=== PATIENT | female | born 1935 | race Caucasian/White ===

== ENCOUNTER → 2016-02-20 | Outpatient (CLI) | payer OTHER, MEDICARE ==
[~2016-02-20] MED LIST: ACET-1256 PO; ACETTAB14 PO; ASPI81TA28 PO; CARB25TA14 PO; CMD25 PO; DILT360C17 PO; FLAX12003 PO; FLX10 PO; FRRS300 PO; FURO-85 PO; GABA-113 PO; KFL500 PO; LNX125 PO; LOVA20TA4 PO; MAGNTAB4 PO; MCRK20 PO; MULT-190 PO; MULT-845 PO; NRN600 PO; SLWMEC PO; TPRSR50 PO; WARF2.5T8 PO
[2016-02-20 09:48] LABS: INR 2.1 (0.9-1.1); PROTHROMBIN TIME (PATIENT) 23.6 SECONDS (9.0-12.0)
== END | disposition home or self-care (01) ==
LOC: C.LABVPSUW 08:53
PROVIDERS: ATTEND Internal Medicine Cardiovascular Disease
DX: I48.91 Unspecified atrial fibrillation (principal)

== ENCOUNTER → 2016-03-20 | Outpatient (CLI) | payer OTHER, MEDICARE ==
[2016-03-20 09:05] LABS: INR 2.6 (0.9-1.1); PROTHROMBIN TIME (PATIENT) 29.4 SECONDS (9.0-12.0)
== END | disposition home or self-care (01) ==
LOC: C.LABVPSUW 08:40
PROVIDERS: ATTEND Internal Medicine Cardiovascular Disease
DX: I48.91 Unspecified atrial fibrillation (principal)

== ENCOUNTER → 2016-04-09 | Outpatient (CLI) | payer OTHER, MEDICARE ==
[2016-04-09 10:21] LABS: INR 2.2 (0.9-1.1); PROTHROMBIN TIME (PATIENT) 24.5 SECONDS (9.0-12.0)
== END | disposition home or self-care (01) ==
LOC: C.LABVPSUW 09:42
PROVIDERS: ATTEND Internal Medicine Interventional Cardiology
DX: I48.91 Unspecified atrial fibrillation (principal)

== ENCOUNTER → 2016-05-08 | Outpatient (CLI) | payer OTHER, MEDICARE ==
[~2016-05-08] MED LIST changes: -ACETTAB14 PO; +ACETTAB15 PO
[2016-05-08 09:55] LABS: INR 2.6 (0.9-1.1); PROTHROMBIN TIME (PATIENT) 28.6 SECONDS (9.0-12.0)
--- NOTE | 2016-05-09 20:42 | CODING QUERY NO DIAGNOSIS ---
: 1935 TREATMENT RENDERED WITHOUT A DIAGNOSIS To promote full compliance with coding requirements relating to patient care, physician participation is requested in all cases of remote medical coder uncertainty. Please assist us with providing a diagnosis/symptom for the test(s) below: A diagnosis/symptom was not documented on your Order. A valid diagnosis/symptom is required to bill all insurances. Please remember that we are unable to code a diagnosis of rule out, probable, possible, questionable, or suspected. Tests that require a diagnosis: : 05/08/16 * Prothrombin Time Profile DIAGNOSIS: Provider Signature: Date: Thank you Aura Merino Health Information Management Once completed, please kindly fax back to [phone] For questions please call [phone]
== END | disposition home or self-care (01) ==
LOC: C.LABVPSUA 08:47
PROVIDERS: ATTEND Internal Medicine Interventional Cardiology
DX: I48.91 Unspecified atrial fibrillation (principal)

== ENCOUNTER → 2016-06-05 | Outpatient (CLI) | payer OTHER, MEDICARE ==
[2016-06-05 09:46] LABS: INR 2.4 (0.9-1.1); PROTHROMBIN TIME (PATIENT) 26.6 SECONDS (9.0-12.0)
== END | disposition home or self-care (01) ==
LOC: C.LABVPSUW 08:57
PROVIDERS: ATTEND Internal Medicine Cardiovascular Disease
DX: I48.91 Unspecified atrial fibrillation (principal)

== ENCOUNTER 2016-07-04 12:46 | Inpatient (IN) | payer OTHER, MEDICARE ==
[2016-07-04] VITALS (9 sets, daily range): BP systolic 80–124; BP diastolic 58–88; PULSE 103–129; TEMP 36.5; O2SAT 93–98; Ht 162.6 cm; Wt 79.1 kg
[~2016-07-04] VITALS: Ht 162.6 cm; Wt 79.1 kg
[~2016-07-04 12:46] MED LIST changes: -FRRS300 PO; -GABA-113 PO; -SLWMEC PO
--- NOTE | 2016-07-04 14:14 | EMERGENCY ROOM VISIT NOTE ---
History Report prepared by Praful: Telly Payan Under the Supervision of: Dr. Jose Johns D.O. First contact with patient: 13:57 Chief Complaint: RECTAL BLEEDING Stated Complaint: BLEEDING;DOC SENT TO ER Nursing Triage Summary: Pt presents with abd pain that started today and bright red rectal bleeding when moving bowels. Pt states, "It all comes out together." Pt takes coumadin for hx of a.fib. History of Present Illness The patient is an 80 year old female who presents to the Emergency Room with complaints of episodes of rectal bleeding that started a couple days ago. The patient says that her stools have been bloody. She was referred here for evaluation after being seen at her primary care physician's office prior to arrival. The patient states that she started getting dull abdominal pain today. She denies any chest pain, shortness of breath, nausea, or vomiting. The patient takes Coumadin for a history of atrial fibrillation. Her last Coumadin level check was 3 weeks ago, and it was okay. She had a colonoscopy a while ago. The patient has a history of diverticulitis. She states that she took all her morning medications except for her water pills. Source of History: patient Onset: A couple days ago Position: other (rectum ) Quality: other (bleeding) Timing: other (episodes) Associated Symptoms: + abdominal pain (dull pain today), + hematochezia, No SOB, No chest pain, No nausea, No vomiting Review of Systems See HPI for pertinent positives & negatives. A total of 10 systems reviewed and were otherwise negative. Past Medical & Surgical Medical Problems: (1) Atrial fibrillation (2) BRBPR (bright red blood per rectum) (3) Cholecystectomy (4) Replacement of total knee joint Family History Family history omitted secondary to patient's advanced age. Social History Smoking Status: Never Smoker Alcohol Use: none Drug Use: none Marital Status: Housing Status: prison Occupation Status: retired Current/Historical Medications Scheduled Acetaminophen (Tylenol), 500 MG PO PRN Aspirin (Aspirin Ec), 81 MG PO HS Carbidopa/Levodopa (Sinemet 25MG/250MG), 1 TAB PO 8XD Digoxin (Digoxin), 0.125 MG PO 3XWK Diltiazem Hcl Coated Beads (Cardizem Cd), 1 CAP PO DAILY Flaxseed (Linseed) (Flaxseed Oil), 1 CAP PO DAILY Furosemide (Lasix), 40 MG PO DAILY Gabapentin (Neurontin), 600 MG PO TID Lovastatin (Mevacor), 20 MG PO HS Magnesium Chloride (Slow-Mag Tab), 64 MG PO TID Metoprolol Succinate (Metoprolol Succinate ER), 100 MG PO DAILY Multiple Vitamins W/ Minerals (Centrum Silver Adult 50+), 1 TAB PO QAM Ocuvite Preservision (Ocuvite Preservision), 1 TAB PO BID Potassium Chloride (Klor-Con M20), 20 MEQ PO TID Warfarin Sod (Jantoven), 1.25 MG PO DAILY Warfarin Sod (Jantoven), 2.5 MG PO 5XWK Scheduled PRN Acetaminophen-Caffeine (Excedrin Tension Headache), 1 TAB PO DIRECTED PRN for Headache Allergies Coded Allergies: Scopolamine (Verified Allergy, Unknown, UNKNOWN, 07/04/16) Pseudoephedrine (Verified Adverse Reaction, Intermediate, TACHYCARDIA, ) Quinine (Verified Adverse Reaction, Intermediate, DIARRHEA, 07/04/16) Ropinirole (Verified Adverse Reaction, Intermediate, VERTIGO, 07/04/16) Physical Exam Vital Signs Date Time Temp Pulse Resp B/P Pulse Ox O2 Delivery O2 Flow Rate FiO2 07/04/16 17:03 102 20 119/74 95 Room Air 07/04/16 15:26 116 18 97/79 94 07/04/16 14:36 110 18 98/75 07/04/16 14:32 102 07/04/16 12:58 36.5 110 20 100/60 100 Room Air Physical Exam GENERAL: Patient is awake, alert, mildly anxious appearing but overall comfortable. EYES: The conjunctivae are clear. The pupils are round and reactive. EARS, NOSE, MOUTH AND THROAT: The nose is without any evidence of any deformity. Mucous membranes are moist tongue is midline NECK: The neck is nontender and supple. RESPIRATORY: Normal respiratory effort is noted there is no evidence of wheezing rhonchi or rales CARDIOVASCULAR: Heart sounds were tachycardic but irregular. No definite murmur noted to auscultation. GASTROINTESTINAL: The abdomen was moderately distended but soft. No specific guarding, tenderness, or rigidity. RECTAL: Stool was grossly bloody with clots noted. MUSCULOSKELETAL/EXTREMITIES: There is no evidence of gross deformity full range of motion is noted in the hips and shoulders SKIN: Pedal edema bilaterally with venous stasis changes noted. NEUROLOGIC: Patient is awake alert and oriented x3. Medical Decision & Procedures ER Provider Diagnostic Interpretation: X-ray results as stated below per interpretation by me and the radiologist. KUB CLINICAL HISTORY: Generalized abdominal pain. FINDINGS: An AP, portable, supine abdominal radiograph is obtained. No prior studies are available for comparison at the time of dictation. There is a nonobstructed abdominal bowel gas pattern. Moderate colonic fecal retention is noted. There is no evidence of intraperitoneal free air on this supine view. Cholecystectomy clips are seen in the right upper quadrant. There is atherosclerotic calcification of the abdominal aorta. The skeletal structures are osteopenic. There is moderate lumbosacral spondylosis and scoliosis. The bony pelvis appears intact. IMPRESSION: Nonobstructed abdominal bowel gas pattern. Electronically signed by: Cristhian North M.D. 07/04/2016 2:51 PM Dictated Date/Time: 07/04/2016 2:50 PM CHEST ONE VIEW PORTABLE CLINICAL HISTORY: ABDOMINAL PAIN/GI pain COMPARISON STUDY: 11/05/2015 FINDINGS: The bones soft tissues and hemidiaphragms are normal. The cardiomediastinal silhouette is normal. The lungs are clear. The pulmonary vasculature is normal. IMPRESSION: Negative chest. Electronically signed by: Parag Choe M.D. 07/04/2016 2:50 PM Dictated Date/Time: 07/04/2016 2:49 PM Laboratory Results 07/04/16 14:15 Red Blood Count 3.70, Mean Corpuscular Volume 87.3, Mean Corpuscular Hemoglobin 27.8, Mean Corpuscular Hemoglobin Concent 31.9, Mean Platelet Volume 10.0, Neutrophils (%) (Auto) 78.2, Lymphocytes (%) (Auto) 15.1, Monocytes (%) (Auto) 4.8, Eosinophils (%) (Auto) 0.5, Basophils (%) (Auto) 0.6, Neutrophils # (Auto) 16.46, Lymphocytes # (Auto) 3.17, Monocytes # (Auto) 1.01, Eosinophils # (Auto) 0.10, Basophils # (Auto) 0.12 07/04/16 14:15 Test 07/04/16 14:15 5/24/17 16:33 07/04/16 17:07 White Blood Count 21.03 K/uL (4.8-10.8) Red Blood Count 3.70 M/uL (4.2-5.4) Hemoglobin 10.3 g/dL (12.0-16.0) Hematocrit 32.3 % (37-47) Mean Corpuscular Volume 87.3 fL (80-100) Mean Corpuscular Hemoglobin 27.8 pg (25-34) Mean Corpuscular Hemoglobin Concent 31.9 g/dl (32-36) Platelet Count 378 K/uL (130-400) Mean Platelet Volume 10.0 fL (7.4-10.4) Neutrophils (%) (Auto) 78.2 % Lymphocytes (%) (Auto) 15.1 % Monocytes (%) (Auto) 4.8 % Eosinophils (%) (Auto) 0.5 % Basophils (%) (Auto) 0.6 % Neutrophils # (Auto) 16.46 K/uL (1.4-6.5) Lymphocytes # (Auto) 3.17 K/uL (1.2-3.4) Monocytes # (Auto) 1.01 K/uL (0.11-0.59) Eosinophils # (Auto) 0.10 K/uL (0-0.5) Basophils # (Auto) 0.12 K/uL (0-0.2) RDW Standard Deviation 49.0 fL (36.4-46.3) RDW Coefficient of Variation 15.4 % (11.5-14.5) Immature Granulocyte % (Auto) 0.8 % Immature Granulocyte # (Auto) 0.17 K/uL (0.00-0.02) Prothrombin Time 30.6 SECONDS (9.0-12.0) Prothromb Time International Ratio 2.7 (0.9-1.1) Activated Partial Thromboplast Time 44.1 SECONDS (21.0-31.0) Partial Thromboplastin Ratio 1.7 Est Creatinine Clear Calc Drug Dose 37.9 ml/min Estimated GFR () 48.7 Estimated GFR (Non- 42.1 BUN/Creatinine Ratio 22.3 (10-20) Calcium Level 8.9 mg/dl (8.5-10.1) Total Bilirubin 0.4 mg/dl (0.2-1) Direct Bilirubin < 0.1 mg/dl (0-0.2) Aspartate Amino Transf (AST/SGOT) 17 U/L (15-37) Alanine Aminotransferase (ALT/SGPT) 7 U/L (12-78) Alkaline Phosphatase 92 U/L (45-117) Total Creatine Kinase 37 U/L (26-192) Creatine Kinase MB 1.0 ng/ml (0.5-3.6) Creatine Kinase MB Ratio 2.7 (0-3.0) Troponin I < 0.015 ng/ml (0-0.045) Total Protein 6.6 gm/dl (6.4-8.2) Albumin 3.4 gm/dl (3.4-5.0) Lipase 95 U/L (73-393) Digoxin Level 0.7 ng/ml (0.8-2.0) Bedside Hemoglobin 8.8 g/dl (12.0-16.0) Bedside Hematocrit 26 % (37-47) Bedside Sodium 141 mEq/L (135-144) Bedside Potassium 5.0 mEq/L (3.3-5.0) Bedside Chloride 103 mEq/L (101-112) Bedside Total CO2 24 mEq/l (24-31) Anion Gap 20.0 mmol/L (16-25) Bedside Blood Urea Nitrogen 25 mg/dl (7-18) Bedside Creatinine 1.1 mg/dl (0.6-1.3) Bedside Glucose (other) 103 mg/dl (70-99) Bedside Ionized Calcium (Cherry) 1.24 mmol/l (1.12-1.32) Urine Color YELLOW Urine Appearance CLEAR (CLEAR) Urine pH 6.5 (4.5-7.5) Urine Specific [place] 1.022 (1.000-1.030) Urine Protein NEG (NEG) Urine Glucose (UA) NEG (NEG) Urine Ketones TRACE (NEG) Urine Occult Blood NEG (NEG) Urine Nitrite POS (NEG) Urine Bilirubin NEG (NEG) Urine Urobilinogen NEG (NEG) Urine Leukocyte Esterase TRACE (NEG) Urine WBC (Auto) 1-5 /hpf (0-5) Urine RBC (Auto) 0-4 /hpf (0-4) Urine Hyaline Casts (Auto) 0 /lpf (0-5) Urine Epithelial Cells (Auto) 10-20 /lpf (0-5) Urine Bacteria (Auto) 1+ (NEG) Laboratory results per my review. Medications Administered Medications (Trade) Dose Ordered Sig/Hair Route Start Time Stop Time Status Last Admin Dose Admin Piperacillin Sod/ Tazobactam Sod 4.5 gm 4.5 gm NOW STAT IV 07/04/16 14:39 07/04/16 14:41 DC 07/04/16 14:51 4.5 GM Sodium Chloride 1,000 ml @ 999 mls/hr Q1H1M STAT IV 07/04/16 15:02 07/04/16 16:02 DC 07/04/16 15:02 999 MLS/HR Phytonadione/ Sodium Chloride (Aqua-Mephyton Inj/Nss 50ml) 50.25 ml @ 100.5 mls/ hr ONE ONCE IV 07/04/16 15:15 07/04/16 15:44 DC 07/04/16 15:26 100.5 MLS/HR ECG Indication: abdominal pain Rate (beats per minute): 99 Rhythm: atrial fibrillation Findings: other (no PVCs, diffuse ST segment abnormalities) Change: no significant change (from November 06 of last year) ED Course 1409: The patient was evaluated in room A3. A complete history and physical examination were performed. 1439: Ordered Zosyn IV 4.5 gm IV. 1502: Ordered NSS 1000 ml @ 999 mls/hr IV. 1505: I reevaluated the patient and she is resting comfortably. The patient verbally expressed understanding and agreement with the treatment plan. The patient will be evaluated for further treatment. 1510: I discussed the patient with Dr. Neeraj STEWART application architect manager. He will evaluate the patient for further treatment. He wants me to give the patient some Vitamin K through IV. 1617: I reevaluated the patient. We will get an i-STAT on her. 1620: I discussed the patient with Dr. David Coolhey [facility]. 1633: I discussed the patient with [facility] - we are going to cross the patient for some blood. 1725: I reevaluated the patient and she is doing okay. Medical Decision Prior records/ancillary studies reviewed. Triage Nursing notes reviewed. Differential diagnosis: Etiologies such as diverticulosis, AVM, coagulopathy, colitis, inflammatory bowel disease, malignancy, Mansi-Abel tear, esophagitis, peptic ulcer disease , variceal bleed, gastritis, epistaxis, fissure, hemorrhoids, as well as others were entertained. The patient is an 80-year-old female who presented to emergency department for an evaluation of lower GI bleeding. The patient's physical exam was not consistent with an acute surgical abdomen. She doesn't a history of diverticulosis but has not had a colonoscopy for a long time. The patient had an elevated white blood cell count and was found have anemia. Her hemoglobin continued to drop on serial checks in the emergency department. She was treated with IV fluids. She was also given vitamin K. She was then ordered blood transfusion with pack red blood cells and fresh frozen plasma while in the emergency department. I discussed the patient's case with the on-call [facility] hospitalist group. I also discussed his case with the on-call gastroenterology group. They've agreed to evaluate the patient for further management and disposition. At this time the patient may require further resuscitation and stabilization prior to endoscopic evaluation. I reevaluated the patient multiple times. Her blood pressure slowly improved. She had multiple IV sites placed. Consults Time Called: 1507 Consulting Physician: Dr. Neeraj HARTMAN application architect manager Returned Call: 1510 I discussed the patient with Dr. Neeraj HARTMAN application architect manager. He will evaluate the patient for further treatment. He wants me to give the patient some Vitamin K through IV. Additional Consults: Time Called: 1615 Consulted Physician: Dr. [facility] Returned Call: 1620 Additional Comments: I discussed the patient with Dr. [facility]. Time Called: 1630 Consulted Physician: Jacklyn MONSON Returned Call: 1633 Additional Comments: I discussed the patient with Jacklyn MONSON - we are going to cross the patient for some blood. Impression Primary Impression: Lower GI bleed Additional Impressions: Anemia Anticoagulated on Coumadin Scribe Attestation The scribe's documentation has been prepared under my direction and personally reviewed by me in its entirety. I confirm that the note above accurately reflects all work, treatment, procedures, and medical decision making performed by me. Departure Information Dispostion Being Evaluated By Hospitalist Referrals [facility] (PCP) Patient Instructions [facility] Problem Qualifiers Additional Impressions: Anemia Anemia type: unspecified type Qualified Codes: D64.9 - Anemia, unspecified
[2016-07-04 14:37] LABS: BASO % 0.6 %; BASO ABS # 0.12 K/uL (0-0.2); COMPLETE YES; EOS % 0.5 %; HEMATOCRIT 32.3 % (37-47); IG% 0.8 %; LYMPH % 15.1 %; LYMPH ABS # 3.17 K/uL (1.2-3.4); MEAN CELL VOLUME 87.3 fL (80-100); MEAN CORPUSCULAR HEMOGLOBIN 27.8 pg (25-34); MEAN CORPUSCULAR HGB CONC 31.9 g/dl (32-36); MONO % 4.8 %; NEUT % 78.2 %; PLATELET COUNT 378 K/uL (130-400); WHITE BLOOD COUNT 21.03 K/uL (4.8-10.8)
[2016-07-04] MEDS ORDERED: PIPERACILLIN/TAZOBACTAM 4.5 GM/100ML D5W IV STA (14:39)
[2016-07-04] MEDS ORDERED: GABA-113 PO (14:44)
[2016-07-04 14:47] LABS: INR 2.7 (0.9-1.1); PARTIAL THROMBOPLASTIN RATIO 1.7; PROTHROMBIN TIME (PATIENT) 30.6 SECONDS (9.0-12.0)
[2016-07-04] MEDS ORDERED: SLWMEC PO (14:47)
[2016-07-04] MEDS ORDERED: WARF2.5T8 PO (14:47)
--- NOTE | 2016-07-04 14:51 | DIAGNOSTIC IMAGING REPORT ---
CHEST ONE VIEW PORTABLE CLINICAL HISTORY: ABDOMINAL PAIN/GI pain COMPARISON STUDY: 11/05/2015 FINDINGS: The bones soft tissues and hemidiaphragms are normal. The cardiomediastinal silhouette is normal. The lungs are clear. The pulmonary vasculature is normal. IMPRESSION: Negative chest. Electronically signed by: Parag Choe M.D. 07/04/2016 2:50 PM Dictated Date/Time: 07/04/2016 2:49 PM
--- NOTE | 2016-07-04 14:52 | DIAGNOSTIC IMAGING REPORT ---
KUB CLINICAL HISTORY: Generalized abdominal pain. FINDINGS: An AP, portable, supine abdominal radiograph is obtained. No prior studies are available for comparison at the time of dictation. There is a nonobstructed abdominal bowel gas pattern. Moderate colonic fecal retention is noted. There is no evidence of intraperitoneal free air on this supine view. Cholecystectomy clips are seen in the right upper quadrant. There is atherosclerotic calcification of the abdominal aorta. The skeletal structures are osteopenic. There is moderate lumbosacral spondylosis and scoliosis. The bony pelvis appears intact. IMPRESSION: Nonobstructed abdominal bowel gas pattern. Electronically signed by: Cristhian North M.D. 07/04/2016 2:51 PM Dictated Date/Time: 07/04/2016 2:50 PM
[2016-07-04 14:56] LABS: ALT/SGPT 7 U/L (12-78); AST/SGOT 17 U/L (15-37); BLOOD UREA NITROGEN 27 mg/dl (7-18); BUN/CREATININE RATIO 22.3 (10-20); CALCIUM 8.9 mg/dl (8.5-10.1); CARBON DIOXIDE 26 mmol/L (21-32); CHLORIDE 107 mmol/L (98-107); GLUCOSE 125 mg/dl (70-99); POTASSIUM 4.8 mmol/L (3.5-5.1); SODIUM 140 mmol/L (136-145)
[2016-07-04 15:02] LABS: ALKALINE PHOSPHATASE 92 U/L (45-117); CKMB/CK RATIO 2.7 (0-3.0)
[2016-07-04] MEDS ORDERED: SODIUM CHLORIDE 0.9% 1000ML 1,000 ML IV STA (15:02)
[2016-07-04] MEDS ORDERED: PHYTONADIONE INJ 2.5 MG in SODIUM CHLORIDE 0.9% 50ML 50 ML IV ONE (15:15)
[2016-07-04 16:04] LABS: ISTAT CREATININE 1.1 mg/dl (0.6-1.3); ISTAT HEMOGLOBIN 10.5 g/dl (12.0-16.0); ISTAT IONIZED CALCIUM 1.27 mmol/l (1.12-1.32)
[2016-07-04] MEDS ORDERED: SODIUM CHLORIDE 0.9% 1000ML 1,000 ML IV SCH (16:21)
[2016-07-04] MEDS ORDERED: ONDANSETRON INJ 2 MG/ML 2 ML VIAL IV PRN (16:30)
[2016-07-04] MEDS ORDERED: POLYETHYLENE (MIRALAX) 17 GM PACK PO PRN (16:30)
[2016-07-04 16:45] LABS: ISTAT CREATININE 1.1 mg/dl (0.6-1.3); ISTAT HEMOGLOBIN 8.8 g/dl (12.0-16.0); ISTAT IONIZED CALCIUM 1.24 mmol/l (1.12-1.32)
[2016-07-04 17:18] LABS: URINE APPEARANCE CLEAR (CLEAR); URINE BILIRUBIN NEG (NEG); URINE COLOR YELLOW; URINE NITRITE POS (NEG); URINE PH 6.5 (4.5-7.5); URINE SPECIFIC GRAVITY 1.022 (1.000-1.030); UROBILINOGEN NEG (NEG)
[2016-07-04 17:19] LABS: MANUAL MICROSCOPIC REQUIRED? NO; REVIEW REQ? NO
[2016-07-04 17:24] LABS: URINE APPEARANCE CLEAR (CLEAR); URINE BILIRUBIN NEG (NEG); URINE COLOR YELLOW; URINE NITRITE POS (NEG); URINE PH 6.5 (4.5-7.5); URINE SPECIFIC GRAVITY 1.022 (1.000-1.030); UROBILINOGEN NEG (NEG); ZZUR CULT IF INDIC CLEAN CATCH YES
[2016-07-04 17:28] LABS: MANUAL MICROSCOPIC REQUIRED? NO; REVIEW REQ? NO
--- NOTE | 2016-07-04 17:39 | History and Physical ---
History & Physical Date & Time of Service: July 04, 2016 at 17:17 Chief Complaint: Bleeding;Doc Sent To Er Primary Care Physician: Chacho Mcguire History of Present Illness Source: patient 80-year-old female with past medical history of atrial fibrillation on Coumadin , coronary artery disease, restless leg syndrome, remote history of diverticulitis presented to the ER with complaints of bright red bleeding per rectum which started 2 days ago. She was referred to the ER by her PCP. She stated that she noticed bright red blood in the toilet bowl after a bowel movement 2 days ago and continued to have bleeding with every bowel movement which was soft. Denied any dark tarry stools. She also developed a dull abdominal pain earlier this morning which is in the mid abdominal area with no radiation. The pain is intermittent. Denies nausea, vomiting, hematemesis. Denied any fevers with chills, dysuria, frequency. She never had any spontaneous rectal bleeding. Denies any family history of colon cancer and her last colonoscopy was in the s. She uses Coumadin for atrial fibrillation and her last INR check 3 weeks ago was within the goal range. Denied any chest pain, lightheadedness or dizziness, palpitations, fatigue or weakness. Past Medical/Surgical History Medical Problems: (1) Atrial fibrillation Status: Chronic (2) Cholecystectomy Status: Resolved (3) Replacement of total knee joint Status: Resolved Social History Smoking Status: Never Smoker Drug Use: none Marital Status: Occupational Status: retired Immunizations History of Influenza Vaccine: Yes Influenza Vaccine Date: Oct 31, 2011 History of Tetanus Vaccine?: Unknown History of Pneumococcal: Yes Pneumococcal Date: Dec 12, 2010 History of Hepatitis B Vaccine: Unknown Multi-Drug Resistant Organisms History of MDRO: No Allergies Coded Allergies: Scopolamine (Verified Allergy, Unknown, UNKNOWN, 07/04/16) Pseudoephedrine (Verified Adverse Reaction, Intermediate, TACHYCARDIA, ) Quinine (Verified Adverse Reaction, Intermediate, DIARRHEA, 07/04/16) Ropinirole (Verified Adverse Reaction, Intermediate, VERTIGO, 07/04/16) Home Medications Scheduled Acetaminophen (Tylenol), 500 MG PO PRN Aspirin (Aspirin Ec), 81 MG PO HS Carbidopa/Levodopa (Sinemet 25MG/250MG), 1 TAB PO 8XD Digoxin (Digoxin), 0.125 MG PO 3XWK Diltiazem Hcl Coated Beads (Cardizem Cd), 1 CAP PO DAILY Flaxseed (Linseed) (Flaxseed Oil), 1 CAP PO DAILY Furosemide (Lasix), 40 MG PO DAILY Gabapentin (Neurontin), 600 MG PO TID Lovastatin (Mevacor), 20 MG PO HS Magnesium Chloride (Slow-Mag Tab), 64 MG PO TID Metoprolol Succinate (Metoprolol Succinate ER), 100 MG PO DAILY Multiple Vitamins W/ Minerals (Centrum Silver Adult 50+), 1 TAB PO QAM Ocuvite Preservision (Ocuvite Preservision), 1 TAB PO BID Potassium Chloride (Klor-Con M20), 20 MEQ PO TID Warfarin Sod (Jantoven), 1.25 MG PO DAILY Warfarin Sod (Jantoven), 2.5 MG PO 5XWK Scheduled PRN Acetaminophen-Caffeine (Excedrin Tension Headache), 1 TAB PO DIRECTED PRN for Headache Review of Systems Constitutional: No chills, No fever Eyes: No worsening of vision ENT: No hearing loss Respiratory: No cough, No dyspnea on exertion, No shortness of breath, No sputum Cardiovascular: + edema, No PND, No chest pain, No orthopnea, No palpitations Abdomen: + GI bleeding (BRBPR), + pain (Dull ache), No nausea, No vomiting Genitourinary - Female: No dysuria, No urinary frequency, No urinary urgency Neurologic: No memory loss, No paralysis, No weakness Psychiatric: No depression symptoms Endocrine: No fatigue Hematologic / Lymphatic: No abnormal bleeding/bruising Integumentary: No rash Physical Exam Vital Signs Date Time Temp Pulse Resp B/P Pulse Ox O2 Delivery O2 Flow Rate FiO2 07/04/16 17:03 102 20 119/74 95 Room Air 07/04/16 15:26 116 18 97/79 94 07/04/16 14:36 110 18 98/75 07/04/16 14:32 102 07/04/16 12:58 36.5 110 20 100/60 100 Room Air General Appearance: WD/WN, no apparent distress Head: normocephalic Eyes: normal inspection Neck: supple Respiratory/Chest: chest non-tender, lungs clear, no respiratory distress, no accessory muscle use Cardiovascular: + tachycardia, + irregularly irregular Abdomen/GI: normal bowel sounds, soft, + tenderness (minimal mid abdominal), + distended, + pertinent finding (umbilical hernia) Extremities/Musculoskelatal: + pedal edema Neurologic/Psych: alert, normal mood/affect, oriented x 3 Diagnostics Laboratory Results Results Past 24 Hours Test 07/04/16 14:15 07/04/16 14:23 07/04/16 16:33 07/04/16 17:07 Range/Units White Blood Count 21.03 4.8-10.8 K/uL Red Blood Count 3.70 4.2-5.4 M/uL Hemoglobin 10.3 12.0-16.0 g/dL Hematocrit 32.3 37-47 % Mean Corpuscular Volume 87.3 80-100 fL Mean Corpuscular Hemoglobin 27.8 25-34 pg Mean Corpuscular Hemoglobin Concent 31.9 32-36 g/dl Platelet Count 378 130-400 K/uL Mean Platelet Volume 10.0 7.4-10.4 fL Neutrophils (%) (Auto) 78.2 % Lymphocytes (%) (Auto) 15.1 % Monocytes (%) (Auto) 4.8 % Eosinophils (%) (Auto) 0.5 % Basophils (%) (Auto) 0.6 % Neutrophils # (Auto) 16.46 1.4-6.5 K/uL Lymphocytes # (Auto) 3.17 1.2-3.4 K/uL Monocytes # (Auto) 1.01 0.11-0.59 K/uL Eosinophils # (Auto) 0.10 0-0.5 K/uL Basophils # (Auto) 0.12 0-0.2 K/uL RDW Standard Deviation 49.0 36.4-46.3 fL RDW Coefficient of Variation 15.4 11.5-14.5 % Immature Granulocyte % (Auto) 0.8 % Immature Granulocyte # (Auto) 0.17 0.00-0.02 K/uL Prothrombin Time 30.6 9.0-12.0 SECONDS Prothromb Time International Ratio 2.7 0.9-1.1 Activated Partial Thromboplast Time 44.1 21.0-31.0 SECONDS Partial Thromboplastin Ratio 1.7 Sodium Level 140 136-145 mmol/L Potassium Level 4.8 3.5-5.1 mmol/L Chloride Level 107 98-107 mmol/L Carbon Dioxide Level 26 21-32 mmol/L Anion Gap 7.0 19.0 20.0 16-25 mmol/L Blood Urea Nitrogen 27 7-18 mg/dl Creatinine 1.20 0.60-1.20 mg/dl Est Creatinine Clear Calc Drug Dose 37.9 ml/min Estimated GFR () 48.7 Estimated GFR (Non- 42.1 BUN/Creatinine Ratio 22.3 10-20 Random Glucose 125 70-99 mg/dl Calcium Level 8.9 8.5-10.1 mg/dl Total Bilirubin 0.4 0.2-1 mg/dl Direct Bilirubin < 0.1 0-0.2 mg/dl Aspartate Amino Transf (AST/SGOT) 17 15-37 U/L Alanine Aminotransferase (ALT/SGPT) 7 12-78 U/L Alkaline Phosphatase 92 45-117 U/L Total Creatine Kinase 37 26-192 U/L Creatine Kinase MB 1.0 0.5-3.6 ng/ml Creatine Kinase MB Ratio 2.7 0-3.0 Troponin I < 0.015 0-0.045 ng/ml Total Protein 6.6 6.4-8.2 gm/dl Albumin 3.4 3.4-5.0 gm/dl Lipase 95 73-393 U/L Digoxin Level 0.7 0.8-2.0 ng/ml Bedside Hemoglobin 10.5 8.8 12.0-16.0 g/dl Bedside Hematocrit 31 26 37-47 % Bedside Sodium 138 141 135-144 mEq/L Bedside Potassium 4.9 5.0 3.3-5.0 mEq/L Bedside Chloride 102 103 101-112 mEq/L Bedside Total CO2 23 24 24-31 mEq/l Bedside Blood Urea Nitrogen 28 25 7-18 mg/dl Bedside Creatinine 1.1 1.1 0.6-1.3 mg/dl Bedside Glucose (other) 129 103 70-99 mg/dl Bedside Ionized Calcium (Cherry) 1.27 1.24 1.12-1.32 mmol/l Diagnostic Radiology [~ rep ct add3]] KUB CLINICAL HISTORY: Generalized abdominal pain. FINDINGS: An AP, portable, supine abdominal radiograph is obtained. No prior studies are available for comparison at the time of dictation. There is a nonobstructed abdominal bowel gas pattern. Moderate colonic fecal retention is noted. There is no evidence of intraperitoneal free air on this supine view. Cholecystectomy clips are seen in the right upper quadrant. There is atherosclerotic calcification of the abdominal aorta. The skeletal structures are osteopenic. There is moderate lumbosacral spondylosis and scoliosis. The bony pelvis appears intact. IMPRESSION: Nonobstructed abdominal bowel gas pattern. CHEST ONE VIEW PORTABLE CLINICAL HISTORY: ABDOMINAL PAIN/GI pain COMPARISON STUDY: 11/05/2015 FINDINGS: The bones soft tissues and hemidiaphragms are normal. The cardiomediastinal silhouette is normal. The lungs are clear. The pulmonary vasculature is normal. IMPRESSION: Negative chest. CXR normal EKG Atrial fibrillation Low voltage QRS Inferior infarct (cited on or before 2012) Cannot rule out Anterior infarct (cited on or before 17-JUL-2012) Abnormal ECG When compared with ECG of 07-NOV-2015 06:48, No change Confirmed by Fausto Posadas ([id number]) on 07/04/2016 5:01:24 PM Impression Assessment and Plan 80-year-old female with past medical history of atrial fibrillation on Coumadin , coronary artery disease, diabetic colitis, restless leg syndrome presented to the ER with complaints of bright red bleeding per rectum that started 2 days ago. Admitted to ICU considering brisk GI bleeding , history of A. fib and in anticipation of need for pressor support Acute blood loss anemia: Secondary to GI bleed -Received 2.5 mg of IV vitamin K in the ER - Hemoglobin at presentation 10.3, recheck in 2 hours at 8.8, baseline around 12 -13 - Monitor H&H every 4 hours - Received a bolus of NSS - 2 units PRBC transfusion plus fresh frozen plasma initiated, 2 more units on hold Acute GI bleeding: -Nothing by mouth - GI consult -Started on Protonix drip - GoLYTELY prep with Dulcolax Atrial fibrillation: - Metoprolol, Cardizem, digoxin currently on hold - IV Lopressor when necessary Leukocytosis: - Wbc's at 21 k, likely secondary to stress response rather than infection - UA pending - Monitor Coronary artery disease: History of ND in 2012, aspiration thrombectomy in posterior descending artery and right proximal posterolateral artery - initial troponin negative, troponins trended - Aspirin, metoprolol currently held - Consider echo Hyperlipidemia: - Statin currently on hold as she is nothing by mouth Restless leg syndrome: - Sinemet currently on hold Lower extremity swelling: Likely secondary to Chronic venous stasis -Lasix currently on hold DVT prophylaxis: SCDs Avoid chemical anticoagulation considering active GI bleed DO NOT RESUSCITATE Discussed with patient about her living will, she verbalized that she is okay to receive blood/blood products even though stated otherwise in the living will Disposition: Admitted to ICU Level of Care Critical Care Advanced Directives Existing Living Will: Yes Resuscitation Status DO NOT RESUSCITATE VTE Prophylaxis VTE Risk Assessment Done? Y/N: Yes Risk Level: Moderate Given or contraindicated: SCD's, Contraindicated Note Total Time: Critical Care 30 - 74 minutes History Resident Physician Supervision Note: I was present with Dr. Sim during the history and exam. I discussed the case with the resident and agree with the findings and plan as documented in the note. Any exceptions or clarifications are listed here. 80 y/o female w/ acute onset GIB w/ BRBPR while AC on coumadin (therapeutic) and precipitous drop of HGB in ED. Feeling of fatigue and general abdominal discomfort. Reports no fever, lightheadedness, CP/SOB, n/v. General Appearance: WD/WN, no apparent distress Respiratory: chest non-tender, lungs clear, normal breath sounds, no respiratory distress Cardiovascular: normal peripheral pulses, regular rate, rhythm, no edema, no murmur Gastrointestinal: normal bowel sounds, soft, no organomegaly, tenderness (mild diffuse) Skin Characteristics: warm/dry, pallor (incl' sublingual) Assessment/Plan 80 y/o female h/o a-fib on coumadin, CAD (remote), DMII, RLS w/ GIB w/ BRBPR Acute anemia 2/2 blood loss - Admit to ICU, supplier quality engineer involvement appreciated. Reversed w/ IV vit K, 2U FFP and PRBC in ED. Trend H&H q4 Acute GIB - NPO. Gastroenterology consulted, input appreciated. PPI drip Atrial fibrillation - mild tachycardia - hold BP medications and digoxin. Labetolol PRN if necessary Leukocytosis - f/u UA, trend CBC Coronary artery disease - trend troponin, EKG in AM, t/c echocardiogram HLD - holding statin therapy Restless leg syndrome - Hold Sinemet Lower extremity swelling - chronic, stable - holding lasix at present DVT prophylaxis: SCDs DNR Resident Tracking Resident Involvement: Resident Care Provided Care Provided: Adult Hospital Medicine
[2016-07-04] MEDS ORDERED: PHYTONADIONE IV ONE (18:00)
[2016-07-04] MEDS ORDERED: PANTOprazole INJ 80 MG in DEXTROSE 5% 100ML IV SCH (18:00)
[2016-07-04] MEDS ORDERED: SODIUM CHLORIDE 0.9% IV ONE (18:00)
[2016-07-04] MEDS ORDERED: PANTOprazole INJ 40 MG in DEXTROSE 5% 100ML IV SCH (18:30)
[2016-07-04] MEDS ORDERED: CARBIDOPA/LEVODOPA 25-250 1 EA TAB PO ONE (19:15)
[2016-07-04] MEDS ORDERED: SODIUM CHLORIDE 0.9% 1000ML 1,000 ML IV ONE (19:15)
[2016-07-04 19:17] LABS: HEMATOCRIT 24.3 % (37-47)
--- NOTE | 2016-07-04 19:36 | Critical Care Consultation ---
Critical Care Consultation Date of Consultation: July 04, 2016. Attending Physician: Fausto Hernandez MD Reason for Consultation: Lower GI bleeding History of Present Illness This very pleasant 80-year-old female who is a resident at the [facility] at [facility], who presents with 3 days of bright red blood MS. She notes that she's had fresh blood mixed in with the stools. There is no black tarry appearance to the stool. She denies any luiz abdominal pain, but does note that she had a sensation of tightness in her lower abdomen earlier today, but at present time she denies any pain or discomfort. She denies any epigastric pain, nausea , vomiting, hematemesis. Her bowel movements have been normal recently. She denies any recent antibiotic use. She denies fevers chills night sweats. She' s had good appetite and intake. She denies chest pain, shortness of breath, palpitations, coughing, wheezing, lightheadedness, dizziness, lower extremity edema. Of note she is on systemic anticoagulation for history of A. fib with RVR. On arrival hemoglobin was noted to be 10.3. This was pared to her baseline which is approximately 12-13. INR was therapeutic at 2.7, she was given 2.5 mg IV vitamin K. She's given 1 L of normal saline in the emergency department, and she was typed and crossed. . She currently has 4 units of PRBCs on hold and 2 units of FFP on hold. She's not had transfusion yet. Past Medical/Surgical History (1) Atrial fibrillation Status: Chronic (2) Cholecystectomy Status: Resolved (3) Replacement of total knee joint Status: Resolved Restless Leg Syndrome Social History Smoking Status: Never Smoker Smokeless Tobacco Use: No Alcohol Use: none Drug Use: none Marital Status: Housing Status: group home ([place]) Occupation Status: retired Allergies Coded Allergies: Scopolamine (Verified Allergy, Unknown, UNKNOWN, 07/04/16) Pseudoephedrine (Verified Adverse Reaction, Intermediate, TACHYCARDIA, ) Quinine (Verified Adverse Reaction, Intermediate, DIARRHEA, 07/04/16) Ropinirole (Verified Adverse Reaction, Intermediate, VERTIGO, 07/04/16) Home Medications Scheduled Acetaminophen (Tylenol), 500 MG PO PRN Aspirin (Aspirin Ec), 81 MG PO HS Carbidopa/Levodopa (Sinemet 25MG/250MG), 1 TAB PO 8XD Digoxin (Digoxin), 0.125 MG PO 3XWK Diltiazem Hcl Coated Beads (Cardizem Cd), 1 CAP PO DAILY Flaxseed (Linseed) (Flaxseed Oil), 1 CAP PO DAILY Furosemide (Lasix), 40 MG PO DAILY Gabapentin (Neurontin), 600 MG PO TID Lovastatin (Mevacor), 20 MG PO HS Magnesium Chloride (Slow-Mag Tab), 64 MG PO TID Metoprolol Succinate (Metoprolol Succinate ER), 100 MG PO DAILY Multiple Vitamins W/ Minerals (Centrum Silver Adult 50+), 1 TAB PO QAM Ocuvite Preservision (Ocuvite Preservision), 1 TAB PO BID Potassium Chloride (Klor-Con M20), 20 MEQ PO TID Warfarin Sod (Jantoven), 1.25 MG PO DAILY Warfarin Sod (Jantoven), 2.5 MG PO 5XWK Scheduled PRN Acetaminophen-Caffeine (Excedrin Tension Headache), 1 TAB PO DIRECTED PRN for Headache Current Inpatient Medications Current Inpatient Medications Medications (Trade) Dose Ordered Sig/Hair Route Start Time Stop Time Status Last Admin Dose Admin Sodium Chloride (Nss 1000ml) 1,000 ml @ 75 mls/hr [id number] IV 07/04/16 16:21 08/03/16 16:20 Acetaminophen (Tylenol Tab) 650 mg Q4H PRN PO 07/04/16 16:30 08/03/16 16:29 Ondansetron HCl (Zofran Inj) 4 mg Q6H PRN IV 07/04/16 16:30 08/03/16 16:29 Polyethylene 17 gm 17 gm DAILY PRN PO 07/04/16 16:30 08/03/16 16:29 Pantoprazole Sodium/Dextrose (Protonix Inj/D5 100ml) 100 ml @ 20 mls/hr Q5H IV 07/04/16 18:30 08/03/16 18:29 Polyethylene Glycol/ Electrolytes (Golytely Soln) 8 dose TODAY@2000 ONCE PO 07/04/16 20:00 07/04/16 20:01 Bisacodyl (Dulcolax Tab) 10 mg ONE ONCE PO 07/04/16 20:00 07/04/16 20:01 Review of Systems A 10 point review systems was negative unless stated above in history of present illness. Physical Exam Date Time Temp Pulse Resp B/P Pulse Ox O2 Delivery O2 Flow Rate FiO2 07/04/16 18:45 36.5 120 20 114/88 98 Room Air 07/04/16 18:11 116 20 136/84 97 Room Air 07/04/16 17:03 102 20 119/74 95 Room Air 07/04/16 15:26 116 18 97/79 94 07/04/16 14:36 110 18 98/75 07/04/16 14:32 102 07/04/16 12:58 36.5 110 20 100/60 100 Room Air General Appearance: well-appearing, WD/WN, no apparent distress Head: normocephalic, atraumatic Eyes: PERRLA, no discharge, EOMI ENT: normal ear exam, normal nasal exam, normal mouth exam, other (no blood in the oral cavity) Neck: no tenderness, no stridor, supple Respiratory: breath sounds normal, clear to auscultation Cardiovasular: normal S1S2, no murmur, irregular rate (tachycardia) Abdomen: non tender, normal bowel sounds, no rebound Back: no midline tenderness, no CVA tenderness, no paravertebral TTP Lower Extremities: edema (right greater than left; this is a chronic finding per patient ) Neuro: alert, oriented x 3 Psychiatric: normal affect Laboratory Results Last 24 Hours Test 07/04/16 14:15 07/04/16 14:23 07/04/16 16:33 07/04/16 17:07 White Blood Count 21.03 K/uL Red Blood Count 3.70 M/uL Hemoglobin 10.3 g/dL Hematocrit 32.3 % Mean Corpuscular Volume 87.3 fL Mean Corpuscular Hemoglobin 27.8 pg Mean Corpuscular Hemoglobin Concent 31.9 g/dl Platelet Count 378 K/uL Mean Platelet Volume 10.0 fL Neutrophils (%) (Auto) 78.2 % Lymphocytes (%) (Auto) 15.1 % Monocytes (%) (Auto) 4.8 % Eosinophils (%) (Auto) 0.5 % Basophils (%) (Auto) 0.6 % Neutrophils # (Auto) 16.46 K/uL Lymphocytes # (Auto) 3.17 K/uL Monocytes # (Auto) 1.01 K/uL Eosinophils # (Auto) 0.10 K/uL Basophils # (Auto) 0.12 K/uL RDW Standard Deviation 49.0 fL RDW Coefficient of Variation 15.4 % Immature Granulocyte % (Auto) 0.8 % Immature Granulocyte # (Auto) 0.17 K/uL Prothrombin Time 30.6 SECONDS Prothromb Time International Ratio 2.7 Activated Partial Thromboplast Time 44.1 SECONDS Partial Thromboplastin Ratio 1.7 Sodium Level 140 mmol/L Potassium Level 4.8 mmol/L Chloride Level 107 mmol/L Carbon Dioxide Level 26 mmol/L Anion Gap 7.0 mmol/L 19.0 mmol/L 20.0 mmol/L Blood Urea Nitrogen 27 mg/dl Creatinine 1.20 mg/dl Est Creatinine Clear Calc Drug Dose 37.9 ml/min Estimated GFR () 48.7 Estimated GFR (Non- 42.1 BUN/Creatinine Ratio 22.3 Random Glucose 125 mg/dl Calcium Level 8.9 mg/dl Total Bilirubin 0.4 mg/dl Direct Bilirubin < 0.1 mg/dl Aspartate Amino Transf (AST/SGOT) 17 U/L Alanine Aminotransferase (ALT/SGPT) 7 U/L Alkaline Phosphatase 92 U/L Total Creatine Kinase 37 U/L Creatine Kinase MB 1.0 ng/ml Creatine Kinase MB Ratio 2.7 Troponin I < 0.015 ng/ml Total Protein 6.6 gm/dl Albumin 3.4 gm/dl Lipase 95 U/L Digoxin Level 0.7 ng/ml Bedside Hemoglobin 10.5 g/dl 8.8 g/dl Bedside Hematocrit 31 % 26 % Bedside Sodium 138 mEq/L 141 mEq/L Bedside Potassium 4.9 mEq/L 5.0 mEq/L Bedside Chloride 102 mEq/L 103 mEq/L Bedside Total CO2 23 mEq/l 24 mEq/l Bedside Blood Urea Nitrogen 28 mg/dl 25 mg/dl Bedside Creatinine 1.1 mg/dl 1.1 mg/dl Bedside Glucose (other) 129 mg/dl 103 mg/dl Bedside Ionized Calcium (Cherry) 1.27 mmol/l 1.24 mmol/l Urine Color YELLOW Urine Appearance CLEAR Urine pH 6.5 Urine Specific [place] 1.022 Urine Protein NEG Urine Glucose (UA) NEG Urine Ketones TRACE Urine Occult Blood NEG Urine Nitrite POS Urine Bilirubin NEG Urine Urobilinogen NEG Urine Leukocyte Esterase TRACE Urine WBC (Auto) 1-5 /hpf Urine RBC (Auto) 0-4 /hpf Urine Hyaline Casts (Auto) 0 /lpf Urine Epithelial Cells (Auto) 10-20 /lpf Urine Bacteria (Auto) 1+ Test 07/04/16 17:44 Diagnostic Results Atrial fibrillation Low voltage QRS Inferior infarct (cited on or before 17-JUL-2012) Cannot rule out Anterior infarct (cited on or before 17-JUL-2012) Abnormal ECG When compared with ECG of 07-NOV-2015 06:48, No change Confirmed by Fausto Posadas ([id number]) on 07/04/2016 5:01:24 PM Assessment & Plan (1) Lower GI bleed (2) Anemia (3) Anticoagulated on Coumadin (4) Atrial fibrillation (5) Acute kidney failure NEUROLOGICAL - GCS 15 ; alert and oriented 3 ; RASS 0 Restless leg syndrome - We'll give single dose of Sinemet this evening prior to starting bowel prep; after that all by mouth meds are on hold CARDIOVASCULAR - BP: BP 90-100 systolic on arrival; BP is improved to 110-130 systolic after 1 L of fluid bolus infusion - No vasopressor support indicated - IV Fluids: Start normal saline infusion at 100 ml/hr Atrial fibrillation with rapid ventricular response - Rate is currently 100-120; goal heart rate less than 100 - Tachycardia also possibly secondary to blood loss Patient got 1 L of normal saline in the emergency department; we will give another liter of normal saline in the ICU and continue at a maintenance rate of 100 ml/hr - Hold anticoagulation RESPIRATORY - RR: 18-20; SPO2 > 95% on room air - No chronic respiratory issues at this time; will continue to assess daily GASTROINTESTINAL - Diet: Nothing by mouth - GI Prophylaxis: Protonix 40 mg a daily - Bowel regimen: Anticipate colonoscopy tomorrow Discussed the case with GI; the recommendations are appreciated Will have patient consume 2 L Golytely this evening leading this evening with 10 mg Dulcolax tab Acute lower GI bleeding - Baseline hemoglobin 12-13; hemoglobin 10 on arrival; acute downtrending to 8 - The patient remains hemodynamically stable, though has some low-grade tachycardia - does not have any acute ST or T-wave changes on EKG suggestive of cardiac ischemia; the patient also does not have any chest pain Is therefore appropriate to set a transfusion threshold of <7.0 4 units PRBCs are on hold; the patient has been consented - 10 mg IV vitamin K administered; repeat INR at midnight - Trend hemoglobin and hematocrit every 6 hours; transfuse as above if hemoglobin drops to less than 7 - Anticipate colonoscopy tomorrow; start prep tonight - We'll also order C. difficile toxin assay RENAL//ENDOCRINE - Fluid Balance Monitor fluid intake and output Acute kidney injury - Cr: 1.2; baseline creatinine 0.6 - Electrolytes: Otherwise normal; trend daily - IV Fluids: Normal saline at 100 ml/hr HEMATOLOGY/INFECTIOUS DISEASE - Afebrile with leukocytosis, WBC 21 - I suspect leukocytosis is more due to stress response The patient does not have abdominal pain which points against differentials of diverticulitis or C. difficile colitis or other enterocolitis Will not administer antibiotics at this time Acute blood loss anemia - Hb/Hct 10/04; baseline 12-13 - Workup for GI loss as above DVT Prophylaxis: SCD Pharmacological anticoagulation is contraindicated LINES/IV ACCESS - 18-gauge - 20-gauge CODE STATUS - Full Code DISPOSITION -ICU for monitoring Resident Physician Supervision Note: Dr. Parra was resident physician during care of patient. I separately evaluated patient and did history and exam. I discussed the case with the resident and generally agree with the findings and plan. Patient critically ill due to acute gastrointestinal hemorrhage in the setting of anticoagulant use, reversed with vitamin K, FFP and red blood cells on hold. Will give Rocephin for UTI, started bowel prep later this evening. I have personally spent 35 minutes of critical care time in the direct management of this patient. This is a life/limb threatening event. This includes time spent evaluating patient, direct bedside care, chart review, placing orders, interpretation of diagnostic studies, discussion with consultants, patient, and family members, as well as other required patient management activities. This time is exclusive of all separately billable procedures, and teaching time and separate from and in addition to any other critical care service time. Documented By: Feliberto Schrader DO Problem Qualifiers (1) Anemia: Anemia type: unspecified type Qualified Codes: D64.9 - Anemia, unspecified
[2016-07-04] MEDS: SODIUM CHLORIDE 0.9% 1000ML 1,000 ML IV SCH (19:50)
[2016-07-04] MEDS ORDERED: LAVAGE SOLUTION 4000ML PO ONE (20:00)
[2016-07-04] MEDS ORDERED: BISACODYL 5 MG TABEC PO ONE (20:00)
[2016-07-04] MEDS: PANTOprazole INJ 40 MG in SYRINGE 0 ML IV SCH (20:16)
[2016-07-04] MEDS: CEFTRIAXONE SOD INJ 1 GM in DEXTROSE 5% ADD-VANTAGE 50ML 50 ML IV SCH (20:18)
[2016-07-04 23:08] LABS: HEMATOCRIT 22.4 % (37-47)
[2016-07-04 23:17] LABS: INR 1.8 (0.9-1.1); PROTHROMBIN TIME (PATIENT) 19.4 SECONDS (9.0-12.0)
[2016-07-05] VITALS (48 sets, daily range): BP systolic 86–125; BP diastolic 48–89; PULSE 0–155; TEMP 36.5–36.7; O2SAT 90–100
[2016-07-05] MEDS: SODIUM CHLORIDE 0.9% 1000ML 1,000 ML IV SCH (05:09)
[2016-07-05] MEDS ORDERED: LORAZEPAM 2 MG/ML 1 ML VIAL IV STA (05:43)
[2016-07-05 06:10] LABS: HEMATOCRIT 25.7 % (37-47); MEAN CELL VOLUME 85.7 fL (80-100); MEAN CORPUSCULAR HEMOGLOBIN 27.7 pg (25-34); MEAN CORPUSCULAR HGB CONC 32.3 g/dl (32-36); MEAN PLATELET VOLUME 9.6 fL (7.4-10.4); PLATELET COUNT 290 K/uL (130-400); WHITE BLOOD COUNT 17.07 K/uL (4.8-10.8)
[2016-07-05 06:25] LABS: INR 1.4 (0.9-1.1); PARTIAL THROMBOPLASTIN RATIO 1.1
[2016-07-05 06:56] LABS: ALB/GLOB RATIO 1.2 (0.9-2); BUN/CREATININE RATIO 20.7 (10-20); CALCIUM 7.7 mg/dl (8.5-10.1); CREATININE 0.86 mg/dl (0.60-1.20); MAGNESIUM 1.8 mg/dl (1.8-2.4); PHOSPHORUS 2.5 mg/dl (2.5-4.9); POTASSIUM 3.7 mmol/L (3.5-5.1)
[2016-07-05] MEDS ORDERED: DIGOXIN IV 125 MCG in SYRINGE 9.5 ML IV STA (08:11)
[2016-07-05] MEDS ORDERED: METOPROLOL TARTRATE 1 MG/ML VIAL IV. PRN (08:15)
--- NOTE | 2016-07-05 08:38 | Clinical Documentation Query ---
CLINICAL DOCUMENTATION QUERY 80 year old female who presents to the Emergency Room with complaints of episodes of rectal bleeding. Blending Machine Feeder has documented, "Patient critically ill due to acute gastrointestinal hemorrhage in the setting of anticoagulant use." To assure the diagnosis is captured by [facility] coding department please continue documented in your daily progress notes and DC summary. In your clinical opinion is this patient being managed for: ( ) GI bleed due to anticoagulation therapy (Coumadin) treated with IV vitamin K, FFP, and PRBC's. ( ) Not Agree Please clarify and document your clinical opinion in the progress notes and discharge summary. Terms such as "probable", "suspected", "likely", "questionable", "possible", or "still to be ruled out" are acceptable. IF IN AGREEMENT, YOU MUST DOCUMENT ABOVE DIAGNOSTIC STATEMENT IN DAILY PROGRESS NOTES AND DISCHARGE SUMMARY. This document is not part of the patient's record. Thank You, Ismael Wang RN [phone]
--- NOTE | 2016-07-05 08:42 | Clinical Documentation Query ---
CLINICAL DOCUMENTATION QUERY 80 year old female who presents to the Emergency Room with complaints of episodes of rectal bleeding. Quality Control Specialist has documented, "Patient critically ill due to acute gastrointestinal hemorrhage in the setting of anticoagulant use." To assure the diagnosis is captured by [facility] coding department please continue documented in your daily progress notes and DC summary. In your clinical opinion is this patient being managed for: (X) GI bleed due to anticoagulation therapy (Coumadin) treated with IV vitamin K, FFP, and PRBC's. ( ) Not Agree Please clarify and document your clinical opinion in the progress notes and discharge summary. Terms such as "probable", "suspected", "likely", "questionable", "possible", or "still to be ruled out" are acceptable. IF IN AGREEMENT, YOU MUST DOCUMENT ABOVE DIAGNOSTIC STATEMENT IN DAILY PROGRESS NOTES AND DISCHARGE SUMMARY. This document is not part of the patient's record. Thank You, Ismael Wang, RN [phone]
[2016-07-05] MEDS: PANTOprazole INJ 40 MG in SYRINGE 0 ML IV SCH ×2 (09:00→20:33)
[2016-07-05] MEDS: SODIUM CHLOR 0.45% + 20MEQ KCL 1,000 ML IV SCH ×2 (09:20→20:33)
[2016-07-05] MEDS: MAGNESIUM SULFATE 1GM / D5W 1 GM in PREMIXED IN D5W 100 ML IV SCH ×2 (09:21→10:09)
--- NOTE | 2016-07-05 09:33 | Gastrointestinal Consultation ---
Gastrointestinal Consultation Date of Consultation: July 05, 2016 Attending Physician: Fausto Hernandez Consulting Physician: Cam Evans Reason for Consultation: Rectal bleeding History of Present Illness Patient is a 80 year old female resident of [facility] who presented w rectal bleeding since Saturday. She felt lower abd pressure, but no pain. Denies any n/v, fever, chills. She has Afib, on Coumadin. INR on admission was 2.7, received Vit K 10mg IV yesterday, now down to 1.4. Labs pertinent for WBC of 21K, H/H 10.3/32. Baseline Hgb usually between 12-13. She had urine culture that's pending, Cdiff negative. Only imaging obtained on admission were KUB and CXR - both unremarkable. She is currently on Ceftriaxone. GI (DIONTE Hogan) was contacted by admitting team yesterday, recommended pt to be prepped for a colonoscopy evaluation today. Pt had completed Golytely prep. Overnight had watery stools w red blood. Main complaint today is feeling tired and sleepy. Her RLS has prevented her from getting much rest yesterday. She had also received 1U leukocyte reduced RBC transfusion, Hgb this AM 8.3. She had a colonoscopy in , reported it was normal. She denies any family hx of colorectal ca. She did have a hx of diverticulitis. Past Medical/Surgical History Medical Problems: (1) Acute neck pain Status: Acute (2) Acute pain of right knee Status: Acute (3) Anemia Status: Acute (4) Anticoagulated on Coumadin Status: Acute (5) Atrial fibrillation with rapid ventricular response Status: Acute (6) Lower GI bleed Status: Acute (7) Sepsis Status: Acute Past Surgical History: Knee replacement, cholecystectomy Social History Smoking Status: Unknown if Ever Smoked Alcohol Use: none Drug Use: none Marital Status: Housing Status: intermediate ([place]) Occupation Status: retired Allergies Coded Allergies: Scopolamine (Verified Allergy, Unknown, UNKNOWN, 07/04/16) Pseudoephedrine (Verified Adverse Reaction, Intermediate, TACHYCARDIA, ) Quinine (Verified Adverse Reaction, Intermediate, DIARRHEA, 07/04/16) Ropinirole (Verified Adverse Reaction, Intermediate, VERTIGO, 07/04/16) Current Medications Home Meds and Scripts Medications Dose Route/Sig Max Daily Dose Days Date Category Dose Instructions Jantoven (Warfarin Sodium) 2.5 Mg Tab 2.5 Mg PO 5XWK 07/04/16 Reported SUN, MON, SAT, SAT, SAT Slow-Mag Tab (Magnesium Chloride) 64 Mg Tabcr 64 Mg PO TID 07/04/16 Reported Neurontin (Gabapentin) 300 Mg Cap 600 Mg PO TID 07/04/16 Reported Metoprolol Succinate ER (Metoprolol Succinate) 50 Mg Tabcr 100 Mg PO DAILY 30 11/10/15 Rx hold when systolic blood pressure <110, or when Heart rate <65 Excedrin Tension Headache (Acetaminophen-Caffeine) 1 Tab Tab 1 Tab PO DIRECTED PRN 11/05/15 Reported Ocuvite Preservision (Multivitamins/Minerals) 1 Tab Tab 1 Tab PO BID 11/05/15 Reported Flaxseed Oil (Flaxseed (Linseed)) 1 Cap Cap 1 Cap PO DAILY 11/05/15 Reported Digoxin 0.125 Mg Tab 0.125 Mg PO 3XWK 11/05/15 Reported TAKES ON MON, WED, AND SAT. Aspirin Ec (Aspirin) 81 Mg Tab 81 Mg PO HS 11/05/15 Reported Lasix (Furosemide) 20 Mg Tab 40 Mg PO DAILY 11/05/15 Reported Jantoven (Warfarin Sodium) 2.5 Mg Tab 1.25 Mg PO DAILY 11/05/15 Reported TAKES ON , AND . Klor-Con M20 (Potassium Chloride) 20 Meq Tabcr 20 Meq PO TID 11/05/15 Reported Centrum Silver Adult 50+ (Multiple Vitamins W/ Minerals) 1 Tab Tab 1 Tab PO QAM 11/05/15 Reported Cardizem Cd (Diltiazem Hcl Coated Beads) 360 Mg Cap 1 Cap PO DAILY 90 11/05/15 Reported Mevacor (Lovastatin) 20 Mg Tab 20 Mg PO HS 07/17/12 Reported Tylenol (Acetaminophen) 500 Mg Tab 500 Mg PO PRN 09/14/09 Reported Sinemet 25MG/250MG (Carbidopa/Levodopa) Tab 1 Tab PO 8XD 08/26/08 Reported PT TAKES EVERY 3 HOURS. Review of Systems Constitutional: No chills, No fever Respiratory: No cough Cardiac: No chest pain, No edema Abdomen: + GI bleeding, + see HPI Endo: + fatigue Physical Exam Date Time Temp Pulse Resp B/P Pulse Ox O2 Delivery O2 Flow Rate FiO2 07/05/16 08:26 126 07/05/16 08:00 36.5 142 18 116/77 93 Room Air 07/05/16 08:00 94 Room Air 07/05/16 08:00 142 17 116/77 90 07/05/16 07:00 132 18 95/48 94 07/05/16 06:01 139 19 86/60 97 07/05/16 05:44 128 19 98/71 96 07/05/16 05:01 155 30 122/85 97 07/05/16 04:31 145 22 119/79 98 07/05/16 04:10 130 26 124/86 98 07/05/16 04:00 98 Room Air 07/05/16 04:00 36.6 130 15 124/86 98 07/05/16 04:00 36.6 07/05/16 03:01 127 18 89/69 98 07/05/16 03:01 131 18 89/69 98 07/05/16 03:00 36.6 127 18 89/69 98 07/05/16 03:00 122 18 98 07/05/16 02:01 113 19 117/75 99 07/05/16 02:00 36.7 113 16 117/75 98 07/05/16 02:00 36.7 112 16 117/75 98 07/05/16 01:35 36.7 119 18 124/89 96 07/05/16 01:35 36.7 113 18 124/89 96 07/05/16 01:34 131 17 124/89 99 07/05/16 01:30 125/85 07/05/16 01:06 122/85 07/05/16 01:05 36.6 117 20 122/85 96 07/05/16 01:01 114 19 124/80 96 07/05/16 00:54 36.6 110 17 107/73 96 07/05/16 00:52 137 25 107/73 93 07/05/16 00:31 127 15 124/59 97 07/05/16 00:04 128 31 125/81 98 07/05/16 00:01 36.6 07/04/16 23:59 95 Room Air 07/04/16 23:00 112/81 07/04/16 22:18 129 20 95/71 95 07/04/16 21:01 103 28 96/71 97 07/04/16 20:31 120 19 124/76 97 07/04/16 20:01 120 22 95/67 96 07/04/16 20:00 36.5 120 20 114/88 94 Room Air 07/04/16 19:01 116 17 80/58 93 07/04/16 18:45 36.5 120 20 114/88 98 Room Air 07/04/16 18:11 116 20 136/84 97 Room Air 07/04/16 17:03 102 20 119/74 95 Room Air 07/04/16 15:26 116 18 97/79 94 07/04/16 14:36 110 18 98/75 07/04/16 14:32 102 07/04/16 12:58 36.5 110 20 100/60 100 Room Air General Appearance: WD/WN, no apparent distress Eyes: normal inspection, PERRL, EOMI Neck: supple, no JVD, trachea midline Respiratory/Chest: normal breath sounds, no respiratory distress, no accessory muscle use Cardiovascular: no gallop, no murmur, + tachycardia, + irregularly irregular Abdomen: non tender, soft, + abnormal bowel sounds (hypoactive) Extremities: + swelling Neurologic/Psych: alert, normal mood/affect, oriented x 3 Skin: normal color, no jaundice, no rash Laboratory Results Last 24 Hours Test 07/04/16 14:15 07/04/16 14:23 07/04/16 16:33 07/04/16 17:07 White Blood Count 21.03 K/uL Red Blood Count 3.70 M/uL Hemoglobin 10.3 g/dL Hematocrit 32.3 % Mean Corpuscular Volume 87.3 fL Mean Corpuscular Hemoglobin 27.8 pg Mean Corpuscular Hemoglobin Concent 31.9 g/dl Platelet Count 378 K/uL Mean Platelet Volume 10.0 fL Neutrophils (%) (Auto) 78.2 % Lymphocytes (%) (Auto) 15.1 % Monocytes (%) (Auto) 4.8 % Eosinophils (%) (Auto) 0.5 % Basophils (%) (Auto) 0.6 % Neutrophils # (Auto) 16.46 K/uL Lymphocytes # (Auto) 3.17 K/uL Monocytes # (Auto) 1.01 K/uL Eosinophils # (Auto) 0.10 K/uL Basophils # (Auto) 0.12 K/uL RDW Standard Deviation 49.0 fL RDW Coefficient of Variation 15.4 % Immature Granulocyte % (Auto) 0.8 % Immature Granulocyte # (Auto) 0.17 K/uL Prothrombin Time 30.6 SECONDS Prothromb Time International Ratio 2.7 Activated Partial Thromboplast Time 44.1 SECONDS Partial Thromboplastin Ratio 1.7 Sodium Level 140 mmol/L Potassium Level 4.8 mmol/L Chloride Level 107 mmol/L Carbon Dioxide Level 26 mmol/L Anion Gap 7.0 mmol/L 19.0 mmol/L 20.0 mmol/L Blood Urea Nitrogen 27 mg/dl Creatinine 1.20 mg/dl Est Creatinine Clear Calc Drug Dose 37.9 ml/min Estimated GFR () 48.7 Estimated GFR (Non- 42.1 BUN/Creatinine Ratio 22.3 Random Glucose 125 mg/dl Calcium Level 8.9 mg/dl Total Bilirubin 0.4 mg/dl Direct Bilirubin < 0.1 mg/dl Aspartate Amino Transf (AST/SGOT) 17 U/L Alanine Aminotransferase (ALT/SGPT) 7 U/L Alkaline Phosphatase 92 U/L Total Creatine Kinase 37 U/L Creatine Kinase MB 1.0 ng/ml Creatine Kinase MB Ratio 2.7 Troponin I < 0.015 ng/ml Total Protein 6.6 gm/dl Albumin 3.4 gm/dl Lipase 95 U/L Digoxin Level 0.7 ng/ml Bedside Hemoglobin 10.5 g/dl 8.8 g/dl Bedside Hematocrit 31 % 26 % Bedside Sodium 138 mEq/L 141 mEq/L Bedside Potassium 4.9 mEq/L 5.0 mEq/L Bedside Chloride 102 mEq/L 103 mEq/L Bedside Total CO2 23 mEq/l 24 mEq/l Bedside Blood Urea Nitrogen 28 mg/dl 25 mg/dl Bedside Creatinine 1.1 mg/dl 1.1 mg/dl Bedside Glucose (other) 129 mg/dl 103 mg/dl Bedside Ionized Calcium (Cherry) 1.27 mmol/l 1.24 mmol/l Urine Color YELLOW Urine Appearance CLEAR Urine pH 6.5 Urine Specific [place] 1.022 Urine Protein NEG Urine Glucose (UA) NEG Urine Ketones TRACE Urine Occult Blood NEG Urine Nitrite POS Urine Bilirubin NEG Urine Urobilinogen NEG Urine Leukocyte Esterase TRACE Urine WBC (Auto) 1-5 /hpf Urine RBC (Auto) 0-4 /hpf Urine Hyaline Casts (Auto) 0 /lpf Urine Epithelial Cells (Auto) 10-20 /lpf Urine Bacteria (Auto) 1+ Test 07/04/16 19:06 07/04/16 20:23 07/04/16 22:55 07/04/16 23:30 Hemoglobin 8.0 g/dL 7.2 g/dL Hematocrit 24.3 % 22.4 % Bedside Glucose 107 mg/dl 97 mg/dl Prothrombin Time 19.4 SECONDS Prothromb Time International Ratio 1.8 Troponin I < 0.015 ng/ml Test 07/05/16 06:00 07/05/16 06:04 Bedside Glucose 117 mg/dl White Blood Count 17.07 K/uL Red Blood Count 3.00 M/uL Hemoglobin 8.3 g/dL Hematocrit 25.7 % Mean Corpuscular Volume 85.7 fL Mean Corpuscular Hemoglobin 27.7 pg Mean Corpuscular Hemoglobin Concent 32.3 g/dl RDW Standard Deviation 46.5 fL RDW Coefficient of Variation 14.9 % Platelet Count 290 K/uL Mean Platelet Volume 9.6 fL Prothrombin Time 15.0 SECONDS Prothromb Time International Ratio 1.4 Activated Partial Thromboplast Time 29.6 SECONDS Partial Thromboplastin Ratio 1.1 Sodium Level 144 mmol/L Potassium Level 3.7 mmol/L Chloride Level 111 mmol/L Carbon Dioxide Level 23 mmol/L Anion Gap 10.0 mmol/L Blood Urea Nitrogen 18 mg/dl Creatinine 0.86 mg/dl Est Creatinine Clear Calc Drug Dose 53.2 ml/min Estimated GFR () 72.9 Estimated GFR (Non- 62.9 BUN/Creatinine Ratio 20.7 Random Glucose 121 mg/dl Calcium Level 7.7 mg/dl Phosphorus Level 2.5 mg/dl Magnesium Level 1.8 mg/dl Total Bilirubin 0.7 mg/dl Aspartate Amino Transf (AST/SGOT) 16 U/L Alanine Aminotransferase (ALT/SGPT) 9 U/L Alkaline Phosphatase 72 U/L Troponin I 0.018 ng/ml Total Protein 5.2 gm/dl Albumin 2.8 gm/dl Globulin 2.4 gm/dl Albumin/Globulin Ratio 1.2 Impression Patient is a 80 year old female w painless rectal bleeding x 2 days. She denies any associated fever, chills, CP, SOB, n/v, abd pain. She has hx of Afib on Coumadin, INR on admission 2.7. She also has hx of diverticulitis, but recalled feeling sick with that episode but not with this rectal bleeding. Had previous colonoscopy in , reported normal exam, no family hx of colorectal ca. Plan - NPO for colonoscopy eval today. She received Golytely prep - Monitor H/H and transfuse prn - Further recs after colonoscopy is completed.
--- NOTE | 2016-07-05 10:04 | Critical Care Progress Note ---
Critical Care Progress Note Date of Service July 05, 2016. ICU Day ICU Day Number: [address] Schrader Subjective No complaints this morning; denies abdominal pain Did not sleep well as she was having bowel prep done Completed bowel prep successfully Notes that she has restless leg syndrome and legs have been shaky this morning Per nursing, bleed cleared somewhat by the end of the prep but she is still having some bleeding [place] Hb went to 7.2 overnight; was transfused 1 unit Objective Constitutional: Vital signs as above were reviewed. Eyes: Pupils equal, round, and reactive to light. Extraocular muscles are intact. No proptosis. No photophobia. ENT: Mucous membranes are moist. Oropharynx is clear. No sinus tenderness. TMs are clear bilaterally. Cardiovascular: Heart with a regular rate and rhythm. Pulses are palpable and symmetric in all 4 extremities. No pedal edema appreciated. Respiratory: Lungs clear to auscultation bilaterally. No wheezes, rales, or rhonchi appreciated. No accessory muscle use. No retractions. No increased work of breathing. GI: Abdomen soft, nontender, nondistended. Normal active bowel sounds. No abdominal hernias appreciated. No rebound. No guarding. : No CVA tenderness appreciated. Musculoskeletal: No midline cervical or vertebral tenderness. No gross deformities. No bony tenderness. No calf swelling or tenderness. Integumentary: Warm, dry, no rashes appreciated. Neurological: Patient awake, alert, and oriented x 3. Cranial nerves two through 12 grossly intact. Motor 5 out of 5 strength bilateral upper and lower extremities. Lymph: No cervical lymphadenopathy appreciated. Current SOFA Score SOFA Score Response (Comments) Value Platelets (x10) > 150 0 Bilirubin (mg/dL) < 1.2 0 [place] Com[place] Score 15 0 Level of Hypotension No Hypotension 0 Creatinine (mg/dL) < 1.2 0 Total 0 Assessment & Plan (1) Lower GI bleed History of diverticulitis (2) Anemia (3) Anticoagulated on Coumadin (4) Atrial fibrillation (5) Acute kidney failure (6) Restless leg syndrome NEUROLOGICAL - GCS 15 ; alert and oriented 3 ; RASS 0 Restless leg syndrome - Given single dose of her Sinemet prior to being NPO - All PO meds on hold at this time; continue to monitor and re-start Sinemet after colonoscopy CARDIOVASCULAR - BP: Labile BPs typically 110-120/70-80, but has occasional BPs transiently in the 80s/60s - HR variable; correlates with leg shaking At rest has been 100-120; goes upwards of 150 when legs shake - No vasopressor support indicated - IV Fluids: 1/2 NSS + 20 KCl @ 100 ml/hr Atrial fibrillation with rapid ventricular response - All PO home meds on hold including: Metoprolol, Cardizem, Digoxin - Given 0.125 mg Digoxin IV now - Metoprolol 2.5 mg IV q6h PRN for HR > 110 RESPIRATORY - RR: 15-20; SPO2 > 95% on room air - No chronic respiratory issues at this time; will continue to assess daily GASTROINTESTINAL - Diet: Nothing by mouth - GI Prophylaxis: Protonix 40 mg a daily - Bowel regimen: GoLytely regimen completed Awaiting colonoscopy at this time Acute lower GI bleeding - Baseline hemoglobin 12-13; hemoglobin 10 on arrival; acute downtrended to 7.2 1 unit PRBC transfused; recovered to 8.3; [place] to transfuse is < 7.0, unless the patient has symptoms of cardiac ischemia or EKG changes Continue q6h H&H trending Vitamin K 10 mg IV given in the ED; no indication for FFP or KCentra - Awaiting colonoscopy, anticipated today RENAL//ENDOCRINE - Fluid Balance Monitor fluid intake and output Acute kidney injury - Cr: 1.2 o arrival, but has improved to 0.86 which is consistent with baseline - Electrolytes: no gross abnormalities that need to be addressed ; trend daily - IV Fluids: 1/2 NSS + 20 mEq KCl @ 100 ml/hr HEMATOLOGY/INFECTIOUS DISEASE - Afebrile with leukocytosis, WBC improved to 17 - UTI evident on UA; culture pending - Blood cultures pending - Rocephin day 2 Acute blood loss anemia - Hb/Hct 8.3/25 this morning; baseline 12-13 - 3 units PRBC on hold; transfuse if < 7.0 - H&H q 6 hours - Colonoscopy pending DVT Prophylaxis: SCD Pharmacological anticoagulation is contraindicated due to acute GI bleeding LINES/IV ACCESS - R forearm 20 G - R forearm 18 G CODE STATUS - DNR DISPOSITION - ICU for monitoring - Awaiting colonoscopy - [facility] ready for [facility] Resident Physician Supervision Note: Dr. Parra was resident physician during care of patient. I separately evaluated patient and did history and exam. I discussed the case with the resident and generally agree with the findings and plan. Continued ICU care, transfused due to decrease in H/H I have personally spent 35 minutes of critical care time in the direct management of this patient. This is a life/limb threatening event. This includes time spent evaluating patient, direct bedside care, chart review, placing orders, interpretation of diagnostic studies, discussion with consultants, patient, and family members, as well as other required patient management activities. This time is exclusive of all separately billable procedures, and teaching time and separate from and in addition to any other critical care service time. Documented By: Feliberto Schrader DO Consults & Procedures Consultants: GI Procedures: pending colonoscopy Data Medications: Current Inpatient Medications Medications (Trade) Dose Ordered Sig/Hair Route Start Time Stop Time Status Last Admin Dose Admin Acetaminophen (Tylenol Tab) 650 mg Q4H PRN PO 07/04/16 16:30 08/03/16 16:29 Ondansetron HCl (Zofran Inj) 4 mg Q6H PRN IV 07/04/16 16:30 08/03/16 16:29 Polyethylene 17 gm 17 gm DAILY PRN PO 07/04/16 16:30 08/03/16 16:29 Ceftriaxone Sodium 1 gm/ Dextrose 50 ml @ 100 mls/hr Q24H IV 07/04/16 21:00 07/09/16 20:59 07/04/16 20:18 100 MLS/HR Pantoprazole Sodium/Syringe (Protonix Inj/ Syringe) 10 ml @ 5 mls/min BID@0900,2100 IV 07/04/16 21:00 08/03/16 20:59 07/04/16 20:16 5 MLS/MIN Metoprolol Tartrate 2.5 mg 2.5 mg Q6 PRN IV 07/05/16 08:15 08/04/16 08:14 Magnesium Sulfate 1 gm/Prmx 100 ml @ 100 mls/hr Q1H IV 07/05/16 09:00 07/05/16 10:59 07/05/16 09:21 100 MLS/HR Potassium Chloride/Sodium Chloride (1/2 Nss + 20meq KCl 1000ml) 1,000 ml @ 100 mls/hr Q10H IV 07/05/16 09:00 08/04/16 08:59 07/05/16 09:20 100 MLS/HR I & O: 24-Hour Column 07/05/16 08:00 Intake Total 2241 ml Balance 2241 ml Vital Signs: Date Time Temp Pulse Resp B/P Pulse Ox O2 Delivery O2 Flow Rate FiO2 07/05/16 08:26 126 07/05/16 08:00 36.5 142 18 116/77 93 Room Air 07/05/16 08:00 94 Room Air 07/05/16 08:00 142 17 116/77 90 07/05/16 07:00 132 18 95/48 94 07/05/16 06:01 139 19 86/60 97 07/05/16 05:44 128 19 98/71 96 07/05/16 05:01 155 30 122/85 97 07/05/16 04:31 145 22 119/79 98 07/05/16 04:10 130 26 124/86 98 07/05/16 04:00 98 Room Air 07/05/16 04:00 36.6 130 15 124/86 98 07/05/16 04:00 36.6 07/05/16 03:01 127 18 89/69 98 07/05/16 03:01 131 18 89/69 98 07/05/16 03:00 36.6 127 18 89/69 98 07/05/16 03:00 122 18 98 07/05/16 02:01 113 19 117/75 99 07/05/16 02:00 36.7 113 16 117/75 98 07/05/16 02:00 36.7 112 16 117/75 98 07/05/16 01:35 36.7 119 18 124/89 96 07/05/16 01:35 36.7 113 18 124/89 96 07/05/16 01:34 131 17 124/89 99 07/05/16 01:30 125/85 07/05/16 01:06 122/85 07/05/16 01:05 36.6 117 20 122/85 96 07/05/16 01:01 114 19 124/80 96 07/05/16 00:54 36.6 110 17 107/73 96 07/05/16 00:52 137 25 107/73 93 07/05/16 00:31 127 15 124/59 97 07/05/16 00:04 128 31 125/81 98 07/05/16 00:01 36.6 07/04/16 23:59 95 Room Air 07/04/16 23:00 112/81 07/04/16 22:18 129 20 95/71 95 07/04/16 21:01 103 28 96/71 97 07/04/16 20:31 120 19 124/76 97 07/04/16 20:01 120 22 95/67 96 07/04/16 20:00 36.5 120 20 114/88 94 Room Air 07/04/16 19:01 116 17 80/58 93 07/04/16 18:45 36.5 120 20 114/88 98 Room Air 07/04/16 18:11 116 20 136/84 97 Room Air 07/04/16 17:03 102 20 119/74 95 Room Air 07/04/16 15:26 116 18 97/79 94 07/04/16 14:36 110 18 98/75 07/04/16 14:32 102 07/04/16 12:58 36.5 110 20 100/60 100 Room Air Laboratory Results: Last 24 Hours Test 07/04/16 14:15 07/04/16 14:23 07/04/16 16:33 07/04/16 17:07 White Blood Count 21.03 K/uL Red Blood Count 3.70 M/uL Hemoglobin 10.3 g/dL Hematocrit 32.3 % Mean Corpuscular Volume 87.3 fL Mean Corpuscular Hemoglobin 27.8 pg Mean Corpuscular Hemoglobin Concent 31.9 g/dl Platelet Count 378 K/uL Mean Platelet Volume 10.0 fL Neutrophils (%) (Auto) 78.2 % Lymphocytes (%) (Auto) 15.1 % Monocytes (%) (Auto) 4.8 % Eosinophils (%) (Auto) 0.5 % Basophils (%) (Auto) 0.6 % Neutrophils # (Auto) 16.46 K/uL Lymphocytes # (Auto) 3.17 K/uL Monocytes # (Auto) 1.01 K/uL Eosinophils # (Auto) 0.10 K/uL Basophils # (Auto) 0.12 K/uL RDW Standard Deviation 49.0 fL RDW Coefficient of Variation 15.4 % Immature Granulocyte % (Auto) 0.8 % Immature Granulocyte # (Auto) 0.17 K/uL Prothrombin Time 30.6 SECONDS Prothromb Time International Ratio 2.7 Activated Partial Thromboplast Time 44.1 SECONDS Partial Thromboplastin Ratio 1.7 Sodium Level 140 mmol/L Potassium Level 4.8 mmol/L Chloride Level 107 mmol/L Carbon Dioxide Level 26 mmol/L Anion Gap 7.0 mmol/L 19.0 mmol/L 20.0 mmol/L Blood Urea Nitrogen 27 mg/dl Creatinine 1.20 mg/dl Est Creatinine Clear Calc Drug Dose 37.9 ml/min Estimated GFR () 48.7 Estimated GFR (Non- 42.1 BUN/Creatinine Ratio 22.3 Random Glucose 125 mg/dl Calcium Level 8.9 mg/dl Total Bilirubin 0.4 mg/dl Direct Bilirubin < 0.1 mg/dl Aspartate Amino Transf (AST/SGOT) 17 U/L Alanine Aminotransferase (ALT/SGPT) 7 U/L Alkaline Phosphatase 92 U/L Total Creatine Kinase 37 U/L Creatine Kinase MB 1.0 ng/ml Creatine Kinase MB Ratio 2.7 Troponin I < 0.015 ng/ml Total Protein 6.6 gm/dl Albumin 3.4 gm/dl Lipase 95 U/L Digoxin Level 0.7 ng/ml Bedside Hemoglobin 10.5 g/dl 8.8 g/dl Bedside Hematocrit 31 % 26 % Bedside Sodium 138 mEq/L 141 mEq/L Bedside Potassium 4.9 mEq/L 5.0 mEq/L Bedside Chloride 102 mEq/L 103 mEq/L Bedside Total CO2 23 mEq/l 24 mEq/l Bedside Blood Urea Nitrogen 28 mg/dl 25 mg/dl Bedside Creatinine 1.1 mg/dl 1.1 mg/dl Bedside Glucose (other) 129 mg/dl 103 mg/dl Bedside Ionized Calcium (Cherry) 1.27 mmol/l 1.24 mmol/l Urine Color YELLOW Urine Appearance CLEAR Urine pH 6.5 Urine Specific [place] 1.022 Urine Protein NEG Urine Glucose (UA) NEG Urine Ketones TRACE Urine Occult Blood NEG Urine Nitrite POS Urine Bilirubin NEG Urine Urobilinogen NEG Urine Leukocyte Esterase TRACE Urine WBC (Auto) 1-5 /hpf Urine RBC (Auto) 0-4 /hpf Urine Hyaline Casts (Auto) 0 /lpf Urine Epithelial Cells (Auto) 10-20 /lpf Urine Bacteria (Auto) 1+ Test 07/04/16 19:06 07/04/16 20:23 07/04/16 22:55 07/04/16 23:30 Hemoglobin 8.0 g/dL 7.2 g/dL Hematocrit 24.3 % 22.4 % Bedside Glucose 107 mg/dl 97 mg/dl Prothrombin Time 19.4 SECONDS Prothromb Time International Ratio 1.8 Troponin I < 0.015 ng/ml Test 07/05/16 06:00 07/05/16 06:04 Bedside Glucose 117 mg/dl White Blood Count 17.07 K/uL Red Blood Count 3.00 M/uL Hemoglobin 8.3 g/dL Hematocrit 25.7 % Mean Corpuscular Volume 85.7 fL Mean Corpuscular Hemoglobin 27.7 pg Mean Corpuscular Hemoglobin Concent 32.3 g/dl RDW Standard Deviation 46.5 fL RDW Coefficient of Variation 14.9 % Platelet Count 290 K/uL Mean Platelet Volume 9.6 fL Prothrombin Time 15.0 SECONDS Prothromb Time International Ratio 1.4 Activated Partial Thromboplast Time 29.6 SECONDS Partial Thromboplastin Ratio 1.1 Sodium Level 144 mmol/L Potassium Level 3.7 mmol/L Chloride Level 111 mmol/L Carbon Dioxide Level 23 mmol/L Anion Gap 10.0 mmol/L Blood Urea Nitrogen 18 mg/dl Creatinine 0.86 mg/dl Est Creatinine Clear Calc Drug Dose 53.2 ml/min Estimated GFR () 72.9 Estimated GFR (Non- 62.9 BUN/Creatinine Ratio 20.7 Random Glucose 121 mg/dl Calcium Level 7.7 mg/dl Phosphorus Level 2.5 mg/dl Magnesium Level 1.8 mg/dl Total Bilirubin 0.7 mg/dl Aspartate Amino Transf (AST/SGOT) 16 U/L Alanine Aminotransferase (ALT/SGPT) 9 U/L Alkaline Phosphatase 72 U/L Troponin I 0.018 ng/ml Total Protein 5.2 gm/dl Albumin 2.8 gm/dl Globulin 2.4 gm/dl Albumin/Globulin Ratio 1.2 Problem Qualifiers (1) Anemia: Anemia type: unspecified type Qualified Codes: D64.9 - Anemia, unspecified
[2016-07-05] MEDS ORDERED: PANTOprazole INJ 40 MG in SYRINGE 0 ML IV SCH (11:00)
[2016-07-05] MEDS ORDERED: EpHEDrine SULFATE INJ 50 MG/ML AMP IV PRN (11:00)
[2016-07-05] MEDS ORDERED: ONDANSETRON INJ 2 MG/ML 2 ML VIAL ONE (11:32)
[2016-07-05] MEDS ORDERED: PROPOFOL IV EMULSION 10 MG/ML 20 ML VIAL IV ONE (11:32)
[2016-07-05] MEDS ORDERED: MIDAZOLAM HCL 1 MG/ML 2ML VIAL ONE (11:32)
[2016-07-05] MEDS ORDERED: LIDOCAINE HCL 2% 2 ML VIAL (20MG/ML) ONE (11:32)
--- NOTE | 2016-07-05 11:38 | Family Medicine Progress Note ---
Progress Note Date of Service July 05, 2016. Subjective Pt evaluation today including: conversation w/ patient, physical exam, chart review, lab review Pain: denies pain PO Intake: NPO Voiding: no voiding problems Received 1 unit of PRBC transfusion overnight. Had a GoLYTELY prep for colonoscopy scheduled today. had BM intermixed with blood. Denies any abdominal pain, chest pain, palpitations, shortness of breath or dizziness. Scheduled for colonoscopy today Constitutional: No chills, No fever Eyes: No worsening of vision ENT: No hearing loss Respiratory: No cough, No shortness of breath, No sputum, No wheezing Cardiovascular: No PND, No chest pain, No orthopnea, No palpitations Abdomen: No nausea, No pain, No vomiting Musculoskeletal: No joint pain Female : No dysuria Neurologic: No memory loss, No paralysis Heme: No abnormal bleeding/bruising Medications Current Inpatient Medications Medications (Trade) Dose Ordered Sig/Hair Route Start Time Stop Time Status Last Admin Dose Admin Acetaminophen (Tylenol Tab) 650 mg Q4H PRN PO 07/04/16 16:30 08/03/16 16:29 Ondansetron HCl (Zofran Inj) 4 mg Q6H PRN IV 07/04/16 16:30 08/03/16 16:29 Polyethylene 17 gm 17 gm DAILY PRN PO 07/04/16 16:30 08/03/16 16:29 Ceftriaxone Sodium 1 gm/ Dextrose 50 ml @ 100 mls/hr Q24H IV 07/04/16 21:00 07/09/16 20:59 07/04/16 20:18 100 MLS/HR Pantoprazole Sodium/Syringe (Protonix Inj/ Syringe) 10 ml @ 5 mls/min BID@0900,2100 IV 07/04/16 21:00 08/03/16 20:59 07/05/16 09:00 5 MLS/MIN Metoprolol Tartrate 2.5 mg 2.5 mg Q6 PRN IV 07/05/16 08:15 08/04/16 08:14 Potassium Chloride/Sodium Chloride (1/2 Nss + 20meq KCl 1000ml) 1,000 ml @ 100 mls/hr Q10H IV 07/05/16 09:00 08/04/16 08:59 07/05/16 09:20 100 MLS/HR Ephedrine Sulfate (EpHEDrine SULFATE INJ) 5 mg Q5M PRN IV 07/05/16 11:00 07/05/16 16:00 Objective Vital Signs Date Time Temp Pulse Resp B/P Pulse Ox O2 Delivery O2 Flow Rate FiO2 07/05/16 10:43 36.4 126 20 130/92 96 Room Air 07/05/16 10:00 121 19 103/78 98 Room Air 07/05/16 10:00 36.5 142 17 116/77 90 07/05/16 09:00 142 17 116/77 90 07/05/16 08:26 126 07/05/16 08:00 36.5 142 18 116/77 93 Room Air 07/05/16 08:00 94 Room Air 07/05/16 08:00 142 17 116/77 90 07/05/16 07:00 132 18 95/48 94 07/05/16 06:01 139 19 86/60 97 07/05/16 05:44 128 19 98/71 96 07/05/16 05:01 155 30 122/85 97 07/05/16 04:31 145 22 119/79 98 07/05/16 04:10 130 26 124/86 98 07/05/16 04:00 98 Room Air 07/05/16 04:00 36.6 130 15 124/86 98 07/05/16 04:00 36.6 07/05/16 03:01 127 18 89/69 98 07/05/16 03:01 131 18 89/69 98 07/05/16 03:00 36.6 127 18 89/69 98 07/05/16 03:00 122 18 98 07/05/16 02:01 113 19 117/75 99 07/05/16 02:00 36.7 113 16 117/75 98 07/05/16 02:00 36.7 112 16 117/75 98 07/05/16 01:35 36.7 119 18 124/89 96 07/05/16 01:35 36.7 113 18 124/89 96 07/05/16 01:34 131 17 124/89 99 07/05/16 01:30 125/85 07/05/16 01:06 122/85 07/05/16 01:05 36.6 117 20 122/85 96 07/05/16 01:01 114 19 124/80 96 07/05/16 00:54 36.6 110 17 107/73 96 07/05/16 00:52 137 25 107/73 93 07/05/16 00:31 127 15 124/59 97 07/05/16 00:04 128 31 125/81 98 07/05/16 00:01 36.6 07/04/16 23:59 95 Room Air 07/04/16 23:00 112/81 07/04/16 22:18 129 20 95/71 95 07/04/16 21:01 103 28 96/71 97 07/04/16 20:31 120 19 124/76 97 07/04/16 20:01 120 22 95/67 96 07/04/16 20:00 36.5 120 20 114/88 94 Room Air 07/04/16 19:01 116 17 80/58 93 07/04/16 18:45 36.5 120 20 114/88 98 Room Air 07/04/16 18:11 116 20 136/84 97 Room Air 07/04/16 17:03 102 20 119/74 95 Room Air 07/04/16 15:26 116 18 97/79 94 07/04/16 14:36 110 18 98/75 07/04/16 14:32 102 07/04/16 12:58 36.5 110 20 100/60 100 Room Air Physical Exam General Appearance: WD/WN, no apparent distress Eyes: normal inspection ENT: normal ENT inspection, hearing grossly normal Neck: supple Respiratory/Chest: chest non-tender, lungs clear, normal breath sounds Cardiovascular: + tachycardia, + irregularly irregular Abdomen: normal bowel sounds, non tender, soft Extremities: normal range of motion, non-tender, + pedal edema Neurologic/Psychiatric: alert, normal mood/affect, oriented x 3 Skin: normal color Laboratory Results 07/05/16 06:04 07/05/16 06:04 Test 07/04/16 14:15 07/04/16 16:33 07/04/16 17:07 07/05/16 06:00 Immature Granulocyte % (Auto) 0.8 % White Blood Count 21.03 K/uL (4.8-10.8) Red Blood Count 3.70 M/uL (4.2-5.4) Hemoglobin 10.3 g/dL (12.0-16.0) Hematocrit 32.3 % (37-47) Mean Corpuscular Volume 87.3 fL (80-100) Mean Corpuscular Hemoglobin 27.8 pg (25-34) Mean Corpuscular Hemoglobin Concent 31.9 g/dl (32-36) Platelet Count 378 K/uL (130-400) Mean Platelet Volume 10.0 fL (7.4-10.4) Neutrophils (%) (Auto) 78.2 % Lymphocytes (%) (Auto) 15.1 % Monocytes (%) (Auto) 4.8 % Eosinophils (%) (Auto) 0.5 % Basophils (%) (Auto) 0.6 % Neutrophils # (Auto) 16.46 K/uL (1.4-6.5) Lymphocytes # (Auto) 3.17 K/uL (1.2-3.4) Monocytes # (Auto) 1.01 K/uL (0.11-0.59) Eosinophils # (Auto) 0.10 K/uL (0-0.5) Basophils # (Auto) 0.12 K/uL (0-0.2) Immature Granulocyte # (Auto) 0.17 K/uL (0.00-0.02) Direct Bilirubin < 0.1 mg/dl (0-0.2) Total Creatine Kinase 37 U/L (26-192) Creatine Kinase MB 1.0 ng/ml (0.5-3.6) Creatine Kinase MB Ratio 2.7 (0-3.0) Lipase 95 U/L (73-393) Digoxin Level 0.7 ng/ml (0.8-2.0) Bedside Hemoglobin 8.8 g/dl (12.0-16.0) Bedside Hematocrit 26 % (37-47) Bedside Sodium 141 mEq/L (135-144) Bedside Potassium 5.0 mEq/L (3.3-5.0) Bedside Chloride 103 mEq/L (101-112) Bedside Total CO2 24 mEq/l (24-31) Bedside Blood Urea Nitrogen 25 mg/dl (7-18) Bedside Creatinine 1.1 mg/dl (0.6-1.3) Bedside Glucose (other) 103 mg/dl (70-99) Bedside Ionized Calcium (Cherry) 1.24 mmol/l (1.12-1.32) Urine Color YELLOW Urine Appearance CLEAR (CLEAR) Urine pH 6.5 (4.5-7.5) Urine Specific [place] 1.022 (1.000-1.030) Urine Protein NEG (NEG) Urine Glucose (UA) NEG (NEG) Urine Ketones TRACE (NEG) Urine Occult Blood NEG (NEG) Urine Nitrite POS (NEG) Urine Bilirubin NEG (NEG) Urine Urobilinogen NEG (NEG) Urine Leukocyte Esterase TRACE (NEG) Urine WBC (Auto) 1-5 /hpf (0-5) Urine RBC (Auto) 0-4 /hpf (0-4) Urine Hyaline Casts (Auto) 0 /lpf (0-5) Urine Epithelial Cells (Auto) 10-20 /lpf (0-5) Urine Bacteria (Auto) 1+ (NEG) Bedside Glucose 117 mg/dl (70-90) Test 07/05/16 06:04 Red Blood Count 3.00 M/uL (4.2-5.4) Mean Corpuscular Volume 85.7 fL (80-100) Mean Corpuscular Hemoglobin 27.7 pg (25-34) Mean Corpuscular Hemoglobin Concent 32.3 g/dl (32-36) RDW Standard Deviation 46.5 fL (36.4-46.3) RDW Coefficient of Variation 14.9 % (11.5-14.5) Mean Platelet Volume 9.6 fL (7.4-10.4) Prothrombin Time 15.0 SECONDS (9.0-12.0) Prothromb Time International Ratio 1.4 (0.9-1.1) Activated Partial Thromboplast Time 29.6 SECONDS (21.0-31.0) Partial Thromboplastin Ratio 1.1 Anion Gap 10.0 mmol/L (3-11) Est Creatinine Clear Calc Drug Dose 53.2 ml/min Estimated GFR () 72.9 Estimated GFR (Non- 62.9 BUN/Creatinine Ratio 20.7 (10-20) Calcium Level 7.7 mg/dl (8.5-10.1) Phosphorus Level 2.5 mg/dl (2.5-4.9) Magnesium Level 1.8 mg/dl (1.8-2.4) Total Bilirubin 0.7 mg/dl (0.2-1) Aspartate Amino Transf (AST/SGOT) 16 U/L (15-37) Alanine Aminotransferase (ALT/SGPT) 9 U/L (12-78) Alkaline Phosphatase 72 U/L (45-117) Troponin I 0.018 ng/ml (0-0.045) Total Protein 5.2 gm/dl (6.4-8.2) Albumin 2.8 gm/dl (3.4-5.0) Globulin 2.4 gm/dl (2.5-4.0) Albumin/Globulin Ratio 1.2 (0.9-2) Date/Time Source Procedure Growth Status 07/04/16 18:44 Nasal MRSA DNA Surveillance Screen - Final Specimen Negative for MRSA by DNA Probe Complete 07/04/16 17:58 Stool C.difficile Toxin B Gene (PCR) - Final No C. difficile toxin B gene detected Complete Assessment and Plan 80-year-old female with past medical history of atrial fibrillation on Coumadin , coronary artery disease, diabetic colitis, restless leg syndrome presented to the ER with complaints of bright red bleeding per rectum that started 2 days ago. Admitted to ICU considering brisk GI bleeding , history of A. fib and in anticipation of need for pressor support Acute blood loss anemia: Secondary to GI bleed s/p 1 unit PRBC transfusion - Hemoglobin at presentation 10.3, recheck in 2 hours at 8.8, baseline around 12 -13 - had decreased to 7.2 overnight at which point she received 1 unit PRBC transfusion. Hgb today at 8.3 - Monitor H&H - Continue to hold coumadin Acute GI bleeding: -Nothing by mouth - GI consult - Colonoscopy today - Protonix BID Atrial fibrillation: - Metoprolol, Cardizem, digoxin currently on hold - Received digoxin this morning - IV Lopressor when necessary Leukocytosis: - Wbc's at 21 k, likely secondary to stress response rather than infection - down to 18 K - UA pending - Monitor Coronary artery disease: History of [facility] in 2012, aspiration thrombectomy in posterior descending artery and right proximal posterolateral artery - initial troponin negative, troponins trended and negative - Aspirin, metoprolol currently held Hyperlipidemia: - Statin currently on hold as she is nothing by mouth Restless leg syndrome: - Sinemet currently on hold - received Ativan overnight for RLS Lower extremity swelling: Likely secondary to Chronic venous stasis -Lasix currently on hold DVT prophylaxis: SCDs Avoid chemical anticoagulation considering active GI bleed DO NOT RESUSCITATE Discussed with patient about her living will, she verbalized that she is okay to receive blood/blood products even though stated otherwise in the living will Disposition: Admitted to ICU, colonoscopy today Resident Tracking Resident Involvement: Resident Care Provided Care Provided: Adult Hospital Medicine History Resident Physician Supervision Note: I was present with Dr. Sim during the history and exam. I discussed the case with the resident and agree with the findings and plan as documented in the note. Any exceptions or clarifications are listed here. Pt complains of mild fatigue following colonoscopy and CT scan, but otherwise feeling quite well. Looking forward to seeing her daughter tomorrow. Reports no lightheadedness, palpitations, chest pain, SOB. 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 Labetolol PRN if necessary. Coumadin reversed w/ IV vit K UTI - continue rocephin (day 2) Leukocytosis - improved marginally Coronary artery disease - holding PO meds at present HLD - holding statin therapy Restless leg syndrome - Hold Sinemet, Ativan IV appears effective Lower extremity swelling - chronic, stable - holding lasix at present DVT prophylaxis: SCDs DNR
[2016-07-05] MEDS ORDERED: PHENYLEPHRINE 100MCG/ML 5ML SYR ONE (12:23)
[2016-07-05] MEDS ORDERED: LABETALOL HCL IV 5 MG/ML 20ML IV ONE (12:23)
--- NOTE | 2016-07-05 12:30 | GI REPORT ---
Procedure Date: 07/05/2016 11:27 AM Procedure: Upper GI endoscopy Indications: Melena Medicines: See the Anesthesia note for documentation of the administered medications Complications: No immediate complications. Estimated Blood Loss: Estimated blood loss: none. Procedure: Pre-Anesthesia Assessment: - ASA Grade Assessment: IV - A patient with severe systemic disease that is a constant threat to life. After obtaining informed consent, the endoscope was passed under direct vision. Throughout the procedure, the patient's blood pressure, pulse, and oxygen saturations were monitored continuously. The scope was introduced through the mouth, and advanced to the second part of duodenum. The upper GI endoscopy was accomplished without difficulty. The patient tolerated the procedure well. Findings: There was a single prominent fold with an erosion at the GE junction. The GE junction was at 35 cm. The remainder of the esophagus was normal. The pylorus was markedly patulous. The antrum was deformed. The stomach mucosa was normal, and there was bilious fluid in the stomach. The duodenum was normal. There was bilious fluid in the small intestine. Impression: Prominent fold at GE junction with erosion. No source of GI bleeding. Recommendation: - Discharge patient to ICU. Proceed with colonoscopy. Cam Evans M.D. Cam Evans MD 07/05/2016 12:30:56 PM This report has been signed electronically. Note Initiated On: 07/05/2016 11:27 AM I attest to the content of the Intraoperative Record and orders documented therein, exceptions below
[2016-07-05] MEDS ORDERED: METOPROLOL TARTRATE 1 MG/ML VIAL ONE (12:31)
--- NOTE | 2016-07-05 12:40 | GI REPORT ---
Procedure Date: 07/05/2016 11:14 AM Procedure: Colonoscopy Indications: Hematochezia Medicines: See the Anesthesia note for documentation of the administered medications Complications: No immediate complications. Estimated Blood Loss: Estimated blood loss: none. Procedure: Pre-Anesthesia Assessment: - ASA Grade Assessment: IV - A patient with severe systemic disease that is a constant threat to life. After I obtained informed consent, the scope was passed under direct vision. Throughout the procedure, the patient's blood pressure, pulse, and oxygen saturations were monitored continuously. The scope was introduced through the anus and advanced to the cecum, identified by appendiceal orifice and ileocecal valve. The patient tolerated the procedure well. The quality of the bowel preparation was adequate. The colonoscopy was performed with moderate difficulty due to significant looping. Findings: The perianal exam findings include non-thrombosed external hemorrhoids. There was red blood throughout the entire colon, more prominent in the left colon. There was diverticulosis throughout the entire colon, more numerous in the left colon. A bleeding diverticulum was not identified. There was a large flat shallow ulcer in the cecum. This appeared to be an ischemic ulcer. There was was mass effect involving the surface of the IC valve, and the IC valve was hard to probing. Multiple biopsies done. Impression: - Large flat ulcer in cecum that appeared ischemic in origin. Pt also with pancolonic diverticulosis. - I assume that the ulcer was the source of her bleeding, although I cannot rule out a synhronous diverticular bleed. Recommendation: Discharge pt to ICU. Clear liquids. Broad spectrum abx to cover bowel chad. Transfuse for goal hgb 9. Hold anticoagulation. CT scan. Ulcer did not have high risk stigmata - If pt continues to bleed, may consider bleeding scan to r/u second possible source of bleeding. Cam Evans M.D. Cam Evans MD 07/05/2016 12:40:33 PM This report has been signed electronically. Note Initiated On: 07/05/2016 11:14 AM I attest to the content of the Intraoperative Record and orders documented therein, exceptions below
[2016-07-05] MEDS ORDERED: OPTIRAY 320 IV PRN (12:45)
--- NOTE | 2016-07-05 12:46 | Anesthesiology Progress Note ---
Anesthesia Post Op Note Date & Time July 05, 2016 at 12:46 Vital Signs Pain Intensity: 0.0 Vital Signs Past 12 Hours Date Time Temp Pulse Resp B/P Pulse Ox O2 Delivery O2 Flow Rate FiO2 07/05/16 12:12 0 07/05/16 11:00 0 07/05/16 10:43 36.4 126 20 130/92 96 Room Air 07/05/16 10:00 121 19 103/78 98 Room Air 07/05/16 10:00 36.5 142 17 116/77 90 07/05/16 09:00 142 17 116/77 90 07/05/16 08:26 126 07/05/16 08:00 36.5 142 18 116/77 93 Room Air 07/05/16 08:00 94 Room Air 07/05/16 08:00 142 17 116/77 90 07/05/16 07:00 132 18 95/48 94 07/05/16 06:01 139 19 86/60 97 07/05/16 05:44 128 19 98/71 96 07/05/16 05:01 155 30 122/85 97 07/05/16 04:31 145 22 119/79 98 07/05/16 04:10 130 26 124/86 98 07/05/16 04:00 98 Room Air 07/05/16 04:00 36.6 130 15 124/86 98 07/05/16 04:00 36.6 07/05/16 03:01 127 18 89/69 98 07/05/16 03:01 131 18 89/69 98 07/05/16 03:00 36.6 127 18 89/69 98 07/05/16 03:00 122 18 98 07/05/16 02:01 113 19 117/75 99 07/05/16 02:00 36.7 113 16 117/75 98 07/05/16 02:00 36.7 112 16 117/75 98 07/05/16 01:35 36.7 119 18 124/89 96 07/05/16 01:35 36.7 113 18 124/89 96 07/05/16 01:34 131 17 124/89 99 07/05/16 01:30 125/85 07/05/16 01:06 122/85 07/05/16 01:05 36.6 117 20 122/85 96 5/25/17 01:01 114 19 124/80 96 07/05/16 00:54 36.6 110 17 107/73 96 07/05/16 00:52 137 25 107/73 93 Notes Mental Status: alert / awake / arousable, participated in evaluation Pt Amnestic to Procedure: Yes Nausea / Vomiting: adequately controlled Pain: adequately controlled Airway Patency, RR, SpO2: stable & adequate BP & HR: stable & adequate Hydration State: stable & adequate Anesthetic Complications: no major complications apparent
[2016-07-05] MEDS: METRONIDAZOLE / NSS 500 MG in PREMIXED NSS 100 ML IV SCH ×2 (14:01→21:19)
--- NOTE | 2016-07-05 16:10 | DIAGNOSTIC IMAGING REPORT ---
ABDOMEN AND PELVIS CT WITH IV AND ORAL CONTRAST CT DOSE: 594.03 mGy.cm HISTORY: Bowel abnormality rectal bleeding, cecal ulcer TECHNIQUE: Multiaxial CT images of the abdomen and pelvis were performed following the use of intravenous and oral contrast. COMPARISON STUDY: None. FINDINGS: Mild bibasilar dependent atelectasis. Slight biliary ductal prominence post cholecystectomy. This may be a normal postoperative appearance. Cortical scarring of the kidneys bilaterally. Several punctate nonobstructing renal calcifications. No evidence for hydronephrosis. Several small renal cysts bilaterally. The adrenal glands are unremarkable. Fatty replacement of the pancreas. Circumferential wall thickening of the cecum and proximal descending colon. Several diverticuli are present. Maximum diameter is 4.0 x 4.6 cm. Several small pericecal nodes. No obstructive characteristics. Terminal ileum appears to be unremarkable. Fat-containing ventral hernia. No evidence of bowel containment or obstructive changes. Chronic sigmoid diverticulosis. No evidence for acute diverticulitis. Bladder is midline. Slight rectal prolapse. Several inguinal nodes largest of which measures 3 cm on the right. Fat-containing left inguinal hernia. No evidence of bowel containment or obstructive change. IMPRESSION: 1. Abnormal wall thickening of the cecum and proximal a sending colon with a maximum transaxial measurement of 4.0 x 4.6 cm. 2. Diagnostic considerations must include neoplastic process, chronic cecal diverticulosis, versus an atypical presentation of appendicitis epiploica. 3. Chronic sigmoid diverticulosis. 4. Abnormal right inguinal node measuring 3 cm. 5. Nonobstructive bowel pattern. Electronically signed by: Parag Choe M.D. 07/05/2016 4:09 PM Dictated Date/Time: 07/05/2016 4:02 PM
[2016-07-05 18:14] LABS: HEMATOCRIT 23.4 % (37-47)
[2016-07-05] MEDS: CEFTRIAXONE SOD INJ 1 GM in DEXTROSE 5% ADD-VANTAGE 50ML 50 ML IV SCH (20:34)
[2016-07-06] VITALS (23 sets, daily range): BP systolic 94–137; BP diastolic 58–93; PULSE 84–152; TEMP 36.5–36.7; O2SAT 82–99
[2016-07-06 01:07] LABS: HEMATOCRIT 24.2 % (37-47)
[2016-07-06] MEDS ORDERED: CARBIDOPA/LEVODOPA 25/100MG TAB PO ONE (01:09)
[2016-07-06] MEDS: METOPROLOL TARTRATE 1 MG/ML VIAL IV PRN ×2 (01:12→07:35)
[2016-07-06] MEDS ORDERED: CARBIDOPA/LEVODOPA 25/100MG EXT REL TAB PO SCH (05:00)
[2016-07-06] MEDS: SODIUM CHLOR 0.45% + 20MEQ KCL 1,000 ML IV SCH (05:09)
[2016-07-06] MEDS: CARBIDOPA/LEVODOPA 25/100MG TAB PO SCH ×5 (05:10→22:00)
[2016-07-06] MEDS: METRONIDAZOLE / NSS 500 MG in PREMIXED NSS 100 ML IV SCH ×3 (05:10→22:01)
[2016-07-06 05:57] LABS: HEMATOCRIT 22.1 % (37-47); MEAN CELL VOLUME 86.3 fL (80-100); MEAN CORPUSCULAR HEMOGLOBIN 27.7 pg (25-34); MEAN CORPUSCULAR HGB CONC 32.1 g/dl (32-36); MEAN PLATELET VOLUME 9.6 fL (7.4-10.4); PLATELET COUNT 265 K/uL (130-400); RED BLOOD COUNT 2.56 M/uL (4.2-5.4)
[2016-07-06 06:10] LABS: INR 1.1 (0.9-1.1); PROTHROMBIN TIME (PATIENT) 12.2 SECONDS (9.0-12.0)
[2016-07-06 06:41] LABS: BUN/CREATININE RATIO 13.3 (10-20); CREATININE 0.73 mg/dl (0.60-1.20); MAGNESIUM 2.1 mg/dl (1.8-2.4); PHOSPHORUS 2.6 mg/dl (2.5-4.9); POTASSIUM 3.7 mmol/L (3.5-5.1)
[2016-07-06] MEDS: PANTOprazole INJ 40 MG in SYRINGE 0 ML IV SCH ×2 (07:34→21:59)
--- NOTE | 2016-07-06 09:03 | Gastroenterology Progress Note ---
Progress Note Date of Service: July 06, 2016 Subjective Pt evaluation today including: conversation w/ patient, physical exam, chart review, lab review, review of studies, review of inpatient medication list Pt sitting up in chair, AAOx 3, in NAD. She feels well. Reports had BM after CT and also this AM - both times w/o blood, stool brown. She denies any abd pain, n/v, feels hungry, tolerated CL diet well this AM. Review of Systems Constitutional: No chills, No fever Respiratory: No cough, No shortness of breath Cardiac: No chest pain Abdomen: No GI bleeding, No nausea, No pain, No vomiting Medications Current Inpatient Medications Medications (Trade) Dose Ordered Sig/Hair Route Start Time Stop Time Status Last Admin Dose Admin Acetaminophen (Tylenol Tab) 650 mg Q4H PRN PO 07/04/16 16:30 08/03/16 16:29 Ondansetron HCl (Zofran Inj) 4 mg Q6H PRN IV 07/04/16 16:30 08/03/16 16:29 Polyethylene 17 gm 17 gm DAILY PRN PO 07/04/16 16:30 08/03/16 16:29 Ceftriaxone Sodium 1 gm/ Dextrose 50 ml @ 100 mls/hr Q24H IV 07/04/16 21:00 07/09/16 20:59 07/05/16 20:34 100 MLS/HR Pantoprazole Sodium/Syringe (Protonix Inj/ Syringe) 10 ml @ 5 mls/min BID@0900,2100 IV 07/04/16 21:00 08/03/16 20:59 07/06/16 07:34 5 MLS/MIN Metoprolol Tartrate 2.5 mg 2.5 mg Q6 PRN IV 07/05/16 08:15 08/04/16 08:14 07/06/16 07:35 2.5 MG Potassium Chloride/Sodium Chloride 1,000 ml @ 100 mls/hr Q10H IV 07/05/16 09:00 08/04/16 08:59 07/06/16 05:09 100 MLS/HR Metronidazole/Prmx (Flagyl / Nss/ Premixed Nss) 100 ml @ 100 mls/hr Q8H IV 07/05/16 14:00 07/15/16 13:59 07/06/16 05:10 100 MLS/HR Ioversol (Optiray 320) 100 ml UD PRN IV 07/05/16 12:45 07/09/16 12:44 Carbidopa/Levodopa (Sinemet 25/ 100MG Tab) 1 tab QID PO 07/06/16 05:00 08/05/16 04:59 07/06/16 07:34 1 TAB Objective Vital Signs Date Time Temp Pulse Resp B/P Pulse Ox O2 Delivery O2 Flow Rate FiO2 07/06/16 08:00 94 Room Air 07/06/16 08:00 36.5 18 137/93 93 Room Air 07/06/16 08:00 36.5 117 12 137/93 92 07/06/16 07:35 132 07/06/16 06:45 152 17 97 07/06/16 06:30 143 22 97 07/06/16 06:15 122 21 97 07/06/16 06:01 135 27 112/79 99 07/06/16 06:00 130 27 99 07/06/16 06:00 112 21 112/79 99 Room Air 07/06/16 04:00 94 Room Air 07/06/16 04:00 36.5 100 19 113/66 94 Room Air 07/06/16 02:00 103 19 118/75 96 Room Air 07/06/16 01:12 122 129/94 07/06/16 00:01 36.7 110 18 120/84 95 Room Air 07/05/16 23:59 95 Room Air 07/05/16 22:00 36.6 130 20 89/65 94 Room Air 07/05/16 22:00 134 23 07/05/16 21:30 118 20 07/05/16 21:27 147 17 89/65 07/05/16 21:00 130 21 07/05/16 20:32 111 24 104/66 07/05/16 20:30 23 07/05/16 20:01 111 21 108/74 07/05/16 20:00 Room Air 07/05/16 20:00 117 19 07/05/16 20:00 36.6 105 20 93/65 94 Room Air 07/05/16 19:31 138 18 101/69 07/05/16 19:30 108 18 07/05/16 19:01 88 19 93/65 07/05/16 19:00 88 15 07/05/16 18:31 122 17 108/79 07/05/16 18:30 125 16 07/05/16 18:01 101 19 121/75 07/05/16 18:00 92 07/05/16 18:00 92 20 121/75 92 Room Air 07/05/16 18:00 122 20 07/05/16 17:00 91 19 91/58 100 07/05/16 16:00 91 19 91/58 100 07/05/16 16:00 36.5 18 91/58 93 Room Air 07/05/16 16:00 94 Room Air 07/05/16 15:00 100 07/05/16 14:00 115 07/05/16 13:00 0 07/05/16 13:00 124 28 103/79 95 Room Air 07/05/16 12:54 108 20 116/71 96 Room Air 07/05/16 12:44 114 20 119/66 96 Room Air 07/05/16 12:34 102 20 110/81 99 Mask 5 07/05/16 12:24 106 20 120/84 99 Mask 5 07/05/16 12:12 0 07/05/16 11:00 0 07/05/16 10:43 36.4 126 20 130/92 96 Room Air 07/05/16 10:00 121 19 103/78 98 Room Air 07/05/16 10:00 36.5 142 17 116/77 90 07/05/16 09:00 142 17 116/77 90 Physical Exam General Appearance: WD/WN, no apparent distress Eyes: normal inspection, PERRL, EOMI Neck: supple, no JVD, trachea midline Respiratory/Chest: normal breath sounds, no respiratory distress, no accessory muscle use Cardiovascular: regular rate, rhythm, no gallop, no murmur Abdomen: normal bowel sounds, non tender, soft Extremities: no calf tenderness, + swelling Neurologic/Psych: alert, normal mood/affect, oriented x 3 Skin: normal color, no jaundice, no rash Laboratory Results Last 24 Hours Test 07/05/16 17:57 07/06/16 01:00 07/06/16 05:36 07/06/16 08:06 Hemoglobin 7.9 g/dL 8.2 g/dL 7.1 g/dL Hematocrit 23.4 % 24.2 % 22.1 % White Blood Count 12.30 K/uL Red Blood Count 2.56 M/uL Mean Corpuscular Volume 86.3 fL Mean Corpuscular Hemoglobin 27.7 pg Mean Corpuscular Hemoglobin Concent 32.1 g/dl RDW Standard Deviation 48.0 fL RDW Coefficient of Variation 15.3 % Platelet Count 265 K/uL Mean Platelet Volume 9.6 fL Prothrombin Time 12.2 SECONDS Prothromb Time International Ratio 1.1 Sodium Level 144 mmol/L Potassium Level 3.7 mmol/L Chloride Level 111 mmol/L Carbon Dioxide Level 26 mmol/L Anion Gap 7.0 mmol/L Blood Urea Nitrogen 10 mg/dl Creatinine 0.73 mg/dl Est Creatinine Clear Calc Drug Dose 62.7 ml/min Estimated GFR () 88.9 Estimated GFR (Non- 76.7 BUN/Creatinine Ratio 13.3 Random Glucose 98 mg/dl Calcium Level 8.0 mg/dl Phosphorus Level 2.6 mg/dl Magnesium Level 2.1 mg/dl Assessment and Plan Patient is a 80 year old female w painless rectal bleeding x 2 days. She denies any associated fever, chills, CP, SOB, n/v, abd pain. She has hx of Afib on Coumadin, INR on admission 2.7. She also has hx of diverticulitis, but recalled feeling sick with that episode but not with this rectal bleeding. Had previous colonoscopy in , reported normal exam, no family hx of colorectal ca. EGD/colonoscopy on 07/06: Upper GI exam unremarkable. Colonoscopy showed flat large cecal ulcer, and bentley diverticulosis. Likely source of bleed is cecal ulcer though diverticular bleed can't be excluded. She had CT scan abd/pelvis which showed large circumferential wall thickening in cecal/ascending colon. Differentials include: neoplasm, chronic diverticulitis, appendicitis epiploica She reports 2x BM since CT scan no bleeding each time. She tolerates CL diet, no n/v, abd pain. Hgb down to 7.1 this AM. Plans - Monitor H/H and transfuse for goal Hgb around 9 - FL diet today - F/U colonoscopy bx. - Continue current antibx for now. Attg addendum: i interviewed and examined pt, reviewed chart and labs. Pt without evidence of recurrent bleeding. Denies abd pain. Hgb stable around 7. CT scan reviewed - shows marked cecal thickening. Path from cscopy pending. Will defer need for additional xfusion to primary team; would consider liberal transfusion strategy given age and concern for ischemic colitis, with goal hgb around 9. Can adv diet to full liquids; if no further bleed by tomorrow, then can adv to low residue as tolerated. Please hold anticoagulation x 72 hours; if no recurrent bleeding by Saturday, ok to resume if needed. Plan to complete empiric 7 d course of abx to treat possibility of ischemic colitis; may switch from rocephin to oral cipro. Please call with questions over weekend.
[2016-07-06 09:12] LABS: HEMATOCRIT 24.2 % (37-47)
[2016-07-06] MEDS ORDERED: HYDROCHLOROTHIAZIDE 25 MG TAB PO ONE (09:36)
[2016-07-06] MEDS ORDERED: DILTIAZEM HCL 30 MG TAB PO ONE (09:45)
--- NOTE | 2016-07-06 09:51 | Family Medicine Progress Note ---
Progress Note Date of Service July 06, 2016. Subjective Pt evaluation today including: conversation w/ patient, physical exam, chart review, lab review PO Intake: advanced to clear liquids today Voiding: no voiding problems Had undergone an EGD and colonoscopy yesterday which she tolerated well. Diet has been advanced to clear liquids this morning. Denies any fevers, chills, no active rectal bleeding, denies abdominal pain, nausea, vomiting, chest pain, difficulty breathing but complains of feeling a little lightheaded. had 2 episodes are within liquid stool overnight Constitutional: No chills, No fever Eyes: No worsening of vision ENT: No hearing loss Respiratory: No cough, No shortness of breath, No sputum, No wheezing Cardiovascular: No chest pain Abdomen: + diarrhea (liquid BM), No nausea, No pain Musculoskeletal: No joint pain Female : No dysuria, No urinary frequency Medications Current Inpatient Medications Medications (Trade) Dose Ordered Sig/Hair Route Start Time Stop Time Status Last Admin Dose Admin Acetaminophen (Tylenol Tab) 650 mg Q4H PRN PO 07/04/16 16:30 08/03/16 16:29 Ondansetron HCl (Zofran Inj) 4 mg Q6H PRN IV 07/04/16 16:30 08/03/16 16:29 Polyethylene 17 gm 17 gm DAILY PRN PO 07/04/16 16:30 08/03/16 16:29 Ceftriaxone Sodium 1 gm/ Dextrose 50 ml @ 100 mls/hr Q24H IV 07/04/16 21:00 07/09/16 20:59 07/05/16 20:34 100 MLS/HR Pantoprazole Sodium/Syringe (Protonix Inj/ Syringe) 10 ml @ 5 mls/min BID@0900,2100 IV 07/04/16 21:00 08/03/16 20:59 07/06/16 07:34 5 MLS/MIN Metoprolol Tartrate 2.5 mg 2.5 mg Q6 PRN IV 07/05/16 08:15 08/04/16 08:14 07/06/16 07:35 2.5 MG Metronidazole/Prmx (Flagyl / Nss/ Premixed Nss) 100 ml @ 100 mls/hr Q8H IV 07/05/16 14:00 07/15/16 13:59 07/06/16 05:10 100 MLS/HR Ioversol (Optiray 320) 100 ml UD PRN IV 07/05/16 12:45 07/09/16 12:44 Carbidopa/Levodopa (Sinemet 25/ 100MG Tab) 1 tab QID PO 07/06/16 05:00 08/05/16 04:59 07/06/16 12:32 1 TAB Diltiazem HCl (Cardizem Tab) 30 mg QID PO 07/06/16 13:00 08/05/16 12:59 07/06/16 12:32 30 MG Potassium Chloride (Klor-Con Tab) 20 meq TID PO 07/06/16 14:00 08/05/16 13:59 Hydrochlorothiazide 25 mg 25 mg QAM PO 07/07/16 09:00 08/06/16 08:59 Heparin Sodium/ Dextrose (Heparin 25,000 Unit/500ml D5W) 500 ml @ 24 mls/hr [id number] PRN IV 07/06/16 10:00 08/05/16 09:59 07/06/16 10:30 24 MLS/HR Metoprolol Succinate (Toprol Xl Tab) 100 mg QAM PO 07/06/16 12:00 08/05/16 11:59 07/06/16 12:00 100 MG Digoxin (Lanoxin Tab) 0.125 mg MoWeFr@1600 PO 07/06/16 16:00 08/05/16 15:59 Objective Vital Signs Date Time Temp Pulse Resp B/P Pulse Ox O2 Delivery O2 Flow Rate FiO2 07/06/16 13:00 113 20 136/70 98 07/06/16 12:00 36.5 152 22 108/60 98 07/06/16 12:00 98 Room Air 07/06/16 12:00 36.5 18 108/60 93 Room Air 07/06/16 11:00 36.5 105 19 107/58 92 07/06/16 10:00 120 18 116/82 98 Room Air 07/06/16 10:00 122 07/06/16 08:00 94 Room Air 07/06/16 08:00 36.5 18 137/93 93 Room Air 07/06/16 08:00 36.5 117 12 137/93 92 07/06/16 07:35 132 07/06/16 06:45 152 17 97 07/06/16 06:30 143 22 97 07/06/16 06:15 122 21 97 07/06/16 06:01 135 27 112/79 99 07/06/16 06:00 130 27 99 07/06/16 06:00 112 21 112/79 99 Room Air 07/06/16 04:00 94 Room Air 07/06/16 04:00 36.5 100 19 113/66 94 Room Air 07/06/16 02:00 103 19 118/75 96 Room Air 07/06/16 01:12 122 129/94 07/06/16 00:01 36.7 110 18 120/84 95 Room Air 07/05/16 23:59 95 Room Air 07/05/16 22:00 36.6 130 20 89/65 94 Room Air 07/05/16 22:00 134 23 07/05/16 21:30 118 20 07/05/16 21:27 147 17 89/65 07/05/16 21:00 130 21 07/05/16 20:32 111 24 104/66 07/05/16 20:30 23 07/05/16 20:01 111 21 108/74 07/05/16 20:00 Room Air 07/05/16 20:00 117 19 07/05/16 20:00 36.6 105 20 93/65 94 Room Air 07/05/16 19:31 138 18 101/69 07/05/16 19:30 108 18 07/05/16 19:01 88 19 93/65 07/05/16 19:00 88 15 07/05/16 18:31 122 17 108/79 07/05/16 18:30 125 16 07/05/16 18:01 101 19 121/75 07/05/16 18:00 92 07/05/16 18:00 92 20 121/75 92 Room Air 07/05/16 18:00 122 20 07/05/16 17:00 91 19 91/58 100 07/05/16 16:00 91 19 91/58 100 07/05/16 16:00 36.5 18 91/58 93 Room Air 07/05/16 16:00 94 Room Air 07/05/16 15:00 100 07/05/16 14:00 115 Physical Exam General Appearance: WD/WN, no apparent distress Eyes: normal inspection ENT: normal ENT inspection, hearing grossly normal Neck: no adenopathy Respiratory/Chest: chest non-tender, + crackles (at the bases) Cardiovascular: regular rate, rhythm Abdomen: normal bowel sounds, non tender, soft Extremities: + pedal edema (bilaterally) Neurologic/Psychiatric: alert, normal mood/affect, oriented x 3 Skin: normal color Laboratory Results 07/06/16 09:50 Red Blood Count 2.65, Mean Corpuscular Volume 86.8, Mean Corpuscular Hemoglobin 27.5, Mean Corpuscular Hemoglobin Concent 31.7, Mean Platelet Volume 9.4, Neutrophils (%) (Auto) 75.4, Lymphocytes (%) (Auto) 14.5, Monocytes (%) (Auto) 7.4, Eosinophils (%) (Auto) 0.9, Basophils (%) (Auto) 0.9, Neutrophils # (Auto) 9.59, Lymphocytes # (Auto) 1.85, Monocytes # (Auto) 0.94, Eosinophils # (Auto) 0.12, Basophils # (Auto) 0.11 07/06/16 13:12 07/06/16 05:36 Test 07/06/16 05:36 07/06/16 09:50 Anion Gap 7.0 mmol/L (3-11) Est Creatinine Clear Calc Drug Dose 62.7 ml/min Estimated GFR () 88.9 Estimated GFR (Non- 76.7 BUN/Creatinine Ratio 13.3 (10-20) Calcium Level 8.0 mg/dl (8.5-10.1) Phosphorus Level 2.6 mg/dl (2.5-4.9) Magnesium Level 2.1 mg/dl (1.8-2.4) White Blood Count 12.72 K/uL (4.8-10.8) Red Blood Count 2.65 M/uL (4.2-5.4) Hemoglobin 7.3 g/dL (12.0-16.0) Hematocrit 23.0 % (37-47) Mean Corpuscular Volume 86.8 fL (80-100) Mean Corpuscular Hemoglobin 27.5 pg (25-34) Mean Corpuscular Hemoglobin Concent 31.7 g/dl (32-36) Platelet Count 284 K/uL (130-400) Mean Platelet Volume 9.4 fL (7.4-10.4) Neutrophils (%) (Auto) 75.4 % Lymphocytes (%) (Auto) 14.5 % Monocytes (%) (Auto) 7.4 % Eosinophils (%) (Auto) 0.9 % Basophils (%) (Auto) 0.9 % Neutrophils # (Auto) 9.59 K/uL (1.4-6.5) Lymphocytes # (Auto) 1.85 K/uL (1.2-3.4) Monocytes # (Auto) 0.94 K/uL (0.11-0.59) Eosinophils # (Auto) 0.12 K/uL (0-0.5) Basophils # (Auto) 0.11 K/uL (0-0.2) RDW Standard Deviation 48.4 fL (36.4-46.3) RDW Coefficient of Variation 15.4 % (11.5-14.5) Immature Granulocyte % (Auto) 0.9 % Immature Granulocyte # (Auto) 0.11 K/uL (0.00-0.02) Red Blood Cell Morphology Unremarkable Prothrombin Time 11.8 SECONDS (9.0-12.0) Prothromb Time International Ratio 1.1 (0.9-1.1) Activated Partial Thromboplast Time 26.4 SECONDS (21.0-31.0) Partial Thromboplastin Ratio 1.0 [~ rep ct add3]] ABDOMEN AND PELVIS CT WITH IV AND ORAL CONTRAST CT DOSE: 594.03 mGy.cm HISTORY: Bowel abnormality rectal bleeding, cecal ulcer TECHNIQUE: Multiaxial CT images of the abdomen and pelvis were performed following the use of intravenous and oral contrast. COMPARISON STUDY: None. FINDINGS: Mild bibasilar dependent atelectasis. Slight biliary ductal prominence post cholecystectomy. This may be a normal postoperative appearance. Cortical scarring of the kidneys bilaterally. Several punctate nonobstructing renal calcifications. No evidence for hydronephrosis. Several small renal cysts bilaterally. The adrenal glands are unremarkable. Fatty replacement of the pancreas. Circumferential wall thickening of the cecum and proximal descending colon. Several diverticuli are present. Maximum diameter is 4.0 x 4.6 cm. Several small pericecal nodes. No obstructive characteristics. Terminal ileum appears to be unremarkable. Fat-containing ventral hernia. No evidence of bowel containment or obstructive changes. Chronic sigmoid diverticulosis. No evidence for acute diverticulitis. Bladder is midline. Slight rectal prolapse. Several inguinal nodes largest of which measures 3 cm on the right. Fat-containing left inguinal hernia. No evidence of bowel containment or obstructive change. IMPRESSION: 1. Abnormal wall thickening of the cecum and proximal a sending colon with a maximum transaxial measurement of 4.0 x 4.6 cm. 2. Diagnostic considerations must include neoplastic process, chronic cecal diverticulosis, versus an atypical presentation of appendicitis epiploica. 3. Chronic sigmoid diverticulosis. 4. Abnormal right inguinal node measuring 3 cm. 5. Nonobstructive bowel pattern. Assessment and Plan 80-year-old female with past medical history of atrial fibrillation on Coumadin , coronary artery disease, diabetic colitis, restless leg syndrome presented to the ER with complaints of bright red bleeding per rectum that started 2 days ago. Admitted to ICU considering brisk GI bleeding , history of A. fib and in anticipation of need for pressor support. Underwent Colonoscopy and EGD yesterday Acute blood loss anemia: Secondary to GI bleed s/p 1 unit PRBC transfusion - Hemoglobin at presentation 10.3, recheck in 2 hours at 8.8, baseline around 12 -13 - Hgb has been around 7-8 - Monitor H&H - Continue to hold coumadin X72 hours Acute GI bleeding: - Colonoscopy: - Large flat ulcer in cecum that appeared ischemic in origin. pancolonic diverticulosis Recommendation: Rocephin, can be switched to cipro and flagyl - EGD: Prominent fold at GE junction with erosion. No source of GI bleeding. Ct abd: 1. Abnormal wall thickening of the cecum and proximal a sending colon with a maximum transaxial measurement of 4.0 x 4.6 cm. 2. Diagnostic considerations must include neoplastic process, chronic cecal diverticulosis, versus an atypical presentation of appendicitis epiploica. 3. Chronic sigmoid diverticulosis. 4. Abnormal right inguinal node measuring 3 cm. 5. Nonobstructive bowel pattern. - Protonix BID -Diet advanced to clear liquids today Atrial fibrillation: - Metoprolol, Cardizem, digoxin restarted - IV Lopressor when necessary Leukocytosis: - Wbc's at 21 k, likely secondary to stress response rather than infection - down to 12K - UA/UC no growth Coronary artery disease: History of MS in 2012, aspiration thrombectomy in posterior descending artery and right proximal posterolateral artery - initial troponin negative, troponins trended and negative - Aspirin currently held Hyperlipidemia: - Statin Restless leg syndrome: - Sinemet restarted Lower extremity swelling: Likely secondary to Chronic venous stasis -HCTZ given today Hypokalemia: K at 3.7- repleted DVT prophylaxis: SCDs Avoid chemical anticoagulation considering active GI bleed DO NOT RESUSCITATE Discussed with patient about her living will, she verbalized that she is okay to receive blood/blood products even though stated otherwise in the living will Disposition: Monitor in ICU History Resident Physician Supervision Note: I was present with Dr. Sim during the history and exam. I discussed the case with the resident and agree with the findings and plan as documented in the note. Any exceptions or clarifications are listed here. Complaint of mild lightheadedness today improved by laying down. Chronic dull, aching, posterior headache for which she has previously rec'd PT w/ improvement which has recurred, worsens w/ chin tuck. Reports first non grossly bloody BM today. General Appearance: WD/WN, no apparent distress Eye Exam: bilateral eye EOMI, bilateral eye PERRL Respiratory: chest non-tender, lungs clear, normal breath sounds, no respiratory distress Cardiovascular: normal peripheral pulses, no gallop, tachycardia Gastrointestinal: normal bowel sounds, non tender, soft, no organomegaly Assessment/Plan 80 y/o female h/o a-fib on coumadin, CAD (remote), DMII, RLS w/ GIB w/ BRBPR Acute anemia 2/2 blood loss w/ aGIB exacerbated by anticoagulation therapy - ICU , operations support manager and gastroenterology involvement appreciated - PPI BID, advance diet as tolerated Ischemic ulcer on colonoscopy - pathology from biopsy pending - metronidazole/ cipro for GI coverage Atrial fibrillation - mild tachycardia - restart metoprolol, diltiazem and digoxin. IV PRN if necessary. Coumadin reversed w/ IV vit K - heparin drip at present Coronary artery disease - restart oral medications HLD - restart statin therapy Restless leg syndrome - restart Sinemet Lower extremity swelling - chronic, stable - tolerating HCTZ Suspected UTI - UCx negative, withdraw Rocephin DVT prophylaxis: SCDs DNR Resident Tracking Resident Involvement: Resident Care Provided Care Provided: Adult Hospital Medicine
[2016-07-06 10:02] LABS: BASO % 0.9 %; BASO ABS # 0.11 K/uL (0-0.2); EOS % 0.9 %; IG% 0.9 %; LYMPH % 14.5 %; LYMPH ABS # 1.85 K/uL (1.2-3.4); MEAN CELL VOLUME 86.8 fL (80-100); MEAN CORPUSCULAR HEMOGLOBIN 27.5 pg (25-34); MEAN PLATELET VOLUME 9.4 fL (7.4-10.4); MONO % 7.4 %; NEUT % 75.4 %; PLATELET COUNT 284 K/uL (130-400); RED BLOOD COUNT 2.65 M/uL (4.2-5.4); WHITE BLOOD COUNT 12.72 K/uL (4.8-10.8)
[2016-07-06 10:08] LABS: MEAN CORPUSCULAR HGB CONC 31.7 g/dl (32-36)
[2016-07-06 10:10] LABS: INR 1.1 (0.9-1.1); PROTHROMBIN TIME (PATIENT) 11.8 SECONDS (9.0-12.0)
[2016-07-06 10:20] LABS: COMPLETE YES
[2016-07-06] MEDS: HEPARIN 25,000 UNIT/500ML D5W 500 ML IV PRN (10:30)
[2016-07-06] MEDS: METOPROLOL SUCC 50MG EXT REL TAB PO SCH (12:00)
[2016-07-06] MEDS: DILTIAZEM HCL 30 MG TAB PO SCH ×3 (12:32→21:59)
[2016-07-06] MEDS: POTASSIUM CHLORIDE 20 MEQ TABCR PO SCH ×2 (14:13→22:00)
--- NOTE | 2016-07-06 14:38 | Critical Care Progress Note ---
Critical Care Progress Note Date of Service July 06, 2016. ICU Day ICU Day Number: [address] Schrader Objective Constitutional: Vital signs as above were reviewed. Eyes: Pupils equal, round, and reactive to light. Extraocular muscles are intact. No proptosis. No photophobia. ENT: Mucous membranes are moist. Oropharynx is clear. No sinus tenderness. TMs are clear bilaterally. Cardiovascular: Heart with a regular rate and rhythm. Pulses are palpable and symmetric in all 4 extremities. No pedal edema appreciated. Respiratory: Lungs clear to auscultation bilaterally. No wheezes, rales, or rhonchi appreciated. No accessory muscle use. No retractions. No increased work of breathing. GI: Abdomen soft, nontender, nondistended. Normal active bowel sounds. No abdominal hernias appreciated. No rebound. No guarding. : No CVA tenderness appreciated. Musculoskeletal: No midline cervical or vertebral tenderness. No gross deformities. No bony tenderness. No calf swelling or tenderness. Integumentary: Warm, dry, no rashes appreciated. Neurological: Patient awake, alert, and oriented x 3. Cranial nerves two through 12 grossly intact. Motor 5 out of 5 strength bilateral upper and lower extremities. Lymph: No cervical lymphadenopathy appreciated. Current SOFA Score SOFA Score Response (Comments) Value Platelets (x10) > 150 0 Bilirubin (mg/dL) < 1.2 0 [place] Coma Score 15 0 Level of Hypotension No Hypotension 0 Creatinine (mg/dL) < 1.2 0 Total 0 Assessment & Plan (1) Cecal ulcer (2) Lower GI bleed History of diverticulitis (3) Anemia (4) Anticoagulated on Coumadin (5) Atrial fibrillation (6) Acute kidney failure (7) Restless leg syndrome NEUROLOGICAL - GCS 15 ; alert and oriented 3 ; RASS 0 Restless leg syndrome - Re-start Sinemet; reduce frequency to QID while in the ICU CARDIOVASCULAR - BP: Stable with MAP 80-90 - HR labile Ranging 100-130, occasionally going to 150 Patient is hemodynamic and off NPO status so we can resume home meds for Afib as noted below - No vasopressor support indicated - IV Fluids: Discontinued as diet has been re-started Atrial fibrillation with rapid ventricular response - Resume home meds Digoxin 0.125 three times weekly Metoprolol 100 BID Diltiazem restarted at reduced dose of 30 QID - Risk for VTE off anticoagulation: we will start heparin infusion and monitor for ongoing bleeding with serial H&H q 6; heparin to be discontinued if evidence of bleeding RESPIRATORY - RR: 18-23 94% on Room Air - No chronic respiratory issues at this time; will continue to assess daily GASTROINTESTINAL - Diet: Clear Liquid diet Advance as tolerated - GI Prophylaxis: Protonix 40 mg IV BID - Bowel regimen: Monitor for bowel movements, add laxatives/motility agents as indicated Acute lower GI bleeding - Likely 2/2 ischemic ulcer Patient has atrial fibrillation, last echo in EMR 2013; will repeat BENEDICT rule out thrombus as possible etiology - Baseline hemoglobin 12-13; Hb currently between 7-8 - S/p colonoscopy with noted ischemic cecal ulcer; biopsy results pending - GI recommendations appreciated RENAL//ENDOCRINE - Fluid Balance Globally + 4L Start HCTZ 25 mg daily today Acute kidney injury - Cr: 1.2 o arrival, improved to 0.73 - Electrolytes: no gross abnormalities K goal for Afib is > 4.0; will resume home regimen of 20 mEq TID - IV Fluids: Discontinued as patient is tolerating diet HEMATOLOGY/INFECTIOUS DISEASE - Afebrile with resolving leukocytosis of 12 - Blood cultures pending - Urine culture negative - Rocephin day 3; can look to de-escalate unless there is a GI indication to keep on Acute blood loss anemia - Hb/Hct stable between 7-8 - Transfusion goal < 7.0 - H&H q 6 hours, monitor for bleeding while starting heparin - Like 2/2 bleeding cecal ulcer DVT Prophylaxis SCD Start Heparin infusion today LINES/IV ACCESS - R forearm 20 G - R forearm 18 G CODE STATUS - DNR DISPOSITION - ICU for monitoring Resident Physician Supervision Note: Dr. Parra was resident physician during care of patient. I separately evaluated patient and did history and exam. I discussed the case with the resident and generally agree with the findings and plan. Reviewed colonoscopy results, patient will require long-term anticoagulation, repeat H&H today is not indicative of acute blood loss. Accordingly we will place the patient on a heparin infusion that we can manage and continue to observe for any signs of GI blood loss. If there is signs of gastrointestinal blood loss will likely transfuse tagged red blood cells in order to obtain a bleeding scan. I have personally spent 35 minutes of critical care time in the direct management of this patient. This is a life/limb threatening event. This includes time spent evaluating patient, direct bedside care, chart review, placing orders, interpretation of diagnostic studies, discussion with consultants, patient, and family members, as well as other required patient management activities. This time is exclusive of all separately billable procedures, and teaching time and separate from and in addition to any other critical care service time. Documented By: Feliberto Schrader DO Consults & Procedures Consultants: GI Procedures: s/p EGD and Colonoscopy on 07/05/2016 Data Medications: Current Inpatient Medications Medications (Trade) Dose Ordered Sig/Hair Route Start Time Stop Time Status Last Admin Dose Admin Acetaminophen (Tylenol Tab) 650 mg Q4H PRN PO 07/04/16 16:30 08/03/16 16:29 Ondansetron HCl (Zofran Inj) 4 mg Q6H PRN IV 07/04/16 16:30 08/03/16 16:29 Polyethylene 17 gm 17 gm DAILY PRN PO 07/04/16 16:30 08/03/16 16:29 Ceftriaxone Sodium 1 gm/ Dextrose 50 ml @ 100 mls/hr Q24H IV 07/04/16 21:00 07/09/16 20:59 07/05/16 20:34 100 MLS/HR Pantoprazole Sodium/Syringe (Protonix Inj/ Syringe) 10 ml @ 5 mls/min BID@0900,2100 IV 07/04/16 21:00 08/03/16 20:59 07/06/16 07:34 5 MLS/MIN Metoprolol Tartrate 2.5 mg 2.5 mg Q6 PRN IV 07/05/16 08:15 08/04/16 08:14 07/06/16 07:35 2.5 MG Metronidazole/Prmx (Flagyl / Nss/ Premixed Nss) 100 ml @ 100 mls/hr Q8H IV 07/05/16 14:00 07/15/16 13:59 07/06/16 14:13 100 MLS/HR Ioversol (Optiray 320) 100 ml UD PRN IV 07/05/16 12:45 07/09/16 12:44 Carbidopa/Levodopa (Sinemet 25/ 100MG Tab) 1 tab QID PO 07/06/16 05:00 08/05/16 04:59 07/06/16 12:32 1 TAB Diltiazem HCl (Cardizem Tab) 30 mg QID PO 07/06/16 13:00 08/05/16 12:59 07/06/16 12:32 30 MG Potassium Chloride (Klor-Con Tab) 20 meq TID PO 07/06/16 14:00 08/05/16 13:59 07/06/16 14:13 20 MEQ Hydrochlorothiazide 25 mg 25 mg QAM PO 07/07/16 09:00 08/06/16 08:59 Heparin Sodium/ Dextrose (Heparin 25,000 Unit/500ml D5W) 500 ml @ 24 mls/hr [id number] PRN IV 07/06/16 10:00 08/05/16 09:59 07/06/16 10:30 24 MLS/HR Metoprolol Succinate (Toprol Xl Tab) 100 mg QAM PO 07/06/16 12:00 08/05/16 11:59 07/06/16 12:00 100 MG Digoxin (Lanoxin Tab) 0.125 mg MoWeFr@1600 PO 07/06/16 16:00 08/05/16 15:59 I & O: 24-Hour Column 07/06/16 08:00 Intake Total 3177 ml Output Total 450 ml Balance 2727 ml Vital Signs: Date Time Temp Pulse Resp B/P Pulse Ox O2 Delivery O2 Flow Rate FiO2 07/06/16 14:06 36.5 127 23 136/65 93 07/06/16 14:06 36.5 120 23 136/65 93 Room Air 5.0 07/06/16 13:45 127 23 93 07/06/16 13:30 128 17 97 07/06/16 13:15 106 27 97 07/06/16 13:01 132 20 136/65 82 07/06/16 13:00 140 23 92 07/06/16 13:00 113 20 136/70 98 07/06/16 12:00 36.5 152 22 108/60 98 07/06/16 12:00 98 Room Air 07/06/16 12:00 36.5 18 108/60 93 Room Air 07/06/16 11:00 36.5 105 19 107/58 92 07/06/16 10:00 120 18 116/82 98 Room Air 07/06/16 10:00 122 07/06/16 08:00 94 Room Air 07/06/16 08:00 36.5 18 137/93 93 Room Air 07/06/16 08:00 36.5 117 12 137/93 92 07/06/16 07:35 132 07/06/16 06:45 152 17 97 07/06/16 06:30 143 22 97 07/06/16 06:15 122 21 97 07/06/16 06:01 135 27 112/79 99 07/06/16 06:00 130 27 99 07/06/16 06:00 112 21 112/79 99 Room Air 07/06/16 04:00 94 Room Air 07/06/16 04:00 36.5 100 19 113/66 94 Room Air 07/06/16 02:00 103 19 118/75 96 Room Air 07/06/16 01:12 122 129/94 07/06/16 00:01 36.7 110 18 120/84 95 Room Air 07/05/16 23:59 95 Room Air 07/05/16 22:00 36.6 130 20 89/65 94 Room Air 07/05/16 22:00 134 23 07/05/16 21:30 118 20 07/05/16 21:27 147 17 89/65 07/05/16 21:00 130 21 07/05/16 20:32 111 24 104/66 07/05/16 20:30 23 07/05/16 20:01 111 21 108/74 07/05/16 20:00 Room Air 07/05/16 20:00 117 19 07/05/16 20:00 36.6 105 20 93/65 94 Room Air 07/05/16 19:31 138 18 101/69 07/05/16 19:30 108 18 07/05/16 19:01 88 19 93/65 07/05/16 19:00 88 15 07/05/16 18:31 122 17 108/79 07/05/16 18:30 125 16 07/05/16 18:01 101 19 121/75 07/05/16 18:00 92 07/05/16 18:00 92 20 121/75 92 Room Air 07/05/16 18:00 122 20 07/05/16 17:00 91 19 91/58 100 07/05/16 16:00 91 19 91/58 100 07/05/16 16:00 36.5 18 91/58 93 Room Air 07/05/16 16:00 94 Room Air 07/05/16 15:00 100 Laboratory Results: Last 24 Hours Test 07/05/16 17:57 07/06/16 01:00 07/06/16 05:36 07/06/16 09:05 Hemoglobin 7.9 g/dL 8.2 g/dL 7.1 g/dL 7.8 g/dL Hematocrit 23.4 % 24.2 % 22.1 % 24.2 % White Blood Count 12.30 K/uL Red Blood Count 2.56 M/uL Mean Corpuscular Volume 86.3 fL Mean Corpuscular Hemoglobin 27.7 pg Mean Corpuscular Hemoglobin Concent 32.1 g/dl RDW Standard Deviation 48.0 fL RDW Coefficient of Variation 15.3 % Platelet Count 265 K/uL Mean Platelet Volume 9.6 fL Prothrombin Time 12.2 SECONDS Prothromb Time International Ratio 1.1 Sodium Level 144 mmol/L Potassium Level 3.7 mmol/L Chloride Level 111 mmol/L Carbon Dioxide Level 26 mmol/L Anion Gap 7.0 mmol/L Blood Urea Nitrogen 10 mg/dl Creatinine 0.73 mg/dl Est Creatinine Clear Calc Drug Dose 62.7 ml/min Estimated GFR () 88.9 Estimated GFR (Non- 76.7 BUN/Creatinine Ratio 13.3 Random Glucose 98 mg/dl Calcium Level 8.0 mg/dl Phosphorus Level 2.6 mg/dl Magnesium Level 2.1 mg/dl Test 07/06/16 09:50 07/06/16 13:12 White Blood Count 12.72 K/uL Red Blood Count 2.65 M/uL Hemoglobin 7.3 g/dL 7.5 g/dL Hematocrit 23.0 % 22.0 % Mean Corpuscular Volume 86.8 fL Mean Corpuscular Hemoglobin 27.5 pg Mean Corpuscular Hemoglobin Concent 31.7 g/dl Platelet Count 284 K/uL Mean Platelet Volume 9.4 fL Neutrophils (%) (Auto) 75.4 % Lymphocytes (%) (Auto) 14.5 % Monocytes (%) (Auto) 7.4 % Eosinophils (%) (Auto) 0.9 % Basophils (%) (Auto) 0.9 % Neutrophils # (Auto) 9.59 K/uL Lymphocytes # (Auto) 1.85 K/uL Monocytes # (Auto) 0.94 K/uL Eosinophils # (Auto) 0.12 K/uL Basophils # (Auto) 0.11 K/uL RDW Standard Deviation 48.4 fL RDW Coefficient of Variation 15.4 % Immature Granulocyte % (Auto) 0.9 % Immature Granulocyte # (Auto) 0.11 K/uL Red Blood Cell Morphology Unremarkable Prothrombin Time 11.8 SECONDS Prothromb Time International Ratio 1.1 Activated Partial Thromboplast Time 26.4 SECONDS Partial Thromboplastin Ratio 1.0 Problem Qualifiers (1) Anemia: Anemia type: unspecified type Qualified Codes: D64.9 - Anemia, unspecified
[2016-07-06] MEDS: DIGOXIN 0.125 MG TAB PO SCH (16:28)
[2016-07-06 17:46] LABS: PARTIAL THROMBOPLASTIN RATIO 1.8
--- NOTE | 2016-07-06 18:36 | ECHOCARDIOGRAM REPORT ---
*NOTICE TO RECEIVING [employer] This information is strictly Confidential and protected under [place] law. [place] law prohibits you from making any further disclosure of this information unless further disclosure is expressly permitted by the written consent of the person to whom it pertains or is authorized by law. A general authorization for the release of medical or other information is not sufficient for this purpose. Hospital accepts no responsibility if the information is made available to any other person, INCLUDING THE PATIENT. Interpretation Summary * Name: JANELLE GALLO Study Date: 07/06/2016 03:53 PM BP: 136/70 mmHg * Patient Location: .MSICU\S\E104\S\1 HR: 113 * : 1935 (M/d/yy) Gender: Female Height: 64 in * Age: 80 yrs Ethnicity: [place] Weight: 187 lb * Ordering Physician: Jeremiah Parra * Referring Physician: Dante Reynaga D.O. * Performed By: Breonna Arshad * * Reason For Study: EVALUATE FROM THROMBOEMBOLIC SOURCE * BSA: 1.9 m2 * -- Conclusions -- * 1. Normal LV size and wall thickness. Sigmoid septum. * 2. Normal LV systolic function. LVEF 55-60%. No regional wall motion abnormalities. * 3. Mildly dilated RV. Mild RV dsyfunction. * 4. Mild aortic stenosis. No AI. * 5. Mild mitral regurgitation. Mild mitral stenosis. * 6. Mild pulmonary hypertension. Est PASP 35-40 mmHg. * 7. Compared with prior study on 07/18/2012: No inferior wall motion abnormality noted. Procedure Details * A complete two-dimensional transthoracic echocardiogram was performed (2D, M-mode, Doppler and color flow Doppler). * The study was technically difficult. * A contrast injection of Definity was performed to improve assessment of LV function. * Contrast was injected into an intravenous site in the left arm. * One vial of Definity ultrasound contrast was diluted in normal saline to a total volume of 10 ml. A total of '2' ml of solution was administered during imaging. * Lot # [id number] of Definity utilized for procedure. * Expiration date 07/29. * The attending nurse who injected the contrast agent was LESLIE AMADOR RN. Left Ventricle * The left ventricle is grossly normal size. * There is normal left ventricular wall thickness. * The basal septum is thickened and angulated consistent with sigmoid septum. * Ejection Fraction = 55-60%. * No regional wall motion abnormalities noted. Right Ventricle * The right ventricle is mildly dilated. * The right ventricular systolic function is mildly reduced. Atria * The left atrium is severely dilated. * The right atrium is severely dilated. * No ASD detected; PFO is not assessed. Mitral Valve * There is moderate mitral annular calcification. * The mitral valve leaflets appear thickened, but open well. * There is mild mitral stenosis. * There is trace mitral regurgitation. Tricuspid Valve * The tricuspid valve is not well visualized, but is grossly normal. * There is no tricuspid stenosis. * There is mild to moderate tricuspid regurgitation. * Right ventricular systolic pressure is elevated at 30-40mmHg. Aortic Valve * Mild valvular aortic stenosis. * There is no significant aortic regurgitation. Pulmonic Valve * The pulmonic valve is not well visualized. * There is no significant pulmonary regurgitation. Great Vessels * The aortic root and proximal ascending aorta are normal sized. Pericardium/Pleural * There is no pericardial effusion. Great Vessels * The inferior vena cava is mildly dilated. * Estimated RA pressure 8 mmHg. Left Ventricular Diastolic Function * Diastolic dysfunction MMode 2D Measurements and Calculations IVSd 1.2 cm IVSs 1.8 cm LVIDd 4.3 cm LVIDs 2.8 cm LVPWd 0.78 cm LVPWs 1.8 cm IVS/LVPW 1.6 FS 33.4 % EDV(Teich) 81.8 ml ESV(Teich) 30.7 ml EF(Teich) 62.5 % EDV(cubed) 78.0 ml ESV(cubed) 23.0 ml EF(cubed) 70.5 % % IVS thick 46.3 % % LVPW thick 134.1 % LV mass(C)d 140.9 grams LV mass(C)dI 74.1 grams/m\S\2 LV mass(C)s 204.6 grams LV mass(C)sI 107.6 grams/m\S\2 SV(Teich) 51.1 ml SI(Teich) 26.9 ml/m\S\2 SV(cubed) 55.0 ml SI(cubed) 28.9 ml/m\S\2 LVOT diam 1.7 cm LVOT area 2.2 cm\S\2 LVAd ap4 29.8 cm\S\2 LVLd ap4 7.3 cm EDV(MOD-sp4) 101.5 ml EDV(sp4-el) 104.0 ml LVAs ap4 15.4 cm\S\2 LVLs ap4 5.6 cm ESV(MOD-sp4) 36.0 ml ESV(sp4-el) 35.9 ml EF(MOD-sp4) 64.5 % EF(sp4-el) 65.5 % LVAd ap2 31.0 cm\S\2 LVLd ap2 7.0 cm EDV(MOD-sp2) 114.6 ml EDV(sp2-el) 117.3 ml LVAs ap2 17.1 cm\S\2 LVLs ap2 5.7 cm ESV(MOD-sp2) 41.3 ml ESV(sp2-el) 44.1 ml EF(MOD-sp2) 64.0 % EF(sp2-el) 62.4 % LVLd %diff -4.21 % EDV(MOD-bp) 107.0 ml LVLs %diff 1.4 % ESV(MOD-bp) 38.6 ml EF(MOD-bp) 64.0 % SV(MOD-sp4) 65.5 ml SI(MOD-sp4) 34.5 ml/m\S\2 SV(MOD-sp2) 73.3 ml SI(MOD-sp2) 38.6 ml/m\S\2 SV(MOD-bp) 68.4 ml SI(MOD-bp) 36.0 ml/m\S\2 SV(sp4-el) 68.1 ml SI(sp4-el) 35.8 ml/m\S\2 SV(sp2-el) 73.2 ml SI(sp2-el) 38.5 ml/m\S\2 Doppler Measurements and Calculations MV dec time 0.15 sec Ao V2 max 270.4 cm/sec Ao max PG 29.3 mmHg Ao max PG (full) 25.5 mmHg Ao V2 mean 165.2 cm/sec Ao mean PG 13.2 mmHg Ao V2 VTI 47.6 cm RANI(V,A) 0.79 cm\S\2 RANI(V,D) 0.79 cm\S\2 LV V1 max PG 3.8 mmHg LV V1 max 97.5 cm/sec MR max catherine 474.6 cm/sec MR max PG 90.1 mmHg MR mean catherine 343.9 cm/sec MR mean PG 53.8 mmHg MR VTI 134.9 cm PA V2 max 60.4 cm/sec PA max PG 1.5 mmHg TR max catherine 277.7 cm/sec
[2016-07-06] MEDS ORDERED: HEPARIN IV BOLUS 3,000 UNIT in SYRINGE 0 ML IV ONE (18:45)
[2016-07-06 19:33] LABS: HEMATOCRIT 24.4 % (37-47)
[2016-07-06] MEDS ORDERED: LORAZEPAM 2 MG/ML 1 ML VIAL IV STA (21:56)
[2016-07-06] MEDS: CIPROFLOXACIN 500 MG TAB PO SCH (22:00)
[2016-07-07] VITALS (21 sets, daily range): BP systolic 87–137; BP diastolic 54–80; PULSE 84–118; TEMP 36.4–36.7; O2SAT 94–100
[2016-07-07] MEDS ORDERED: LORAZEPAM 2 MG/ML 1 ML VIAL IV STA (00:31)
[2016-07-07 01:06] LABS: PARTIAL THROMBOPLASTIN RATIO 3.8
[2016-07-07 05:51] LABS: HEMATOCRIT 22.3 % (37-47); MEAN CELL VOLUME 86.8 fL (80-100); MEAN CORPUSCULAR HEMOGLOBIN 28.4 pg (25-34); MEAN CORPUSCULAR HGB CONC 32.7 g/dl (32-36); MEAN PLATELET VOLUME 9.5 fL (7.4-10.4); PLATELET COUNT 298 K/uL (130-400); RED BLOOD COUNT 2.57 M/uL (4.2-5.4); WHITE BLOOD COUNT 12.07 K/uL (4.8-10.8)
[2016-07-07 06:10] LABS: PARTIAL THROMBOPLASTIN RATIO 1.9
[2016-07-07] MEDS: METRONIDAZOLE / NSS 500 MG in PREMIXED NSS 100 ML IV SCH (06:12)
[2016-07-07] MEDS: HEPARIN 25,000 UNIT/500ML D5W 500 ML IV PRN (06:15)
[2016-07-07 06:23] LABS: CALCIUM 8.3 mg/dl (8.5-10.1); CREATININE 0.77 mg/dl (0.60-1.20); MAGNESIUM 1.8 mg/dl (1.8-2.4); PHOSPHORUS 2.4 mg/dl (2.5-4.9); POTASSIUM 3.8 mmol/L (3.5-5.1)
[2016-07-07] MEDS: PANTOprazole INJ 40 MG in SYRINGE 0 ML IV SCH ×2 (07:42→19:49)
[2016-07-07] MEDS: CIPROFLOXACIN 500 MG TAB PO SCH ×2 (07:42→19:49)
[2016-07-07] MEDS: DILTIAZEM HCL 30 MG TAB PO SCH ×5 (07:42→21:00)
[2016-07-07] MEDS: POTASSIUM CHLORIDE 20 MEQ TABCR PO SCH ×3 (07:43→19:48)
[2016-07-07] MEDS: CARBIDOPA/LEVODOPA 25/100MG TAB PO SCH ×4 (07:44→19:47)
[2016-07-07] MEDS: METOPROLOL SUCC 50MG EXT REL TAB PO SCH (07:44)
[2016-07-07] MEDS ORDERED: POTASSIUM PHOS 3 MMOL/1 ML INFUSION IV STA (07:47)
[2016-07-07] MEDS ORDERED: POTASSIUM PHOSPHATE INJ 15 MMOL in SODIUM CHLORIDE 0.9% 250ML 250 ML IV ONE (08:15)
[2016-07-07 08:21] LABS: PARTIAL THROMBOPLASTIN RATIO 2.1
[2016-07-07] MEDS: FUROSEMIDE 20 MG TAB PO SCH (08:47)
[2016-07-07] MEDS ORDERED: HYDROCHLOROTHIAZIDE 25 MG TAB PO SCH (09:00)
--- NOTE | 2016-07-07 09:31 | Critical Care Progress Note ---
Critical Care Progress Note Date of Service July 07, 2016. ICU Day ICU Day Number: [address] Schrader Subjective Doing well this morning No complaints No events overnight per nursing No recurrence of GI bleeding Objective Constitutional: Vital signs as above were reviewed. Eyes: Pupils equal, round, and reactive to light. Extraocular muscles are intact. No proptosis. No photophobia. ENT: Mucous membranes are moist. Oropharynx is clear. No sinus tenderness. TMs are clear bilaterally. Cardiovascular: Heart with a regular rate and rhythm. Pulses are palpable and symmetric in all 4 extremities. No pedal edema appreciated. Respiratory: Lungs clear to auscultation bilaterally. No wheezes, rales, or rhonchi appreciated. No accessory muscle use. No retractions. No increased work of breathing. GI: Abdomen soft, nontender, nondistended. Normal active bowel sounds. No abdominal hernias appreciated. No rebound. No guarding. : No CVA tenderness appreciated. Musculoskeletal: No midline cervical or vertebral tenderness. No gross deformities. No bony tenderness. No calf swelling or tenderness. Integumentary: Warm, dry, no rashes appreciated. Neurological: Patient awake, alert, and oriented x 3. Cranial nerves two through 12 grossly intact. Motor 5 out of 5 strength bilateral upper and lower extremities. GCS 15, CAM-ICU negative Lymph: No cervical lymphadenopathy appreciated. Current SOFA Score SOFA Score Response (Comments) Value Platelets (x10) > 150 0 Bilirubin (mg/dL) < 1.2 0 [place] Coma Score 15 0 Level of Hypotension No Hypotension 0 Creatinine (mg/dL) < 1.2 0 Total 0 Assessment & Plan (1) Cecal ulcer (2) Lower GI bleed History of diverticulitis (3) Anemia (4) Anticoagulated on Coumadin (5) Atrial fibrillation (6) Acute kidney failure (7) Restless leg syndrome NEUROLOGICAL - GCS 15 ; alert and oriented 3 ; RASS 0 Restless leg syndrome - Sinemet QID CARDIOVASCULAR - BP: Stable, maintaining MAP 65 - HR: remains slightly tacchycardic with HR in 110s - No vasopressor support indicated - IV Fluids: None Atrial fibrillation with rapid ventricular response - Back on home doese of Metoprolol and Digoxin - Increased Cardizem to 60 QID; if tolerated, she can resume home dose of 360 mg daily tomorrow - Continue heparin infusion until tomorrow; if stable can transition to oral agent - Echocardiogram reveals no evidence of thrombus RESPIRATORY - RR: 18-23 > 94% on Room Air - No chronic respiratory issues at this time; will continue to assess daily GASTROINTESTINAL - Diet: Advance to regular diet with low residue - GI Prophylaxis: Continue Protonix 40 mg IV BID - Bowel regimen: Last BM 07/06 Acute lower GI bleeding - Likely 2/2 ischemic ulcer BENEDICT does not show large thrombus; TOE would better assess though thromboembolic etiology is unlikely given that ulceration is isolated rather than diffuse - Baseline hemoglobin 12-13; Hb remains stable between 7-8 - Discontinue H&H q 6; resume daily checks to reduce risk of iatrogenic phlebotomy - Low suspicion for malignancy at this time - GI recommendations appreciated RENAL//ENDOCRINE - Fluid Balance Globally + 6L Resume Lasix; start at 20 mg and escalate to home dose tomorrow if tolerated Acute kidney injury - Resolved - Cr. stable at 0.77 - Electrolytes: no gross abnormalities K goal for Afib is > 4.0; very slight hypophosphatemia; replete 15 mmol KPhos this morning - IV Fluids: Discontinued as patient is tolerating diet HEMATOLOGY/INFECTIOUS DISEASE - Afebrile with resolving leukocytosis of 12 - Blood cultures pending - Urine culture negative - C.diff toxin screen negative Non-specific Colitis - Per CT scan and GI recommendations - Patient to continue Flagyl for total 7 day course - Ceftriaxone discontinued and Ciprofloxacin started; continue for total 7 day course - Last day of Abx 07/10 Acute blood loss anemia - Hb/Hct stable between 7-8 - Transfusion goal < 7.0 - Check daily as H&H stable for the past 24 hours - Like 2/2 bleeding cecal ulcer DVT Prophylaxis SCD Continue Heparin infusion, can look to transition if remains stable over the next 24 hours LINES/IV ACCESS - Right peripheral IV CODE STATUS - DNR DISPOSITION - Stable for downgrade to telemetry today - OT and PT have been consulted Resident Physician Supervision Note: Dr. Parra was resident physician during care of patient. I separately evaluated patient and did history and exam. I discussed the case with the resident and generally agree with the findings and plan. At 9:30 today patient had a bloody bowel movement. We will convert diet to clears, order a tagged red cell scan. Continue heparin, in setting of A. fib concern for stroke or possible clot emboli in to mesenteric vasculature. In review of GI notes, I think hypotension induced mesenteric ischemia is less likely. There is fair embolic risk, therefore continuing anticoagulation and trending of CBC and will give one unit tagged packed red blood cells for bleeding scan. I have personally spent 35 minutes of critical care time in the direct management of this patient. This is a life/limb threatening event. This includes time spent evaluating patient, direct bedside care, chart review, placing orders, interpretation of diagnostic studies, discussion with consultants, patient, and family members, as well as other required patient management activities. This time is exclusive of all separately billable procedures, and teaching time and separate from and in addition to any other critical care service time. Documented By: Feliberto Schrader DO Consults & Procedures Consultants: GI Procedures: s/p EGD and Colonoscopy on 07/05/2016 Data Medications: Current Inpatient Medications Medications (Trade) Dose Ordered Sig/Hair Route Start Time Stop Time Status Last Admin Dose Admin Acetaminophen (Tylenol Tab) 650 mg Q4H PRN PO 07/04/16 16:30 08/03/16 16:29 Ondansetron HCl (Zofran Inj) 4 mg Q6H PRN IV 07/04/16 16:30 08/03/16 16:29 Polyethylene 17 gm 17 gm DAILY PRN PO 07/04/16 16:30 08/03/16 16:29 Pantoprazole Sodium/Syringe (Protonix Inj/ Syringe) 10 ml @ 5 mls/min BID@0900,2100 IV 07/04/16 21:00 08/03/16 20:59 07/07/16 07:42 5 MLS/MIN Metoprolol Tartrate 2.5 mg 2.5 mg Q6 PRN IV 07/05/16 08:15 08/04/16 08:14 07/06/16 07:35 2.5 MG Metronidazole/Prmx (Flagyl / Nss/ Premixed Nss) 100 ml @ 100 mls/hr Q8H IV 07/05/16 14:00 07/15/16 13:59 07/07/16 06:12 100 MLS/HR Ioversol (Optiray 320) 100 ml UD PRN IV 07/05/16 12:45 07/09/16 12:44 Carbidopa/Levodopa (Sinemet 25/ 100MG Tab) 1 tab QID PO 07/06/16 05:00 6/25/17 04:59 07/07/16 07:44 1 TAB Potassium Chloride 20 meq 20 meq TID PO 07/06/16 14:00 08/05/16 13:59 07/07/16 07:43 20 MEQ Heparin Sodium/ Dextrose (Heparin 25,000 Unit/500ml D5W) 500 ml @ 24 mls/hr [id number] PRN IV 07/06/16 10:00 08/05/16 09:59 07/07/16 06:15 24 MLS/HR Metoprolol Succinate (Toprol Xl Tab) 100 mg QAM PO 07/06/16 12:00 08/05/16 11:59 07/07/16 07:44 100 MG Digoxin (Lanoxin Tab) 0.125 mg MoWeFr@1600 PO 07/06/16 16:00 08/05/16 15:59 07/06/16 16:28 0.125 MG Ciprofloxacin (Cipro Tab) 500 mg BID PO 07/06/16 21:00 07/10/16 23:59 07/07/16 07:42 500 MG Diltiazem HCl (Cardizem Tab) 60 mg QID PO 07/07/16 09:00 08/06/16 08:59 Furosemide 20 mg 20 mg DAILY PO 07/07/16 09:00 08/06/16 08:59 07/07/16 08:47 20 MG Potassium Phosphate/Sodium Chloride (Potassium Phosphate Inj/Nss 250ml) 255 ml @ 88 mls/hr TODAY@0815 ONCE IV 07/07/16 08:15 07/07/16 11:08 07/07/16 08:47 88 MLS/HR Metronidazole (Flagyl Tab) 500 mg TID PO 07/07/16 09:00 07/10/16 23:59 UNV I & O: 24-Hour Column 07/07/16 08:00 Intake Total 3136 ml Output Total 1700 ml Balance 1436 ml Vital Signs: Date Time Temp Pulse Resp B/P Pulse Ox O2 Delivery O2 Flow Rate FiO2 07/07/16 08:00 36.5 118 18 100/54 100 Room Air 07/07/16 08:00 99 Room Air 07/07/16 05:01 102 15 109/58 97 Room Air 07/07/16 04:44 36.6 117 23 137/78 98 Room Air 07/07/16 04:06 94 Room Air 07/07/16 02:01 105 18 124/76 97 Room Air 07/07/16 01:02 105 18 102/65 98 Room Air 07/07/16 00:20 94 Room Air 07/07/16 00:01 116 20 91/67 96 Room Air 07/06/16 23:01 117 21 94/71 93 Room Air 07/06/16 22:40 36.6 114 21 106/69 94 Room Air 07/06/16 20:16 94 Room Air 07/06/16 20:12 36.6 103 21 125/79 98 Room Air 07/06/16 16:28 128 07/06/16 16:00 Room Air 07/06/16 15:00 84 20 07/06/16 14:06 36.5 127 23 136/65 93 07/06/16 14:06 36.5 120 23 136/65 93 Room Air 5.0 07/06/16 13:45 127 23 93 07/06/16 13:30 128 17 97 07/06/16 13:15 106 27 97 07/06/16 13:01 132 20 136/65 82 07/06/16 13:00 140 23 92 07/06/16 13:00 113 20 136/70 98 07/06/16 12:00 36.5 152 22 108/60 98 07/06/16 12:00 98 Room Air 07/06/16 12:00 36.5 18 108/60 93 Room Air 07/06/16 11:00 36.5 105 19 107/58 92 07/06/16 10:00 120 18 116/82 98 Room Air 07/06/16 10:00 122 Laboratory Results: Last 24 Hours Test 07/06/16 09:50 07/06/16 13:12 07/06/16 17:18 07/06/16 19:30 White Blood Count 12.72 K/uL Red Blood Count 2.65 M/uL Hemoglobin 7.3 g/dL 7.5 g/dL 8.2 g/dL Hematocrit 23.0 % 22.0 % 24.4 % Mean Corpuscular Volume 86.8 fL Mean Corpuscular Hemoglobin 27.5 pg Mean Corpuscular Hemoglobin Concent 31.7 g/dl Platelet Count 284 K/uL Mean Platelet Volume 9.4 fL Neutrophils (%) (Auto) 75.4 % Lymphocytes (%) (Auto) 14.5 % Monocytes (%) (Auto) 7.4 % Eosinophils (%) (Auto) 0.9 % Basophils (%) (Auto) 0.9 % Neutrophils # (Auto) 9.59 K/uL Lymphocytes # (Auto) 1.85 K/uL Monocytes # (Auto) 0.94 K/uL Eosinophils # (Auto) 0.12 K/uL Basophils # (Auto) 0.11 K/uL RDW Standard Deviation 48.4 fL RDW Coefficient of Variation 15.4 % Immature Granulocyte % (Auto) 0.9 % Immature Granulocyte # (Auto) 0.11 K/uL Red Blood Cell Morphology Unremarkable Prothrombin Time 11.8 SECONDS Prothromb Time International Ratio 1.1 Activated Partial Thromboplast Time 26.4 SECONDS 45.5 SECONDS Partial Thromboplastin Ratio 1.0 1.8 Test 07/07/16 00:40 07/07/16 05:37 07/07/16 07:52 Hemoglobin 7.5 g/dL 7.3 g/dL Hematocrit 22.0 % 22.3 % Activated Partial Thromboplast Time 97.7 SECONDS 48.5 SECONDS 55.6 SECONDS Partial Thromboplastin Ratio 3.8 1.9 2.1 White Blood Count 12.07 K/uL Red Blood Count 2.57 M/uL Mean Corpuscular Volume 86.8 fL Mean Corpuscular Hemoglobin 28.4 pg Mean Corpuscular Hemoglobin Concent 32.7 g/dl RDW Standard Deviation 47.8 fL RDW Coefficient of Variation 15.4 % Platelet Count 298 K/uL Mean Platelet Volume 9.5 fL Sodium Level 144 mmol/L Potassium Level 3.8 mmol/L Chloride Level 112 mmol/L Carbon Dioxide Level 24 mmol/L Anion Gap 8.0 mmol/L Blood Urea Nitrogen 6 mg/dl Creatinine 0.77 mg/dl Est Creatinine Clear Calc Drug Dose 59.4 ml/min Estimated GFR () 83.3 Estimated GFR (Non- 71.9 BUN/Creatinine Ratio 8.0 Random Glucose 95 mg/dl Calcium Level 8.3 mg/dl Phosphorus Level 2.4 mg/dl Magnesium Level 1.8 mg/dl Problem Qualifiers (1) Anemia: Anemia type: unspecified type Qualified Codes: D64.9 - Anemia, unspecified
[2016-07-07 12:52] LABS: HEMATOCRIT 23.2 % (37-47)
--- NOTE | 2016-07-07 13:06 | DIAGNOSTIC IMAGING REPORT ---
SINGLE VIEW CHEST CLINICAL HISTORY: PICC placement. FINDINGS: An AP, portable, upright chest radiograph is compared to study dated 07/04/2016. The examination is degraded by portable technique and patient rotation. A right PICC line has been placed. The tip of the catheter projects over the SVC at the level of the chayo. The heart is enlarged and there is atherosclerotic calcification of the thoracic aorta. The pulmonary vasculature is noncongested. Chronic interstitial thickening is unchanged. No airspace consolidation or large pleural effusion is identified. No pneumothorax is seen. The skeletal structures are osteopenic. The bony thorax is grossly intact. IMPRESSION: 1. A right PICC line has been placed. The tip projects over the SVC. 2. Cardiomegaly with no acute cardiopulmonary abnormality. Electronically signed by: Cristhian North M.D. 07/07/2016 1:04 PM Dictated Date/Time: 07/07/2016 1:03 PM
--- NOTE | 2016-07-07 15:22 | DIAGNOSTIC IMAGING REPORT ---
NUCLEAR GI BLEEDING SCAN CLINICAL HISTORY: GI bleeding. Bright red blood per rectum. COMPARISON STUDY: Abdominal CT dated 07/05/2016. TECHNIQUE: Following the IV administration of 26.1 mCi of technetium 99m UltraTag labeled red blood cells, nuclear bleeding scan was performed. Anterior flow images were obtained every 2 seconds for a total 58 seconds. Anterior static images were obtained every 5 minutes for a total of 60 minutes. FINDINGS: There is expected tracer activity within the abdominal aorta, liver, and spleen. There is no abnormal an mobile tracer deposition contour to bowel loops identified during the examination to confirm active GI bleeding. Focal and nonmobile abnormal tracer deposition is seen in the right pelvis. IMPRESSION: 1. There is no abnormal mobile tracer deposition contouring to bowel loops identified to confirm active GI bleeding at the time of examination. 2. There is focal nonmobile abnormal tracer activity in the right lower quadrant. When correlated with the 07/05/2016 examination this likely corresponds to the presumed diagnosis of cecal diverticulitis. Follow-up with a colonoscopy is recommended for further assessment and to exclude underlying colonic lesion when the patient is clinically able. Electronically signed by: Cristhian North M.D. 07/07/2016 3:21 PM Dictated Date/Time: 07/07/2016 3:15 PM
[2016-07-07] MEDS: METRONIDAZOLE 500 MG TAB PO SCH ×2 (16:46→19:47)
[2016-07-07 18:34] LABS: HEMATOCRIT 19.8 % (37-47)
--- NOTE | 2016-07-07 18:34 | Family Medicine Progress Note ---
Progress Note Date of Service July 07, 2016. Subjective Pt seen and examined at bedside. No acute events overnight. Brown BM yesterday and this morning, though reports another BRBPR episode this afternoon as detailed in ICU note. Improvement in lightheadedness and fatigue since yesterday. Reports no fever, headache, n/v, vision changes, abd pain. Constitutional: + fatigue, No chills, No fever Eyes: No diplopia, No discharge, No worsening of vision Respiratory: No cough, No shortness of breath, No wheezing Cardiovascular: No PND, No chest pain, No palpitations Abdomen: + GI bleeding, No constipation, No nausea, No pain, No vomiting Neurologic: + weakness, No numbness/tingling Skin: No color change Medications Current Inpatient Medications Medications (Trade) Dose Ordered Sig/Hair Route Start Time Stop Time Status Last Admin Dose Admin Acetaminophen (Tylenol Tab) 650 mg Q4H PRN PO 07/04/16 16:30 08/03/16 16:29 Ondansetron HCl (Zofran Inj) 4 mg Q6H PRN IV 07/04/16 16:30 08/03/16 16:29 Polyethylene 17 gm 17 gm DAILY PRN PO 07/04/16 16:30 08/03/16 16:29 Pantoprazole Sodium/Syringe (Protonix Inj/ Syringe) 10 ml @ 5 mls/min BID@0900,2100 IV 07/04/16 21:00 08/03/16 20:59 07/07/16 07:42 5 MLS/MIN Metoprolol Tartrate (Lopressor Iv) 2.5 mg Q6 PRN IV 07/05/16 08:15 08/04/16 08:14 07/06/16 07:35 2.5 MG Ioversol (Optiray 320) 100 ml UD PRN IV 07/05/16 12:45 07/09/16 12:44 Carbidopa/Levodopa (Sinemet 25/ 100MG Tab) 1 tab QID PO 07/06/16 05:00 08/05/16 04:59 07/07/16 16:48 1 TAB Potassium Chloride 20 meq 20 meq TID PO 07/06/16 14:00 08/05/16 13:59 07/07/16 16:47 20 MEQ Heparin Sodium/ Dextrose (Heparin 25,000 Unit/500ml D5W) 500 ml @ 24 mls/hr [id number] PRN IV 07/06/16 10:00 08/05/16 09:59 07/07/16 06:15 24 MLS/HR Metoprolol Succinate (Toprol Xl Tab) 100 mg QAM PO 07/06/16 12:00 08/05/16 11:59 07/07/16 07:44 100 MG Digoxin (Lanoxin Tab) 0.125 mg MoWeFr@1600 PO 07/06/16 16:00 08/05/16 15:59 07/06/16 16:28 0.125 MG Ciprofloxacin (Cipro Tab) 500 mg BID PO 07/06/16 21:00 07/10/16 23:59 07/07/16 07:42 500 MG Diltiazem HCl (Cardizem Tab) 60 mg QID PO 07/07/16 09:00 08/06/16 08:59 07/07/16 16:47 60 MG Furosemide (Lasix Tab) 20 mg DAILY PO 07/07/16 09:00 08/06/16 08:59 07/07/16 08:47 20 MG Metronidazole (Flagyl Tab) 500 mg TID PO 07/07/16 14:00 07/15/16 13:59 07/07/16 16:46 500 MG Objective Vital Signs Date Time Temp Pulse Resp B/P Pulse Ox O2 Delivery O2 Flow Rate FiO2 07/07/16 16:00 112 18 127/76 99 Room Air 07/07/16 16:00 99 Room Air 07/07/16 14:00 36.7 104 18 136/79 99 Room Air 07/07/16 12:00 97 Room Air 07/07/16 11:00 95 21 92/79 99 Room Air 07/07/16 10:00 92 22 99/72 99 Room Air 07/07/16 08:00 36.5 118 18 100/54 100 Room Air 07/07/16 08:00 99 Room Air 07/07/16 05:01 102 15 109/58 97 Room Air 07/07/16 04:44 36.6 117 23 137/78 98 Room Air 07/07/16 04:06 94 Room Air 07/07/16 02:01 105 18 124/76 97 Room Air 07/07/16 01:02 105 18 102/65 98 Room Air 07/07/16 00:20 94 Room Air 07/07/16 00:01 116 20 91/67 96 Room Air 07/06/16 23:01 117 21 94/71 93 Room Air 07/06/16 22:40 36.6 114 21 106/69 94 Room Air 07/06/16 20:16 94 Room Air 07/06/16 20:12 36.6 103 21 125/79 98 Room Air Physical Exam General Appearance: WD/WN, no apparent distress Eyes: normal inspection, PERRL, EOMI Respiratory/Chest: chest non-tender, lungs clear, normal breath sounds, no respiratory distress Cardiovascular: regular rate, rhythm, no edema, no gallop, no murmur Abdomen: normal bowel sounds, non tender, soft, no organomegaly Neurologic/Psychiatric: information analyst II-XII nml as tested, no motor/sensory deficits, alert, normal mood/affect, oriented x 3 Skin: normal color Laboratory Results 07/07/16 05:37 07/07/16 05:37 Test 07/07/16 05:37 07/07/16 07:52 Red Blood Count 2.57 M/uL (4.2-5.4) Mean Corpuscular Volume 86.8 fL (80-100) Mean Corpuscular Hemoglobin 28.4 pg (25-34) Mean Corpuscular Hemoglobin Concent 32.7 g/dl (32-36) RDW Standard Deviation 47.8 fL (36.4-46.3) RDW Coefficient of Variation 15.4 % (11.5-14.5) Mean Platelet Volume 9.5 fL (7.4-10.4) Anion Gap 8.0 mmol/L (3-11) Est Creatinine Clear Calc Drug Dose 59.4 ml/min Estimated GFR () 83.3 Estimated GFR (Non- 71.9 BUN/Creatinine Ratio 8.0 (10-20) Calcium Level 8.3 mg/dl (8.5-10.1) Phosphorus Level 2.4 mg/dl (2.5-4.9) Magnesium Level 1.8 mg/dl (1.8-2.4) Activated Partial Thromboplast Time 55.6 SECONDS (21.0-31.0) Partial Thromboplastin Ratio 2.1 Assessment and Plan 80 y/o female h/o a-fib on coumadin, CAD (remote), DMII, RLS w/ GIB w/ BRBPR Acute anemia 2/2 blood loss w/ aGIB exacerbated by anticoagulation therapy - ICU , registered nurse cardiac telemetry and gastroenterology involvement appreciated - PPI BID, clear diet , tagged red cell scan Ischemic ulcer on colonoscopy - pathology from biopsy pending - metronidazole/ cipro for GI coverage Atrial fibrillation - mild tachycardia - metoprolol, diltiazem and digoxin. IV PRN if necessary. Coumadin reversed w/ IV vit K - heparin drip at present to continue per ICU recs Coronary artery disease - continue oral medications HLD - continue statin therapy Restless leg syndrome - continue Sinemet QID Lower extremity swelling - chronic, stable - tolerating HCTZ Suspected UTI - UCx negative, withdraw Rocephin DVT prophylaxis: SCDs DNR
[2016-07-08] VITALS (28 sets, daily range): BP systolic 92–135; BP diastolic 52–88; PULSE 87–136; TEMP 36.5–36.9; O2SAT 92–98
[2016-07-08 06:06] LABS: BASO % 0.8 %; BASO ABS # 0.08 K/uL (0-0.2); HEMATOCRIT 26.3 % (37-47); IG% 0.6 %; LYMPH % 13.6 %; LYMPH ABS # 1.41 K/uL (1.2-3.4); MEAN CELL VOLUME 87.4 fL (80-100); MEAN CORPUSCULAR HEMOGLOBIN 29.6 pg (25-34); MEAN CORPUSCULAR HGB CONC 33.8 g/dl (32-36); MEAN PLATELET VOLUME 9.7 fL (7.4-10.4); MONO % 12.3 %; NEUT % 71.7 %; PLATELET COUNT 289 K/uL (130-400); RED BLOOD COUNT 3.01 M/uL (4.2-5.4); WHITE BLOOD COUNT 10.34 K/uL (4.8-10.8)
[2016-07-08 06:48] LABS: BUN/CREATININE RATIO 6.5 (10-20); CALCIUM 8.3 mg/dl (8.5-10.1); CREATININE 0.74 mg/dl (0.60-1.20); MAGNESIUM 1.6 mg/dl (1.8-2.4); PHOSPHORUS 2.3 mg/dl (2.5-4.9); POTASSIUM 3.4 mmol/L (3.5-5.1)
[2016-07-08 06:49] LABS: COMPLETE YES
[2016-07-08] MEDS: DILTIAZEM HCL 30 MG TAB PO SCH ×4 (08:04→20:12)
[2016-07-08] MEDS: POTASSIUM CHLORIDE 20 MEQ TABCR PO SCH ×3 (08:05→20:13)
[2016-07-08] MEDS: METRONIDAZOLE 500 MG TAB PO SCH ×3 (08:05→20:11)
[2016-07-08] MEDS: CIPROFLOXACIN 500 MG TAB PO SCH ×2 (08:06→20:11)
[2016-07-08] MEDS: METOPROLOL SUCC 50MG EXT REL TAB PO SCH (08:06)
[2016-07-08] MEDS: CARBIDOPA/LEVODOPA 25/100MG TAB PO SCH (08:06)
[2016-07-08] MEDS: FUROSEMIDE 20 MG TAB PO SCH (08:07)
[2016-07-08] MEDS: PANTOprazole INJ 40 MG in SYRINGE 0 ML IV SCH ×2 (08:08→20:13)
[2016-07-08] MEDS ORDERED: DILTIAZEM HCL 30 MG TAB PO ONE (09:15)
[2016-07-08] MEDS ORDERED: FUROSEMIDE 20 MG TAB PO ONE (09:15)
--- NOTE | 2016-07-08 09:41 | Critical Care Progress Note ---
Critical Care Progress Note Date of Service July 08, 2016. ICU Day ICU Day Number: [address] Schrader Subjective Patient had KS bleed yesterday, noted in diaper and toilet Resumed H&H monitoring Hb dropped to 6.6 and she required transfusion of 2 units; heparin was discontinued No pain at this time, no other complaints No events overnight otherwise Objective Constitutional: Vital signs as above were reviewed. Eyes: Pupils equal, round, and reactive to light. Extraocular muscles are intact. No proptosis. No photophobia. ENT: Mucous membranes are moist. Oropharynx is clear. No sinus tenderness. TMs are clear bilaterally. Cardiovascular: Heart with a regular rate and rhythm. Pulses are palpable and symmetric in all 4 extremities. No pedal edema appreciated. Respiratory: Lungs clear to auscultation bilaterally. No wheezes, rales, or rhonchi appreciated. No accessory muscle use. No retractions. No increased work of breathing. GI: Abdomen soft, nontender, nondistended. Normal active bowel sounds. No abdominal hernias appreciated. No rebound. No guarding. : No CVA tenderness appreciated. Musculoskeletal: No midline cervical or vertebral tenderness. No gross deformities. No bony tenderness. No calf swelling or tenderness. Integumentary: Warm, dry, no rashes appreciated. Neurological: Patient awake, alert, and oriented x 3. Cranial nerves two through 12 grossly intact. Motor 5 out of 5 strength bilateral upper and lower extremities. GCS 15, CAM-ICU negative Lymph: No cervical lymphadenopathy appreciated. Current SOFA Score SOFA Score Response (Comments) Value Platelets (x10) > 150 0 Bilirubin (mg/dL) < 1.2 0 Julián Coma Score 15 0 Level of Hypotension No Hypotension 0 Creatinine (mg/dL) < 1.2 0 Total 0 Assessment & Plan (1) Cecal ulcer (2) Lower GI bleed History of diverticulitis (3) Anemia (4) Anticoagulated on Coumadin (5) Atrial fibrillation (6) Acute kidney failure (7) Restless leg syndrome NEUROLOGICAL - GCS 15 ; alert and oriented 3 ; RASS 0 Restless leg syndrome - Sinemet QID CARDIOVASCULAR - BP: Stable, maintaining MAP 65 - HR: improving, low grade tachycardia with HR in low 100s - No vasopressors or IV fluids Atrial fibrillation with rapid ventricular response - Back on home dose of Metoprolol and Digoxin - Increased Cardizem to 90 QID, totalling home dose ot 360 mg daily; monitor HR - Heparin infusion for stroke prevention discontinued due to recurrence of GI bleeding, see below - Echocardiogram reveals no evidence of thrombus RESPIRATORY - RR: 20-22 > 95% on Room Air - No chronic respiratory issues at this time; will continue to assess daily GASTROINTESTINAL - Diet: Clear Liquid diet, due to recurrence of GI bleeding - GI Prophylaxis: Continue Protonix 40 mg IV BID - Bowel regimen: Last BM 07/07 Acute lower GI bleeding - Recurrence yesterday; Hb dropped to 6.6, patient receiving 2 units PRBCs - Ischemic ulcer on colonoscopy - Pathology reviewed; Low suspicion for malignancy at this time - Tagged RBC scan done to rule-out other sources; no other evident sources of bleeding - GI recommendations appreciated RENAL//ENDOCRINE - Fluid Balance Globally + 5.6 L Resume Lasix home dose of Lasix 40 mg today Acute kidney injury - Resolved; Cr. stable at 0.74 - Electrolytes: no gross abnormalities K 3.4 today; continue KCl 20 mEq TID; may get some additional K with transfusion; monitor BMP daily Mg 1.6; replete 1 g Mag Sulfate - IV Fluids: Discontinued as patient is tolerating diet HEMATOLOGY/INFECTIOUS DISEASE - Afebrile, leukocytosis resolved to 10 - Urine culture negative - C.diff toxin screen negative Non-specific Colitis - Per CT scan and GI recommendations - Patient to continue Flagyl and Cipro for total 7 day course; stop date placed on meds Acute blood loss anemia - Recurrence of bleeding as above; 2/2 cecal ulcer - Hb dropped to 6.6 yesterday; 2 units transfused; Hb recovering to 8.9 - Monitor H&H q 12 hours - Hold Heparin 72 hours DVT Prophylaxis - SCD - Heparin discontinued as bleeding risk outweighs stroke/DVT prevention benefit LINES/IV ACCESS - PICC line placed 07/07 CODE STATUS - DNR DISPOSITION - Continue ICU monitoring Resident Physician Supervision Note: Dr. Parra was resident physician during care of patient. I separately evaluated patient and did history and exam. I discussed the case with the resident and generally agree with the findings and plan. Tagged red blood cell scan unremarkable for additional sites of bleeding. She was transfused 2 units last night and we have held the heparin infusion. At this point it is more indicative that bleeding risk outweighs thromboembolic event risk associated with chronic A. fib. We will continue to monitor in the ICU as she is still having bowel movements, she is on a clear diet. If she continues to drop her H&H we may need to have surgical consultation. I have personally spent 40 minutes of critical care time in the direct management of this patient. This is a life/limb threatening event. This includes time spent evaluating patient, direct bedside care, chart review, placing orders, interpretation of diagnostic studies, discussion with consultants, patient, and family members, as well as other required patient management activities. This time is exclusive of all separately billable procedures, and teaching time and separate from and in addition to any other critical care service time. Documented By: Feliberto Schrader DO Consults & Procedures Consultants: GI Procedures: s/p EGD and Colonoscopy on 07/05/2016 PICC line placement 07/07/2016 Tagged RBC scan 07/07/2016 NUCLEAR GI BLEEDING SCAN CLINICAL HISTORY: GI bleeding. Bright red blood per rectum. COMPARISON STUDY: Abdominal CT dated 07/05/2016. TECHNIQUE: Following the IV administration of 26.1 mCi of technetium 99m UltraTag labeled red blood cells, nuclear bleeding scan was performed. Anterior flow images were obtained every 2 seconds for a total 58 seconds. Anterior static images were obtained every 5 minutes for a total of 60 minutes. FINDINGS: There is expected tracer activity within the abdominal aorta, liver, and spleen. There is no abnormal an mobile tracer deposition contour to bowel loops identified during the examination to confirm active GI bleeding. Focal and nonmobile abnormal tracer deposition is seen in the right pelvis. IMPRESSION: 1. There is no abnormal mobile tracer deposition contouring to bowel loops identified to confirm active GI bleeding at the time of examination. 2. There is focal nonmobile abnormal tracer activity in the right lower quadrant. When correlated with the 07/05/2016 examination this likely corresponds to the presumed diagnosis of cecal diverticulitis. Follow-up with a colonoscopy is recommended for further assessment and to exclude underlying colonic lesion when the patient is clinically able. Electronically signed by: Cristhian North M.D. 07/07/2016 3:21 PM Dictated Date/Time: 07/07/2016 3:15 PM The status of this report is Signed. Draft = Not yet reviewed or approved by Radiologist. Signed = Reviewed and approved by Radiologist. Data Medications: Current Inpatient Medications Medications (Trade) Dose Ordered Sig/Hair Route Start Time Stop Time Status Last Admin Dose Admin Acetaminophen (Tylenol Tab) 650 mg Q4H PRN PO 07/04/16 16:30 08/03/16 16:29 Ondansetron HCl (Zofran Inj) 4 mg Q6H PRN IV 07/04/16 16:30 08/03/16 16:29 Polyethylene 17 gm 17 gm DAILY PRN PO 07/04/16 16:30 08/03/16 16:29 Pantoprazole Sodium/Syringe (Protonix Inj/ Syringe) 10 ml @ 5 mls/min BID@0900,2100 IV 07/04/16 21:00 08/03/16 20:59 07/08/16 08:08 5 MLS/MIN Metoprolol Tartrate (Lopressor Iv) 2.5 mg Q6 PRN IV 07/05/16 08:15 08/04/16 08:14 07/06/16 07:35 2.5 MG Ioversol (Optiray 320) 100 ml UD PRN IV 07/05/16 12:45 07/09/16 12:44 Carbidopa/Levodopa (Sinemet 25/ 100MG Tab) 1 tab QID PO 07/06/16 05:00 08/05/16 04:59 07/08/16 08:06 1 TAB Potassium Chloride 20 meq 20 meq TID PO 07/06/16 14:00 08/05/16 13:59 07/08/16 08:05 20 MEQ Heparin Sodium/ Dextrose (Heparin 25,000 Unit/500ml D5W) 500 ml @ 24 mls/hr [id number] PRN IV 07/06/16 10:00 08/05/16 09:59 Future Hold 07/07/16 06:15 24 MLS/HR Metoprolol Succinate (Toprol Xl Tab) 100 mg QAM PO 07/06/16 12:00 08/05/16 11:59 07/08/16 08:06 100 MG Digoxin (Lanoxin Tab) 0.125 mg MoWeFr@1600 PO 07/06/16 16:00 08/05/16 15:59 07/06/16 16:28 0.125 MG Ciprofloxacin (Cipro Tab) 500 mg BID PO 07/06/16 21:00 07/10/16 23:59 07/08/16 08:06 500 MG Metronidazole (Flagyl Tab) 500 mg TID PO 07/07/16 14:00 07/15/16 13:59 07/08/16 08:05 500 MG Diltiazem HCl (Cardizem Tab) 90 mg QID PO 07/08/16 13:00 08/07/16 12:59 Furosemide (Lasix Tab) 40 mg DAILY PO 07/09/16 09:00 08/08/16 08:59 I & O: 24-Hour Column 07/08/16 08:00 Intake Total 2240 ml Output Total 3000 ml Balance -760 ml Vital Signs: Date Time Temp Pulse Resp B/P Pulse Ox O2 Delivery O2 Flow Rate FiO2 07/08/16 06:00 114 22 115/60 95 07/08/16 04:00 96 Room Air 07/08/16 04:00 36.7 115 20 135/75 95 Room Air 07/08/16 02:00 36.6 100 22 121/87 97 07/08/16 01:30 36.6 103 22 104/77 97 07/08/16 00:30 36.6 109 20 118/74 95 07/08/16 00:00 97 Room Air 07/08/16 00:00 36.5 95 20 105/62 95 07/07/16 23:44 36.5 106 20 113/80 94 07/07/16 23:30 36.5 116 20 113/69 94 07/07/16 22:24 87 18 114/79 99 07/07/16 21:53 36.5 84 20 98/66 97 07/07/16 21:23 36.4 85 22 91/72 98 07/07/16 21:07 36.6 100 20 87/64 94 07/07/16 20:00 102 17 105/60 95 Room Air 07/07/16 20:00 95 Room Air 07/07/16 18:00 104 20 101/78 94 Room Air 07/07/16 16:00 112 18 127/76 99 Room Air 07/07/16 16:00 99 Room Air 07/07/16 14:00 36.7 104 18 136/79 99 Room Air 07/07/16 12:00 97 Room Air 07/07/16 11:00 95 21 92/79 99 Room Air 07/07/16 10:00 92 22 99/72 99 Room Air Laboratory Results: Last 24 Hours Test 5/27/17 12:42 07/07/16 18:05 07/08/16 05:44 Hemoglobin 7.3 g/dL 6.6 g/dL 8.9 g/dL Hematocrit 23.2 % 19.8 % 26.3 % White Blood Count 10.34 K/uL Red Blood Count 3.01 M/uL Mean Corpuscular Volume 87.4 fL Mean Corpuscular Hemoglobin 29.6 pg Mean Corpuscular Hemoglobin Concent 33.8 g/dl Platelet Count 289 K/uL Mean Platelet Volume 9.7 fL Neutrophils (%) (Auto) 71.7 % Lymphocytes (%) (Auto) 13.6 % Monocytes (%) (Auto) 12.3 % Eosinophils (%) (Auto) 1.0 % Basophils (%) (Auto) 0.8 % Neutrophils # (Auto) 7.42 K/uL Lymphocytes # (Auto) 1.41 K/uL Monocytes # (Auto) 1.27 K/uL Eosinophils # (Auto) 0.10 K/uL Basophils # (Auto) 0.08 K/uL RDW Standard Deviation 49.0 fL RDW Coefficient of Variation 15.8 % Immature Granulocyte % (Auto) 0.6 % Immature Granulocyte # (Auto) 0.06 K/uL Red Blood Cell Morphology Unremarkable Activated Partial Thromboplast Time 25.2 SECONDS Partial Thromboplastin Ratio 1.0 Sodium Level 144 mmol/L Potassium Level 3.4 mmol/L Chloride Level 109 mmol/L Carbon Dioxide Level 26 mmol/L Anion Gap 9.0 mmol/L Blood Urea Nitrogen 5 mg/dl Creatinine 0.74 mg/dl Est Creatinine Clear Calc Drug Dose 61.8 ml/min Estimated GFR () 87.4 Estimated GFR (Non- 75.4 BUN/Creatinine Ratio 6.5 Random Glucose 92 mg/dl Calcium Level 8.3 mg/dl Phosphorus Level 2.3 mg/dl Magnesium Level 1.6 mg/dl Problem Qualifiers (1) Anemia: Anemia type: unspecified type Qualified Codes: D64.9 - Anemia, unspecified
[2016-07-08] MEDS: CARBIDOPA/LEVODOPA 25/100MG TAB PO PRN ×2 (12:16→20:11)
--- NOTE | 2016-07-08 13:39 | SURGICAL CONSULTATION ---
DATE OF ADMISSION: 07/05/2016 CONSULTATION FOR: GI bleeding and ischemic colitis. HISTORY OF PRESENT ILLNESS: The patient is an 80-year-old female, admitted through the Emergency Room on 07/05/2016 with GI bleeding and found on colonoscopy to have areas of the cecum with ulceration exudate bleeding and evidence of ischemic colitis with hemorrhage. She does have a history of atrial fibrillation and is on full anticoagulation with Coumadin. Over the past several days she has received 3 units of packed red blood cells while on IV heparin. She did undergo a bleeding scan which showed minimal active bleeding, but she did have some tracer within the right lower quadrant. The question now is whether she should have a right colectomy for actually two problems; one the bleeding and two the ischemic ulceration. She also underwent biopsies of what appeared to be a mass at the ileocecal valve which were benign and inflammatory. Her other history does include history of atrial fibrillation, coronary artery disease, diverticulitis, total knee replacement and cholecystectomy. ALLERGIES: TO PSEUDOEPHEDRINE, QUININE, SCOPOLAMINE. FAMILY AND SOCIAL HISTORY: Noncontributory. MEDICATIONS: She does take multiple medications, please see list, they do include; Mevacor, metoprolol, aspirin and digoxin. REVIEW OF SYSTEMS: Ten systems were reviewed and found to be negative except for the history of present illness. PHYSICAL EXAMINATION: GENERAL: Well-nourished and well developed. HEENT: Head is normocephalic. Eyes are normal to inspection. NECK: Supple. LUNGS: Clear without respiratory distress. HEART: Shows irregular rhythm. ABDOMEN: Soft without significant tenderness. EXTREMITIES: With mild pitting edema. She is alert. I did review her CAT scan and laboratories. ASSESSMENT AND PLAN: An 80-year-old female, admitted with significant gastrointestinal bleeding requiring transfusion and evidence of ischemic colitis causing ulceration and hemorrhage with fibrinous exudate. After discussion with the patient, two daughters, Dr. Schrader and examining the pictures of the colonoscopy; I do feel she is at risk for significant problems with her right colon. She does have significant edema on the CT scan. I have discussed with the patient and her daughters a possible right hemicolectomy, which I feel may benefit the patient in the long run and allow her to be fully anticoagulated and also avoid further possible ischemic event with perforation. We will discuss this further. DILAN
[2016-07-08 13:57] LABS: HEMATOCRIT 29.4 % (37-47)
--- NOTE | 2016-07-08 17:55 | Family Medicine Progress Note ---
Progress Note Date of Service July 08, 2016. Subjective Pt seen and examined at bedside. Resting comfortably in bed. Has had single episode of BRBPR since yesterday w/ formed brown BM between per her. Family present in room, updated on course and intent of care and recent surgical evaluation, questions answered to satisfaction. Reports no fever, abd pain, lightheadedness improved from previous. Constitutional: No chills, No fever, No sweats Respiratory: No cough, No shortness of breath, No wheezing Cardiovascular: No chest pain, No edema, No palpitations Neurologic: No memory loss, No numbness/tingling, No weakness Medications Current Inpatient Medications Medications (Trade) Dose Ordered Sig/Hair Route Start Time Stop Time Status Last Admin Dose Admin Acetaminophen (Tylenol Tab) 650 mg Q4H PRN PO 07/04/16 16:30 08/03/16 16:29 Ondansetron HCl (Zofran Inj) 4 mg Q6H PRN IV 07/04/16 16:30 08/03/16 16:29 Polyethylene 17 gm 17 gm DAILY PRN PO 07/04/16 16:30 08/03/16 16:29 Pantoprazole Sodium/Syringe (Protonix Inj/ Syringe) 10 ml @ 5 mls/min BID@0900,2100 IV 07/04/16 21:00 08/03/16 20:59 07/08/16 08:08 5 MLS/MIN Metoprolol Tartrate (Lopressor Iv) 2.5 mg Q6 PRN IV 07/05/16 08:15 08/04/16 08:14 07/06/16 07:35 2.5 MG Ioversol (Optiray 320) 100 ml UD PRN IV 07/05/16 12:45 07/09/16 12:44 Potassium Chloride 20 meq 20 meq TID PO 07/06/16 14:00 08/05/16 13:59 07/08/16 16:45 20 MEQ Heparin Sodium/ Dextrose (Heparin 25,000 Unit/500ml D5W) 500 ml @ 24 mls/hr [id number] PRN IV 07/06/16 10:00 08/05/16 09:59 Future Hold 07/07/16 06:15 24 MLS/HR Metoprolol Succinate (Toprol Xl Tab) 100 mg QAM PO 07/06/16 12:00 08/05/16 11:59 07/08/16 08:06 100 MG Digoxin (Lanoxin Tab) 0.125 mg MoWeFr@1600 PO 07/06/16 16:00 08/05/16 15:59 07/06/16 16:28 0.125 MG Ciprofloxacin (Cipro Tab) 500 mg BID PO 07/06/16 21:00 07/10/16 23:59 07/08/16 08:06 500 MG Metronidazole (Flagyl Tab) 500 mg TID PO 07/07/16 14:00 07/15/16 13:59 07/08/16 16:39 500 MG Diltiazem HCl (Cardizem Tab) 90 mg QID PO 07/08/16 13:00 08/07/16 12:59 07/08/16 16:39 90 MG Furosemide (Lasix Tab) 40 mg DAILY PO 07/09/16 09:00 08/08/16 08:59 Carbidopa/Levodopa (Sinemet 25/ 100MG Tab) 1 tab Q3H PRN PO 07/08/16 10:54 08/07/16 10:53 07/08/16 12:16 1 TAB Objective Vital Signs Date Time Temp Pulse Resp B/P Pulse Ox O2 Delivery O2 Flow Rate FiO2 07/08/16 16:21 92 Room Air 07/08/16 16:01 94 21 113/74 92 Room Air 07/08/16 16:00 109 22 92 07/08/16 15:00 95 17 97 07/08/16 14:00 105 20 92/60 95 Room Air 07/08/16 12:15 95 Room Air 07/08/16 12:02 36.8 136 17 109/88 07/08/16 12:00 109 29 96 07/08/16 11:41 88 96 07/08/16 11:00 95 17 07/08/16 10:01 88 19 125/66 97 07/08/16 10:00 88 18 97 07/08/16 09:00 104 22 97 07/08/16 08:01 36.9 117 18 120/82 98 Room Air 07/08/16 08:00 135 19 97 07/08/16 07:40 96 Room Air 07/08/16 07:00 94 17 97 07/08/16 06:00 114 22 115/60 95 07/08/16 04:00 96 Room Air 07/08/16 04:00 36.7 115 20 135/75 95 Room Air 07/08/16 02:00 36.6 100 22 121/87 97 07/08/16 01:30 36.6 103 22 104/77 97 07/08/16 00:30 36.6 109 20 118/74 95 07/08/16 00:00 97 Room Air 07/08/16 00:00 36.5 95 20 105/62 95 07/07/16 23:44 36.5 106 20 113/80 94 07/07/16 23:30 36.5 116 20 113/69 94 07/07/16 22:24 87 18 114/79 99 07/07/16 21:53 36.5 84 20 98/66 97 07/07/16 21:23 36.4 85 22 91/72 98 07/07/16 21:07 36.6 100 20 87/64 94 07/07/16 20:00 102 17 105/60 95 Room Air 07/07/16 20:00 95 Room Air 07/07/16 18:00 104 20 101/78 94 Room Air Physical Exam General Appearance: WD/WN, no apparent distress Respiratory/Chest: chest non-tender, lungs clear, normal breath sounds, no respiratory distress Cardiovascular: no edema, no murmur, + tachycardia, + irregularly irregular Abdomen: normal bowel sounds, non tender, soft, no organomegaly Laboratory Results 07/08/16 05:44 Red Blood Count 3.01, Mean Corpuscular Volume 87.4, Mean Corpuscular Hemoglobin 29.6, Mean Corpuscular Hemoglobin Concent 33.8, Mean Platelet Volume 9.7, Neutrophils (%) (Auto) 71.7, Lymphocytes (%) (Auto) 13.6, Monocytes (%) (Auto) 12.3, Eosinophils (%) (Auto) 1.0, Basophils (%) (Auto) 0.8, Neutrophils # (Auto ) 7.42, Lymphocytes # (Auto) 1.41, Monocytes # (Auto) 1.27, Eosinophils # (Auto ) 0.10, Basophils # (Auto) 0.08 07/08/16 13:51 07/08/16 05:44 Test 07/08/16 05:44 White Blood Count 10.34 K/uL (4.8-10.8) Red Blood Count 3.01 M/uL (4.2-5.4) Hemoglobin 8.9 g/dL (12.0-16.0) Hematocrit 26.3 % (37-47) Mean Corpuscular Volume 87.4 fL (80-100) Mean Corpuscular Hemoglobin 29.6 pg (25-34) Mean Corpuscular Hemoglobin Concent 33.8 g/dl (32-36) Platelet Count 289 K/uL (130-400) Mean Platelet Volume 9.7 fL (7.4-10.4) Neutrophils (%) (Auto) 71.7 % Lymphocytes (%) (Auto) 13.6 % Monocytes (%) (Auto) 12.3 % Eosinophils (%) (Auto) 1.0 % Basophils (%) (Auto) 0.8 % Neutrophils # (Auto) 7.42 K/uL (1.4-6.5) Lymphocytes # (Auto) 1.41 K/uL (1.2-3.4) Monocytes # (Auto) 1.27 K/uL (0.11-0.59) Eosinophils # (Auto) 0.10 K/uL (0-0.5) Basophils # (Auto) 0.08 K/uL (0-0.2) RDW Standard Deviation 49.0 fL (36.4-46.3) RDW Coefficient of Variation 15.8 % (11.5-14.5) Immature Granulocyte % (Auto) 0.6 % Immature Granulocyte # (Auto) 0.06 K/uL (0.00-0.02) Red Blood Cell Morphology Unremarkable Activated Partial Thromboplast Time 25.2 SECONDS (21.0-31.0) Partial Thromboplastin Ratio 1.0 Anion Gap 9.0 mmol/L (3-11) Est Creatinine Clear Calc Drug Dose 61.8 ml/min Estimated GFR () 87.4 Estimated GFR (Non- 75.4 BUN/Creatinine Ratio 6.5 (10-20) Calcium Level 8.3 mg/dl (8.5-10.1) Phosphorus Level 2.3 mg/dl (2.5-4.9) Magnesium Level 1.6 mg/dl (1.8-2.4) Assessment and Plan 80 y/o female h/o a-fib on coumadin, CAD (remote), DMII, RLS w/ GIB w/ BRBPR Acute anemia 2/2 blood loss w/ aGIB exacerbated by anticoagulation therapy - ICU , 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 IV PRN if necessary. Coumadin reversed w/ IV vit K - At this point, risk > benefit w/ AC and will hold Coronary artery disease - continue oral medications HLD - continue statin therapy Restless leg syndrome - continue Sinemet QID Lower extremity swelling - chronic, stable - tolerating HCTZ Suspected UTI - UCx negative, withdraw Rocephin DVT prophylaxis: SCDs DNR
[2016-07-09] VITALS (31 sets, daily range): BP systolic 100–133; BP diastolic 65–92; PULSE 78–129; TEMP 36.5–36.7; O2SAT 91–96
[2016-07-09 05:45] LABS: BASO % 0.5 %; BASO ABS # 0.07 K/uL (0-0.2); COMPLETE YES; EOS % 0.5 %; HEMATOCRIT 27.9 % (37-47); IG% 0.7 %; LYMPH % 13.4 %; LYMPH ABS # 1.83 K/uL (1.2-3.4); MEAN CORPUSCULAR HEMOGLOBIN 29.3 pg (25-34); MEAN CORPUSCULAR HGB CONC 33.3 g/dl (32-36); MEAN PLATELET VOLUME 9.8 fL (7.4-10.4); MONO % 14.7 %; NEUT % 70.2 %; PLATELET COUNT 335 K/uL (130-400); RED BLOOD COUNT 3.17 M/uL (4.2-5.4); WHITE BLOOD COUNT 13.69 K/uL (4.8-10.8)
[2016-07-09 06:02] LABS: BUN/CREATININE RATIO 6.1 (10-20); CALCIUM 8.2 mg/dl (8.5-10.1); CREATININE 0.78 mg/dl (0.60-1.20); MAGNESIUM 1.4 mg/dl (1.8-2.4); POTASSIUM 3.3 mmol/L (3.5-5.1)
[2016-07-09 06:04] LABS: PHOSPHORUS 2.4 mg/dl (2.5-4.9)
[2016-07-09] MEDS ORDERED: CONSULT PHARMACY STA (07:12)
[2016-07-09] MEDS ORDERED: TPN/PPN CONSULT PHARMACY PRN (07:15)
--- NOTE | 2016-07-09 07:19 | Surgery Progress Note ---
Surgery Progress Note Date of Service July 09, 2016. Subjective no complaints Objective Vital Signs: Date Time Temp Pulse Resp B/P Pulse Ox O2 Delivery O2 Flow Rate FiO2 07/09/16 06:00 94 14 133/73 96 Room Air 07/09/16 04:01 36.5 83 19 120/74 96 Room Air 07/09/16 04:00 96 Room Air 07/09/16 02:00 92 21 107/80 96 07/09/16 00:01 36.6 108 17 118/72 95 Room Air 07/09/16 00:00 94 Room Air 07/08/16 22:00 88 18 97/52 96 Room Air 07/08/16 20:00 36.7 91 15 126/85 96 Room Air 07/08/16 20:00 97 Room Air 07/08/16 18:01 87 19 96/60 07/08/16 18:00 104 19 97 07/08/16 17:00 36.7 114 20 98 07/08/16 16:21 92 Room Air 07/08/16 16:01 94 21 113/74 92 Room Air 07/08/16 16:00 109 22 92 07/08/16 15:00 95 17 97 07/08/16 14:00 105 20 92/60 95 Room Air 07/08/16 12:15 95 Room Air 07/08/16 12:02 36.8 136 17 109/88 07/08/16 12:00 109 29 96 07/08/16 11:41 88 96 07/08/16 11:00 95 17 07/08/16 10:01 88 19 125/66 97 07/08/16 10:00 88 18 97 07/08/16 09:00 104 22 97 07/08/16 08:01 36.9 117 18 120/82 98 Room Air 07/08/16 08:00 135 19 97 07/08/16 07:40 96 Room Air General Appearance: no apparent distress Respiratory/Chest: no respiratory distress Cardiovascular: + irregularly irregular Abdomen: soft Laboratory Results: Results Past 24 Hours Test 07/08/16 13:51 07/09/16 05:28 Range/Units Hemoglobin 9.6 9.3 12.0-16.0 g/dL Hematocrit 29.4 27.9 37-47 % White Blood Count 13.69 4.8-10.8 K/uL Red Blood Count 3.17 4.2-5.4 M/uL Mean Corpuscular Volume 88.0 80-100 fL Mean Corpuscular Hemoglobin 29.3 25-34 pg Mean Corpuscular Hemoglobin Concent 33.3 32-36 g/dl Platelet Count 335 130-400 K/uL Mean Platelet Volume 9.8 7.4-10.4 fL Neutrophils (%) (Auto) 70.2 % Lymphocytes (%) (Auto) 13.4 % Monocytes (%) (Auto) 14.7 % Eosinophils (%) (Auto) 0.5 % Basophils (%) (Auto) 0.5 % Neutrophils # (Auto) 9.62 1.4-6.5 K/uL Lymphocytes # (Auto) 1.83 1.2-3.4 K/uL Monocytes # (Auto) 2.01 0.11-0.59 K/uL Eosinophils # (Auto) 0.07 0-0.5 K/uL Basophils # (Auto) 0.07 0-0.2 K/uL RDW Standard Deviation 50.7 36.4-46.3 fL RDW Coefficient of Variation 16.2 11.5-14.5 % Immature Granulocyte % (Auto) 0.7 % Immature Granulocyte # (Auto) 0.09 0.00-0.02 K/uL Activated Partial Thromboplast Time 25.7 21.0-31.0 SECONDS Partial Thromboplastin Ratio 1.0 Sodium Level 144 136-145 mmol/L Potassium Level 3.3 3.5-5.1 mmol/L Chloride Level 106 98-107 mmol/L Carbon Dioxide Level 30 21-32 mmol/L Anion Gap 8.0 3-11 mmol/L Blood Urea Nitrogen 5 7-18 mg/dl Creatinine 0.78 0.60-1.20 mg/dl Est Creatinine Clear Calc Drug Dose 58.7 ml/min Estimated GFR () 82.1 Estimated GFR (Non- 70.8 BUN/Creatinine Ratio 6.1 10-20 Random Glucose 99 70-99 mg/dl Calcium Level 8.2 8.5-10.1 mg/dl Phosphorus Level 2.4 2.5-4.9 mg/dl Magnesium Level 1.4 1.8-2.4 mg/dl Assessment & Plan 07/09/16- plan for Rt colectomy tomorrow- clear liquids today. Cont Cipro/ flagyl. ordered ppn- would benefit from picc line/tpn postop Type and cross for OR- discuss with daughters
[2016-07-09] MEDS: CARBIDOPA/LEVODOPA 25/100MG TAB PO PRN ×6 (07:41→23:46)
[2016-07-09] MEDS: CIPROFLOXACIN 500 MG TAB PO SCH ×2 (07:42→20:38)
[2016-07-09] MEDS: POTASSIUM CHLORIDE 20 MEQ TABCR PO SCH ×3 (07:42→20:39)
[2016-07-09] MEDS: DILTIAZEM HCL 30 MG TAB PO SCH ×4 (07:42→20:38)
[2016-07-09] MEDS: METOPROLOL SUCC 50MG EXT REL TAB PO SCH (07:42)
[2016-07-09] MEDS: FUROSEMIDE 40 MG TAB PO SCH (07:43)
[2016-07-09] MEDS: METRONIDAZOLE 500 MG TAB PO SCH ×3 (07:43→20:40)
[2016-07-09] MEDS: PANTOprazole INJ 40 MG in SYRINGE 0 ML IV SCH ×2 (07:48→20:41)
[2016-07-09] MEDS ORDERED: POTASSIUM CHLORIDE 20 MEQ/15 ML UDC PO STA ×2 (09:20→16:38)
[2016-07-09] MEDS: MAGNESIUM SULFATE 1GM / D5W 1 GM in PREMIXED IN D5W 100 ML IV SCH ×4 (09:41→13:03)
[2016-07-09] MEDS: POTASSIUM CHLR 10 MEQ / WTR 10 MEQ in PREMIXED WATER 100 ML IV SCH ×3 (10:00→13:04)
--- NOTE | 2016-07-09 10:56 | Critical Care Progress Note ---
Critical Care Progress Note Date of Service July 09, 2016. ICU Day ICU Day Number: [address] Saba Subjective Patient has received in total 4 U PRBC , 2 were given yesterday, Resumed H&H monitoring. Her Hb responded from 6.6 to 9.3 which is a high response to 2 units. (7.3 was the level prior to 6.6) Will continue to monitor H and H. She has not dropped over the last 2 values. heparin was discontinued. She was evaluated by surgery and Dr Omalley will perform a subtotal colectomy. She is on clear liquids today and TPN pos op. No pain at this time, no other complaints. I checked her stools (She was on the toilet when I saw her and it was orange - the soup she had- non melanotic non bloody No events overnight otherwise Objective Constitutional: Vital signs reviewed. Eyes: Pupils equal, round, and reactive to light. Extraocular muscles are intact. ENT: Mucous membranes are moist. Oropharynx is clear. No sinus tenderness. Cardiovascular: irreg irregular s1 s2 no murmures Pulses are palpable and symmetric in all 4 extremities. No pedal edema appreciated. Respiratory: Lungs clear to auscultation bilaterally. GI: Abdomen soft, nontender, nondistended. Normal active bowel sounds. No abdominal hernias appreciated. No rebound. No guarding. : No CVA tenderness appreciated. Neurological: Patient awake, alert, and oriented x 3. Cranial nerves two through 12 grossly intact. Motor 5 out of 5 strength bilateral upper and lower extremities. GCS 15, CAM-ICU negative extremities no Clubbing cyanosis or edema, no ecchymosis either Lymph system no Lymphadenopathy cervical or supraclavicular. Current SOFA Score SOFA Score Response (Comments) Value Platelets (x10) > 150 0 Bilirubin (mg/dL) < 1.2 0 Julián Coma Score 15 0 Level of Hypotension No Hypotension 0 Creatinine (mg/dL) < 1.2 0 Total 0 Previous SOFA Scores unchanged from yesterday Assessment & Plan (1) Cecal ulcer with (2) Lower GI bleed History of diverticulitis (3) Anemia secondary to LGI bleed (4) Atrial fibrillation off anticoagulation at this point due to benefit risk ratio. She may be back on it once colectomy is done. (5) Restless leg syndrome NEUROLOGICAL Restless leg syndrome - Sinemet QID CARDIOVASCULAR - BP: Stable, maintaining MAP >65 - HR: improving, low grade tachycardia with HR in low 100s. Atrial fibrillation with rapid ventricular response - Back on home dose of Metoprolol and Digoxin. Will control rate <110 anticoagulation held until colectomy Cardizem to 90 QID, totalling home dose ot 360 mg daily; monitor HR - Echocardiogram reveals no evidence of thrombus RESPIRATORY - RR: 20-22 > 95% on Room Air - No chronic respiratory issues at this time; will continue to assess daily GASTROINTESTINAL - Diet: Clear Liquid diet, - GI Prophylaxis: Continue Protonix 40 mg IV BID Acute lower GI bleeding Hb droppedrising post 2 units PRBCs will continue to monitor Hb - Ischemic ulcer on colonoscopy - Pathology reviewed; Low suspicion for malignancy at this time - Tagged RBC scan done to rule-out other sources; no other evident sources of bleeding - GI recommendations appreciated RENAL//ENDOCRINE - Fluid Balance Globally + 5.L Resumed Lasix home dose of Lasix 40 mg today repleted K and Mg today after lasix was restarted FU and replete lytes Cr. stable at 0.74 HEMATOLOGY/INFECTIOUS DISEASE - Afebrile, leukocytosis resolved to 10 - Urine culture negative - C.diff toxin screen negative Non-specific Colitis - Per CT scan and GI recommendations - Patient to continue Flagyl and Cipro for total 7 day course; stop date placed on meds DVT Prophylaxis - SCD - Heparin discontinued as bleeding risk outweighs stroke/DVT prevention benefit LINES/IV ACCESS - PICC line placed 07/07 CODE STATUS - DNR DISPOSITION - Continue ICU monitoring Consults & Procedures Consultants: GI Procedures: s/p EGD and Colonoscopy on 07/05/2016 PICC line placement 07/07/2016 Tagged RBC scan 07/07/2016 NUCLEAR GI BLEEDING SCAN CLINICAL HISTORY: GI bleeding. Bright red blood per rectum. COMPARISON STUDY: Abdominal CT dated 07/05/2016. TECHNIQUE: Following the IV administration of 26.1 mCi of technetium 99m UltraTag labeled red blood cells, nuclear bleeding scan was performed. Anterior flow images were obtained every 2 seconds for a total 58 seconds. Anterior static images were obtained every 5 minutes for a total of 60 minutes. FINDINGS: There is expected tracer activity within the abdominal aorta, liver, and spleen. There is no abnormal an mobile tracer deposition contour to bowel loops identified during the examination to confirm active GI bleeding. Focal and nonmobile abnormal tracer deposition is seen in the right pelvis. IMPRESSION: 1. There is no abnormal mobile tracer deposition contouring to bowel loops identified to confirm active GI bleeding at the time of examination. 2. There is focal nonmobile abnormal tracer activity in the right lower quadrant. When correlated with the 07/05/2016 examination this likely corresponds to the presumed diagnosis of cecal diverticulitis. Follow-up with a colonoscopy is recommended for further assessment and to exclude underlying colonic lesion when the patient is clinically able. Electronically signed by: Cristhian North M.D. 07/07/2016 3:21 PM Dictated Date/Time: 07/07/2016 3:15 PM The status of this report is Signed. Draft = Not yet reviewed or approved by Radiologist. Signed = Reviewed and approved by Radiologist. Data Medications: Current Inpatient Medications Medications (Trade) Dose Ordered Sig/Hair Route Start Time Stop Time Status Last Admin Dose Admin Acetaminophen (Tylenol Tab) 650 mg Q4H PRN PO 07/04/16 16:30 08/03/16 16:29 Ondansetron HCl (Zofran Inj) 4 mg Q6H PRN IV 07/04/16 16:30 08/03/16 16:29 Polyethylene 17 gm 17 gm DAILY PRN PO 07/04/16 16:30 08/03/16 16:29 Pantoprazole Sodium/Syringe (Protonix Inj/ Syringe) 10 ml @ 5 mls/min BID@0900,2100 IV 07/04/16 21:00 08/03/16 20:59 07/09/16 07:48 5 MLS/MIN Metoprolol Tartrate (Lopressor Iv) 2.5 mg Q6 PRN IV 07/05/16 08:15 08/04/16 08:14 07/06/16 07:35 2.5 MG Ioversol (Optiray 320) 100 ml UD PRN IV 07/05/16 12:45 07/09/16 12:44 Potassium Chloride 20 meq 20 meq TID PO 07/06/16 14:00 08/05/16 13:59 07/09/16 07:42 20 MEQ Heparin Sodium/ Dextrose (Heparin 25,000 Unit/500ml D5W) 500 ml @ 24 mls/hr [id number] PRN IV 07/06/16 10:00 08/05/16 09:59 Future Hold 07/07/16 06:15 24 MLS/HR Metoprolol Succinate (Toprol Xl Tab) 100 mg QAM PO 07/06/16 12:00 08/05/16 11:59 07/09/16 07:42 100 MG Digoxin (Lanoxin Tab) 0.125 mg MoWeFr@1600 PO 07/06/16 16:00 08/05/16 15:59 07/06/16 16:28 0.125 MG Ciprofloxacin (Cipro Tab) 500 mg BID PO 07/06/16 21:00 07/10/16 23:59 07/09/16 07:42 500 MG Metronidazole (Flagyl Tab) 500 mg TID PO 07/07/16 14:00 07/15/16 13:59 07/09/16 07:43 500 MG Diltiazem HCl (Cardizem Tab) 90 mg QID PO 07/08/16 13:00 08/07/16 12:59 07/09/16 07:42 90 MG Furosemide (Lasix Tab) 40 mg DAILY PO 07/09/16 09:00 08/08/16 08:59 07/09/16 07:43 40 MG Carbidopa/ Levodopa 1 tab 1 tab Q3H PRN PO 07/08/16 10:54 08/07/16 10:53 07/09/16 07:41 1 TAB Nutrition (Parenteral) 0 ml @ 0 mls/hr TODAY@1600 IV 07/10/16 16:00 07/11/16 15:59 Dextrose (D10w) 1,000 ml @ 0 mls/hr Q0M PRN IV 07/09/16 16:00 08/08/16 15:59 Miscellaneous Information 1 ea 1 ea UD PRN N/A 07/09/16 07:15 08/08/16 07:14 Magnesium Sulfate 1 gm/Prmx 100 ml @ 100 mls/hr Q1H IV 07/09/16 10:00 07/09/16 13:59 07/09/16 09:41 100 MLS/HR Potassium Chloride/Prmx (Kcl 10 Meq / Wtr/Premixed Water) 100 ml @ 100 mls/hr Q1H IV 07/09/16 10:00 07/09/16 11:59 I & O: 24-Hour Column 07/09/16 08:00 Intake Total 775 ml Output Total 2000 ml Balance -1225 ml Vital Signs: Date Time Temp Pulse Resp B/P Pulse Ox O2 Delivery O2 Flow Rate FiO2 07/09/16 07:45 92 Room Air 07/09/16 06:00 94 14 133/73 96 Room Air 07/09/16 04:01 36.5 83 19 120/74 96 Room Air 07/09/16 04:00 96 Room Air 07/09/16 02:00 92 21 107/80 96 07/09/16 00:01 36.6 108 17 118/72 95 Room Air 07/09/16 00:00 94 Room Air 07/08/16 22:00 88 18 97/52 96 Room Air 07/08/16 20:00 36.7 91 15 126/85 96 Room Air 07/08/16 20:00 97 Room Air 07/08/16 18:01 87 19 96/60 07/08/16 18:00 104 19 97 07/08/16 17:00 36.7 114 20 98 07/08/16 16:21 92 Room Air 07/08/16 16:01 94 21 113/74 92 Room Air 07/08/16 16:00 109 22 92 07/08/16 15:00 95 17 97 07/08/16 14:00 105 20 92/60 95 Room Air 07/08/16 12:15 95 Room Air 07/08/16 12:02 36.8 136 17 109/88 07/08/16 12:00 109 29 96 07/08/16 11:41 88 96 07/08/16 11:00 95 17 Laboratory Results: Last 24 Hours Test 07/08/16 13:51 07/09/16 05:28 Hemoglobin 9.6 g/dL 9.3 g/dL Hematocrit 29.4 % 27.9 % White Blood Count 13.69 K/uL Red Blood Count 3.17 M/uL Mean Corpuscular Volume 88.0 fL Mean Corpuscular Hemoglobin 29.3 pg Mean Corpuscular Hemoglobin Concent 33.3 g/dl Platelet Count 335 K/uL Mean Platelet Volume 9.8 fL Neutrophils (%) (Auto) 70.2 % Lymphocytes (%) (Auto) 13.4 % Monocytes (%) (Auto) 14.7 % Eosinophils (%) (Auto) 0.5 % Basophils (%) (Auto) 0.5 % Neutrophils # (Auto) 9.62 K/uL Lymphocytes # (Auto) 1.83 K/uL Monocytes # (Auto) 2.01 K/uL Eosinophils # (Auto) 0.07 K/uL Basophils # (Auto) 0.07 K/uL RDW Standard Deviation 50.7 fL RDW Coefficient of Variation 16.2 % Immature Granulocyte % (Auto) 0.7 % Immature Granulocyte # (Auto) 0.09 K/uL Activated Partial Thromboplast Time 25.7 SECONDS Partial Thromboplastin Ratio 1.0 Sodium Level 144 mmol/L Potassium Level 3.3 mmol/L Chloride Level 106 mmol/L Carbon Dioxide Level 30 mmol/L Anion Gap 8.0 mmol/L Blood Urea Nitrogen 5 mg/dl Creatinine 0.78 mg/dl Est Creatinine Clear Calc Drug Dose 58.7 ml/min Estimated GFR () 82.1 Estimated GFR (Non- 70.8 BUN/Creatinine Ratio 6.1 Random Glucose 99 mg/dl Calcium Level 8.2 mg/dl Phosphorus Level 2.4 mg/dl Magnesium Level 1.4 mg/dl
--- NOTE | 2016-07-09 13:19 | Family Medicine Progress Note ---
Progress Note Date of Service July 09, 2016. Subjective Pt evaluation today including: conversation w/ patient, conversation w/ family , physical exam Pain: None PO Intake: Clear liquid Voiding: no voiding problems, no incontinence Doing well, no complaints Had discussion with Dr. Omalley re surgery scheduled for tomorrow No events overnight Constitutional: No chills, No fever, No sweats Eyes: No eye pain, No redness, No worsening of vision ENT: No nasal symptoms, No sore throat, No unusual epistaxis Respiratory: No cough, No shortness of breath, No sputum, No wheezing Cardiovascular: No PND, No chest pain, No edema, No orthopnea Abdomen: No nausea, No pain Musculoskeletal: No joint pain Female : No dysuria, No hematuria, No urinary frequency Neurologic: No numbness/tingling, No paralysis, No weakness Heme: No clotting problems, No swollen lymph nodes Endo: No fatigue Skin: No new/changing skin lesions, No rash All Other Systems: Reviewed and Negative Medications Current Inpatient Medications Medications (Trade) Dose Ordered Sig/Hair Route Start Time Stop Time Status Last Admin Dose Admin Acetaminophen (Tylenol Tab) 650 mg Q4H PRN PO 07/04/16 16:30 08/03/16 16:29 Ondansetron HCl (Zofran Inj) 4 mg Q6H PRN IV 07/04/16 16:30 08/03/16 16:29 Polyethylene 17 gm 17 gm DAILY PRN PO 07/04/16 16:30 08/03/16 16:29 Pantoprazole Sodium/Syringe (Protonix Inj/ Syringe) 10 ml @ 5 mls/min BID@0900,2100 IV 07/04/16 21:00 08/03/16 20:59 07/09/16 07:48 5 MLS/MIN Metoprolol Tartrate (Lopressor Iv) 2.5 mg Q6 PRN IV 07/05/16 08:15 08/04/16 08:14 07/06/16 07:35 2.5 MG Potassium Chloride 20 meq 20 meq TID PO 07/06/16 14:00 08/05/16 13:59 07/09/16 07:42 20 MEQ Heparin Sodium/ Dextrose (Heparin 25,000 Unit/500ml D5W) 500 ml @ 24 mls/hr [id number] PRN IV 07/06/16 10:00 08/05/16 09:59 Future Hold 07/07/16 06:15 24 MLS/HR Metoprolol Succinate (Toprol Xl Tab) 100 mg QAM PO 07/06/16 12:00 08/05/16 11:59 07/09/16 07:42 100 MG Digoxin (Lanoxin Tab) 0.125 mg MoWeFr@1600 PO 07/06/16 16:00 08/05/16 15:59 07/06/16 16:28 0.125 MG Ciprofloxacin (Cipro Tab) 500 mg BID PO 07/06/16 21:00 07/10/16 23:59 07/09/16 07:42 500 MG Metronidazole (Flagyl Tab) 500 mg TID PO 07/07/16 14:00 07/15/16 13:59 07/09/16 07:43 500 MG Diltiazem HCl (Cardizem Tab) 90 mg QID PO 07/08/16 13:00 08/07/16 12:59 07/09/16 07:42 90 MG Furosemide (Lasix Tab) 40 mg DAILY PO 07/09/16 09:00 08/08/16 08:59 07/09/16 07:43 40 MG Carbidopa/ Levodopa 1 tab 1 tab Q3H PRN PO 07/08/16 10:54 08/07/16 10:53 07/09/16 10:49 1 TAB Nutrition (Parenteral) 0 ml @ 0 mls/hr TODAY@1600 IV 07/10/16 16:00 07/11/16 15:59 Dextrose (D10w) 1,000 ml @ 0 mls/hr Q0M PRN IV 07/09/16 16:00 08/08/16 15:59 Miscellaneous Information 1 ea 1 ea UD PRN N/A 07/09/16 07:15 08/08/16 07:14 Magnesium Sulfate/ Prmx (Magnesium Sulfate/Premixed D5W) 100 ml @ 100 mls/hr Q1H IV 07/09/16 10:00 07/09/16 13:59 07/09/16 13:03 100 MLS/HR Objective Vital Signs Date Time Temp Pulse Resp B/P Pulse Ox O2 Delivery O2 Flow Rate FiO2 07/09/16 12:00 96 Room Air 07/09/16 07:45 92 Room Air 07/09/16 06:00 94 14 133/73 96 Room Air 07/09/16 04:01 36.5 83 19 120/74 96 Room Air 07/09/16 04:00 96 Room Air 07/09/16 02:00 92 21 107/80 96 07/09/16 00:01 36.6 108 17 118/72 95 Room Air 07/09/16 00:00 94 Room Air 07/08/16 22:00 88 18 97/52 96 Room Air 07/08/16 20:00 36.7 91 15 126/85 96 Room Air 07/08/16 20:00 97 Room Air 07/08/16 18:01 87 19 96/60 07/08/16 18:00 104 19 97 07/08/16 17:00 36.7 114 20 98 07/08/16 16:21 92 Room Air 07/08/16 16:01 94 21 113/74 92 Room Air 07/08/16 16:00 109 22 92 07/08/16 15:00 95 17 97 07/08/16 14:00 105 20 92/60 95 Room Air Physical Exam General Appearance: WD/WN, no apparent distress Eyes: normal inspection, EOMI ENT: hearing grossly normal, pharynx normal Neck: supple, no adenopathy, no JVD Respiratory/Chest: chest non-tender, lungs clear, normal breath sounds, no respiratory distress Cardiovascular: no gallop, no murmur, + irregularly irregular Abdomen: normal bowel sounds, non tender, soft Extremities: non-tender, no pedal edema Neurologic/Psychiatric: alert, normal mood/affect, oriented x 3 Skin: normal color, warm/dry, no rash Lymphatic: no adenopathy Laboratory Results Last 24 Hours Test 07/08/16 13:51 07/09/16 05:28 Hemoglobin 9.6 g/dL 9.3 g/dL Hematocrit 29.4 % 27.9 % White Blood Count 13.69 K/uL Red Blood Count 3.17 M/uL Mean Corpuscular Volume 88.0 fL Mean Corpuscular Hemoglobin 29.3 pg Mean Corpuscular Hemoglobin Concent 33.3 g/dl Platelet Count 335 K/uL Mean Platelet Volume 9.8 fL Neutrophils (%) (Auto) 70.2 % Lymphocytes (%) (Auto) 13.4 % Monocytes (%) (Auto) 14.7 % Eosinophils (%) (Auto) 0.5 % Basophils (%) (Auto) 0.5 % Neutrophils # (Auto) 9.62 K/uL Lymphocytes # (Auto) 1.83 K/uL Monocytes # (Auto) 2.01 K/uL Eosinophils # (Auto) 0.07 K/uL Basophils # (Auto) 0.07 K/uL RDW Standard Deviation 50.7 fL RDW Coefficient of Variation 16.2 % Immature Granulocyte % (Auto) 0.7 % Immature Granulocyte # (Auto) 0.09 K/uL Activated Partial Thromboplast Time 25.7 SECONDS Partial Thromboplastin Ratio 1.0 Sodium Level 144 mmol/L Potassium Level 3.3 mmol/L Chloride Level 106 mmol/L Carbon Dioxide Level 30 mmol/L Anion Gap 8.0 mmol/L Blood Urea Nitrogen 5 mg/dl Creatinine 0.78 mg/dl Est Creatinine Clear Calc Drug Dose 58.7 ml/min Estimated GFR () 82.1 Estimated GFR (Non- 70.8 BUN/Creatinine Ratio 6.1 Random Glucose 99 mg/dl Calcium Level 8.2 mg/dl Phosphorus Level 2.4 mg/dl Magnesium Level 1.4 mg/dl Assessment and Plan 80 year old female with GI bleeding due to cecal ulcer. Persistent Afib requiring anticoagulation with re-bleeding following heparin challenge. Ultimately needs surgical intervention to definitive removal. Our plan for her is as follows Acute lower GI bleeding - Hb & Hct stable overnight; Hb upwards of 9 today without addition transfusions overnight - Ischemic ulcer on colonoscopy - Pathology reviewed; Low suspicion for malignancy at this time - Tagged scan does not show other foci of bleeding - Surgery consulted; planned right-sided colectomy tomorrow - Electrolytes: Replete per ICU Atrial fibrillation with rapid ventricular response - Back on Metoprolol and Digoxin - Continue Cardizem 90 QID; home dose is 360 mg daily - Hold heparin due to planned procedure - No evidence of thrombus on BENEDICT as ulcer may be ischemic though TOE would be modality of choice Restless Leg Syndrome - Sinemet QID Non-specific Colitis - Per CT scan and GI recommendations - Patient to continue Flagyl and Cipro for total 7 day course; stop date placed on meds Acute blood loss anemia - Recurrence of bleeding as above; 2/2 cecal ulcer, likely ischemic - Hb stable at this time; blood on hold on blood bank - Hold anticoagulation at this time DVT Prophylaxis - SCD Code Status - DNR Disposition - Continue ICU monitoring - OT and OT Continued [facility] stay due to: other (awaiting surgery) Discharge planning: uncertain Reviewed: Pt Seen/Exam by Me History no further rectal bleeding Constitutional: denies: fever Respiratory: negative: short of breath Cardiovascular: denies chest pain General Appearance: no apparent distress Respiratory: lungs clear, no respiratory distress Cardiovascular: irregularly irregular Gastrointestinal: soft Neurologic/Psychiatric: alert, oriented x 3 Skin Characteristics: warm/dry Assessment/Plan I have reviewed the medical record and performed a history and physical examination of this patient today. I have discussed the case with Dr. Parra. The above note reflects my findings, conclusions, and recommendations.
[2016-07-09 14:36] LABS: POTASSIUM 3.6 mmol/L (3.5-5.1)
--- NOTE | 2016-07-09 14:37 | Anesthesiology Progress Note ---
Anesthesia Progress Note Date of Service July 09, 2016. Progress Notes This is an 80 y/o w female with a bleeding diverticulum s/p multiple PRBC transfusions, now presenting for a right hemicolectomy tomorrow.PMHx is sig. 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 ASA 4
[2016-07-09] MEDS ORDERED: DEXTROSE 10% 1,000 ML IV PRN (16:00)
[2016-07-09] MEDS: DIGOXIN 0.125 MG TAB PO SCH (17:03)
[2016-07-10] VITALS (36 sets, daily range): BP systolic 99–150; BP diastolic 55–103; PULSE 90–128; TEMP 36.4–36.9; O2SAT 89–100
[2016-07-10] MEDS: CARBIDOPA/LEVODOPA 25/100MG TAB PO PRN ×3 (02:47→21:23)
[2016-07-10 06:01] LABS: BASO % 0.5 %; BASO ABS # 0.06 K/uL (0-0.2); COMPLETE YES; EOS % 0.8 %; HEMATOCRIT 28.6 % (37-47); IG% 0.4 %; LYMPH % 15.7 %; LYMPH ABS # 1.85 K/uL (1.2-3.4); MEAN CELL VOLUME 88.3 fL (80-100); MEAN CORPUSCULAR HEMOGLOBIN 28.1 pg (25-34); MEAN CORPUSCULAR HGB CONC 31.8 g/dl (32-36); MEAN PLATELET VOLUME 9.7 fL (7.4-10.4); MONO % 14.4 %; NEUT % 68.2 %; PLATELET COUNT 349 K/uL (130-400); RED BLOOD COUNT 3.24 M/uL (4.2-5.4); WHITE BLOOD COUNT 11.77 K/uL (4.8-10.8)
[2016-07-10 06:10] LABS: PARTIAL THROMBOPLASTIN RATIO 1.1
--- NOTE | 2016-07-10 06:34 | Surgery Progress Note ---
Surgery Progress Note Date of Service July 10, 2016. Subjective + feeling well awake, alert- no acute chgs or bleeding Objective Vital Signs: Date Time Temp Pulse Resp B/P Pulse Ox O2 Delivery O2 Flow Rate FiO2 07/10/16 04:00 104 17 123/55 91 07/10/16 04:00 94 Room Air 07/10/16 02:00 90 16 129/82 94 Room Air 07/10/16 00:20 36.9 94 19 99/61 93 Room Air 07/09/16 23:59 94 Room Air 07/09/16 22:02 91 19 105/65 93 07/09/16 20:00 94 Room Air 07/09/16 19:00 85 20 94 07/09/16 18:03 94 24 110/75 95 Room Air 07/09/16 18:00 86 25 95 07/09/16 17:33 92 20 109/68 95 07/09/16 17:03 100 07/09/16 17:00 36.7 111 26 96 Room Air 07/09/16 16:01 94 25 100/73 95 07/09/16 16:00 95 Room Air 07/09/16 16:00 108 20 96 07/09/16 15:00 115 19 96 07/09/16 14:28 101 17 130/92 96 07/09/16 14:00 92 32 07/09/16 13:09 98 22 110/70 95 07/09/16 13:00 86 26 07/09/16 12:00 96 Room Air 07/09/16 12:00 36.5 83 22 07/09/16 11:00 103 16 07/09/16 10:01 78 20 105/73 07/09/16 10:00 84 21 91 Room Air 07/09/16 09:00 87 19 07/09/16 08:02 129 25 129/74 94 07/09/16 08:00 123 22 96 07/09/16 07:45 92 Room Air 07/09/16 07:41 36.7 129 24 133/67 96 07/09/16 07:00 109 21 96 General Appearance: no apparent distress Respiratory/Chest: no respiratory distress Abdomen: soft Laboratory Results: Results Past 24 Hours Test 07/09/16 13:58 07/10/16 05:34 Range/Units Hemoglobin 9.7 9.1 12.0-16.0 g/dL Hematocrit 29.0 28.6 37-47 % Potassium Level 3.6 3.5-5.1 mmol/L Magnesium Level 2.6 1.8-2.4 mg/dl Troponin I < 0.015 0-0.045 ng/ml White Blood Count 11.77 4.8-10.8 K/uL Red Blood Count 3.24 4.2-5.4 M/uL Mean Corpuscular Volume 88.3 80-100 fL Mean Corpuscular Hemoglobin 28.1 25-34 pg Mean Corpuscular Hemoglobin Concent 31.8 32-36 g/dl Platelet Count 349 130-400 K/uL Mean Platelet Volume 9.7 7.4-10.4 fL Neutrophils (%) (Auto) 68.2 % Lymphocytes (%) (Auto) 15.7 % Monocytes (%) (Auto) 14.4 % Eosinophils (%) (Auto) 0.8 % Basophils (%) (Auto) 0.5 % Neutrophils # (Auto) 8.02 1.4-6.5 K/uL Lymphocytes # (Auto) 1.85 1.2-3.4 K/uL Monocytes # (Auto) 1.69 0.11-0.59 K/uL Eosinophils # (Auto) 0.10 0-0.5 K/uL Basophils # (Auto) 0.06 0-0.2 K/uL RDW Standard Deviation 52.0 36.4-46.3 fL RDW Coefficient of Variation 16.4 11.5-14.5 % Immature Granulocyte % (Auto) 0.4 % Immature Granulocyte # (Auto) 0.05 0.00-0.02 K/uL Activated Partial Thromboplast Time 27.3 21.0-31.0 SECONDS Partial Thromboplastin Ratio 1.1 Assessment & Plan 07/10/16- pt is stable for surgery this am- will likely give pt one unit of PRBCs in OR- to ICU postop 07/09/16- plan for Rt colectomy tomorrow- clear liquids today. Cont Cipro/ flagyl. ordered ppn- would benefit from picc line/tpn postop Type and cross for OR- discuss with daughters 07/09/16- plan for Rt colectomy tomorrow- clear liquids today. Cont Cipro/ flagyl. ordered ppn- would benefit from picc line/tpn postop Type and cross for OR- discuss with daughters
[2016-07-10 06:42] LABS: ALB/GLOB RATIO 1.1 (0.9-2); BUN/CREATININE RATIO 6.7 (10-20); CALCIUM 8.4 mg/dl (8.5-10.1); CREATININE 0.77 mg/dl (0.60-1.20)
[2016-07-10] MEDS ORDERED: POTASSIUM PHOS 3 MMOL/1 ML INFUSION IV STA (07:33)
[2016-07-10] MEDS: METOPROLOL TARTRATE 1 MG/ML VIAL IV PRN (07:58)
[2016-07-10] MEDS: PANTOprazole INJ 40 MG in SYRINGE 0 ML IV SCH (07:59)
[2016-07-10] MEDS ORDERED: POTASSIUM PHOSPHATE INJ 6 MMOL in SODIUM CHLORIDE 0.9% 250ML 250 ML IV SCH (08:00)
[2016-07-10] MEDS: DILTIAZEM HCL 30 MG TAB PO SCH ×4 (08:10→21:23)
[2016-07-10] MEDS: METOPROLOL SUCC 50MG EXT REL TAB PO SCH (08:11)
[2016-07-10] MEDS: METRONIDAZOLE 500 MG TAB PO SCH (08:11)
[2016-07-10] MEDS: CIPROFLOXACIN 500 MG TAB PO SCH (08:11)
[2016-07-10] MEDS: FUROSEMIDE 40 MG TAB PO SCH (08:11)
[2016-07-10] MEDS: POTASSIUM CHLORIDE 20 MEQ TABCR PO SCH (08:12)
[2016-07-10] MEDS ORDERED: ATROPINE SULFATE 0.1 MG/ML 5ML SYR IV PRN (08:15)
[2016-07-10] MEDS ORDERED: MEPERIDINE HCL 25 MG/ML CARP IV PRN (08:15)
[2016-07-10] MEDS ORDERED: HYDROmorphone INJ 1 MG/ML SYR IV PRN (08:15)
[2016-07-10] MEDS ORDERED: ONDANSETRON INJ 2 MG/ML 2 ML VIAL IV PRN ×2 (08:15→11:45)
[2016-07-10] MEDS ORDERED: EpHEDrine SULFATE INJ 50 MG/ML AMP IV PRN (08:15)
[2016-07-10] MEDS ORDERED: LABETALOL HCL IV 5 MG/ML 20ML IV PRN (08:15)
[2016-07-10] MEDS ORDERED: NEOSTIGMINE METHYLSULFATE 5 MG/5 ML SYR ONE (08:40)
[2016-07-10] MEDS ORDERED: MIDAZOLAM HCL 1 MG/ML 2ML VIAL ONE (08:40)
[2016-07-10] MEDS ORDERED: GLYCOPYRROLATE INJ 0.2 MG/ML VIAL ONE ×2 (08:40→11:46)
[2016-07-10] MEDS ORDERED: LIDOCAINE HCL 2% 2 ML VIAL (20MG/ML) ONE (08:40)
[2016-07-10] MEDS ORDERED: FENTANYL CITRATE INJ 50 MCG/1 ML 2 ML VIAL ONE ×2 (08:40→09:23)
[2016-07-10] MEDS ORDERED: DEXAMETHASONE SOD INJ 4 MG/ML VIAL ONE (08:40)
[2016-07-10] MEDS ORDERED: ROCURONIUM BROMIDE 10 MG/ML 5 ML VIAL ONE (08:40)
[2016-07-10] MEDS ORDERED: PROPOFOL IV EMULSION 10 MG/ML 20 ML VIAL IV ONE (08:40)
[2016-07-10] MEDS ORDERED: ONDANSETRON INJ 2 MG/ML 2 ML VIAL ONE (08:40)
[2016-07-10] MEDS ORDERED: CEFOXITIN SOD 1 GM VIAL ONE ×2 (08:45→10:11)
[2016-07-10] MEDS ORDERED: CEFAZOLIN IV 2,000 MG/60 ML D5W IV ONE (08:55)
[2016-07-10] MEDS ORDERED: SODIUM CHLORIDE 0.9% INJ 10 ML VIAL ONE ×3 (09:53→11:46)
--- NOTE | 2016-07-10 11:32 | [facility] Post Operative Brief Note ---
Immediate Operative Summary Operative Date July 10, 2016. Pre-Operative Diagnosis GI bleeding and ischemic colitis. Post-Operative Diagnosis GI bleeding and ischemic colitis. Procedure(s) Performed extended Right Hemicolectomy, with iliocolic anastomosis Surgeon Dr. Omalley [employer] Assistant Surgeon(s) Clemente Watson PA-C Estimated Blood Loss 50ML Findings inflamed , edematous pale cecum Specimens A. extended right hemicolectomy (permanent) B. omentum (permanent) Drains wen to subcu Anesthesia gen Complication(s) None Disposition Recovery Room / PACU
[2016-07-10] MEDS ORDERED: HYDROmorphone INJ 0.5 MG/0.5 ML SYR IV PRN (11:45)
[2016-07-10] MEDS: FENTANYL CITRATE INJ 50 MCG/1 ML 2 ML VIAL IV PRN ×4 (11:45→12:00)
--- NOTE | 2016-07-10 12:14 | Critical Care Progress Note ---
Critical Care Progress Note Date of Service July 10, 2016. Attending Dr. Saba Subjective Patient was admitted with GI bleed found to be due to a cecal ulcer and she bled again on 07/06- time frame. She received in total 4 U PRBC and tagged RBC scan added no information as to other sites of bleeding. Her Hb responded from 6.6 to 9.3 which is a high response to 2 units. (7.3 was the level prior to 6.6) but the FU numbers continued to show stable Hb and she had no melanotic stools yesterday. She is off anticoagulation (for her A fib) and is going for hemicolectomy this am. She has no complaints at bedside She had a brief episode of HR 120-130 this am and we gave her her meds.with proper response Objective Constitutional: Vital signs reviewed. Eyes: Pupils equal, round, and reactive to light. Extraocular muscles are intact. ENT: Mucous membranes are moist. Oropharynx is clear. No sinus tenderness. Cardiovascular: irreg irregular s1 s2 no murmures Pulses are palpable and symmetric in all 4 extremities. No pedal edema appreciated. Respiratory: Lungs clear to auscultation bilaterally. GI: Abdomen soft, nontender, nondistended. Normal active bowel sounds. No abdominal hernias appreciated. No rebound. No guarding. : No CVA tenderness appreciated. Neurological: Patient awake, alert, and oriented x 3. Cranial nerves two through 12 grossly intact. Motor 5 out of 5 strength bilateral upper and lower extremities. GCS 15, CAM-ICU negative extremities no Clubbing cyanosis or edema, no ecchymosis either Lymph system no Lymphadenopathy cervical or supraclavicular. Current SOFA Score SOFA Score Response (Comments) Value Platelets (x10) > 150 0 Bilirubin (mg/dL) < 1.2 0 [place] Coma Score 15 0 Level of Hypotension No Hypotension 0 Creatinine (mg/dL) < 1.2 0 Total 0 Previous SOFA Scores unchanged from yesterday Assessment & Plan (1) Cecal ulcer with (2) Lower GI bleed History of diverticulitis (3) Anemia secondary to LGI bleed (4) Atrial fibrillation off anticoagulation at this point due to benefit risk ratio. She may be back on it once colectomy is done. (5) Restless leg syndrome NEUROLOGICAL Restless leg syndrome - Sinemet QID CARDIOVASCULAR - BP: Stable, maintaining MAP >65 - HR: improving, low grade tachycardia with HR in low 100s. Atrial fibrillation with rapid ventricular response - Back on home dose of Metoprolol and Digoxin. Will control rate <110 anticoagulation held until colectomy Cardizem to 90 QID, totalling home dose ot 360 mg daily; monitor HR - Echocardiogram reveals no evidence of thrombus We gave her her oral meds prior to OR given her rate of 120s briefly this am RESPIRATORY - RR: 20-22 > 95% on Room Air - No chronic respiratory issues at this time; will continue to assess daily GASTROINTESTINAL - Diet NPO post surgery and she will receive PPN - GI Prophylaxis: Continue Protonix 40 mg IV BID Acute lower GI bleeding will undergo colectomy shortly - GI recommendations appreciated RENAL//ENDOCRINE - Fluid Balance Globally + 3.5.L She has been in negative balance since lasix Lasix home dose of Lasix 40 mg today repleted K and Mg adequately todays she was given K phosphate will FU and replete lytes Cr. stable at 0.74 HEMATOLOGY/INFECTIOUS DISEASE - Afebrile, leukocytosis resolved - Urine culture negative - C.diff toxin screen negative Patient to continue Flagyl and Cipro for total 7 day course; stop date placed on meds She also received ancef site acquisition specialist to OR. DVT Prophylaxis - SCD - Heparin discontinued as bleeding risk outweighs stroke/DVT prevention benefit can be resumed post op with anticoagulation for both DVT and A fib LINES/IV ACCESS - PICC line placed 07/07 CODE STATUS - DNR DISPOSITION - Continue ICU monitoring for 24 hours post op Consults & Procedures Consultants: GI surgery Procedures: s/p EGD and Colonoscopy on 07/05/2016 PICC line placement 07/07/2016 Tagged RBC scan 07/07/2016 NUCLEAR GI BLEEDING SCAN CLINICAL HISTORY: GI bleeding. Bright red blood per rectum. COMPARISON STUDY: Abdominal CT dated 07/05/2016. TECHNIQUE: Following the IV administration of 26.1 mCi of technetium 99m UltraTag labeled red blood cells, nuclear bleeding scan was performed. Anterior flow images were obtained every 2 seconds for a total 58 seconds. Anterior static images were obtained every 5 minutes for a total of 60 minutes. FINDINGS: There is expected tracer activity within the abdominal aorta, liver, and spleen. There is no abnormal an mobile tracer deposition contour to bowel loops identified during the examination to confirm active GI bleeding. Focal and nonmobile abnormal tracer deposition is seen in the right pelvis. IMPRESSION: 1. There is no abnormal mobile tracer deposition contouring to bowel loops identified to confirm active GI bleeding at the time of examination. 2. There is focal nonmobile abnormal tracer activity in the right lower quadrant. When correlated with the 07/05/2016 examination this likely corresponds to the presumed diagnosis of cecal diverticulitis. Follow-up with a colonoscopy is recommended for further assessment and to exclude underlying colonic lesion when the patient is clinically able. Electronically signed by: Cristhian North M.D. Data Medications: Current Inpatient Medications Medications (Trade) Dose Ordered Sig/Hair Route Start Time Stop Time Status Last Admin Dose Admin Acetaminophen (Tylenol Tab) 650 mg Q4H PRN PO 07/04/16 16:30 08/03/16 16:29 Ondansetron HCl 4 mg 4 mg Q6H PRN IV 07/04/16 16:30 08/03/16 16:29 Pantoprazole Sodium/Syringe (Protonix Inj/ Syringe) 10 ml @ 5 mls/min BID@0900,2100 IV 07/04/16 21:00 08/03/16 20:59 07/10/16 07:59 5 MLS/MIN Metoprolol Tartrate (Lopressor Iv) 2.5 mg Q6 PRN IV 07/05/16 08:15 08/04/16 08:14 07/06/16 07:35 2.5 MG Digoxin (Lanoxin Tab) 0.125 mg MoWeFr@1600 PO 07/06/16 16:00 08/05/16 15:59 07/09/16 17:03 0.125 MG Diltiazem HCl (Cardizem Tab) 90 mg QID PO 07/08/16 13:00 08/07/16 12:59 07/10/16 08:10 90 MG Carbidopa/Levodopa (Sinemet 25/ 100MG Tab) 1 tab Q3H PRN PO 07/08/16 10:54 08/07/16 10:53 07/10/16 07:50 1 TAB Miscellaneous Information (Pharmacy Tpn/ Ppn Consult Active) 1 ea UD PRN N/A 07/09/16 07:15 08/08/16 07:14 Fentanyl Citrate (Fentanyl Inj) 50 mcg Q5M PRN IV 07/10/16 08:15 07/10/16 13:00 07/10/16 11:55 50 MCG Ondansetron HCl (Zofran Inj) 4 mg ONE PRN IV 07/10/16 08:15 07/10/16 13:00 07/10/16 11:40 4 MG Labetalol HCl (Normodyne IV) 5 mg Q5M PRN IV 07/10/16 08:15 07/10/16 13:00 Ephedrine Sulfate (EpHEDrine SULFATE INJ) 5 mg Q5M PRN IV 07/10/16 08:15 07/10/16 13:00 Atropine Sulfate 0.5 mg 0.5 mg Q1M PRN IV 07/10/16 08:15 07/10/16 13:00 Nutrition (Parenteral) 0 ml @ 0 mls/hr TODAY@1600 IV 07/10/16 16:00 07/11/16 15:59 Cefoxitin Sodium/ Dextrose (Mefoxin IV/D5 50ml) 60 ml @ 100 mls/hr Q8 IV 07/10/16 14:00 07/20/16 13:59 UNV Hydromorphone HCl (Dilaudid Inj) 0.5 mg Q3H PRN IV 07/10/16 11:45 07/24/16 11:44 UNV Hydromorphone HCl 1 mg 1 mg Q3H PRN IV 07/10/16 11:45 07/24/16 11:44 UNV Lactated Ringer's 1,000 ml @ 100 mls/hr Q10H IV 07/10/16 11:45 08/09/16 11:44 UNV Pantoprazole Sodium/Syringe (Protonix Inj/ Syringe) 10 ml @ 5 mls/min DAILY@11 IV 07/11/16 11:00 08/10/16 10:59 UNV Ondansetron HCl (Zofran Inj) 4 mg Q6H PRN IV 07/10/16 11:45 08/09/16 11:44 UNV Heparin Sodium (Porcine) (Heparin Sq 5000 Unit/0.5ml) 5,000 unit Q8 SQ 07/11/16 08:00 08/10/16 07:59 UNV I & O: 24-Hour Column 07/10/16 08:00 Intake Total 1250 ml Output Total 1700 ml Balance -450 ml Vital Signs: Date Time Temp Pulse Resp B/P Pulse Ox O2 Delivery O2 Flow Rate FiO2 07/10/16 12:00 86 14 129/70 99 Nasal Cannula 4 07/10/16 11:50 96 16 128/75 95 Nasal Cannula 4 07/10/16 11:40 94 16 113/75 96 Nasal Cannula 4 07/10/16 11:33 36.4 89 16 104/74 95 Nasal Cannula 4 07/10/16 08:00 Room Air 07/10/16 08:00 36.8 128 28 119/85 94 Room Air 07/10/16 06:30 99 21 123/77 97 Nasal Cannula 07/10/16 04:00 104 17 123/55 91 07/10/16 04:00 94 Room Air 07/10/16 02:00 90 16 129/82 94 Room Air 07/10/16 00:20 36.9 94 19 99/61 93 Room Air 07/09/16 23:59 94 Room Air 07/09/16 22:02 91 19 105/65 93 07/09/16 20:00 94 Room Air 07/09/16 19:00 85 20 94 07/09/16 18:03 94 24 110/75 95 Room Air 07/09/16 18:00 86 25 95 07/09/16 17:33 92 20 109/68 95 07/09/16 17:03 100 07/09/16 17:00 36.7 111 26 96 Room Air 07/09/16 16:01 94 25 100/73 95 07/09/16 16:00 95 Room Air 07/09/16 16:00 108 20 96 07/09/16 15:00 115 19 96 07/09/16 14:28 101 17 130/92 96 07/09/16 14:00 92 32 07/09/16 13:09 98 22 110/70 95 07/09/16 13:00 86 26 Laboratory Results: Last 24 Hours Test 07/09/16 13:58 07/10/16 05:34 07/10/16 10:09 Hemoglobin 9.7 g/dL 9.1 g/dL Hematocrit 29.0 % 28.6 % Potassium Level 3.6 mmol/L 4.0 mmol/L Magnesium Level 2.6 mg/dl Troponin I < 0.015 ng/ml White Blood Count 11.77 K/uL Red Blood Count 3.24 M/uL Mean Corpuscular Volume 88.3 fL Mean Corpuscular Hemoglobin 28.1 pg Mean Corpuscular Hemoglobin Concent 31.8 g/dl Platelet Count 349 K/uL Mean Platelet Volume 9.7 fL Neutrophils (%) (Auto) 68.2 % Lymphocytes (%) (Auto) 15.7 % Monocytes (%) (Auto) 14.4 % Eosinophils (%) (Auto) 0.8 % Basophils (%) (Auto) 0.5 % Neutrophils # (Auto) 8.02 K/uL Lymphocytes # (Auto) 1.85 K/uL Monocytes # (Auto) 1.69 K/uL Eosinophils # (Auto) 0.10 K/uL Basophils # (Auto) 0.06 K/uL RDW Standard Deviation 52.0 fL RDW Coefficient of Variation 16.4 % Immature Granulocyte % (Auto) 0.4 % Immature Granulocyte # (Auto) 0.05 K/uL Activated Partial Thromboplast Time 27.3 SECONDS Partial Thromboplastin Ratio 1.1 Sodium Level 142 mmol/L Chloride Level 106 mmol/L Carbon Dioxide Level 29 mmol/L Anion Gap 7.0 mmol/L Blood Urea Nitrogen 5 mg/dl Creatinine 0.77 mg/dl Est Creatinine Clear Calc Drug Dose 59.4 ml/min Estimated GFR () 83.3 Estimated GFR (Non- 71.9 BUN/Creatinine Ratio 6.7 Random Glucose 96 mg/dl Calcium Level 8.4 mg/dl Total Bilirubin 0.7 mg/dl Direct Bilirubin 0.1 mg/dl Aspartate Amino Transf (AST/SGOT) 35 U/L Alanine Aminotransferase (ALT/SGPT) 7 U/L Alkaline Phosphatase 72 U/L Total Protein 5.5 gm/dl Albumin 2.9 gm/dl Globulin 2.6 gm/dl Albumin/Globulin Ratio 1.1
--- NOTE | 2016-07-10 12:15 | Anesthesiology Progress Note ---
Anesthesia Post Op Note Date & Time July 10, 2016 at 12:16 Vital Signs Pain Intensity: 5 Vital Signs Past 12 Hours Date Time Temp Pulse Resp B/P Pulse Ox O2 Delivery O2 Flow Rate FiO2 07/10/16 12:10 36.6 105 14 119/78 99 Nasal Cannula 4 07/10/16 12:00 86 14 129/70 99 Nasal Cannula 4 07/10/16 11:50 96 16 128/75 95 Nasal Cannula 4 07/10/16 11:40 94 16 113/75 96 Nasal Cannula 4 07/10/16 11:33 36.4 89 16 104/74 95 Nasal Cannula 4 07/10/16 08:00 Room Air 07/10/16 08:00 36.8 128 28 119/85 94 Room Air 07/10/16 06:30 99 21 123/77 97 Nasal Cannula 07/10/16 04:00 104 17 123/55 91 07/10/16 04:00 94 Room Air 07/10/16 02:00 90 16 129/82 94 Room Air 07/10/16 00:20 36.9 94 19 99/61 93 Room Air Notes Mental Status: alert / awake / arousable, participated in evaluation Pt Amnestic to Procedure: Yes Nausea / Vomiting: adequately controlled Pain: adequately controlled Airway Patency, RR, SpO2: stable & adequate BP & HR: stable & adequate Hydration State: stable & adequate Anesthetic Complications: no major complications apparent
--- NOTE | 2016-07-10 12:17 | OPERATIVE REPORT ---
DATE OF OPERATION: 07/10/2016 NAME OF OPERATION: Extended right hemicolectomy with ileocolic anastomosis. PREOPERATIVE DIAGNOSES: Gastrointestinal bleeding with colonic ischemia and ulceration. POSTOPERATIVE DIAGNOSIS: Same. STAFF SURGEON: Dr. Omalley. GAS FLOW REGULATOR: Sascha Watson PA-C. ANESTHESIA: General. PROCEDURE: The patient was brought in the operating room and placed on the operating table in supine position. Her abdomen was prepped and draped in usual fashion. Pneumatic stockings and White catheter were in place. Orogastric tube was placed. During the operation, the patient was given 1 unit of packed red blood cells electively. There was no significant bleeding during the operation with a blood loss of approximately 50 mL. Initially, incision was made transversely just above the umbilicus, carrying dissection down on the right side, identifying an umbilical hernia which had a significant amount of omentum within the hernia and also causing significant scar tissue of the transverse colon. Part of the omentum was excised and at the end of the case, we excised relatively most of the omentum secondary to concern for bowel obstruction. At this point, the right colon was mobilized, the cecum was very edematous, inflamed and pale. Incision was made along the right colic gutter mobilizing the right colon and ileum as well as the appendix. The ileum was transected using an Endo-ANNEMARIE stapler and then the mesocolon transected, ligated using the LigaSure and also 2-0 silk sutures to ligate the vessels. The transverse colon was transected at its mid portion. The patient did have some significant large diverticula involving the proximal transverse colon. The transverse colon was transected using the Endo-ANNEMARIE stapler and then the colon sent for routine pathology. At this point, the ends of the colon and small bowel were oversewn using 3-0 silk suture to reinforce the staple line. Then a [id number] anastomosis performed using the Endo-ANNEMARIE stapler with the enteric defect closed in 2 layers using 2-0 chromic catgut for the mucosa and 3-0 silk suture and a seromuscular layer. The mesenteric defect was closed using both running and interrupted 2-0 chromic catgut suture. The abdomen was irrigated with antibiotic solution. The posterior fascia and peritoneum were reapproximated using running #1 chromic catgut suture then the anterior fascia reapproximated using running #1 PDS suture. The hernia at the umbilicus was closed. Quarter inch Jean-Claude drain placed in the subcutaneous space, secured to the skin using 3-0 nylon suture, then the skin reapproximated using timothy. The patient was transferred to recovery room in stable condition. I attest to the content of the Intraoperative Record and any orders documented therein. Any exceptio ns are noted below.
[2016-07-10] MEDS ORDERED: SODIUM CHLORIDE 0.9% 500ML 500 ML IV ONE (12:45)
--- NOTE | 2016-07-10 12:58 | Pharmacy Progress Note ---
Parenteral Nutrition Consult Date of Service July 10, 2016. [facility] Pharmacy has been consulted to manage parenteral nutrition orders and order appropriate labs. As part of the Nutrition Support Team guidelines, pharmacy will work in conjunction with dietary when determining the patients caloric needs. Subjective The patient is a 80 year old female admitted on July 04, 2016 at 17:13 for Bright Red Blood Per Rectum. Patient is to receive parenteral nutrition post operatively. Objective Height (Feet): 5 Height (Inches): 4.00 Weight (Kilograms): 78.100 Diet: NPO Vascular Access: double PICC Intake & Output (Last 72 Hr): 07/08/16 07/09/16 07/10/16 08:00 08:00 08:00 Intake Total 2240 ml 775 ml 1250 ml Output Total 3000 ml 2000 ml 1700 ml Balance -760 ml -1225 ml -450 ml Laboratory Data (Last 24 Hr): Test 07/09/16 13:58 07/10/16 05:34 07/10/16 10:09 Magnesium Level 2.6 mg/dl (1.8-2.4) Potassium Level 3.6 mmol/L (3.5-5.1) 4.0 mmol/L (3.5-5.1) Alanine Aminotransferase (ALT/SGPT) 7 U/L (12-78) Albumin 2.9 gm/dl (3.4-5.0) Alkaline Phosphatase 72 U/L (45-117) Aspartate Amino Transf (AST/SGOT) 35 U/L (15-37) Blood Urea Nitrogen 5 mg/dl (7-18) Calcium Level 8.4 mg/dl (8.5-10.1) Carbon Dioxide Level 29 mmol/L (21-32) Chloride Level 106 mmol/L (98-107) Creatinine 0.77 mg/dl (0.60-1.20) Random Glucose 96 mg/dl (70-99) Sodium Level 142 mmol/L (136-145) Total Bilirubin 0.7 mg/dl (0.2-1) Nutrition Assessment Please refer to the Notes section of the EMR for the most recent health officer note. Assessment 80 y/o with GI bleed low risk for re-feeding as she was able to consume clear liquids until midnight last night phos empirically repleted today prior to OR per alarm mechanism adjuster Plan For day 1 of PN administration, the following will be ordered: Macronutrients Amino acids 115 grams/day Dextrose 150 grams/day Lipids 50 grams twice weekly Micronutrients Combined electrolytes 20 mL - contains 35 mEq Na, 20 meq K, 4.5 mEq Ca, 5 mEq Mg , 35 mEq Cl, 29.5 mEq acetate per 20 mL Sodium phosphate -- MMol Sodium chloride -- mEq Sodium acetate -- mEq Potassium phosphate 15 mMol (in addition to 6mMol preoperatively) Potassium chloride -- mEq Potassium acetate -- mEq Magnesium sulfate -- mEq Calcium gluconate -- mEq Multivitamins 10 mL Trace Elements 10 mL Minimum volume to be infused over 24 hrs will provide 1470 kcal/day Labs to be ordered per PN order protocol Pharmacy will follow and adjust parenteral nutrition orders on a daily basis. Thank you.
[2016-07-10] MEDS: HYDROmorphone INJ 1 MG/ML SYR IV PRN ×4 (13:06→22:16)
[2016-07-10] MEDS: CEFOXITIN IV 1,000 MG in DEXTROSE 5% 50ML 50 ML IV SCH ×2 (13:14→21:23)
[2016-07-10] MEDS: LACTATED RINGER'S 1000ML 1,000 ML IV SCH (13:18)
--- NOTE | 2016-07-10 13:20 | Family Medicine Progress Note ---
Progress Note Date of Service July 10, 2016. Subjective Pt evaluation today including: conversation w/ patient, physical exam, chart review, lab review Pain: None Voiding: no voiding problems Doing well at this time Seen pre-operatively. Patient is comfortable, no pain or distress Awaiting right-sided colectomy No issues overnight per nursing Constitutional: No chills, No fever, No sweats Eyes: No discharge, No eye pain, No redness, No worsening of vision ENT: No hearing loss, No nasal symptoms, No sore throat, No tinnitus Respiratory: No cough, No shortness of breath, No sputum, No wheezing Cardiovascular: No chest pain, No claudication, No edema, No palpitations Breast: No breast lump Abdomen: No constipation, No diarrhea, No nausea, No pain, No vomiting Musculoskeletal: No joint pain, No muscle pain Female : No hematuria, No urinary frequency Neurologic: No numbness/tingling, No paralysis, No vertigo, No weakness Endo: No excessive thirst, No excessive urination, No fatigue Skin: No color change, No new/changing skin lesions, No rash Medications Current Inpatient Medications Medications (Trade) Dose Ordered Sig/Hair Route Start Time Stop Time Status Last Admin Dose Admin Acetaminophen (Tylenol Tab) 650 mg Q4H PRN PO 07/04/16 16:30 08/03/16 16:29 Metoprolol Tartrate (Lopressor Iv) 2.5 mg Q6 PRN IV 07/05/16 08:15 08/04/16 08:14 07/06/16 07:35 2.5 MG Digoxin (Lanoxin Tab) 0.125 mg MoWeFr@1600 PO 07/06/16 16:00 08/05/16 15:59 07/09/16 17:03 0.125 MG Diltiazem HCl (Cardizem Tab) 90 mg QID PO 07/08/16 13:00 08/07/16 12:59 07/10/16 08:10 90 MG Carbidopa/Levodopa (Sinemet 25/ 100MG Tab) 1 tab Q3H PRN PO 07/08/16 10:54 08/07/16 10:53 07/10/16 07:50 1 TAB Miscellaneous Information 1 ea 1 ea UD PRN N/A 07/09/16 07:15 08/08/16 07:14 Nutrition (Parenteral) 0 ml @ 0 mls/hr TODAY@1600 IV 07/10/16 16:00 07/11/16 15:59 Cefoxitin Sodium/ Dextrose (Mefoxin IV/D5 50ml) 60 ml @ 100 mls/hr Q8H IV 07/10/16 14:00 07/20/16 13:59 Hydromorphone HCl FOR PAIN 0.5-1MG 0.5MG ... Q3H PRN IV 07/10/16 11:45 07/24/16 11:44 07/10/16 13:06 1 MG Lactated Ringer's 1,000 ml @ 100 mls/hr Q10H IV 07/10/16 11:45 08/09/16 11:44 Pantoprazole Sodium/Syringe (Protonix Inj/ Syringe) 10 ml @ 5 mls/min DAILY@11 IV 07/11/16 11:00 08/10/16 10:59 Ondansetron HCl (Zofran Inj) 4 mg Q6H PRN IV 07/10/16 11:45 08/09/16 11:44 Heparin Sodium (Porcine) 5000 unit 5,000 unit Q8 SQ 07/11/16 08:00 08/10/16 07:59 Sodium Chloride (Nss 500ml) 500 ml @ 250 mls/hr Q2H ONCE IV 07/10/16 12:45 07/10/16 14:44 Objective Vital Signs Date Time Temp Pulse Resp B/P Pulse Ox O2 Delivery O2 Flow Rate FiO2 07/10/16 12:20 100 14 140/87 99 Nasal Cannula 4 07/10/16 12:10 36.6 105 14 119/78 99 Nasal Cannula 4 07/10/16 12:00 86 14 129/70 99 Nasal Cannula 4 07/10/16 11:50 96 16 128/75 95 Nasal Cannula 4 07/10/16 11:40 94 16 113/75 96 Nasal Cannula 4 07/10/16 11:33 36.4 89 16 104/74 95 Nasal Cannula 4 07/10/16 08:00 Room Air 07/10/16 08:00 Room Air Nasal Cannula 07/10/16 08:00 36.8 128 28 119/85 94 Room Air 07/10/16 06:30 99 21 123/77 97 Nasal Cannula 07/10/16 04:00 104 17 123/55 91 07/10/16 04:00 94 Room Air 07/10/16 02:00 90 16 129/82 94 Room Air 07/10/16 00:20 36.9 94 19 99/61 93 Room Air 07/09/16 23:59 94 Room Air 07/09/16 22:02 91 19 105/65 93 07/09/16 20:00 94 Room Air 07/09/16 19:00 85 20 94 07/09/16 18:03 94 24 110/75 95 Room Air 07/09/16 18:00 86 25 95 07/09/16 17:33 92 20 109/68 95 07/09/16 17:03 100 07/09/16 17:00 36.7 111 26 96 Room Air 07/09/16 16:01 94 25 100/73 95 07/09/16 16:00 95 Room Air 07/09/16 16:00 108 20 96 07/09/16 15:00 115 19 96 07/09/16 14:28 101 17 130/92 96 07/09/16 14:00 92 32 Physical Exam General Appearance: WD/WN, no apparent distress Eyes: normal inspection, EOMI ENT: normal ENT inspection, hearing grossly normal, pharynx normal Neck: supple, no adenopathy, no JVD Respiratory/Chest: chest non-tender, lungs clear, normal breath sounds Cardiovascular: no gallop, no murmur, + irregularly irregular (rate controlled) Abdomen: normal bowel sounds, non tender, soft Extremities: non-tender, no pedal edema Neurologic/Psychiatric: alert, normal mood/affect, oriented x 3 Skin: normal color, warm/dry, no rash Lymphatic: no adenopathy Laboratory Results Last 24 Hours Test 07/09/16 13:58 07/10/16 05:34 07/10/16 13:00 Hemoglobin 9.7 g/dL 9.1 g/dL Hematocrit 29.0 % 28.6 % Potassium Level 3.6 mmol/L 4.0 mmol/L Magnesium Level 2.6 mg/dl Troponin I < 0.015 ng/ml White Blood Count 11.77 K/uL Red Blood Count 3.24 M/uL Mean Corpuscular Volume 88.3 fL Mean Corpuscular Hemoglobin 28.1 pg Mean Corpuscular Hemoglobin Concent 31.8 g/dl Platelet Count 349 K/uL Mean Platelet Volume 9.7 fL Neutrophils (%) (Auto) 68.2 % Lymphocytes (%) (Auto) 15.7 % Monocytes (%) (Auto) 14.4 % Eosinophils (%) (Auto) 0.8 % Basophils (%) (Auto) 0.5 % Neutrophils # (Auto) 8.02 K/uL Lymphocytes # (Auto) 1.85 K/uL Monocytes # (Auto) 1.69 K/uL Eosinophils # (Auto) 0.10 K/uL Basophils # (Auto) 0.06 K/uL RDW Standard Deviation 52.0 fL RDW Coefficient of Variation 16.4 % Immature Granulocyte % (Auto) 0.4 % Immature Granulocyte # (Auto) 0.05 K/uL Activated Partial Thromboplast Time 27.3 SECONDS Partial Thromboplastin Ratio 1.1 Sodium Level 142 mmol/L Chloride Level 106 mmol/L Carbon Dioxide Level 29 mmol/L Anion Gap 7.0 mmol/L Blood Urea Nitrogen 5 mg/dl Creatinine 0.77 mg/dl Est Creatinine Clear Calc Drug Dose 59.4 ml/min Estimated GFR () 83.3 Estimated GFR (Non- 71.9 BUN/Creatinine Ratio 6.7 Random Glucose 96 mg/dl Calcium Level 8.4 mg/dl Total Bilirubin 0.7 mg/dl Direct Bilirubin 0.1 mg/dl Aspartate Amino Transf (AST/SGOT) 35 U/L Alanine Aminotransferase (ALT/SGPT) 7 U/L Alkaline Phosphatase 72 U/L Total Protein 5.5 gm/dl Albumin 2.9 gm/dl Globulin 2.6 gm/dl Albumin/Globulin Ratio 1.1 Assessment and Plan 80 year old female with GI bleeding due to cecal ulcer. Background Afib requiring anticoagulation, held due to bleeding. Going to right colectomy today with Dr. Omalley. No pre-operative issues at this time Our plan for her is as follows Acute lower GI bleeding - 2/2 ischemic ulcer with refractory bleeding - Hb & Hct remains stable Transfuse per intraoperative course 2 units on hold in blood bank - Right colectomy today with Dr. Omalley; post-operative management per surgery/ rn ent - Electrolytes: Replete per ICU Atrial fibrillation with rapid ventricular response - Back on Metoprolol and Digoxin; on total daily dose of 360 mg Diltiazem (90 mg QID) - No evidence of thrombus on BENEDICT - Anticoagulation on hold Restless Leg Syndrome - Sinemet q3 hours PRN Non-specific Colitis - Per CT scan - Patient to continue Flagyl and Cipro for total 7 day course; stop date placed on meds Acute blood loss anemia - Recurrence of bleeding as above; 2/2 cecal ulcer, likely ischemic - Right colectomy today DVT Prophylaxis - SCD Code Status - DNR Disposition - Continue ICU monitoring post-operatively - OT and PT Continued [facility] stay due to: other (surgery today) Discharge planning: uncertain Reviewed: Pt Seen/Exam by Me History no new concerns. no further GI bleed Constitutional: denies: fever Respiratory: negative: short of breath Cardiovascular: reports chest pain General Appearance: no apparent distress Respiratory: lungs clear, no respiratory distress Cardiovascular: irregularly irregular Gastrointestinal: normal bowel sounds, non tender, soft Neurologic/Psychiatric: alert, oriented x 3 Assessment/Plan I have reviewed the medical record and performed a history and physical examination of this patient today. I have discussed the case with Dr. Parra. The above note reflects my findings, conclusions, and recommendations.
[2016-07-10 13:33] LABS: MAGNESIUM 1.9 mg/dl (1.8-2.4); PHOSPHORUS 2.7 mg/dl (2.5-4.9)
[2016-07-10 13:59] LABS: HEMATOCRIT 34.1 % (37-47)
[2016-07-10] MEDS ORDERED: CUSTOM PERIPHERAL PN 1 BAG IV SCH (16:00)
[2016-07-10] MEDS ORDERED: CUSTOM CENTRAL PN 1 BAG IV SCH (16:00)
[2016-07-10] MEDS: ACETAMINOPHEN 325 MG TAB PO PRN ×2 (16:16→21:25)
[2016-07-10] MEDS ORDERED: INSULIN PROTOCOL GOAL RANGE ONE (18:30)
[2016-07-10] MEDS ORDERED: PHARMACY GLYCEMIC MGMT CONSULT SCH (18:41)
[2016-07-10] MEDS ORDERED: INSULIN ASPART 100 UNITS/ML VIAL SC ONE (19:00)
[2016-07-10] MEDS ORDERED: INSULIN ASPART 100 UNITS/ML 3 ML PEN SC ONE (19:00)
[2016-07-11] VITALS (12 sets, daily range): BP systolic 105–135; BP diastolic 63–94; PULSE 80–118; TEMP 36.5–37.1; O2SAT 93–97
[2016-07-11] MEDS ORDERED: INSULIN ASPART 100 UNITS/ML VIAL SC SCH
[2016-07-11] MEDS: DiphenhydrAMINE 2%/ZINC 0.1% CREAM 28GM TUBE EXT PRN ×2 (00:04→08:35)
[2016-07-11] MEDS: INSULIN ASPART 100 UNITS/ML 3 ML PEN SC SCH ×4 (00:12→18:00)
[2016-07-11] MEDS: CARBIDOPA/LEVODOPA 25/100MG TAB PO PRN ×7 (01:41→23:50)
[2016-07-11] MEDS: LACTATED RINGER'S 1000ML 1,000 ML IV SCH (01:42)
[2016-07-11] MEDS: HYDROmorphone INJ 1 MG/ML SYR IV PRN ×2 (01:42→05:46)
[2016-07-11] MEDS: CEFOXITIN IV 1,000 MG in DEXTROSE 5% 50ML 50 ML IV SCH ×3 (05:33→21:05)
[2016-07-11 05:59] LABS: BASO % 0.1 %; BASO ABS # 0.02 K/uL (0-0.2); COMPLETE YES; IG% 0.4 %; LYMPH % 2.6 %; LYMPH ABS # 0.59 K/uL (1.2-3.4); MEAN CELL VOLUME 88.7 fL (80-100); MEAN CORPUSCULAR HEMOGLOBIN 28.5 pg (25-34); MEAN CORPUSCULAR HGB CONC 32.1 g/dl (32-36); MEAN PLATELET VOLUME 9.9 fL (7.4-10.4); MONO % 8.4 %; NEUT % 88.5 %; PLATELET COUNT 412 K/uL (130-400); RED BLOOD COUNT 3.72 M/uL (4.2-5.4); WHITE BLOOD COUNT 22.39 K/uL (4.8-10.8)
--- NOTE | 2016-07-11 06:14 | Surgery Progress Note ---
Surgery Progress Note Date of Service July 11, 2016. Subjective + pain controlled, No nausea, No vomiting awake, very alert Objective Vital Signs: Date Time Temp Pulse Resp B/P Pulse Ox O2 Delivery O2 Flow Rate FiO2 07/11/16 06:02 110 22 130/93 94 Nasal Cannula 2.0 07/11/16 04:01 36.8 86 17 107/73 93 Nasal Cannula 2.0 07/11/16 04:00 96 Room Air 3.0 07/11/16 02:02 80 17 105/63 94 Nasal Cannula 2.0 07/11/16 00:01 36.5 82 13 113/73 94 Nasal Cannula 2.0 07/10/16 23:59 96 Room Air 3.0 07/10/16 22:01 121 12 133/74 89 07/10/16 22:00 107 14 89 Room Air 07/10/16 21:30 114 25 96 07/10/16 21:01 98 11 131/92 95 Nasal Cannula 3.0 07/10/16 21:00 125 19 97 07/10/16 20:30 106 14 95 07/10/16 20:01 36.5 104 15 119/79 96 Nasal Cannula 3.0 07/10/16 20:00 115 15 97 07/10/16 19:30 96 22 97 Nasal Cannula 3.0 07/10/16 19:20 96 Nasal Cannula 3.0 07/10/16 19:01 105 16 138/86 95 07/10/16 19:00 112 16 96 07/10/16 18:31 97 21 131/79 94 Nasal Cannula 3.0 07/10/16 18:30 104 15 96 07/10/16 18:01 107 20 130/90 94 07/10/16 18:00 118 18 98 07/10/16 17:31 124 27 150/87 96 07/10/16 17:30 122 14 97 07/10/16 17:01 112 17 135/89 97 07/10/16 17:00 121 22 98 07/10/16 16:31 36.7 116 18 139/98 97 Mask 6.0 07/10/16 16:15 Mask 6.0 07/10/16 16:01 119 15 140/103 98 07/10/16 16:00 119 16 98 07/10/16 15:31 108 13 139/87 98 07/10/16 15:01 123 36 137/90 98 07/10/16 15:00 113 21 98 07/10/16 13:45 120 17 130/85 100 Mask 6.0 120 07/10/16 13:30 15 112/65 97 Nasal Cannula 3.0 07/10/16 13:16 18 118/87 95 Nasal Cannula 3.0 07/10/16 13:00 36.4 15 121/87 96 Nasal Cannula 3.0 07/10/16 13:00 Nasal Cannula 3.0 07/10/16 12:20 100 14 140/87 99 Nasal Cannula 4 07/10/16 12:10 36.6 105 14 119/78 99 Nasal Cannula 4 07/10/16 12:00 86 14 129/70 99 Nasal Cannula 4 07/10/16 11:50 96 16 128/75 95 Nasal Cannula 4 07/10/16 11:40 94 16 113/75 96 Nasal Cannula 4 07/10/16 11:33 36.4 89 16 104/74 95 Nasal Cannula 4 07/10/16 08:00 Room Air 07/10/16 08:00 Room Air Nasal Cannula 07/10/16 08:00 36.8 128 28 119/85 94 Room Air 07/10/16 06:30 99 21 123/77 97 Nasal Cannula General Appearance: no apparent distress Respiratory/Chest: no respiratory distress Abdomen: non distended Incision(s): intact, drainage (expected drainage with wen) Laboratory Results: Results Past 24 Hours Test 07/10/16 13:00 07/10/16 13:56 07/10/16 18:07 07/11/16 00:05 Range/Units Hemoglobin 10.7 12.0-16.0 g/dL Hematocrit 34.1 37-47 % Phosphorus Level 2.7 2.5-4.9 mg/dl Magnesium Level 1.9 1.8-2.4 mg/dl Bedside Glucose 169 223 196 70-90 mg/dl Test 07/11/16 05:36 07/11/16 05:38 Range/Units White Blood Count 22.39 4.8-10.8 K/uL Red Blood Count 3.72 4.2-5.4 M/uL Hemoglobin 10.6 12.0-16.0 g/dL Hematocrit 33.0 37-47 % Mean Corpuscular Volume 88.7 80-100 fL Mean Corpuscular Hemoglobin 28.5 25-34 pg Mean Corpuscular Hemoglobin Concent 32.1 32-36 g/dl Platelet Count 412 130-400 K/uL Mean Platelet Volume 9.9 7.4-10.4 fL Neutrophils (%) (Auto) 88.5 % Lymphocytes (%) (Auto) 2.6 % Monocytes (%) (Auto) 8.4 % Eosinophils (%) (Auto) 0.0 % Basophils (%) (Auto) 0.1 % Neutrophils # (Auto) 19.80 1.4-6.5 K/uL Lymphocytes # (Auto) 0.59 1.2-3.4 K/uL Monocytes # (Auto) 1.88 0.11-0.59 K/uL Eosinophils # (Auto) 0.00 0-0.5 K/uL Basophils # (Auto) 0.02 0-0.2 K/uL RDW Standard Deviation 51.9 36.4-46.3 fL RDW Coefficient of Variation 16.0 11.5-14.5 % Immature Granulocyte % (Auto) 0.4 % Immature Granulocyte # (Auto) 0.10 0.00-0.02 K/uL Bedside Glucose 155 70-90 mg/dl Assessment & Plan 07/11/16- s/p extended Rt hemicolectomy w/ iliocolic anastomosis for cecal ischemia and ulceration w/ bleeding. Stable overnight- tpn today, cont atbx, mobilize- to PCU when ok with medical team 07/10/16- pt is stable for surgery this am- will likely give pt one unit of PRBCs in OR- to ICU postop 07/09/16- plan for Rt colectomy tomorrow- clear liquids today. Cont Cipro/ flagyl. ordered ppn- would benefit from picc line/tpn postop Type and cross for OR- discuss with daughters 07/10/16- pt is stable for surgery this am- will likely give pt one unit of PRBCs in OR- to ICU postop 07/09/16- plan for Rt colectomy tomorrow- clear liquids today. Cont Cipro/ flagyl. ordered ppn- would benefit from picc line/tpn postop Type and cross for OR- discuss with daughters
[2016-07-11 06:29] LABS: CALCIUM 8.7 mg/dl (8.5-10.1)
[2016-07-11 06:40] LABS: CREATININE 0.88 mg/dl (0.60-1.20); MAGNESIUM 1.7 mg/dl (1.8-2.4); PHOSPHORUS 2.7 mg/dl (2.5-4.9); POTASSIUM 4.1 mmol/L (3.5-5.1)
[2016-07-11] MEDS ORDERED: NURSING VERBAL MED ORDER ONE (07:45)
[2016-07-11] MEDS: DILTIAZEM HCL 30 MG TAB PO SCH ×4 (08:35→21:03)
[2016-07-11] MEDS: MAGNESIUM SULFATE 1GM / D5W 1 GM in PREMIXED IN D5W 100 ML IV SCH ×2 (08:36→10:01)
[2016-07-11] MEDS: HEPARIN SOD 5000 UNIT/0.5 ML CARP SQ SCH ×3 (08:38→21:06)
--- NOTE | 2016-07-11 09:02 | Pharmacy Progress Note ---
Glycemic Control Intl Consult Date of Service July 11, 2016. Scope Glycemic Pharmacist consulted by Dr Saba on 07/10/16 for glycemic control and to write orders per [facility] inpatient glycemic control protocol Objective Weight (Kilograms): 83.400 Accuchecks BSG (last 24hrs): Test 07/10/16 13:56 07/10/16 18:07 07/11/16 00:05 07/11/16 05:36 Bedside Glucose 169 mg/dl (70-90) 223 mg/dl (70-90) 196 mg/dl (70-90) Random Glucose 159 mg/dl (70-99) Test 07/11/16 05:38 Bedside Glucose 155 mg/dl (70-90) Laboratory Data (last 24hrs) Test 07/11/16 05:36 Anion Gap 10.0 mmol/L BUN/Creatinine Ratio 19.0 Blood Urea Nitrogen 17 mg/dl Creatinine 0.88 mg/dl Potassium Level 4.1 mmol/L Sodium Level 138 mmol/L White Blood Count 22.39 K/uL Red Blood Count 3.72 M/uL Hemoglobin 10.6 g/dL Hematocrit 33.0 % Mean Corpuscular Volume 88.7 fL Mean Corpuscular Hemoglobin 28.5 pg Mean Corpuscular Hemoglobin Concent 32.1 g/dl Platelet Count 412 K/uL Mean Platelet Volume 9.9 fL Neutrophils (%) (Auto) 88.5 % Lymphocytes (%) (Auto) 2.6 % Monocytes (%) (Auto) 8.4 % Eosinophils (%) (Auto) 0.0 % Basophils (%) (Auto) 0.1 % Neutrophils # (Auto) 19.80 K/uL Lymphocytes # (Auto) 0.59 K/uL Monocytes # (Auto) 1.88 K/uL Eosinophils # (Auto) 0.00 K/uL Basophils # (Auto) 0.02 K/uL Recent Pertinent Medications Outpatient Anti-diabetic Regimen: * none The patient is currently receiving: * no insulin Risk Factors for Insulin Resistance: * Steroids: Dexamethasone 8mg in OR * Infection: ciprofloxacin/metronidazole PO prior to OR --> cefoxitin IV postoperatively * IVF: LR * Recent Surgery: POD #1 * Diet: NPO - receiving TPN (07/10 @16:00 was first bag) Assessment & Plan ASSESSMENT: * ADA & AACE recommend a goal blood sugar range 140-180 mg/dl for the majority of critically ill & non-critically ill patients. However, more stringent targets may be selected in individual cases. 07/10/16 * OR today - DXM given perioperatively * first day of TPN (postop) with 150g of Dextrose * BSG prior to OR and TPN WNL * BSG post op as TPN began --> elevated * due to steroids vs dextrose load? 07/11/16 * Bolus insulin with NovoLog started last evening and BSGs responded nicely * BSG this AM on PRP 159mg/dL * may not need insulin as pt only received 6 units to regain glycemic control * TPN today (at 16:00) will have 200g of dextrose * steroid effect will be dissipating PLAN FOR INPATIENT GLYCEMIC CONTROL: * Basal insulin: * forgo at this time * Bolus insulin: * NovoLog SQ q6 hours - Correction factor: 20mg/dL/unit - Carb ratio: forgo (NPO at this time) - Goal: 140-180mg/dL (per ADA recommendations) * A1c - pending with AM labs on 07/12 * add to discharge instructions * If BSGs continue to be elevated, may consider adding insulin to TPN * Please note that the plan above was derived based on current level of insulin resistance and hospital stress. These recommendations are appropriate for inpatient admission only. Plan of care upon discharge will need to be reassessed to avoid potential outpatient hypo/hyperglycemia. Thank you.
[2016-07-11] MEDS: ACETAMINOPHEN 325 MG TAB PO PRN ×3 (11:19→23:51)
[2016-07-11] MEDS: PANTOprazole INJ 40 MG in SYRINGE 0 ML IV SCH (11:19)
--- NOTE | 2016-07-11 13:10 | ECHOCARDIOGRAM REPORT ---
*NOTICE TO RECEIVING [employer] This information is strictly Confidential and protected under [place] law. [place] law prohibits you from making any further disclosure of this information unless further disclosure is expressly permitted by the written consent of the person to whom it pertains or is authorized by law. A general authorization for the release of medical or other information is not sufficient for this purpose. Hospital accepts no responsibility if the information is made available to any other person, INCLUDING THE PATIENT. Interpretation Summary * Name: JANELLE GALLO Study Date: 07/11/2016 10:43 AM BP: 130/85 mmHg * [facility] HR: 120 * : 1935 (M/d/yyyy) Gender: Female Height: 64 in * Age: 80 yrs Ethnicity: [place] Weight: 172 lb * Ordering Physician: Angelica Saba * Referring Physician: Dante Reynaga D.O. * Performed By: Mary Reyes RDCS * * Reason For Study: Pericardial disease * BSA: 1.8 m2 * -- Conclusions -- * Limited views were obtained. * Left ventricular systolic function is normal. * There is no pericardial effusion. Procedure Details * A two-dimensional transthoracic echocardiogram was performed. * Limited views were obtained. Left Ventricle * Left ventricular systolic function is normal. Atria * The left atrium is severely dilated. * The right atrium is severely dilated. Pericardium/Pleural * There is no pericardial effusion.
[2016-07-11] MEDS ORDERED: CUSTOM CENTRAL PN 1 BAG IV SCH (16:00)
[2016-07-11] MEDS: DIGOXIN 0.125 MG TAB PO SCH (16:06)
--- NOTE | 2016-07-11 16:36 | Family Medicine Progress Note ---
Progress Note Date of Service July 11, 2016. Subjective Pt evaluation today including: conversation w/ patient, physical exam, chart review, lab review Pain: Controlled on pain Voiding: no voiding problems, no incontinence No issues currently Doing well at this time; pain is controlled on current regimen having some restless leg but sinemet is helping No issues overnight Additional Comments: A 10 point review of systems was negative unless stated above. Medications Current Inpatient Medications Medications (Trade) Dose Ordered Sig/Hair Route Start Time Stop Time Status Last Admin Dose Admin Acetaminophen (Tylenol Tab) 650 mg Q4H PRN PO 07/04/16 16:30 08/03/16 16:29 07/11/16 15:53 650 MG Metoprolol Tartrate (Lopressor Iv) 2.5 mg Q6 PRN IV 07/05/16 08:15 08/04/16 08:14 07/06/16 07:35 2.5 MG Digoxin (Lanoxin Tab) 0.125 mg MoWeFr@1600 PO 07/06/16 16:00 08/05/16 15:59 07/11/16 16:06 0.125 MG Diltiazem HCl (Cardizem Tab) 90 mg QID PO 07/08/16 13:00 08/07/16 12:59 07/11/16 12:42 90 MG Carbidopa/Levodopa (Sinemet 25/ 100MG Tab) 1 tab Q3H PRN PO 07/08/16 10:54 08/07/16 10:53 07/11/16 15:54 1 TAB Miscellaneous Information 1 ea 1 ea UD PRN N/A 07/09/16 07:15 08/08/16 07:14 Cefoxitin Sodium/ Dextrose (Mefoxin IV/D5 50ml) 60 ml @ 100 mls/hr Q8H IV 07/10/16 14:00 07/20/16 13:59 07/11/16 13:54 100 MLS/HR Hydromorphone HCl FOR PAIN 0.5-1MG 0.5MG ... Q3H PRN IV 07/10/16 11:45 07/24/16 11:44 07/11/16 05:46 1 MG Pantoprazole Sodium/Syringe (Protonix Inj/ Syringe) 10 ml @ 5 mls/min DAILY@11 IV 07/11/16 11:00 08/10/16 10:59 07/11/16 11:19 5 MLS/MIN Ondansetron HCl (Zofran Inj) 4 mg Q6H PRN IV 07/10/16 11:45 08/09/16 11:44 Heparin Sodium (Porcine) (Heparin Sq 5000 Unit/0.5ml) 5,000 unit Q8 SQ 07/11/16 08:00 08/10/16 07:59 07/11/16 14:08 5,000 UNIT Miscellaneous Information (Consult Glycemic Management Pharmacy) 1 ea UD N/A 07/10/16 18:41 08/09/16 18:40 Insulin Aspart (novoLOG ASPART) SLIDING SCALE Q6H SC 07/11/16 00:00 08/10/16 00:00 07/11/16 00:12 3 UNITS Diphenhydramine HCl 1 appln 1 appln Q12 PRN EXT 07/10/16 22:30 08/09/16 22:29 07/11/16 08:35 1 APPLN Nutrition (Parenteral) (Custom Central Pn) 0 ml @ 0 mls/hr TODAY@1600 IV 07/11/16 16:00 07/12/16 15:59 07/11/16 15:43 62.74 MLS/HR Objective Vital Signs Date Time Temp Pulse Resp B/P Pulse Ox O2 Delivery O2 Flow Rate FiO2 07/11/16 16:06 85 07/11/16 15:16 36.7 97 18 125/85 97 Nasal Cannula 2.0 07/11/16 14:20 110 07/11/16 12:00 36.7 118 22 135/94 96 Nasal Cannula 2.0 07/11/16 12:00 Nasal Cannula 2.0 07/11/16 09:34 36.8 118 22 111/67 93 Nasal Cannula 2.0 07/11/16 08:00 Nasal Cannula 07/11/16 07:30 Nasal Cannula 2.0 07/11/16 07:30 36.8 92 22 130/92 94 Nasal Cannula 2.0 07/11/16 06:02 110 22 130/93 94 Nasal Cannula 2.0 07/11/16 04:01 36.8 86 17 107/73 93 Nasal Cannula 2.0 07/11/16 04:00 96 Room Air 3.0 07/11/16 02:02 80 17 105/63 94 Nasal Cannula 2.0 07/11/16 00:01 36.5 82 13 113/73 94 Nasal Cannula 2.0 07/10/16 23:59 96 Room Air 3.0 07/10/16 22:01 121 12 133/74 89 07/10/16 22:00 107 14 89 Room Air 07/10/16 21:30 114 25 96 07/10/16 21:01 98 11 131/92 95 Nasal Cannula 3.0 07/10/16 21:00 125 19 97 07/10/16 20:30 106 14 95 07/10/16 20:01 36.5 104 15 119/79 96 Nasal Cannula 3.0 07/10/16 20:00 115 15 97 07/10/16 19:30 96 22 97 Nasal Cannula 3.0 07/10/16 19:20 96 Nasal Cannula 3.0 07/10/16 19:01 105 16 138/86 95 07/10/16 19:00 112 16 96 07/10/16 18:31 97 21 131/79 94 Nasal Cannula 3.0 07/10/16 18:30 104 15 96 07/10/16 18:01 107 20 130/90 94 07/10/16 18:00 118 18 98 07/10/16 17:31 124 27 150/87 96 07/10/16 17:30 122 14 97 07/10/16 17:01 112 17 135/89 97 07/10/16 17:00 121 22 98 Physical Exam General Appearance: WD/WN, no apparent distress Eyes: normal inspection, EOMI ENT: hearing grossly normal, pharynx normal Neck: supple, no adenopathy, no JVD Respiratory/Chest: lungs clear, no respiratory distress Cardiovascular: regular rate, rhythm, no gallop, no murmur Abdomen: normal bowel sounds, soft, + tenderness (appropriately tender) Extremities: normal range of motion, normal inspection, no pedal edema Neurologic/Psychiatric: alert, normal mood/affect, oriented x 3 Skin: normal color, warm/dry, no rash Lymphatic: no adenopathy Laboratory Results Last 24 Hours Test 07/10/16 18:07 07/11/16 00:05 07/11/16 05:36 07/11/16 05:38 Bedside Glucose 223 mg/dl 196 mg/dl 155 mg/dl White Blood Count 22.39 K/uL Red Blood Count 3.72 M/uL Hemoglobin 10.6 g/dL Hematocrit 33.0 % Mean Corpuscular Volume 88.7 fL Mean Corpuscular Hemoglobin 28.5 pg Mean Corpuscular Hemoglobin Concent 32.1 g/dl Platelet Count 412 K/uL Mean Platelet Volume 9.9 fL Neutrophils (%) (Auto) 88.5 % Lymphocytes (%) (Auto) 2.6 % Monocytes (%) (Auto) 8.4 % Eosinophils (%) (Auto) 0.0 % Basophils (%) (Auto) 0.1 % Neutrophils # (Auto) 19.80 K/uL Lymphocytes # (Auto) 0.59 K/uL Monocytes # (Auto) 1.88 K/uL Eosinophils # (Auto) 0.00 K/uL Basophils # (Auto) 0.02 K/uL RDW Standard Deviation 51.9 fL RDW Coefficient of Variation 16.0 % Immature Granulocyte % (Auto) 0.4 % Immature Granulocyte # (Auto) 0.10 K/uL Activated Partial Thromboplast Time 26.7 SECONDS Partial Thromboplastin Ratio 1.0 Sodium Level 138 mmol/L Potassium Level 4.1 mmol/L Chloride Level 100 mmol/L Carbon Dioxide Level 28 mmol/L Anion Gap 10.0 mmol/L Blood Urea Nitrogen 17 mg/dl Creatinine 0.88 mg/dl Est Creatinine Clear Calc Drug Dose 49.8 ml/min Estimated GFR () 70.9 Estimated GFR (Non- 61.2 BUN/Creatinine Ratio 19.0 Random Glucose 159 mg/dl Calcium Level 8.7 mg/dl Phosphorus Level 2.7 mg/dl Magnesium Level 1.7 mg/dl Triglycerides Level 108 mg/dl Test 07/11/16 11:14 Bedside Glucose 181 mg/dl Assessment and Plan 80 year old female with GI bleeding due to cecal ulcer. Background Afib requiring anticoagulation, held due to bleeding. Day 1 s/p right sided colectomy with primary anastamosis. Doing well at this time. Our plan for her is as follows Acute lower GI bleeding - 2/2 ischemic ulcer with refractory bleeding S/p right colectomy - Hb & Hct remains stable at 10 - No need for transfusion overnight Atrial fibrillation with rapid ventricular response - Mild RVR today; like 2/2 acute systemic stressor or surgery and pain - Continue PO Metoprolol, Digoxin and Diltiazem - Monitor in telemetry until HR under control; goal HR < 100 - Full dose anticoagulation on hold current but on prophylaxis Restless Leg Syndrome - Sinemet q3 hours PRN Non-specific Colitis - Per CT scan - Patient to continue Flagyl and Cipro for total 7 day course - Currently on Cefoxitine per surgery Acute blood loss anemia - Recurrence of bleeding as above; 2/2 cecal ulcer, likely ischemic - Anemia recovering; current Hb > 10 - Monitor H&H daily for stabilization improvement after definitive management of cecal ulcer DVT Prophylaxis - SCD - Heparin 5000 TID Code Status - DNR Disposition - Stable to transfer from ICU to telemetry - OT and PT orders to be placed. Reviewed: Pt Seen/Exam by Me History doing well this am denies any concerns abdominal pain controlled. has ice oscar on her belly hasn't passed gas yet Constitutional: denies: fever Respiratory: negative: short of breath Cardiovascular: denies chest pain General Appearance: no apparent distress Respiratory: lungs clear, no respiratory distress Cardiovascular: irregularly irregular Gastrointestinal: soft, tenderness (incisional), other (diminished bowel sounds ) Neurologic/Psychiatric: alert, oriented x 3 Assessment/Plan I have reviewed the medical record and performed a history and physical examination of this patient today. I have discussed the case with Dr. Parra. The above note reflects my findings, conclusions, and recommendations.
[2016-07-11] MEDS ORDERED: MAGNESIUM SULFATE 1GM / D5W 1 GM in PREMIXED IN D5W 100 ML IV ONE (19:00)
[2016-07-12 03:57] VITALS: BP 110/72; PULSE 101; TEMP 37; O2SAT 91
[2016-07-12] MEDS: CARBIDOPA/LEVODOPA 25/100MG TAB PO PRN ×6 (04:12→22:54)
[2016-07-12 05:57] LABS: HEMATOCRIT 31.3 % (37-47); MEAN CELL VOLUME 89.9 fL (80-100); MEAN CORPUSCULAR HEMOGLOBIN 29.3 pg (25-34); MEAN CORPUSCULAR HGB CONC 32.6 g/dl (32-36); MEAN PLATELET VOLUME 10.4 fL (7.4-10.4); PLATELET COUNT 396 K/uL (130-400); RED BLOOD COUNT 3.48 M/uL (4.2-5.4); WHITE BLOOD COUNT 18.99 K/uL (4.8-10.8)
[2016-07-12] MEDS: INSULIN ASPART 100 UNITS/ML 3 ML PEN SC SCH ×4 (06:00→18:00)
[2016-07-12 06:08] LABS: ESTIMATED AVERAGE GLUCOSE 111 mg/dl; HA1C FLAG Normal (Normal)
[2016-07-12] MEDS: CEFOXITIN IV 1,000 MG in DEXTROSE 5% 50ML 50 ML IV SCH ×3 (06:13→22:54)
[2016-07-12] MEDS: HEPARIN SOD 5000 UNIT/0.5 ML CARP SQ SCH (06:14)
[2016-07-12 06:38] LABS: BUN/CREATININE RATIO 36.3 (10-20); CALCIUM 8.3 mg/dl (8.5-10.1); CREATININE 0.7 mg/dl (0.60-1.20); MAGNESIUM 2.2 mg/dl (1.8-2.4); POTASSIUM 3.5 mmol/L (3.5-5.1)
[2016-07-12 06:54] LABS: PHOSPHORUS 1.5 mg/dl (2.5-4.9)
[2016-07-12] MEDS ORDERED: POTASSIUM PHOS 3 MMOL/1 ML INFUSION IV STA (07:34)
--- NOTE | 2016-07-12 07:36 | Surgery Progress Note ---
Surgery Progress Note Date of Service Jul 12, 2016. Subjective no acute chgs Objective Vital Signs: Date Time Temp Pulse Resp B/P (MAP) Pulse Ox O2 Delivery O2 Flow Rate FiO2 07/12/16 03:57 37.0 101 20 110/72 (85) 91 Nasal Cannula 1.5 07/11/16 23:35 36.9 91 19 108/63 (78) 94 Nasal Cannula 2.0 Humidified Air 07/11/16 20:00 Room Air 07/11/16 19:34 37.1 99 20 107/72 (84) 93 Room Air 07/11/16 16:06 85 07/11/16 16:00 Nasal Cannula 2.0 07/11/16 15:16 36.7 97 18 125/85 (98) 97 Nasal Cannula 2.0 07/11/16 14:20 110 07/11/16 12:00 36.7 118 22 135/94 (108) 96 Nasal Cannula 2.0 07/11/16 12:00 Nasal Cannula 2.0 07/11/16 09:34 36.8 118 22 111/67 (82) 93 Nasal Cannula 2.0 07/11/16 08:00 Nasal Cannula General Appearance: no apparent distress Respiratory/Chest: no respiratory distress Cardiovascular: + irregularly irregular Abdomen: + distended (decreased bowel sounds) Incision(s): intact, drainage Laboratory Results: Results Past 24 Hours Test 07/11/16 11:14 07/11/16 18:10 07/11/16 23:59 07/12/16 04:50 Range/Units Bedside Glucose 181 149 138 70-90 mg/dl White Blood Count 18.99 4.8-10.8 K/uL Red Blood Count 3.48 4.2-5.4 M/uL Hemoglobin 10.2 12.0-16.0 g/dL Hematocrit 31.3 37-47 % Mean Corpuscular Volume 89.9 80-100 fL Mean Corpuscular Hemoglobin 29.3 25-34 pg Mean Corpuscular Hemoglobin Concent 32.6 32-36 g/dl RDW Standard Deviation 51.3 36.4-46.3 fL RDW Coefficient of Variation 15.7 11.5-14.5 % Platelet Count 396 130-400 K/uL Mean Platelet Volume 10.4 7.4-10.4 fL Activated Partial Thromboplast Time 25.6 21.0-31.0 SECONDS Partial Thromboplastin Ratio 1.0 Sodium Level 138 136-145 mmol/L Potassium Level 3.5 3.5-5.1 mmol/L Chloride Level 102 98-107 mmol/L Carbon Dioxide Level 29 21-32 mmol/L Anion Gap 7.0 3-11 mmol/L Blood Urea Nitrogen 25 7-18 mg/dl Creatinine 0.70 0.60-1.20 mg/dl Est Creatinine Clear Calc Drug Dose 64.4 ml/min Estimated GFR () 93.5 Estimated GFR (Non- 80.7 BUN/Creatinine Ratio 36.3 10-20 Random Glucose 115 70-99 mg/dl Estimated Average Glucose 111 mg/dl Hemoglobin A1c 5.5 4.5-5.6 % Calcium Level 8.3 8.5-10.1 mg/dl Phosphorus Level 1.5 2.5-4.9 mg/dl Magnesium Level 2.2 1.8-2.4 mg/dl Assessment & Plan 07/12/16- will continue same- ice only, IV atbx and tpn- to med/surg when ok with med team- pt needs to walk in hallway 07/11/16- s/p extended Rt hemicolectomy w/ iliocolic anastomosis for cecal ischemia and ulceration w/ bleeding. Stable overnight- tpn today, cont atbx, mobilize- to PCU when ok with medical team 07/10/16- pt is stable for surgery this am- will likely give pt one unit of PRBCs in OR- to ICU postop 07/09/16- plan for Rt colectomy tomorrow- clear liquids today. Cont Cipro/ flagyl. ordered ppn- would benefit from picc line/tpn postop Type and cross for OR- discuss with felicia 07/11/16- s/p extended Rt hemicolectomy w/ iliocolic anastomosis for cecal ischemia and ulceration w/ bleeding. Stable overnight- tpn today, cont atbx, mobilize- to PCU when ok with medical team 07/10/16- pt is stable for surgery this am- will likely give pt one unit of PRBCs in OR- to ICU postop 07/09/16- plan for Rt colectomy tomorrow- clear liquids today. Cont Cipro/ flagyl. ordered ppn- would benefit from picc line/tpn postop Type and cross for OR- discuss with daughters
[2016-07-12] MEDS ORDERED: POTASSIUM PHOSPHATE INJ 30 MMOL in SODIUM CHLORIDE 0.9% 500ML 500 ML IV SCH (08:00)
[2016-07-12 08:01] VITALS: BP 121/79; PULSE 126; TEMP 36.6; O2SAT 96
[2016-07-12] MEDS: DILTIAZEM HCL 30 MG TAB PO SCH ×4 (08:09→21:02)
[2016-07-12] MEDS: ACETAMINOPHEN 325 MG TAB PO PRN ×4 (08:09→21:04)
--- NOTE | 2016-07-12 09:14 | Family Medicine Progress Note ---
Progress Note Date of Service Jul 12, 2016. Subjective Pt evaluation today including: conversation w/ patient, physical exam, chart review, lab review Pain: Controlled Voiding: no voiding problems Doing well at this time Tolerating oral meds On TPN Has not gotten out of bed yet No other issues Additional Comments: A 10 point review of systems was negative unless stated above. Medications Current Inpatient Medications Medications (Trade) Dose Ordered Sig/Hair Route Start Time Stop Time Status Last Admin Dose Admin Acetaminophen (Tylenol Tab) 650 mg Q4H PRN PO 07/04/16 16:30 08/03/16 16:29 07/12/16 08:09 650 MG Metoprolol Tartrate (Lopressor Iv) 2.5 mg Q6 PRN IV 07/05/16 08:15 08/04/16 08:14 07/06/16 07:35 2.5 MG Digoxin (Lanoxin Tab) 0.125 mg MoWeFr@1600 PO 07/06/16 16:00 08/05/16 15:59 07/11/16 16:06 0.125 MG Diltiazem HCl (Cardizem Tab) 90 mg QID PO 07/08/16 13:00 08/07/16 12:59 07/12/16 08:09 90 MG Carbidopa/Levodopa (Sinemet 25/ 100MG Tab) 1 tab Q3H PRN PO 07/08/16 10:54 08/07/16 10:53 07/12/16 08:09 1 TAB Miscellaneous Information (Pharmacy Tpn/ Ppn Consult Active) 1 ea UD PRN N/A 07/09/16 07:15 08/08/16 07:14 Cefoxitin Sodium 1000 mg/Dextrose 60 ml @ 100 mls/hr Q8H IV 07/10/16 14:00 07/20/16 13:59 07/12/16 06:13 100 MLS/HR Hydromorphone HCl (Dilaudid Inj) FOR PAIN 0.5-1MG 0.5MG ... Q3H PRN IV 07/10/16 11:45 07/24/16 11:44 07/11/16 05:46 1 MG Pantoprazole Sodium 40 mg/ Syringe 10 ml @ 5 mls/min DAILY@11 IV 07/11/16 11:00 08/10/16 10:59 07/11/16 11:19 5 MLS/MIN Ondansetron HCl (Zofran Inj) 4 mg Q6H PRN IV 07/10/16 11:45 08/09/16 11:44 Heparin Sodium (Porcine) (Heparin Sq 5000 Unit/0.5ml) 5,000 unit Q8 SQ 07/11/16 08:00 08/10/16 07:59 07/12/16 06:14 5,000 UNIT Miscellaneous Information (Consult Glycemic Management Pharmacy) 1 ea UD N/A 07/10/16 18:41 08/09/16 18:40 Insulin Aspart (novoLOG ASPART) SLIDING SCALE Q6H SC 07/11/16 00:00 08/10/16 00:00 07/11/16 00:12 3 UNITS Diphenhydramine HCl (Benadryl Extra Strength Cream) 1 appln Q12 PRN EXT 07/10/16 22:30 08/09/16 22:29 07/11/16 08:35 1 APPLN Nutrition (Parenteral) 0 ml @ 0 mls/hr TODAY@1600 IV 07/11/16 16:00 07/12/16 15:59 07/11/16 15:43 62.74 MLS/HR Heparin Sodium (Porcine) (Heparin 10 Unit/ ml 5 ml Flush) 5 ml PRN PRN FLUSH 07/12/16 00:15 08/11/16 00:14 07/12/16 04:52 5 ML Potassium Phosphate 30 mmol/ Sodium Chloride 510 ml @ 102 mls/hr TODAY@0800 IV 07/12/16 08:00 07/12/16 12:59 07/12/16 08:08 102 MLS/HR Objective Vital Signs Date Time Temp Pulse Resp B/P (MAP) Pulse Ox O2 Delivery O2 Flow Rate FiO2 07/12/16 08:01 36.6 126 18 121/79 (93) 96 Room Air 07/12/16 03:57 37.0 101 20 110/72 (85) 91 Nasal Cannula 1.5 07/11/16 23:35 36.9 91 19 108/63 (78) 94 Nasal Cannula 2.0 Humidified Air 07/11/16 20:00 Room Air 07/11/16 19:34 37.1 99 20 107/72 (84) 93 Room Air 07/11/16 16:06 85 07/11/16 16:00 Nasal Cannula 2.0 07/11/16 15:16 36.7 97 18 125/85 (98) 97 Nasal Cannula 2.0 07/11/16 14:20 110 07/11/16 12:00 36.7 118 22 135/94 (108) 96 Nasal Cannula 2.0 07/11/16 12:00 Nasal Cannula 2.0 07/11/16 09:34 36.8 118 22 111/67 (82) 93 Nasal Cannula 2.0 Physical Exam General Appearance: WD/WN, no apparent distress Eyes: normal inspection, EOMI ENT: hearing grossly normal, pharynx normal Neck: supple, no adenopathy, no JVD Respiratory/Chest: lungs clear, no respiratory distress Cardiovascular: no gallop, no murmur, + irregularly irregular (borderling tacchycardia) Abdomen: normal bowel sounds, non tender, soft Extremities: non-tender, no pedal edema Neurologic/Psychiatric: alert, normal mood/affect, oriented x 3 Skin: normal color, warm/dry, no rash Lymphatic: no adenopathy Laboratory Results Last 24 Hours Test 07/11/16 11:14 07/11/16 18:10 07/11/16 23:59 07/12/16 04:50 Bedside Glucose 181 mg/dl 149 mg/dl 138 mg/dl White Blood Count 18.99 K/uL Red Blood Count 3.48 M/uL Hemoglobin 10.2 g/dL Hematocrit 31.3 % Mean Corpuscular Volume 89.9 fL Mean Corpuscular Hemoglobin 29.3 pg Mean Corpuscular Hemoglobin Concent 32.6 g/dl RDW Standard Deviation 51.3 fL RDW Coefficient of Variation 15.7 % Platelet Count 396 K/uL Mean Platelet Volume 10.4 fL Activated Partial Thromboplast Time 25.6 SECONDS Partial Thromboplastin Ratio 1.0 Sodium Level 138 mmol/L Potassium Level 3.5 mmol/L Chloride Level 102 mmol/L Carbon Dioxide Level 29 mmol/L Anion Gap 7.0 mmol/L Blood Urea Nitrogen 25 mg/dl Creatinine 0.70 mg/dl Est Creatinine Clear Calc Drug Dose 64.4 ml/min Estimated GFR () 93.5 Estimated GFR (Non- 80.7 BUN/Creatinine Ratio 36.3 Random Glucose 115 mg/dl Estimated Average Glucose 111 mg/dl Hemoglobin A1c 5.5 % Calcium Level 8.3 mg/dl Phosphorus Level 1.5 mg/dl Magnesium Level 2.2 mg/dl Assessment and Plan 80 year old female with GI bleeding due to cecal ulcer. Background Afib requiring anticoagulation, held due to bleeding. Day 2 s/p right sided colectomy with primary anastomosis. Stable and doing well Our plan for her is as follows Acute lower GI bleeding with acute blood loss anemia - 2/2 Ischemic Cecal Ulcer - Appears to be resolved at this time - 2/2 ischemic ulcer with refractory bleeding S/p right colectomy - Hb & Hct remains stable at 10.2 this morning; Daily H&H - Surgical recommendations appreciated - Given likely ischemic etiology, anticoagulation escalation as tolerated is planned starting today as noted below Atrial fibrillation with rapid ventricular response - Mild RVR today; like 2/2 acute systemic stressor or surgery and pain - Continue PO Metoprolol, Digoxin and Diltiazem - Monitor in telemetry until HR under control; goal HR < 110 at this time - Start anticoagulation today; discussed with surgery; will start 800 units/hr for 24 hours and check PTT in AM Will be assessed daily and titrated up as tolerated in discussion with surgery Restless Leg Syndrome - Sinemet q3 hours PRN Non-specific Colitis - Per CT scan - Currently on Cefoxitin per surgery DVT Prophylaxis - Start Heparin infusion 800 units/hr x 24 hours; escalate in discussion with surgery Code Status - DNR Disposition - OT and PT consulted - Can start ambulating patient per PT recommendations - Goal to [facility] to [facility] or [facility] Reviewed: Pt Seen/Exam by Me History continues to feel good. no complains Constitutional: denies: fever Respiratory: negative: short of breath Cardiovascular: denies chest pain Gastrointestinal/Abdominal: positive: abdominal pain (in surgery site) General Appearance: no apparent distress Respiratory: lungs clear, no respiratory distress Cardiovascular: irregularly irregular Gastrointestinal: soft, tenderness (incisional), other (diminished bowel sounds ) Assessment/Plan I have reviewed the medical record and performed a history and physical examination of this patient today. I have discussed the case with Dr. Parra. The above note reflects my findings, conclusions, and recommendations.
[2016-07-12] MEDS: HEPARIN 25,000 UNIT/500ML D5W 500 ML IV PRN (09:55)
--- NOTE | 2016-07-12 10:43 | Pharmacy Progress Note ---
Pharmacy Glycemic Sign Off Nt Date of Service Jul 12, 2016. Assessment & Plan ASSESSMENT: * Pharmacy was consulted by Dr Saba on 07/10/16 for glycemic control and to write orders per [facility] inpatient glycemic control protocol. * Major changes made by pharmacy to antidiabetic regimen include: * Correctional NovoLog was added to regimen as Ms Zhao did experience hyperglycemia following dexamethasone administration. - DXM has been discontinued - Insulin has not been needed for >24 hours PLAN FOR INPATIENT GLYCEMIC CONTROL: * Continue NovoLog per scale AC+HS or Q6H while NPO * Goal range = 140 - 180 mg/dl * CF = 20 mg/dl/unit * A1c added to discharge instructions to be communicated to PCP. * Pharmacy is signing off of glycemic consult and will no longer be making adjustments to inpatient regimen. Please feel free to re-consult if needed. Thank you. DISCHARGE RECOMMENDATIONS: * A1c 5.5 % on 07/12/16 * no dx of DM - no medications needed at discharge.
[2016-07-12] MEDS: PANTOprazole INJ 40 MG in SYRINGE 0 ML IV SCH (11:28)
[2016-07-12 11:51] VITALS: BP 127/88; PULSE 105; TEMP 36.6; O2SAT 98
--- NOTE | 2016-07-12 13:24 | Surgery Progress Note ---
Surgery Progress Note Date of Service Jul 12, 2016. Objective Vital Signs: Date Time Temp Pulse Resp B/P (MAP) Pulse Ox O2 Delivery O2 Flow Rate FiO2 07/12/16 12:00 Room Air 07/12/16 11:51 36.6 105 16 127/88 (101) 98 07/12/16 08:01 36.6 126 18 121/79 (93) 96 Room Air 07/12/16 08:00 Room Air 07/12/16 03:57 37.0 101 20 110/72 (85) 91 Nasal Cannula 1.5 07/11/16 23:35 36.9 91 19 108/63 (78) 94 Nasal Cannula 2.0 Humidified Air 07/11/16 20:00 Room Air 07/11/16 19:34 37.1 99 20 107/72 (84) 93 Room Air 07/11/16 16:06 85 07/11/16 16:00 Nasal Cannula 2.0 07/11/16 15:16 36.7 97 18 125/85 (98) 97 Nasal Cannula 2.0 07/11/16 14:20 110 Laboratory Results: Results Past 24 Hours Test 07/11/16 18:10 07/11/16 23:59 07/12/16 04:50 07/12/16 06:10 Range/Units Bedside Glucose 149 138 124 70-90 mg/dl White Blood Count 18.99 4.8-10.8 K/uL Red Blood Count 3.48 4.2-5.4 M/uL Hemoglobin 10.2 12.0-16.0 g/dL Hematocrit 31.3 37-47 % Mean Corpuscular Volume 89.9 80-100 fL Mean Corpuscular Hemoglobin 29.3 25-34 pg Mean Corpuscular Hemoglobin Concent 32.6 32-36 g/dl RDW Standard Deviation 51.3 36.4-46.3 fL RDW Coefficient of Variation 15.7 11.5-14.5 % Platelet Count 396 130-400 K/uL Mean Platelet Volume 10.4 7.4-10.4 fL Activated Partial Thromboplast Time 25.6 21.0-31.0 SECONDS Partial Thromboplastin Ratio 1.0 Sodium Level 138 136-145 mmol/L Potassium Level 3.5 3.5-5.1 mmol/L Chloride Level 102 98-107 mmol/L Carbon Dioxide Level 29 21-32 mmol/L Anion Gap 7.0 3-11 mmol/L Blood Urea Nitrogen 25 7-18 mg/dl Creatinine 0.70 0.60-1.20 mg/dl Est Creatinine Clear Calc Drug Dose 64.4 ml/min Estimated GFR () 93.5 Estimated GFR (Non- 80.7 BUN/Creatinine Ratio 36.3 10-20 Random Glucose 115 70-99 mg/dl Estimated Average Glucose 111 mg/dl Hemoglobin A1c 5.5 4.5-5.6 % Calcium Level 8.3 8.5-10.1 mg/dl Phosphorus Level 1.5 2.5-4.9 mg/dl Magnesium Level 2.2 1.8-2.4 mg/dl Test 07/12/16 11:18 Range/Units Bedside Glucose 132 70-90 mg/dl Assessment & Plan 07/12/16- will continue same- ice only, IV atbx and tpn- to med/surg when ok with med team- pt needs to walk in hallway will not begin clear liquids until Sat 07/14 and adv very slowly Dr Wright is covering over the weekend 07/11/16- s/p extended Rt hemicolectomy w/ iliocolic anastomosis for cecal ischemia and ulceration w/ bleeding. Stable overnight- tpn today, cont atbx, mobilize- to PCU when ok with medical team 07/10/16- pt is stable for surgery this am- will likely give pt one unit of PRBCs in OR- to ICU postop 07/09/16- plan for Rt colectomy tomorrow- clear liquids today. Cont Cipro/ flagyl. ordered ppn- would benefit from picc line/tpn postop Type and cross for OR- discuss with daughters 07/12/16- will continue same- ice only, IV atbx and tpn- to med/surg when ok with med team- pt needs to walk in hallway 07/11/16- s/p extended Rt hemicolectomy w/ iliocolic anastomosis for cecal ischemia and ulceration w/ bleeding. Stable overnight- tpn today, cont atbx, mobilize- to PCU when ok with medical team 07/10/16- pt is stable for surgery this am- will likely give pt one unit of PRBCs in OR- to ICU postop 07/09/16- plan for Rt colectomy tomorrow- clear liquids today. Cont Cipro/ flagyl. ordered ppn- would benefit from picc line/tpn postop Type and cross for OR- discuss with daughters
[2016-07-12 15:37] VITALS: BP 132/85; PULSE 106; TEMP 37; O2SAT 96
[2016-07-12] MEDS ORDERED: CUSTOM CENTRAL PN 1 BAG IV SCH (16:00)
[2016-07-12 19:30] VITALS: BP 130/78; PULSE 116; TEMP 36.3; O2SAT 94
[2016-07-13] VITALS (7 sets, daily range): BP systolic 112–148; BP diastolic 68–100; PULSE 73–112; TEMP 36.4–36.9; O2SAT 95–100
[2016-07-13] MEDS: CARBIDOPA/LEVODOPA 25/100MG TAB PO PRN ×6 (01:49→23:28)
[2016-07-13] MEDS: ACETAMINOPHEN 325 MG TAB PO PRN (04:08)
[2016-07-13 05:23] LABS: HEMATOCRIT 31.9 % (37-47); MEAN CELL VOLUME 88.9 fL (80-100); MEAN CORPUSCULAR HEMOGLOBIN 28.1 pg (25-34); MEAN CORPUSCULAR HGB CONC 31.7 g/dl (32-36); MEAN PLATELET VOLUME 10.3 fL (7.4-10.4); PLATELET COUNT 372 K/uL (130-400); RED BLOOD COUNT 3.59 M/uL (4.2-5.4); WHITE BLOOD COUNT 14.29 K/uL (4.8-10.8)
[2016-07-13 05:40] LABS: PARTIAL THROMBOPLASTIN RATIO 1.9
[2016-07-13 05:46] LABS: BUN/CREATININE RATIO 38.2 (10-20); CALCIUM 8.2 mg/dl (8.5-10.1); CREATININE 0.61 mg/dl (0.60-1.20); MAGNESIUM 2.1 mg/dl (1.8-2.4); POTASSIUM 3.9 mmol/L (3.5-5.1)
[2016-07-13] MEDS: CEFOXITIN IV 1,000 MG in DEXTROSE 5% 50ML 50 ML IV SCH ×3 (05:55→20:35)
[2016-07-13 05:59] LABS: PHOSPHORUS 2.2 mg/dl (2.5-4.9)
[2016-07-13] MEDS: INSULIN ASPART 100 UNITS/ML 3 ML PEN SC SCH ×5 (06:00→23:29)
[2016-07-13] MEDS: DILTIAZEM HCL 30 MG TAB PO SCH ×4 (07:52→20:35)
--- NOTE | 2016-07-13 08:38 | Surgery Progress Note ---
Surgery Progress Note Date of Service Jul 13, 2016. Subjective Post OP Day: 3 + feeling well, + flatus, + pain controlled (Tylenol), + diet (ice), No bowel movement Objective Vital Signs: Date Time Temp Pulse Resp B/P (MAP) Pulse Ox O2 Delivery O2 Flow Rate FiO2 07/13/16 07:35 36.6 109 19 148/100 (116) 100 Room Air 07/13/16 04:29 36.7 112 18 126/78 (94) 99 Room Air 07/13/16 04:15 Room Air 07/13/16 00:00 36.6 99 18 124/68 (86) 95 Room Air 07/13/16 00:00 95 Room Air 07/12/16 19:30 36.3 116 18 130/78 (95) 94 Room Air 07/12/16 19:30 94 Room Air 07/12/16 16:00 Room Air 07/12/16 15:37 37.0 106 20 132/85 (101) 96 Room Air 07/12/16 12:00 Room Air 07/12/16 11:51 36.6 105 16 127/88 (101) 98 Physical Exam: urine output (1535) Abdomen: non distended, soft Incision(s): clean (dressing) Laboratory Results: Results Past 24 Hours Test 07/12/16 11:18 07/12/16 18:10 07/12/16 23:09 07/13/16 04:57 Range/Units Bedside Glucose 132 154 120 70-90 mg/dl White Blood Count 14.29 4.8-10.8 K/uL Red Blood Count 3.59 4.2-5.4 M/uL Hemoglobin 10.1 12.0-16.0 g/dL Hematocrit 31.9 37-47 % Mean Corpuscular Volume 88.9 80-100 fL Mean Corpuscular Hemoglobin 28.1 25-34 pg Mean Corpuscular Hemoglobin Concent 31.7 32-36 g/dl RDW Standard Deviation 50.3 36.4-46.3 fL RDW Coefficient of Variation 15.4 11.5-14.5 % Platelet Count 372 130-400 K/uL Mean Platelet Volume 10.3 7.4-10.4 fL Activated Partial Thromboplast Time 50.0 21.0-31.0 SECONDS Partial Thromboplastin Ratio 1.9 Sodium Level 141 136-145 mmol/L Potassium Level 3.9 3.5-5.1 mmol/L Chloride Level 105 98-107 mmol/L Carbon Dioxide Level 31 21-32 mmol/L Anion Gap 5.0 3-11 mmol/L Blood Urea Nitrogen 23 7-18 mg/dl Creatinine 0.61 0.60-1.20 mg/dl Est Creatinine Clear Calc Drug Dose 73.9 ml/min Estimated GFR () 97.8 Estimated GFR (Non- 84.4 BUN/Creatinine Ratio 38.2 10-20 Random Glucose 110 70-99 mg/dl Calcium Level 8.2 8.5-10.1 mg/dl Phosphorus Level 2.2 2.5-4.9 mg/dl Magnesium Level 2.1 1.8-2.4 mg/dl Assessment & Plan s/p right hemicolectomy for cecal ulcer/ischemia/anemia A-fib bowel function returning, will hold clears until tomorrow, on TPN ok to increase heparin gtt beginning to increase activity H&H stable
[2016-07-13] MEDS: METOPROLOL TARTRATE 25 MG TAB PO SCH ×2 (09:00→20:34)
--- NOTE | 2016-07-13 09:33 | Pharmacy Progress Note ---
Parenteral Nutrition Consult Date of Service Jul 13, 2016. [facility] Pharmacy was consulted on 07/09/16 to manage parenteral nutrition orders for this patient. Subjective The patient is currently on day # 4 of central parenteral nutrition for NPO s/p colectomy. Objective Height (Feet): 5 Height (Inches): 4.00 Weight (Kilograms): 81.800 Diet: Clear Liquid, NPO Vascular Access: PICC Intake & Output (Last 72 Hr): 07/12/16 07/13/16 07/14/16 08:00 08:00 08:00 Intake Total 2025 ml 2599 ml Output Total 1125 ml 3210 ml Balance 900 ml -611 ml Laboratory Data (Last 24 Hr): Test 07/13/16 04:57 Blood Urea Nitrogen 23 mg/dl (7-18) Calcium Level 8.2 mg/dl (8.5-10.1) Carbon Dioxide Level 31 mmol/L (21-32) Chloride Level 105 mmol/L (98-107) Creatinine 0.61 mg/dl (0.60-1.20) Magnesium Level 2.1 mg/dl (1.8-2.4) Phosphorus Level 2.2 mg/dl (2.5-4.9) Potassium Level 3.9 mmol/L (3.5-5.1) Random Glucose 110 mg/dl (70-99) Sodium Level 141 mmol/L (136-145) Nutrition Assessment Please refer to the Notes section of the EMR for the most recent technical publications writer note. Assessment * 80 y/o s/p hemicolectomy * passing flatus * diet advanced from ice --> clears * will continue to be advanced very slowly Plan For day # 4 of PN administration, the following will be ordered: Macronutrients (at goal) Amino acids 115 grams/day Dextrose 250 grams/day Lipids 50 grams on Saturday and Saturday Micronutrients Sodium phosphate 27 MMol Sodium acetate 40 mEq Potassium chloride 40 mEq Magnesium sulfate 8.06 mEq Calcium gluconate 4.65 mEq Multivitamins 10 mL Trace Elements 1 mL Total volume 1829 mL (minimum) to be infused over 24 hrs will provide 1810 kcal/ day Labs, as indicated, will be ordered per protocol Pharmacy will continue to follow and adjust parenteral nutrition orders on a daily basis. Thank you for allowing us to participate in the care of this patient.
[2016-07-13] MEDS: PANTOprazole INJ 40 MG in SYRINGE 0 ML IV SCH (10:48)
--- NOTE | 2016-07-13 12:46 | Family Medicine Progress Note ---
Progress Note Date of Service Jul 13, 2016. Subjective Pt evaluation today including: conversation w/ patient, physical exam, chart review, lab review Pain: Controlled Voiding: no voiding problems No issues overnight Doing well at this time; pain is controlled No issues with bleeding No abdominal pain, apart from mild incisional tenderness, controlled with meds; starting to pass gas; no nausea or vomiting Additional Comments: A 10 point review of systems was negative unless stated above. Medications Current Inpatient Medications Medications (Trade) Dose Ordered Sig/Hair Route Start Time Stop Time Status Last Admin Dose Admin Acetaminophen (Tylenol Tab) 650 mg Q4H PRN PO 07/04/16 16:30 08/03/16 16:29 07/13/16 04:08 650 MG Metoprolol Tartrate (Lopressor Iv) 2.5 mg Q6 PRN IV 07/05/16 08:15 08/04/16 08:14 07/06/16 07:35 2.5 MG Digoxin (Lanoxin Tab) 0.125 mg MoWeFr@1600 PO 07/06/16 16:00 08/05/16 15:59 07/11/16 16:06 0.125 MG Diltiazem HCl (Cardizem Tab) 90 mg QID PO 07/08/16 13:00 08/07/16 12:59 07/13/16 12:17 90 MG Carbidopa/Levodopa (Sinemet 25/ 100MG Tab) 1 tab Q3H PRN PO 07/08/16 10:54 08/07/16 10:53 07/13/16 07:52 1 TAB Miscellaneous Information (Pharmacy Tpn/ Ppn Consult Active) 1 ea UD PRN N/A 07/09/16 07:15 08/08/16 07:14 Cefoxitin Sodium 1000 mg/Dextrose 60 ml @ 100 mls/hr Q8H IV 07/10/16 14:00 07/20/16 13:59 07/13/16 05:55 100 MLS/HR Hydromorphone HCl (Dilaudid Inj) FOR PAIN 0.5-1MG 0.5MG ... Q3H PRN IV 07/10/16 11:45 07/24/16 11:44 07/11/16 05:46 1 MG Pantoprazole Sodium 40 mg/ Syringe 10 ml @ 5 mls/min DAILY@11 IV 07/11/16 11:00 6/30/17 10:59 07/13/16 10:48 5 MLS/MIN Ondansetron HCl (Zofran Inj) 4 mg Q6H PRN IV 07/10/16 11:45 08/09/16 11:44 Insulin Aspart (novoLOG ASPART) SLIDING SCALE Q6H SC 07/11/16 00:00 08/10/16 00:00 07/11/16 00:12 3 UNITS Diphenhydramine HCl (Benadryl Extra Strength Cream) 1 appln Q12 PRN EXT 07/10/16 22:30 08/09/16 22:29 07/11/16 08:35 1 APPLN Heparin Sodium (Porcine) (Heparin 10 Unit/ ml 5 ml Flush) 5 ml PRN PRN FLUSH 07/12/16 00:15 08/11/16 00:14 07/12/16 04:52 5 ML Heparin Sodium/ Dextrose 500 ml @ 16 mls/hr Q24H PRN IV 07/12/16 09:15 08/11/16 09:14 07/12/16 09:55 16 MLS/HR Nutrition (Parenteral) 0 ml @ 0 mls/hr TODAY@1600 IV 07/12/16 16:00 07/13/16 15:59 07/12/16 16:34 0 MLS/HR Metoprolol Tartrate (Lopressor Tab) 25 mg BID PO 07/13/16 09:00 08/12/16 08:59 07/13/16 09:00 25 MG Nutrition (Parenteral) 0 ml @ 0 mls/hr TODAY@1600 IV 07/13/16 16:00 07/14/16 15:59 Objective Vital Signs Date Time Temp Pulse Resp B/P (MAP) Pulse Ox O2 Delivery O2 Flow Rate FiO2 07/13/16 11:55 Room Air 07/13/16 11:46 36.4 104 18 112/71 (85) 99 07/13/16 08:00 Room Air 07/13/16 07:35 36.6 109 19 148/100 (116) 100 Room Air 07/13/16 04:29 36.7 112 18 126/78 (94) 99 Room Air 07/13/16 04:15 Room Air 07/13/16 00:00 36.6 99 18 124/68 (86) 95 Room Air 07/13/16 00:00 95 Room Air 07/12/16 19:30 36.3 116 18 130/78 (95) 94 Room Air 07/12/16 19:30 94 Room Air 07/12/16 16:00 Room Air 07/12/16 15:37 37.0 106 20 132/85 (101) 96 Room Air Physical Exam General Appearance: WD/WN, no apparent distress Eyes: normal inspection, EOMI ENT: hearing grossly normal, pharynx normal Neck: supple, no adenopathy, no JVD Respiratory/Chest: lungs clear, no respiratory distress Cardiovascular: no gallop, no murmur, + irregularly irregular Abdomen: normal bowel sounds, + pertinent finding (abdominal dressing from surgery; dressing is dry without exudate or blood;) Extremities: normal range of motion, non-tender, normal inspection Neurologic/Psychiatric: alert, normal mood/affect, oriented x 3 Skin: normal color, warm/dry, no rash Laboratory Results Last 24 Hours Test 07/12/16 18:10 07/12/16 23:09 07/13/16 04:57 07/13/16 06:47 Bedside Glucose 154 mg/dl 120 mg/dl 124 mg/dl White Blood Count 14.29 K/uL Red Blood Count 3.59 M/uL Hemoglobin 10.1 g/dL Hematocrit 31.9 % Mean Corpuscular Volume 88.9 fL Mean Corpuscular Hemoglobin 28.1 pg Mean Corpuscular Hemoglobin Concent 31.7 g/dl RDW Standard Deviation 50.3 fL RDW Coefficient of Variation 15.4 % Platelet Count 372 K/uL Mean Platelet Volume 10.3 fL Activated Partial Thromboplast Time 50.0 SECONDS Partial Thromboplastin Ratio 1.9 Sodium Level 141 mmol/L Potassium Level 3.9 mmol/L Chloride Level 105 mmol/L Carbon Dioxide Level 31 mmol/L Anion Gap 5.0 mmol/L Blood Urea Nitrogen 23 mg/dl Creatinine 0.61 mg/dl Est Creatinine Clear Calc Drug Dose 73.9 ml/min Estimated GFR () 97.8 Estimated GFR (Non- 84.4 BUN/Creatinine Ratio 38.2 Random Glucose 110 mg/dl Calcium Level 8.2 mg/dl Phosphorus Level 2.2 mg/dl Magnesium Level 2.1 mg/dl Test 07/13/16 11:12 Bedside Glucose 121 mg/dl Assessment and Plan 80 year old female with GI bleeding due to cecal ulcer. Background Afib requiring anticoagulation, held due to bleeding. Day 3 s/p right sided colectomy with primary anastomosis. Stable and doing well. NPO and on TPN, managed per surgery. Our plan for her is as follows Acute lower GI bleeding with acute blood loss anemia - 2/2 Ischemic Cecal Ulcer; resolved after colectomy - Hemodynamically stable without evidence of bleeding - Continue TPN per surgery; pharmacy management appreciated - Hb has been stable at 10 for the past 3 days - In process of escalating anticoagulation for Afib stroke prevention Atrial fibrillation with rapid ventricular response - Mild RVR today; like 2/2 acute systemic stressor or surgery and pain Takes Metoprolol Succ 100 q AM at home; was placed on hold post-surgery - Re-start Metoprolol start at 25 mg Metoprolol tartrate BID and escalate to home dose as tolerated - Continue Digoxin and Diltiazem PO - Goal HR < 100 - Patient appears stable from a bleeding standpoint; will escalate heparin infusion dosing to intermediate between 800 units per hour and full dose anticoagulation and continue to monitor for bleeding recurrence before going to full dose Restless Leg Syndrome - Sinemet q3 hours PRN Non-specific Colitis - Per CT scan - Currently on Cefoxitin per surgery DVT Prophylaxis - Continue Heparin infusion; escalate today. Will not go to full dose today until she is stable for additional 24 hours - Discussed with surgery Code Status - DNR Disposition - OT and PT consulted - Can start ambulating patient per PT recommendations - Goal to discharge to [facility] or the [facility] Continued [facility] stay due to: multiple IV medications needed Discharge planning: home Reviewed: Pt Seen/Exam by Me History denies any concerns Constitutional: denies: fever Respiratory: negative: short of breath Cardiovascular: denies chest pain Gastrointestinal/Abdominal: negative: abdominal pain General Appearance: no apparent distress (sitting in chair) Respiratory: lungs clear, no respiratory distress Cardiovascular: irregularly irregular Neurologic/Psychiatric: alert, oriented x 3 Skin Characteristics: warm/dry Assessment/Plan I have reviewed the medical record and performed a history and physical examination of this patient today. I have discussed the case with Dr. Parra. The above note reflects my findings, conclusions, and recommendations.
--- NOTE | 2016-07-13 13:51 | Clinical Documentation Query ---
CLINICAL DOCUMENTATION QUERY 80 year old female who presents to the Emergency Room with complaints of episodes of rectal bleeding In your clinical opinion is this patient being managed for: ( ) Severe malnutrition due to cecal ulcer, subsequent colectomy, and prolonged recovery treated with TPN. ( ) Other explanation of clinical findings (Please Explain) ( ) Unable to determine (Please Define) ( ) Need to Discuss (x ) Not Agree The medical record reflects the following clinical findings, treatment, and risk factors. Clinical Indicators: GI bleed 2/2 ischemic ulceration of colon. Prolonged NPO status for surgery and recovery. Clear liquid diet. Albumin 2.9, Mg 1.5, Phos 1.5, Potassium 3.3, Total protein 5.5, Treatment: TPN, Nutritional consult Risk Factors: Age, acute GI illness with long recovery. Please clarify and document your clinical opinion in the progress notes and discharge summary. Terms such as "probable", "suspected", "likely", "questionable", "possible", or "still to be ruled out" are acceptable. IF IN AGREEMENT, YOU MUST DOCUMENT ABOVE DIAGNOSTIC STATEMENT IN DAILY PROGRESS NOTES AND DISCHARGE SUMMARY. This document is not part of the patient's record. Thank You, Ismael Wang, CORA [phone]
[2016-07-13] MEDS ORDERED: CUSTOM CENTRAL PN 1 BAG IV SCH (16:00)
[2016-07-13] MEDS: DIGOXIN 0.125 MG TAB PO SCH (16:00)
[2016-07-13] MEDS: HEPARIN 25,000 UNIT/500ML D5W 500 ML IV PRN (19:26)
[2016-07-14] VITALS (9 sets, daily range): BP systolic 119–148; BP diastolic 75–94; PULSE 70–128; TEMP 36.3–36.9; O2SAT 96–100
[2016-07-14] MEDS: CARBIDOPA/LEVODOPA 25/100MG TAB PO PRN ×4 (04:20→22:05)
[2016-07-14] MEDS: ACETAMINOPHEN 325 MG TAB PO PRN (04:21)
[2016-07-14 05:44] LABS: HEMATOCRIT 32.4 % (37-47); MEAN CORPUSCULAR HEMOGLOBIN 28.3 pg (25-34); MEAN CORPUSCULAR HGB CONC 32.1 g/dl (32-36); MEAN PLATELET VOLUME 9.9 fL (7.4-10.4); PLATELET COUNT 353 K/uL (130-400); RED BLOOD COUNT 3.68 M/uL (4.2-5.4); WHITE BLOOD COUNT 12.48 K/uL (4.8-10.8)
[2016-07-14] MEDS: INSULIN ASPART 100 UNITS/ML 3 ML PEN SC SCH ×3 (06:00→17:10)
[2016-07-14] MEDS: CEFOXITIN IV 1,000 MG in DEXTROSE 5% 50ML 50 ML IV SCH ×3 (06:01→21:37)
[2016-07-14] MEDS: METOPROLOL TARTRATE 25 MG TAB PO SCH ×4 (06:01→19:27)
[2016-07-14 06:05] LABS: PARTIAL THROMBOPLASTIN RATIO 2.3
[2016-07-14 06:12] LABS: CALCIUM 8.8 mg/dl (8.5-10.1); CREATININE 0.59 mg/dl (0.60-1.20); PHOSPHORUS 2.5 mg/dl (2.5-4.9)
[2016-07-14] MEDS: DILTIAZEM HCL 30 MG TAB PO SCH ×4 (08:04→19:19)
[2016-07-14 10:20] LABS: INR 1.1 (0.9-1.1); PROTHROMBIN TIME (PATIENT) 11.3 SECONDS (9.0-12.0)
[2016-07-14 10:32] LABS: BASO % 0.3 %; BASO ABS # 0.04 K/uL (0-0.2); COMPLETE YES; EOS % 2.4 %; IG% 0.7 %; LYMPH % 11.1 %; MONO % 14.4 %; NEUT % 71.1 %
[2016-07-14] MEDS: PANTOprazole INJ 40 MG in SYRINGE 0 ML IV SCH (11:00)
--- NOTE | 2016-07-14 12:39 | Family Medicine Progress Note ---
Progress Note Date of Service Jul 14, 2016. Subjective Pt evaluation today including: conversation w/ patient, physical exam, chart review, lab review, review of studies Pain: 0/10 PO Intake: WNL Voiding: no voiding problems Deneis any blood in urine or stool States she has been feeling well and looking forward to seeing her daughter this weekend Constitutional: No fever Eyes: No worsening of vision ENT: No hearing loss Respiratory: No cough, No sputum, No wheezing, No shortness of breath, No dyspnea on exertion Cardiovascular: No chest pain Abdomen: + diarrhea, No pain, No nausea, No vomiting, No constipation Musculoskeletal: No joint pain, No muscle pain Female : No dysuria, No hematuria Neurologic: + weakness, No balance problems Heme: No abnormal bleeding/bruising, No clotting problems Endo: + fatigue Skin: No rash Medications Medications Administered Medications (Trade) Dose Ordered Sig/Hair Route Start Time Stop Time Status Last Admin Dose Admin Piperacillin Sod/ Tazobactam Sod (Zosyn Iv) 4.5 gm NOW STAT IV 07/04/16 14:39 07/04/16 14:41 DC 07/04/16 14:51 4.5 GM Sodium Chloride 1,000 ml @ 999 mls/hr Q1H1M STAT IV 07/04/16 15:02 07/04/16 16:02 DC 07/04/16 15:02 999 MLS/HR Phytonadione 2.5 mg/Sodium Chloride 50.25 ml @ 100.5 mls/ hr ONE ONCE IV 07/04/16 15:15 07/04/16 15:44 DC 07/04/16 15:26 100.5 MLS/HR Acetaminophen (Tylenol Tab) 650 mg Q4H PRN PO 07/04/16 16:30 08/03/16 16:29 07/14/16 04:21 650 MG Pantoprazole Sodium 80 mg/ Dextrose 120 ml @ 480 mls/hr 1800 IV 07/04/16 18:00 07/04/16 18:14 DC 07/04/16 19:48 480 MLS/HR Phytonadione 7.5 mg/Sodium Chloride 50.75 ml @ 100.5 mls/ hr ONE ONCE IV 07/04/16 18:00 07/04/16 18:30 DC 07/04/16 19:43 100.5 MLS/HR Polyethylene Glycol/ Electrolytes (Golytely Soln) 8 dose TODAY@2000 ONCE PO 07/04/16 20:00 07/04/16 20:02 DC 07/04/16 19:44 8 DOSE Bisacodyl (Dulcolax Tab) 10 mg ONE ONCE PO 07/04/16 20:00 07/04/16 20:02 DC 07/04/16 20:18 10 MG Sodium Chloride 1,000 ml @ 999 mls/hr Q1H1M ONCE IV 07/04/16 19:15 07/04/16 20:15 DC 07/04/16 19:44 999 MLS/HR Sodium Chloride 1,000 ml @ 100 mls/hr Q10H IV 07/04/16 19:15 07/05/16 08:42 DC 07/05/16 05:09 100 MLS/HR Carbidopa/Levodopa (Sinemet 25/ 250MG Tab) 1 tab ONE ONCE PO 07/04/16 19:15 07/04/16 19:42 DC 07/04/16 20:16 1 TAB Ceftriaxone Sodium 1 gm/ Dextrose 50 ml @ 100 mls/hr Q24H IV 07/04/16 21:00 07/06/16 14:45 DC 07/05/16 20:34 100 MLS/HR Pantoprazole Sodium 40 mg/ Syringe 10 ml @ 5 mls/min BID@0900,2100 IV 07/04/16 21:00 07/10/16 12:05 DC 07/10/16 07:59 5 MLS/MIN Lorazepam (Ativan Inj) 0.5 mg NOW STAT IV 07/05/16 05:43 07/05/16 05:57 DC 07/05/16 06:02 0.5 MG Digoxin 125 mcg/ Syringe 10 ml @ 2 mls/min NOW STAT IV 07/05/16 08:11 07/05/16 08:15 DC 07/05/16 08:26 2 MLS/MIN Metoprolol Tartrate (Lopressor Iv) 2.5 mg Q6 PRN IV 07/05/16 08:15 08/04/16 08:14 07/06/16 07:35 2.5 MG Magnesium Sulfate 1 gm/Prmx 100 ml @ 100 mls/hr Q1H IV 07/05/16 09:00 07/05/16 10:59 DC 07/05/16 10:09 100 MLS/HR Potassium Chloride/Sodium Chloride 1,000 ml @ 100 mls/hr Q10H IV 07/05/16 09:00 07/06/16 09:38 DC 07/06/16 05:09 100 MLS/HR Metronidazole 500 mg/Prmx 100 ml @ 100 mls/hr Q8H IV 07/05/16 14:00 07/07/16 09:53 DC 07/07/16 06:12 100 MLS/HR Carbidopa/Levodopa (Sinemet 25/ 100MG Tab) 1 tab 0109 ONCE PO 07/06/16 01:09 07/06/16 01:15 DC 07/06/16 01:20 1 TAB Carbidopa/Levodopa (Sinemet 25/ 100MG Tab) 1 tab QID PO 07/06/16 05:00 07/08/16 10:56 DC 07/08/16 08:06 1 TAB Diltiazem HCl (Cardizem Tab) 30 mg QID PO 07/06/16 13:00 07/07/16 07:47 DC 07/07/16 07:42 30 MG Diltiazem HCl (Cardizem Tab) 30 mg EXTRA DOSE ONCE PO 07/06/16 09:45 07/06/16 09:46 DC 07/06/16 09:44 30 MG Potassium Chloride (Klor-Con Tab) 20 meq TID PO 07/06/16 14:00 07/10/16 11:48 DC 07/10/16 08:12 20 MEQ Hydrochlorothiazide (Hydrochlorothiazide Tab) 25 mg QAM PO 07/07/16 09:00 07/07/16 09:00 DC 07/07/16 07:43 25 MG Hydrochlorothiazide (Hydrochlorothiazide Tab) 25 mg 0936 ONCE PO 07/06/16 09:36 07/06/16 09:48 DC 07/06/16 10:31 25 MG Heparin Sodium/ Dextrose 500 ml @ 24 mls/hr [id number] PRN IV 07/06/16 10:00 07/10/16 11:48 DC 07/07/16 06:15 24 MLS/HR Metoprolol Succinate (Toprol Xl Tab) 100 mg QAM PO 07/06/16 12:00 07/10/16 11:48 DC 07/10/16 08:11 100 MG Digoxin (Lanoxin Tab) 0.125 mg MoWeFr@1600 PO 07/06/16 16:00 08/05/16 15:59 07/13/16 16:00 0.125 MG Ciprofloxacin (Cipro Tab) 500 mg BID PO 07/06/16 21:00 07/10/16 11:48 DC 07/10/16 08:11 500 MG Heparin Sodium (Porcine) 3000 unit/Syringe 3 ml @ 10 mls/min 1845 ONCE IV 07/06/16 18:45 07/06/16 18:46 DC 07/06/16 18:38 10 MLS/MIN Lorazepam (Ativan Inj) 0.5 mg NOW STAT IV 07/07/16 00:31 07/07/16 00:32 DC 07/07/16 06:11 0.5 MG Diltiazem HCl (Cardizem Tab) 60 mg QID PO 07/07/16 09:00 07/08/16 08:25 DC 07/08/16 08:04 60 MG Furosemide (Lasix Tab) 20 mg DAILY PO 07/07/16 09:00 07/08/16 08:31 DC 07/08/16 08:07 20 MG Potassium Phosphate 15 mmol/ Sodium Chloride 255 ml @ 88 mls/hr TODAY@0815 ONCE IV 07/07/16 08:15 07/07/16 11:08 DC 07/07/16 08:47 88 MLS/HR Metronidazole (Flagyl Tab) 500 mg TID PO 07/07/16 14:00 07/10/16 11:48 DC 07/10/16 08:11 500 MG Diltiazem HCl (Cardizem Tab) 90 mg QID PO 07/08/16 13:00 08/07/16 12:59 07/14/16 08:04 90 MG Furosemide (Lasix Tab) 40 mg DAILY PO 07/09/16 09:00 07/10/16 11:48 DC 07/10/16 08:11 40 MG Furosemide (Lasix Tab) 20 mg TODAY@0915 ONCE PO 07/08/16 09:15 07/08/16 09:16 DC 07/08/16 11:47 20 MG Diltiazem HCl (Cardizem Tab) 30 mg TODAY@0915 ONCE PO 07/08/16 09:15 07/08/16 09:16 DC 07/08/16 09:45 30 MG Carbidopa/Levodopa (Sinemet 25/ 100MG Tab) 1 tab Q3H PRN PO 07/08/16 10:54 08/07/16 10:53 07/14/16 12:18 1 TAB Heparin Sodium (Porcine) (Heparin 10 Unit/ ml 5 ml Flush) 10 ml STK-MED ONCE .ROUTE 07/08/16 13:48 07/08/16 13:49 DC 07/08/16 14:00 10 ML Magnesium Sulfate 1 gm/Prmx 100 ml @ 100 mls/hr Q1H IV 07/09/16 10:00 07/09/16 13:59 DC 07/09/16 13:03 100 MLS/HR Potassium Chloride (Kassandra Ciel Elix) 40 meq NOW STAT PO 07/09/16 09:20 07/09/16 09:28 DC 07/09/16 09:41 40 MEQ Potassium Chloride 10 meq/ Prmx 100 ml @ 100 mls/hr Q1H IV 07/09/16 10:00 07/09/16 11:59 DC 07/09/16 13:04 100 MLS/HR Heparin Sodium (Porcine) (Heparin 10 Unit/ ml 5 ml Flush) 10 ml STK-MED ONCE .ROUTE 07/09/16 13:51 07/09/16 13:52 DC 07/09/16 14:30 10 ML Potassium Chloride (Kassandra Ciel Elix) 20 meq NOW STAT PO 07/09/16 16:38 07/09/16 16:45 DC 07/09/16 17:03 20 MEQ Potassium Phosphate 6 mmol/ Sodium Chloride 252 ml @ 252 mls/hr TODAY@0800 IV 07/10/16 08:00 07/10/16 08:59 DC 07/10/16 08:13 252 MLS/HR Fentanyl Citrate (Fentanyl Inj) 50 mcg Q5M PRN IV 07/10/16 08:15 07/10/16 13:00 DC 07/10/16 12:00 50 MCG Ondansetron HCl (Zofran Inj) 4 mg ONE PRN IV 07/10/16 08:15 07/10/16 13:00 DC 07/10/16 11:40 4 MG Cefoxitin Sodium (Mefoxin IV) 2,000 mg STK-MED ONCE .ROUTE 07/10/16 08:45 07/10/16 08:46 DC 07/10/16 11:05 2,000 MG Nutrition (Parenteral) 0 ml @ 0 mls/hr TODAY@1600 IV 07/10/16 16:00 07/11/16 15:59 DC 07/10/16 15:19 0 MLS/HR Cefoxitin Sodium 1000 mg/Dextrose 60 ml @ 100 mls/hr Q8H IV 07/10/16 14:00 07/20/16 13:59 07/14/16 06:01 100 MLS/HR Hydromorphone HCl (Dilaudid Inj) FOR PAIN 0.5-1MG 0.5MG ... Q3H PRN IV 07/10/16 11:45 07/24/16 11:44 07/11/16 05:46 1 MG Lactated Ringer's 1,000 ml @ 100 mls/hr Q10H IV 07/10/16 11:45 07/11/16 07:46 DC 07/11/16 01:42 100 MLS/HR Pantoprazole Sodium 40 mg/ Syringe 10 ml @ 5 mls/min DAILY@11 IV 07/11/16 11:00 08/10/16 10:59 07/14/16 11:00 5 MLS/MIN Heparin Sodium (Porcine) (Heparin Sq 5000 Unit/0.5ml) 5,000 unit Q8 SQ 07/11/16 08:00 07/12/16 09:06 DC 07/12/16 06:14 5,000 UNIT Insulin Aspart (novoLOG ASPART) SLIDING SCALE Q6H SC 07/11/16 00:00 08/10/16 00:00 07/11/16 00:12 3 UNITS Insulin Aspart (novoLOG ASPART) SLIDING SCALE 1900 ONCE SC 07/10/16 19:00 07/10/16 19:01 DC 07/10/16 19:04 3 UNITS Diphenhydramine HCl (Benadryl Extra Strength Cream) 1 appln Q12 PRN EXT 07/10/16 22:30 08/09/16 22:29 07/11/16 08:35 1 APPLN Magnesium Sulfate 1 gm/Prmx 100 ml @ 100 mls/hr Q1H IV 07/11/16 08:15 07/11/16 10:14 DC 07/11/16 10:01 100 MLS/HR Nutrition (Parenteral) 0 ml @ 0 mls/hr TODAY@1600 IV 07/11/16 16:00 07/12/16 15:59 DC 07/11/16 15:43 62.74 MLS/HR Magnesium Sulfate 1 gm/Prmx 100 ml @ 100 mls/hr TODAY@1900 ONCE IV 07/11/16 19:00 07/11/16 19:59 DC 07/11/16 19:32 100 MLS/HR Heparin Sodium (Porcine) (Heparin 10 Unit/ ml 5 ml Flush) 5 ml PRN PRN FLUSH 07/12/16 00:15 08/11/16 00:14 07/12/16 04:52 5 ML Potassium Phosphate 30 mmol/ Sodium Chloride 510 ml @ 102 mls/hr TODAY@0800 IV 07/12/16 08:00 07/12/16 12:59 DC 07/12/16 08:08 102 MLS/HR Heparin Sodium/ Dextrose 500 ml @ 16 mls/hr Q24H PRN IV 07/12/16 09:15 08/11/16 09:14 07/13/16 19:26 16 MLS/HR Nutrition (Parenteral) 0 ml @ 0 mls/hr TODAY@1600 IV 07/12/16 16:00 07/13/16 15:59 DC 07/12/16 16:34 0 MLS/HR Metoprolol Tartrate (Lopressor Tab) 25 mg BID PO 07/13/16 09:00 07/14/16 23:59 07/14/16 06:01 25 MG Nutrition (Parenteral) 0 ml @ 0 mls/hr TODAY@1600 IV 07/13/16 16:00 07/14/16 15:59 07/13/16 15:50 0 MLS/HR Metoprolol Tartrate (Lopressor Tab) 50 mg BID PO 07/14/16 09:00 07/14/16 23:59 07/14/16 08:04 50 MG Heparin Sodium/ Dextrose 1 ea Q15M N/A 07/14/16 09:09 07/14/16 09:50 DC 07/14/16 09:09 1 EA Objective Vital Signs Date Time Temp Pulse Resp B/P (MAP) Pulse Ox O2 Delivery O2 Flow Rate FiO2 07/14/16 12:00 100 Room Air 07/14/16 11:36 36.7 106 18 130/94 (106) 96 Room Air 07/14/16 08:01 36.4 74 18 125/76 (92) 100 Room Air 07/14/16 08:00 100 Room Air 07/14/16 04:53 36.8 120 18 145/84 (104) 97 Room Air 07/14/16 04:00 Room Air 07/14/16 00:00 Room Air 07/13/16 23:49 36.4 110 18 117/81 (93) 98 Room Air 07/13/16 20:00 Room Air 07/13/16 19:31 36.5 73 18 121/84 (96) 97 07/13/16 16:00 112 07/13/16 15:40 36.9 112 18 129/85 (100) 96 Room Air 07/13/16 15:28 Room Air Physical Exam General Appearance: no apparent distress Eyes: normal inspection ENT: normal ENT inspection Neck: supple Respiratory/Chest: normal breath sounds, no respiratory distress, no accessory muscle use Cardiovascular: regular rate, rhythm, no murmur Abdomen: normal bowel sounds, non tender, soft Extremities: normal range of motion, non-tender, no pedal edema, no calf tenderness Neurologic/Psychiatric: alert, normal mood/affect, oriented x 3 Skin: normal color, warm/dry, no rash Lymphatic: no adenopathy Laboratory Results Results Past 24 Hours Test 07/13/16 16:11 07/13/16 20:54 07/13/16 23:27 07/14/16 05:15 Range/Units Bedside Glucose 119 116 120 70-90 mg/dl White Blood Count 12.48 4.8-10.8 K/uL Red Blood Count 3.68 4.2-5.4 M/uL Hemoglobin 10.4 12.0-16.0 g/dL Hematocrit 32.4 37-47 % Mean Corpuscular Volume 88.0 80-100 fL Mean Corpuscular Hemoglobin 28.3 25-34 pg Mean Corpuscular Hemoglobin Concent 32.1 32-36 g/dl Platelet Count 353 130-400 K/uL Mean Platelet Volume 9.9 7.4-10.4 fL Neutrophils (%) (Auto) 71.1 % Lymphocytes (%) (Auto) 11.1 % Monocytes (%) (Auto) 14.4 % Eosinophils (%) (Auto) 2.4 % Basophils (%) (Auto) 0.3 % Neutrophils # (Auto) 8.93 1.4-6.5 K/uL Lymphocytes # (Auto) 1.40 1.2-3.4 K/uL Monocytes # (Auto) 1.81 0.11-0.59 K/uL Eosinophils # (Auto) 0.30 0-0.5 K/uL Basophils # (Auto) 0.04 0-0.2 K/uL RDW Standard Deviation 49.3 36.4-46.3 fL RDW Coefficient of Variation 15.2 11.5-14.5 % Immature Granulocyte % (Auto) 0.7 % Immature Granulocyte # (Auto) 0.09 0.00-0.02 K/uL Nucleated RBC Absolute Count (auto) 0.00 0-0 K/uL Nucleated Red Blood Cells % 0.0 % Prothrombin Time 11.3 9.0-12.0 SECONDS Prothromb Time International Ratio 1.1 0.9-1.1 Activated Partial Thromboplast Time 59.4 21.0-31.0 SECONDS Partial Thromboplastin Ratio 2.3 Sodium Level 140 136-145 mmol/L Potassium Level 4.0 3.5-5.1 mmol/L Chloride Level 106 98-107 mmol/L Carbon Dioxide Level 27 21-32 mmol/L Anion Gap 7.0 3-11 mmol/L Blood Urea Nitrogen 22 7-18 mg/dl Creatinine 0.59 0.60-1.20 mg/dl Est Creatinine Clear Calc Drug Dose 76.1 ml/min Estimated GFR () 98.9 Estimated GFR (Non- 85.4 BUN/Creatinine Ratio 38.0 10-20 Random Glucose 116 70-99 mg/dl Calcium Level 8.8 8.5-10.1 mg/dl Phosphorus Level 2.5 2.5-4.9 mg/dl Magnesium Level 2.0 1.8-2.4 mg/dl Test 07/14/16 06:15 07/14/16 11:13 Range/Units Bedside Glucose 134 106 70-90 mg/dl Assessment and Plan 80 year old female with GI bleeding due to cecal ulcer. Background Afib requiring anticoagulation, held due to bleeding. However since surgery she has been on heparin and no recurrence of the bleeding was noted. Plan is to bridge the patient and d/c. Acute lower GI bleeding with acute blood loss anemia - 2/2 Ischemic Cecal Ulcer; resolved after colectomy - Hemodynamically stable without evidence of bleeding - diet to be started this am and see how patient tolerates - Hb has been stable at 10 Atrial fibrillation with rapid ventricular response - Start home dose of Metoprolol tomorrow - Continue Digoxin and Diltiazem PO - Goal HR < 100 - Heparin is now full dose and will start coumadin at 1600 Restless Leg Syndrome - Sinemet q3 hours PRN Non-specific Colitis - Per CT scan - Currently on Cefoxitin per surgery DVT Prophylaxis - Continue Heparin infusion; escalate today Code Status - DNR Disposition - OT and PT consulted - Can start ambulating patient per PT recommendations - Goal to discharge to either [facility] or the [facility] Continued [facility] stay due to: other Discharge planning: senior care facility Reviewed: Pt Seen/Exam by Me History sitting in chair. denies any complains tolerating oral intake had explosive bowel movement this am Constitutional: denies: fever Respiratory: negative: short of breath Cardiovascular: denies chest pain Gastrointestinal/Abdominal: negative: abdominal pain General Appearance: no apparent distress Respiratory: lungs clear, no respiratory distress Cardiovascular: irregularly irregular Gastrointestinal: normal bowel sounds, soft, tenderness (incisional) Neurologic/Psychiatric: alert, oriented x 3 Skin Characteristics: warm/dry Assessment/Plan I have reviewed the medical record and performed a history and physical examination of this patient today. I have discussed the case with Dr. Reagan. The above note reflects my findings, conclusions, and recommendations.
--- NOTE | 2016-07-14 14:21 | Surgery Progress Note ---
Surgery Progress Note Date of Service Jul 14, 2016. Subjective Post OP Day: 4 + feeling well F/U S/P right hemicolectomy pt is doing better, passed BM, she tolerated clear diet, no nausea, no vomiting, Objective Vital Signs: Date Time Temp Pulse Resp B/P (MAP) Pulse Ox O2 Delivery O2 Flow Rate FiO2 07/14/16 12:00 100 Room Air 07/14/16 11:36 36.7 106 18 130/94 (106) 96 Room Air 07/14/16 08:01 36.4 74 18 125/76 (92) 100 Room Air 07/14/16 08:00 100 Room Air 07/14/16 04:53 36.8 120 18 145/84 (104) 97 Room Air 07/14/16 04:00 Room Air 07/14/16 00:00 Room Air 07/13/16 23:49 36.4 110 18 117/81 (93) 98 Room Air 07/13/16 20:00 Room Air 07/13/16 19:31 36.5 73 18 121/84 (96) 97 07/13/16 16:00 112 07/13/16 15:40 36.9 112 18 129/85 (100) 96 Room Air 07/13/16 15:28 Room Air General Appearance: WD/WN Head: normocephalic Neck: supple, no JVD Respiratory/Chest: chest non-tender, lungs clear Cardiovascular: regular rate, rhythm, no edema, no gallop Abdomen: normal bowel sounds, non tender, non distended, soft Incision(s): clean, dry, intact Extremities: normal range of motion, non-tender, normal inspection Laboratory Results: Results Past 24 Hours Test 07/13/16 16:11 07/13/16 20:54 07/13/16 23:27 07/14/16 05:15 Range/Units Bedside Glucose 119 116 120 70-90 mg/dl White Blood Count 12.48 4.8-10.8 K/uL Red Blood Count 3.68 4.2-5.4 M/uL Hemoglobin 10.4 12.0-16.0 g/dL Hematocrit 32.4 37-47 % Mean Corpuscular Volume 88.0 80-100 fL Mean Corpuscular Hemoglobin 28.3 25-34 pg Mean Corpuscular Hemoglobin Concent 32.1 32-36 g/dl Platelet Count 353 130-400 K/uL Mean Platelet Volume 9.9 7.4-10.4 fL Neutrophils (%) (Auto) 71.1 % Lymphocytes (%) (Auto) 11.1 % Monocytes (%) (Auto) 14.4 % Eosinophils (%) (Auto) 2.4 % Basophils (%) (Auto) 0.3 % Neutrophils # (Auto) 8.93 1.4-6.5 K/uL Lymphocytes # (Auto) 1.40 1.2-3.4 K/uL Monocytes # (Auto) 1.81 0.11-0.59 K/uL Eosinophils # (Auto) 0.30 0-0.5 K/uL Basophils # (Auto) 0.04 0-0.2 K/uL RDW Standard Deviation 49.3 36.4-46.3 fL RDW Coefficient of Variation 15.2 11.5-14.5 % Immature Granulocyte % (Auto) 0.7 % Immature Granulocyte # (Auto) 0.09 0.00-0.02 K/uL Nucleated RBC Absolute Count (auto) 0.00 0-0 K/uL Nucleated Red Blood Cells % 0.0 % Prothrombin Time 11.3 9.0-12.0 SECONDS Prothromb Time International Ratio 1.1 0.9-1.1 Activated Partial Thromboplast Time 59.4 21.0-31.0 SECONDS Partial Thromboplastin Ratio 2.3 Sodium Level 140 136-145 mmol/L Potassium Level 4.0 3.5-5.1 mmol/L Chloride Level 106 98-107 mmol/L Carbon Dioxide Level 27 21-32 mmol/L Anion Gap 7.0 3-11 mmol/L Blood Urea Nitrogen 22 7-18 mg/dl Creatinine 0.59 0.60-1.20 mg/dl Est Creatinine Clear Calc Drug Dose 76.1 ml/min Estimated GFR () 98.9 Estimated GFR (Non- 85.4 BUN/Creatinine Ratio 38.0 10-20 Random Glucose 116 70-99 mg/dl Calcium Level 8.8 8.5-10.1 mg/dl Phosphorus Level 2.5 2.5-4.9 mg/dl Magnesium Level 2.0 1.8-2.4 mg/dl Test 07/14/16 06:15 07/14/16 11:13 Range/Units Bedside Glucose 134 106 70-90 mg/dl Assessment & Plan S/P right hemilcoloctomy continue treatment, pt is on TPN, will F/U
[2016-07-14] MEDS ORDERED: WARFARIN SOD 5 MG TAB PO SCH (16:00)
[2016-07-14] MEDS ORDERED: CUSTOM CENTRAL PN 1 BAG IV SCH (16:00)
[2016-07-15] VITALS (8 sets, daily range): BP systolic 100–132; BP diastolic 63–95; PULSE 84–124; TEMP 36.3–36.9; O2SAT 95–100
[2016-07-15] MEDS: CARBIDOPA/LEVODOPA 25/100MG TAB PO PRN ×5 (02:04→23:21)
[2016-07-15] MEDS: ACETAMINOPHEN 325 MG TAB PO PRN ×2 (02:05→19:33)
[2016-07-15 04:37] LABS: BUN/CREATININE RATIO 39.6 (10-20); CALCIUM 9.1 mg/dl (8.5-10.1); CREATININE 0.6 mg/dl (0.60-1.20); MAGNESIUM 2.2 mg/dl (1.8-2.4); POTASSIUM 4.4 mmol/L (3.5-5.1)
[2016-07-15 04:48] LABS: PARTIAL THROMBOPLASTIN RATIO 1.4; PROTHROMBIN TIME (PATIENT) 10.7 SECONDS (9.0-12.0)
[2016-07-15] MEDS: INSULIN ASPART 100 UNITS/ML 3 ML PEN SC SCH ×2 (06:00)
[2016-07-15] MEDS: CEFOXITIN IV 1,000 MG in DEXTROSE 5% 50ML 50 ML IV SCH ×3 (06:06→21:27)
[2016-07-15] MEDS ORDERED: HEPARIN IV BOLUS 5,000 UNIT in SYRINGE 0 ML IV STA (06:54)
[2016-07-15] MEDS: HEPARIN 25,000 UNIT/500ML D5W 500 ML IV PRN ×3 (07:09→14:59)
[2016-07-15] MEDS: DILTIAZEM HCL 30 MG TAB PO SCH ×4 (08:13→21:25)
[2016-07-15] MEDS ORDERED: METOPROLOL SUCC 50MG EXT REL TAB PO SCH (09:00)
--- NOTE | 2016-07-15 09:06 | Family Medicine Progress Note ---
Progress Note Date of Service Jul 15, 2016. Subjective Pt evaluation today including: conversation w/ patient, physical exam, chart review, lab review, review of studies Pain: 0/10 PO Intake: WNL Voiding: no voiding problems Patient has been transitioned to clear liquid diet. ongoing loose stools with the clear liquid diet but no pain Denies any blood in her stool Constitutional: No fever Eyes: No worsening of vision ENT: No hearing loss Respiratory: No cough, No sputum, No wheezing, No shortness of breath, No dyspnea on exertion Cardiovascular: No chest pain Abdomen: + diarrhea, No pain, No nausea, No vomiting, No constipation Musculoskeletal: No joint pain, No muscle pain Female : No hematuria Neurologic: + balance problems, No weakness Psychiatric: No depression symptoms Endo: + fatigue Skin: No rash Medications Medications Administered Medications (Trade) Dose Ordered Sig/Hair Route Start Time Stop Time Status Last Admin Dose Admin Piperacillin Sod/ Tazobactam Sod (Zosyn Iv) 4.5 gm NOW STAT IV 07/04/16 14:39 07/04/16 14:41 DC 07/04/16 14:51 4.5 GM Sodium Chloride 1,000 ml @ 999 mls/hr Q1H1M STAT IV 07/04/16 15:02 07/04/16 16:02 DC 07/04/16 15:02 999 MLS/HR Phytonadione 2.5 mg/Sodium Chloride 50.25 ml @ 100.5 mls/ hr ONE ONCE IV 07/04/16 15:15 07/04/16 15:44 DC 07/04/16 15:26 100.5 MLS/HR Acetaminophen (Tylenol Tab) 650 mg Q4H PRN PO 07/04/16 16:30 08/03/16 16:29 07/15/16 02:05 650 MG Pantoprazole Sodium 80 mg/ Dextrose 120 ml @ 480 mls/hr 1800 IV 07/04/16 18:00 07/04/16 18:14 DC 07/04/16 19:48 480 MLS/HR Phytonadione 7.5 mg/Sodium Chloride 50.75 ml @ 100.5 mls/ hr ONE ONCE IV 07/04/16 18:00 07/04/16 18:30 DC 07/04/16 19:43 100.5 MLS/HR Polyethylene Glycol/ Electrolytes (Golytely Soln) 8 dose TODAY@1999 ONCE PO 07/04/16 20:00 07/04/16 20:02 DC 07/04/16 19:44 8 DOSE Bisacodyl (Dulcolax Tab) 10 mg ONE ONCE PO 07/04/16 20:00 07/04/16 20:02 DC 07/04/16 20:18 10 MG Sodium Chloride 1,000 ml @ 999 mls/hr Q1H1M ONCE IV 07/04/16 19:15 07/04/16 20:15 DC 07/04/16 19:44 999 MLS/HR Sodium Chloride 1,000 ml @ 100 mls/hr Q10H IV 07/04/16 19:15 07/05/16 08:42 DC 07/05/16 05:09 100 MLS/HR Carbidopa/Levodopa (Sinemet 25/ 250MG Tab) 1 tab ONE ONCE PO 07/04/16 19:15 07/04/16 19:42 DC 07/04/16 20:16 1 TAB Ceftriaxone Sodium 1 gm/ Dextrose 50 ml @ 100 mls/hr Q24H IV 07/04/16 21:00 07/06/16 14:45 DC 07/05/16 20:34 100 MLS/HR Pantoprazole Sodium 40 mg/ Syringe 10 ml @ 5 mls/min BID@0900,2100 IV 07/04/16 21:00 07/10/16 12:05 DC 07/10/16 07:59 5 MLS/MIN Lorazepam (Ativan Inj) 0.5 mg NOW STAT IV 07/05/16 05:43 07/05/16 05:57 DC 07/05/16 06:02 0.5 MG Digoxin 125 mcg/ Syringe 10 ml @ 2 mls/min NOW STAT IV 07/05/16 08:11 07/05/16 08:15 DC 07/05/16 08:26 2 MLS/MIN Metoprolol Tartrate (Lopressor Iv) 2.5 mg Q6 PRN IV 07/05/16 08:15 08/04/16 08:14 07/06/16 07:35 2.5 MG Magnesium Sulfate 1 gm/Prmx 100 ml @ 100 mls/hr Q1H IV 07/05/16 09:00 07/05/16 10:59 DC 07/05/16 10:09 100 MLS/HR Potassium Chloride/Sodium Chloride 1,000 ml @ 100 mls/hr Q10H IV 07/05/16 09:00 07/06/16 09:38 DC 07/06/16 05:09 100 MLS/HR Metronidazole 500 mg/Prmx 100 ml @ 100 mls/hr Q8H IV 07/05/16 14:00 07/07/16 09:53 DC 07/07/16 06:12 100 MLS/HR Carbidopa/Levodopa (Sinemet 25/ 100MG Tab) 1 tab 0109 ONCE PO 07/06/16 01:09 07/06/16 01:15 DC 07/06/16 01:20 1 TAB Carbidopa/Levodopa (Sinemet 25/ 100MG Tab) 1 tab QID PO 07/06/16 05:00 07/08/16 10:56 DC 07/08/16 08:06 1 TAB Diltiazem HCl (Cardizem Tab) 30 mg QID PO 07/06/16 13:00 07/07/16 07:47 DC 07/07/16 07:42 30 MG Diltiazem HCl (Cardizem Tab) 30 mg EXTRA DOSE ONCE PO 07/06/16 09:45 07/06/16 09:46 DC 07/06/16 09:44 30 MG Potassium Chloride (Klor-Con Tab) 20 meq TID PO 07/06/16 14:00 07/10/16 11:48 DC 07/10/16 08:12 20 MEQ Hydrochlorothiazide (Hydrochlorothiazide Tab) 25 mg QAM PO 07/07/16 09:00 07/07/16 09:00 DC 07/07/16 07:43 25 MG Hydrochlorothiazide (Hydrochlorothiazide Tab) 25 mg 0936 ONCE PO 07/06/16 09:36 07/06/16 09:48 DC 07/06/16 10:31 25 MG Heparin Sodium/ Dextrose 500 ml @ 24 mls/hr [id number] PRN IV 07/06/16 10:00 07/10/16 11:48 DC 07/07/16 06:15 24 MLS/HR Metoprolol Succinate (Toprol Xl Tab) 100 mg QAM PO 07/06/16 12:00 07/10/16 11:48 DC 07/10/16 08:11 100 MG Digoxin (Lanoxin Tab) 0.125 mg MoWeFr@1600 PO 07/06/16 16:00 08/05/16 15:59 07/13/16 16:00 0.125 MG Ciprofloxacin (Cipro Tab) 500 mg BID PO 07/06/16 21:00 07/10/16 11:48 DC 07/10/16 08:11 500 MG Heparin Sodium (Porcine) 3000 unit/Syringe 3 ml @ 10 mls/min 1845 ONCE IV 07/06/16 18:45 07/06/16 18:46 DC 07/06/16 18:38 10 MLS/MIN Lorazepam (Ativan Inj) 0.5 mg NOW STAT IV 07/07/16 00:31 07/07/16 00:32 DC 07/07/16 06:11 0.5 MG Diltiazem HCl (Cardizem Tab) 60 mg QID PO 07/07/16 09:00 07/08/16 08:25 DC 07/08/16 08:04 60 MG Furosemide (Lasix Tab) 20 mg DAILY PO 07/07/16 09:00 07/08/16 08:31 DC 07/08/16 08:07 20 MG Potassium Phosphate 15 mmol/ Sodium Chloride 255 ml @ 88 mls/hr TODAY@0815 ONCE IV 07/07/16 08:15 07/07/16 11:08 DC 07/07/16 08:47 88 MLS/HR Metronidazole (Flagyl Tab) 500 mg TID PO 07/07/16 14:00 07/10/16 11:48 DC 07/10/16 08:11 500 MG Diltiazem HCl (Cardizem Tab) 90 mg QID PO 07/08/16 13:00 08/07/16 12:59 07/15/16 08:13 90 MG Furosemide (Lasix Tab) 40 mg DAILY PO 07/09/16 09:00 07/10/16 11:48 DC 07/10/16 08:11 40 MG Furosemide (Lasix Tab) 20 mg TODAY@0915 ONCE PO 07/08/16 09:15 07/08/16 09:16 DC 07/08/16 11:47 20 MG Diltiazem HCl (Cardizem Tab) 30 mg TODAY@0915 ONCE PO 07/08/16 09:15 07/08/16 09:16 DC 07/08/16 09:45 30 MG Carbidopa/Levodopa (Sinemet 25/ 100MG Tab) 1 tab Q3H PRN PO 07/08/16 10:54 08/07/16 10:53 07/15/16 02:04 1 TAB Heparin Sodium (Porcine) (Heparin 10 Unit/ ml 5 ml Flush) 10 ml STK-MED ONCE .ROUTE 07/08/16 13:48 07/08/16 13:49 DC 07/08/16 14:00 10 ML Magnesium Sulfate 1 gm/Prmx 100 ml @ 100 mls/hr Q1H IV 07/09/16 10:00 07/09/16 13:59 DC 07/09/16 13:03 100 MLS/HR Potassium Chloride (Kassandra Ciel Elix) 40 meq NOW STAT PO 07/09/16 09:20 07/09/16 09:28 DC 07/09/16 09:41 40 MEQ Potassium Chloride 10 meq/ Prmx 100 ml @ 100 mls/hr Q1H IV 07/09/16 10:00 07/09/16 11:59 DC 07/09/16 13:04 100 MLS/HR Heparin Sodium (Porcine) (Heparin 10 Unit/ ml 5 ml Flush) 10 ml STK-MED ONCE .ROUTE 07/09/16 13:51 07/09/16 13:52 DC 07/09/16 14:30 10 ML Potassium Chloride (Kassandra Ciel Elix) 20 meq NOW STAT PO 07/09/16 16:38 07/09/16 16:45 DC 07/09/16 17:03 20 MEQ Potassium Phosphate 6 mmol/ Sodium Chloride 252 ml @ 252 mls/hr TODAY@0800 IV 07/10/16 08:00 07/10/16 08:59 DC 07/10/16 08:13 252 MLS/HR Fentanyl Citrate (Fentanyl Inj) 50 mcg Q5M PRN IV 07/10/16 08:15 07/10/16 13:00 DC 07/10/16 12:00 50 MCG Ondansetron HCl (Zofran Inj) 4 mg ONE PRN IV 07/10/16 08:15 07/10/16 13:00 DC 07/10/16 11:40 4 MG Cefoxitin Sodium (Mefoxin IV) 2,000 mg STK-MED ONCE .ROUTE 07/10/16 08:45 07/10/16 08:46 DC 07/10/16 11:05 2,000 MG Nutrition (Parenteral) 0 ml @ 0 mls/hr TODAY@1600 IV 07/10/16 16:00 07/11/16 15:59 DC 07/10/16 15:19 0 MLS/HR Cefoxitin Sodium 1000 mg/Dextrose 60 ml @ 100 mls/hr Q8H IV 07/10/16 14:00 07/20/16 13:59 07/15/16 06:06 100 MLS/HR Hydromorphone HCl (Dilaudid Inj) FOR PAIN 0.5-1MG 0.5MG ... Q3H PRN IV 07/10/16 11:45 07/24/16 11:44 07/11/16 05:46 1 MG Lactated Ringer's 1,000 ml @ 100 mls/hr Q10H IV 07/10/16 11:45 07/11/16 07:46 DC 07/11/16 01:42 100 MLS/HR Pantoprazole Sodium 40 mg/ Syringe 10 ml @ 5 mls/min DAILY@11 IV 07/11/16 11:00 08/10/16 10:59 07/14/16 11:00 5 MLS/MIN Heparin Sodium (Porcine) (Heparin Sq 5000 Unit/0.5ml) 5,000 unit Q8 SQ 07/11/16 08:00 07/12/16 09:06 DC 07/12/16 06:14 5,000 UNIT Insulin Aspart (novoLOG ASPART) SLIDING SCALE Q6H SC 07/11/16 00:00 08/10/16 00:00 07/11/16 00:12 3 UNITS Insulin Aspart (novoLOG ASPART) SLIDING SCALE 1900 ONCE SC 07/10/16 19:00 07/10/16 19:01 DC 07/10/16 19:04 3 UNITS Diphenhydramine HCl (Benadryl Extra Strength Cream) 1 appln Q12 PRN EXT 07/10/16 22:30 08/09/16 22:29 07/11/16 08:35 1 APPLN Magnesium Sulfate 1 gm/Prmx 100 ml @ 100 mls/hr Q1H IV 07/11/16 08:15 07/11/16 10:14 DC 07/11/16 10:01 100 MLS/HR Nutrition (Parenteral) 0 ml @ 0 mls/hr TODAY@1600 IV 07/11/16 16:00 07/12/16 15:59 DC 07/11/16 15:43 62.74 MLS/HR Magnesium Sulfate 1 gm/Prmx 100 ml @ 100 mls/hr TODAY@1900 ONCE IV 07/11/16 19:00 07/11/16 19:59 DC 07/11/16 19:32 100 MLS/HR Heparin Sodium (Porcine) (Heparin 10 Unit/ ml 5 ml Flush) 5 ml PRN PRN FLUSH 07/12/16 00:15 08/11/16 00:14 07/12/16 04:52 5 ML Potassium Phosphate 30 mmol/ Sodium Chloride 510 ml @ 102 mls/hr TODAY@0800 IV 07/12/16 08:00 07/12/16 12:59 DC 07/12/16 08:08 102 MLS/HR Heparin Sodium/ Dextrose 500 ml @ 21 mls/hr [id number] PRN IV 07/12/16 09:15 08/11/16 09:14 07/15/16 08:12 21 MLS/HR Nutrition (Parenteral) 0 ml @ 0 mls/hr TODAY@1600 IV 07/12/16 16:00 07/13/16 15:59 DC 07/12/16 16:34 0 MLS/HR Metoprolol Tartrate (Lopressor Tab) 25 mg BID PO 07/13/16 09:00 07/14/16 23:59 DC 07/14/16 06:01 25 MG Nutrition (Parenteral) 0 ml @ 0 mls/hr TODAY@1600 IV 07/13/16 16:00 07/14/16 15:59 DC 07/13/16 15:50 0 MLS/HR Metoprolol Tartrate (Lopressor Tab) 50 mg BID PO 07/14/16 09:00 07/14/16 23:59 DC 07/14/16 19:27 50 MG Metoprolol Succinate (Toprol Xl Tab) 100 mg DAILY PO 07/15/16 09:00 08/14/16 08:59 07/15/16 08:13 100 MG Heparin Sodium/ Dextrose 1 ea Q15M N/A 07/14/16 09:09 07/14/16 09:50 DC 07/14/16 09:09 1 EA Nutrition (Parenteral) 0 ml @ 0 mls/hr TODAY@1600 IV 07/14/16 16:00 07/15/16 15:59 07/14/16 16:27 0 MLS/HR Warfarin Sodium (Coumadin Tab) 5 mg DAILY@16 PO 07/14/16 16:00 08/13/16 15:59 07/14/16 16:26 5 MG Heparin Sodium (Porcine) 5000 unit/Syringe 5 ml @ 10 mls/min NOW STAT IV 07/15/16 06:54 07/15/16 06:55 DC 07/15/16 07:10 10 MLS/MIN Objective Vital Signs Date Time Temp Pulse Resp B/P (MAP) Pulse Ox O2 Delivery O2 Flow Rate FiO2 07/15/16 07:28 36.4 124 22 132/95 (107) 99 Room Air 07/15/16 04:25 Room Air 07/15/16 02:36 36.5 95 18 126/81 (96) 100 Room Air 07/15/16 00:00 Room Air 07/14/16 23:13 36.5 80 19 148/75 (99) 98 Room Air 07/14/16 21:08 36.9 70 20 124/82 (96) 98 Room Air 07/14/16 20:00 Room Air 07/14/16 16:00 100 Room Air 07/14/16 15:35 36.3 128 20 119/85 (96) 98 Room Air 07/14/16 12:00 100 Room Air 07/14/16 11:36 36.7 106 18 130/94 (106) 96 Room Air Physical Exam General Appearance: no apparent distress Eyes: normal inspection ENT: normal ENT inspection Neck: supple Respiratory/Chest: normal breath sounds, no respiratory distress, no accessory muscle use Cardiovascular: no murmur, + irregularly irregular Abdomen: normal bowel sounds, non tender, soft Extremities: normal range of motion, non-tender, no pedal edema, no calf tenderness Neurologic/Psychiatric: alert, normal mood/affect, oriented x 3 Skin: normal color, warm/dry, no rash Lymphatic: no adenopathy Laboratory Results Results Past 24 Hours Test 07/14/16 11:13 07/14/16 17:09 07/14/16 20:21 07/14/16 23:57 Range/Units Bedside Glucose 106 142 114 109 70-90 mg/dl Test 07/15/16 03:55 07/15/16 06:00 Range/Units Prothrombin Time 10.7 9.0-12.0 SECONDS Prothromb Time International Ratio 1.0 0.9-1.1 Activated Partial Thromboplast Time 36.4 21.0-31.0 SECONDS Partial Thromboplastin Ratio 1.4 Sodium Level 142 136-145 mmol/L Potassium Level 4.4 3.5-5.1 mmol/L Chloride Level 109 98-107 mmol/L Carbon Dioxide Level 29 21-32 mmol/L Anion Gap 4.0 3-11 mmol/L Blood Urea Nitrogen 24 7-18 mg/dl Creatinine 0.60 0.60-1.20 mg/dl Est Creatinine Clear Calc Drug Dose 74.6 ml/min Estimated GFR () 98.4 Estimated GFR (Non- 84.9 BUN/Creatinine Ratio 39.6 10-20 Random Glucose 103 70-99 mg/dl Calcium Level 9.1 8.5-10.1 mg/dl Phosphorus Level 3.0 2.5-4.9 mg/dl Magnesium Level 2.2 1.8-2.4 mg/dl Bedside Glucose 110 70-90 mg/dl Assessment and Plan 80 year old female with GI bleeding due to cecal ulcer. Background Afib requiring anticoagulation, held due to bleeding. However since surgery she has been on heparin and no recurrence of the bleeding was noted. Plan is to bridge the patient and d/c. Acute lower GI bleeding with acute blood loss anemia sec to ischemic cecal ulcer - now s/p colectomy - Hemodynamically stable without evidence of bleeding - diet is clear liquid and she has loose stools but otherwise tolerating - Hb has been stable at 10 Atrial fibrillation with rapid ventricular response - Metoprolol 100 mg daily started, was tachy from 8- 10 am and resolved - will change administration time to 0800 tomorrow - Continue Digoxin and Diltiazem PO - Goal HR < 100 - Coumadin increased to 7.5 mg Restless Leg Syndrome - Sinemet q3 hours PRN Non-specific Colitis - Per CT scan - Currently on Cefoxitin per surgery DVT Prophylaxis - Continue Heparin infusion Code Status - DNR Disposition - OT and PT consulted - Can start ambulating patient per PT recommendations - Goal to discharge to either [facility] or the [facility] Continued [facility] stay due to: other Discharge planning: retirement facility Reviewed: Pt Seen/Exam by Me History tolerating clear diet well. had loose stool Constitutional: denies: fever Respiratory: negative: short of breath Cardiovascular: denies chest pain Gastrointestinal/Abdominal: negative: abdominal pain General Appearance: no apparent distress (comfortably sitting at bedside) Respiratory: lungs clear, no respiratory distress Cardiovascular: irregularly irregular Gastrointestinal: normal bowel sounds, soft, tenderness (incisional) Neurologic/Psychiatric: alert, oriented x 3 Skin Characteristics: warm/dry Assessment/Plan I have reviewed the medical record and performed a history and physical examination of this patient today. I have discussed the case with Dr. Reagan. The above note reflects my findings, conclusions, and recommendations.
[2016-07-15] MEDS: PANTOprazole INJ 40 MG in SYRINGE 0 ML IV SCH (10:39)
[2016-07-15 13:56] LABS: PARTIAL THROMBOPLASTIN RATIO 1.7
--- NOTE | 2016-07-15 14:18 | Surgery Progress Note ---
Surgery Progress Note Date of Service Jul 15, 2016. Subjective + feeling well pt is doing fine, no abdominal pain, she tolerated liquid diet, Objective Vital Signs: Date Time Temp Pulse Resp B/P (MAP) Pulse Ox O2 Delivery O2 Flow Rate FiO2 07/15/16 12:06 36.5 84 19 100/63 (75) 100 Room Air 07/15/16 12:00 Room Air 07/15/16 08:00 Room Air 07/15/16 07:28 36.4 124 22 132/95 (107) 99 Room Air 07/15/16 04:25 Room Air 07/15/16 02:36 36.5 95 18 126/81 (96) 100 Room Air 07/15/16 00:00 Room Air 07/14/16 23:13 36.5 80 19 148/75 (99) 98 Room Air 07/14/16 21:08 36.9 70 20 124/82 (96) 98 Room Air 07/14/16 20:00 Room Air 07/14/16 16:00 100 Room Air 07/14/16 15:35 36.3 128 20 119/85 (96) 98 Room Air General Appearance: WD/WN Head: normocephalic Neck: supple, no JVD Respiratory/Chest: chest non-tender, lungs clear Abdomen: normal bowel sounds, non tender, non distended, soft Extremities: normal range of motion, non-tender, normal inspection Laboratory Results: Results Past 24 Hours Test 07/14/16 17:09 07/14/16 20:21 07/14/16 23:57 07/15/16 03:55 Range/Units Bedside Glucose 142 114 109 70-90 mg/dl Prothrombin Time 10.7 9.0-12.0 SECONDS Prothromb Time International Ratio 1.0 0.9-1.1 Activated Partial Thromboplast Time 36.4 21.0-31.0 SECONDS Partial Thromboplastin Ratio 1.4 Sodium Level 142 136-145 mmol/L Potassium Level 4.4 3.5-5.1 mmol/L Chloride Level 109 98-107 mmol/L Carbon Dioxide Level 29 21-32 mmol/L Anion Gap 4.0 3-11 mmol/L Blood Urea Nitrogen 24 7-18 mg/dl Creatinine 0.60 0.60-1.20 mg/dl Est Creatinine Clear Calc Drug Dose 74.6 ml/min Estimated GFR () 98.4 Estimated GFR (Non- 84.9 BUN/Creatinine Ratio 39.6 10-20 Random Glucose 103 70-99 mg/dl Calcium Level 9.1 8.5-10.1 mg/dl Phosphorus Level 3.0 2.5-4.9 mg/dl Magnesium Level 2.2 1.8-2.4 mg/dl Test 07/15/16 06:00 07/15/16 11:27 07/15/16 13:15 Range/Units Bedside Glucose 110 108 70-90 mg/dl Activated Partial Thromboplast Time 42.9 21.0-31.0 SECONDS Partial Thromboplastin Ratio 1.7 Assessment & Plan S/P right hemilcoloctomy continue treatment, pt is on TPN, will F/U 07/15/2016 continue treatment, will F/U S/P right hemilcoloctomy continue treatment, pt is on TPN, will F/U
[2016-07-15] MEDS ORDERED: HEPARIN IV BOLUS 3,000 UNIT in SYRINGE 0 ML IV SCH (14:45)
[2016-07-15] MEDS ORDERED: CUSTOM CENTRAL PN 1 BAG IV SCH (16:00)
[2016-07-15] MEDS: WARFARIN SOD 7.5 MG TAB PO SCH (16:25)
[2016-07-15 20:33] LABS: PARTIAL THROMBOPLASTIN RATIO 2.3
[2016-07-16] VITALS (9 sets, daily range): BP systolic 103–133; BP diastolic 70–86; PULSE 86–127; TEMP 36.4–36.7; O2SAT 95–100
[2016-07-16] MEDS: CARBIDOPA/LEVODOPA 25/100MG TAB PO PRN ×5 (02:34→20:17)
[2016-07-16] MEDS: HEPARIN 25,000 UNIT/500ML D5W 500 ML IV PRN (03:55)
[2016-07-16] MEDS: CEFOXITIN IV 1,000 MG in DEXTROSE 5% 50ML 50 ML IV SCH ×3 (05:30→21:03)
--- NOTE | 2016-07-16 06:45 | Surgery Progress Note ---
Surgery Progress Note Date of Service Jul 16, 2016. Subjective + bowel movement, No nausea, No vomiting feels ok- awake , alert Objective Vital Signs: Date Time Temp Pulse Resp B/P (MAP) Pulse Ox O2 Delivery O2 Flow Rate FiO2 07/16/16 04:00 100 Room Air 07/16/16 02:28 36.5 107 17 133/74 (93) 100 Room Air 07/15/16 23:59 98 Room Air 07/15/16 23:04 36.3 96 18 109/72 (84) 98 Room Air 07/15/16 20:00 95 Room Air 07/15/16 19:17 36.8 99 18 105/65 (78) 95 Room Air 07/15/16 16:00 Room Air 07/15/16 14:57 36.9 88 20 114/82 (93) 100 Room Air 07/15/16 12:06 36.5 84 19 100/63 (75) 100 Room Air 07/15/16 12:00 Room Air 07/15/16 08:00 Room Air 07/15/16 07:28 36.4 124 22 132/95 (107) 99 Room Air General Appearance: no apparent distress Respiratory/Chest: no respiratory distress Abdomen: + distended (decreased bowel sounds) Incision(s): intact Laboratory Results: Results Past 24 Hours Test 07/15/16 11:27 07/15/16 13:15 07/15/16 19:58 07/15/16 20:31 Range/Units Bedside Glucose 108 119 70-90 mg/dl Activated Partial Thromboplast Time 42.9 59.7 21.0-31.0 SECONDS Partial Thromboplastin Ratio 1.7 2.3 Test 07/16/16 04:44 Range/Units Assessment & Plan 07/16/16- path shows ischemic colitis of cecum- no tumor cont clear liq for now, add senna syrup, dose of mineral oil, cont hep/ coum- do not bolus Heparin check PTT, to floor- pt needs to walk more. cont tpn and atbx for now 07/12/16- will continue same- ice only, IV atbx and tpn- to med/surg when ok with med team- pt needs to walk in hallway will not begin clear liquids until Sat 6/3 and adv very slowly Dr Wright is covering over the weekend 07/11/16- s/p extended Rt hemicolectomy w/ iliocolic anastomosis for cecal ischemia and ulceration w/ bleeding. Stable overnight- tpn today, cont atbx, mobilize- to PCU when ok with medical team 07/10/16- pt is stable for surgery this am- will likely give pt one unit of PRBCs in OR- to ICU postop 07/09/16- plan for Rt colectomy tomorrow- clear liquids today. Cont Cipro/ flagyl. ordered ppn- would benefit from picc line/tpn postop Type and cross for OR- discuss with daughters 07/12/16- will continue same- ice only, IV atbx and tpn- to med/surg when ok with med team- pt needs to walk in hallway will not begin clear liquids until Sat 6/[address] very slowly Dr Wright is covering over the weekend 07/11/16- s/p extended Rt hemicolectomy w/ iliocolic anastomosis for cecal ischemia and ulceration w/ bleeding. Stable overnight- tpn today, cont atbx, mobilize- to PCU when ok with medical team 07/10/16- pt is stable for surgery this am- will likely give pt one unit of PRBCs in OR- to ICU postop 07/09/16- plan for Rt colectomy tomorrow- clear liquids today. Cont Cipro/ flagyl. ordered ppn- would benefit from picc line/tpn postop Type and cross for OR- discuss with daughters
[2016-07-16 07:21] LABS: HEMATOCRIT 33.5 % (37-47); MEAN CELL VOLUME 87.2 fL (80-100); MEAN CORPUSCULAR HEMOGLOBIN 27.3 pg (25-34); MEAN CORPUSCULAR HGB CONC 31.3 g/dl (32-36); MEAN PLATELET VOLUME 9.7 fL (7.4-10.4); PLATELET COUNT 391 K/uL (130-400); RED BLOOD COUNT 3.84 M/uL (4.2-5.4); WHITE BLOOD COUNT 11.65 K/uL (4.8-10.8)
[2016-07-16 07:33] LABS: INR 1.2 (0.9-1.1); PARTIAL THROMBOPLASTIN RATIO 1.7; PROTHROMBIN TIME (PATIENT) 12.4 SECONDS (9.0-12.0)
[2016-07-16 07:52] LABS: BUN/CREATININE RATIO 32.3 (10-20); CREATININE 0.77 mg/dl (0.60-1.20); MAGNESIUM 2.1 mg/dl (1.8-2.4); POTASSIUM 4.2 mmol/L (3.5-5.1)
[2016-07-16] MEDS: METOPROLOL SUCC 50MG EXT REL TAB PO SCH (07:52)
[2016-07-16 07:53] LABS: PHOSPHORUS 2.8 mg/dl (2.5-4.9)
[2016-07-16] MEDS ORDERED: MINERAL OIL 30 ML UDC PO ONE (08:00)
[2016-07-16] MEDS: DILTIAZEM HCL 60 MG TAB PO SCH ×2 (08:55→21:03)
[2016-07-16] MEDS: SENNA 8.8 MG/5 ML UDP PO SCH ×2 (08:56→21:03)
--- NOTE | 2016-07-16 10:34 | Pharmacy Progress Note ---
Parenteral Nutrition Consult Date of Service Jul 16, 2016. [facility] was consulted on 07/09/16 to manage parenteral nutrition orders for this patient. Subjective The patient is currently on day # 7of central parenteral nutrition for s/p colectomy. Objective Height (Feet): 5 Height (Inches): 4.00 Weight (Kilograms): 80.000 Diet: Clear Liquid, NPO Intake & Output (Last 72 Hr): 07/15/16 07/16/16 07/17/16 07:59 07:59 07:59 Intake Total 2736 ml 2973 ml Output Total 2175 ml 3500 ml Balance 561 ml -527 ml Laboratory Data (Last 24 Hr): Test 07/16/16 07:00 Blood Urea Nitrogen 25 mg/dl (7-18) Calcium Level 9.0 mg/dl (8.5-10.1) Carbon Dioxide Level 26 mmol/L (21-32) Chloride Level 108 mmol/L (98-107) Creatinine 0.77 mg/dl (0.60-1.20) Magnesium Level 2.1 mg/dl (1.8-2.4) Phosphorus Level 2.8 mg/dl (2.5-4.9) Potassium Level 4.2 mmol/L (3.5-5.1) Random Glucose 102 mg/dl (70-99) Sodium Level 141 mmol/L (136-145) Nutrition Assessment Please refer to the Notes section of the EMR for the most recent probation officer note. Assessment 80 year old female s/p hemicolectomy. * advancing diet very slowly * patient was started on a clear liquid diet on 07/13, which she is tolerating * no plans for further advancement today, therefore, no changes will be made to macronutrients in TPN Plan For day # 7 of PN administration, the following will be ordered: Macronutrients (at goal) Amino acids 115 grams/day Dextrose 250 grams/day Lipids 50 grams on Saturday and Saturday Micronutrients Combined electrolytes 20 mL - contains 35 mEq Na, 20 meq K, 4.5 mEq Ca, 5 mEq Mg , 35 mEq Cl, 29.5 mEq acetate per 20 mL Sodium phosphate 24 MMol (increase from 21) Multivitamins 10 mL Trace Elements 1 mL Total volume 1546.14 mL (minimum) to be infused over 24 hrs will provide 1310 kcal/day Labs, as indicated, will be ordered per protocol Pharmacy will continue to follow and adjust parenteral nutrition orders on a daily basis. Thank you for allowing us to participate in the care of this patient.
[2016-07-16] MEDS: PANTOprazole INJ 40 MG in SYRINGE 0 ML IV SCH (12:35)
--- NOTE | 2016-07-16 13:51 | Family Medicine Progress Note ---
Progress Note Date of Service Jul 16, 2016. Subjective Pt evaluation today including: conversation w/ patient, physical exam, chart review, lab review Pain: None PO Intake: TPN Voiding: no voiding problems Passing gas and having bowel movements Pain is well controlled Starting to ambulate progressively No issues over the weekend Additional Comments: A 10 point review of systems was negative unless stated above. Medications Current Inpatient Medications Medications (Trade) Dose Ordered Sig/Hair Route Start Time Stop Time Status Last Admin Dose Admin Acetaminophen (Tylenol Tab) 650 mg Q4H PRN PO 07/04/16 16:30 08/03/16 16:29 07/15/16 19:33 650 MG Metoprolol Tartrate (Lopressor Iv) 2.5 mg Q6 PRN IV 07/05/16 08:15 08/04/16 08:14 07/06/16 07:35 2.5 MG Digoxin (Lanoxin Tab) 0.125 mg MoWeFr@1600 PO 07/06/16 16:00 08/05/16 15:59 07/13/16 16:00 0.125 MG Carbidopa/Levodopa (Sinemet 25/ 100MG Tab) 1 tab Q3H PRN PO 07/08/16 10:54 08/07/16 10:53 07/16/16 12:51 1 TAB Miscellaneous Information (Pharmacy Tpn/ Ppn Consult Active) 1 ea UD PRN N/A 07/09/16 07:15 08/08/16 07:14 Cefoxitin Sodium 1000 mg/Dextrose 60 ml @ 100 mls/hr Q8H IV 07/10/16 14:00 07/20/16 13:59 07/16/16 05:30 100 MLS/HR Hydromorphone HCl (Dilaudid Inj) FOR PAIN 0.5-1MG 0.5MG ... Q3H PRN IV 07/10/16 11:45 07/24/16 11:44 07/11/16 05:46 1 MG Pantoprazole Sodium 40 mg/ Syringe 10 ml @ 5 mls/min DAILY@11 IV 07/11/16 11:00 08/10/16 10:59 07/16/16 12:35 5 MLS/MIN Ondansetron HCl (Zofran Inj) 4 mg Q6H PRN IV 07/10/16 11:45 08/09/16 11:44 Diphenhydramine HCl (Benadryl Extra Strength Cream) 1 appln Q12 PRN EXT 07/10/16 22:30 08/09/16 22:29 07/11/16 08:35 1 APPLN Heparin Sodium (Porcine) (Heparin 10 Unit/ ml 5 ml Flush) 5 ml PRN PRN FLUSH 07/12/16 00:15 08/11/16 00:14 07/12/16 04:52 5 ML Heparin Sodium/ Dextrose 500 ml @ 28 mls/hr [id number] PRN IV 07/12/16 09:15 08/11/16 09:14 07/16/16 03:55 24 MLS/HR Nutrition (Parenteral) 0 ml @ 0 mls/hr TODAY@1600 IV 07/15/16 16:00 07/16/16 15:59 07/15/16 16:26 0 MLS/HR Warfarin Sodium (Coumadin Tab) 7.5 mg DAILY@16 PO 07/15/16 16:00 08/13/16 15:59 07/15/16 16:25 7.5 MG Metoprolol Succinate (Toprol Xl Tab) 100 mg DAILY PO 07/16/16 09:00 08/14/16 08:59 07/16/16 07:52 100 MG Senna (Senokot Syrup) 8.8 mg BID PO 07/16/16 09:00 08/15/16 08:59 07/16/16 08:56 8.8 MG Diltiazem HCl (Cardizem Tab) 180 mg BID PO 07/16/16 07:43 08/07/16 12:59 07/16/16 08:55 180 MG Nutrition (Parenteral) 0 ml @ 0 mls/hr TODAY@1600 IV 07/16/16 16:00 07/17/16 15:59 Ferrous Sulfate (Feosol Tab) 325 mg BIDM PO 07/16/16 16:45 08/15/16 16:44 Objective Vital Signs Date Time Temp Pulse Resp B/P (MAP) Pulse Ox O2 Delivery O2 Flow Rate FiO2 07/16/16 12:00 36.4 91 16 112/77 (89) 99 Room Air 07/16/16 12:00 96 Room Air 07/16/16 08:00 95 Room Air 07/16/16 07:21 36.4 127 16 117/86 (96) 95 Room Air 07/16/16 04:00 100 Room Air 07/16/16 02:28 36.5 107 17 133/74 (93) 100 Room Air 07/15/16 23:59 98 Room Air 07/15/16 23:04 36.3 96 18 109/72 (84) 98 Room Air 07/15/16 20:00 95 Room Air 07/15/16 19:17 36.8 99 18 105/65 (78) 95 Room Air 07/15/16 16:00 Room Air 07/15/16 14:57 36.9 88 20 114/82 (93) 100 Room Air Physical Exam General Appearance: WD/WN, no apparent distress Eyes: normal inspection, EOMI ENT: hearing grossly normal, pharynx normal Neck: supple, no adenopathy, no JVD Respiratory/Chest: lungs clear, no respiratory distress Cardiovascular: no murmur, + tachycardia, + irregularly irregular Abdomen: normal bowel sounds, soft, + pertinent finding (intact dresssing over surgical site) Extremities: + pertinent finding (PICC line right upper extremity) Neurologic/Psychiatric: alert, normal mood/affect, oriented x 3 Skin: normal color, warm/dry, no rash Lymphatic: no adenopathy Laboratory Results Last 24 Hours Test 07/15/16 19:58 07/15/16 20:31 07/16/16 06:39 07/16/16 07:00 Activated Partial Thromboplast Time 59.7 SECONDS 44.1 SECONDS Partial Thromboplastin Ratio 2.3 1.7 Bedside Glucose 119 mg/dl 111 mg/dl White Blood Count 11.65 K/uL Red Blood Count 3.84 M/uL Hemoglobin 10.5 g/dL Hematocrit 33.5 % Mean Corpuscular Volume 87.2 fL Mean Corpuscular Hemoglobin 27.3 pg Mean Corpuscular Hemoglobin Concent 31.3 g/dl RDW Standard Deviation 49.6 fL RDW Coefficient of Variation 15.4 % Platelet Count 391 K/uL Mean Platelet Volume 9.7 fL Prothrombin Time 12.4 SECONDS Prothromb Time International Ratio 1.2 Sodium Level 141 mmol/L Potassium Level 4.2 mmol/L Chloride Level 108 mmol/L Carbon Dioxide Level 26 mmol/L Anion Gap 7.0 mmol/L Blood Urea Nitrogen 25 mg/dl Creatinine 0.77 mg/dl Est Creatinine Clear Calc Drug Dose 57.6 ml/min Estimated GFR () 83.3 Estimated GFR (Non- 71.9 BUN/Creatinine Ratio 32.3 Random Glucose 102 mg/dl Calcium Level 9.0 mg/dl Phosphorus Level 2.8 mg/dl Magnesium Level 2.1 mg/dl Test 07/16/16 11:04 Bedside Glucose 117 mg/dl Assessment and Plan 80 year old female with GI bleeding due to cecal ulcer. Background Afib requiring anticoagulation, held due to bleeding. However since surgery she has been on heparin and no recurrence of the bleeding was noted. Now s/p colectomy, doing well and H&H stable on anticoagulation. Starting to bridge with heparin. Acute lower GI bleeding with acute blood loss anemia - Hemodynamically stable; tacchycardia 2/2 afib rather than acute instability - S/p right colectomy for ischemic ulcer; uneventful recovery thus far; surgery following along - Heparin infusion and Coumadin started over weekend - Continue to monitor CBC daily for evidence of new blood loss Atrial fibrillation with rapid ventricular response - Resume home dose of Metoprolol Succinate 100 daily - Diltiazem changed to 180 BID; if tolerated will advance to 360 daily of extended release formulation HR improved to 80-90s after changing diltiazem dosing - Continue Digoxin - Heparin infusion - Coumadin 7.5 daily INR daily; patient has INRs checked by cardiology clinic Restless Leg Syndrome - Sinemet q3 hours PRN - Start Iron supplementation BID given association of low iron with RLS Non-specific Colitis - Per CT scan - Currently on Cefoxitin per surgery DVT Prophylaxis - Continue Heparin infusion and Coumadin bridging Code Status - DNR Disposition - OT and PT consulted - Increase ambulation - Aim to discharge back to [facility] Resident Physician Supervision Note: I was present with PGY2 Dr. Jeremiah Parra during the history and exam. I discussed the case with the resident and agree with the findings and plan as documented in the note. Any exceptions or clarifications are listed here: none. Tele overnight - a. fib with RVR, rates > 100 most times. Pt w/o c/o chest pain, sob, abd pain. Feeling good. +multiple bowel movements. VSS no fever gen - NAD neck - no JVD mouth - MMM, no thrush RUE PICC clean heart - tachy, irregular lungs - CTA b/l abd - soft, large dressing in place ext - no edema Hb 10.5 wbc 11.6 BMP nl A/P: 1. right-sided hemicolectomy 2nd to large bleeding cecal ulcer 2. a. fib with RVR 3. anemia 2nd to Fe def 4. RLS cont TPN per recommendation of surgery diet advancement per surgery iron replacement sinemet for RLS agree with adjustment in AV florence agents for a. fib heparin with coumadin; d/c heparin when INR > 2 likely to med/surg in AM if rates are acceptable PT, OT Gerry Goodwin MD
[2016-07-16] MEDS ORDERED: CUSTOM CENTRAL PN 1 BAG IV SCH (16:00)
[2016-07-16] MEDS: WARFARIN SOD 7.5 MG TAB PO SCH (16:55)
[2016-07-16] MEDS: FERROUS SULFATE 325 MG TAB PO SCH (16:56)
[2016-07-16] MEDS: DIGOXIN 0.125 MG TAB PO SCH (16:56)
[2016-07-16] MEDS: METOPROLOL TARTRATE 1 MG/ML VIAL IV PRN (19:34)
[2016-07-16] MEDS: ACETAMINOPHEN 325 MG TAB PO PRN (21:39)
[2016-07-17] VITALS (9 sets, daily range): BP systolic 92–130; BP diastolic 64–89; PULSE 75–123; TEMP 36.5–36.9; O2SAT 94–99
[2016-07-17] MEDS: HEPARIN 25,000 UNIT/500ML D5W 500 ML IV PRN ×5 (00:25→22:42)
[2016-07-17] MEDS: CARBIDOPA/LEVODOPA 25/100MG TAB PO PRN ×7 (00:26→23:55)
[2016-07-17] MEDS: CEFOXITIN IV 1,000 MG in DEXTROSE 5% 50ML 50 ML IV SCH ×3 (06:03→20:51)
--- NOTE | 2016-07-17 06:44 | Surgery Progress Note ---
Surgery Progress Note Date of Service Jul 17, 2016. Subjective + feeling well, + bowel movement, No nausea, No vomiting awake , alert- no acute events Objective Vital Signs: Date Time Temp Pulse Resp B/P (MAP) Pulse Ox O2 Delivery O2 Flow Rate FiO2 07/17/16 04:29 36.6 96 18 125/83 (97) 99 Room Air 07/17/16 04:00 Room Air 07/17/16 00:00 Room Air 07/16/16 23:49 36.7 86 18 103/70 (81) 98 Room Air 07/16/16 20:00 Room Air 07/16/16 19:47 36.5 112 20 106/72 (83) 99 Room Air 07/16/16 19:34 128 129/84 07/16/16 16:56 89 07/16/16 16:00 95 Room Air 07/16/16 15:26 36.4 119 16 129/84 (99) 100 Room Air 07/16/16 12:00 36.4 91 16 112/77 (89) 99 Room Air 07/16/16 12:00 96 Room Air 07/16/16 08:00 95 Room Air 07/16/16 07:21 36.4 127 16 117/86 (96) 95 Room Air General Appearance: no apparent distress Respiratory/Chest: no respiratory distress Abdomen: normal bowel sounds, soft Incision(s): intact Laboratory Results: Results Past 24 Hours Test 07/16/16 06:39 07/16/16 07:00 07/16/16 11:04 07/16/16 16:31 Range/Units Bedside Glucose 111 117 116 70-90 mg/dl White Blood Count 11.65 4.8-10.8 K/uL Red Blood Count 3.84 4.2-5.4 M/uL Hemoglobin 10.5 12.0-16.0 g/dL Hematocrit 33.5 37-47 % Mean Corpuscular Volume 87.2 80-100 fL Mean Corpuscular Hemoglobin 27.3 25-34 pg Mean Corpuscular Hemoglobin Concent 31.3 32-36 g/dl RDW Standard Deviation 49.6 36.4-46.3 fL RDW Coefficient of Variation 15.4 11.5-14.5 % Platelet Count 391 130-400 K/uL Mean Platelet Volume 9.7 7.4-10.4 fL Prothrombin Time 12.4 9.0-12.0 SECONDS Prothromb Time International Ratio 1.2 0.9-1.1 Activated Partial Thromboplast Time 44.1 21.0-31.0 SECONDS Partial Thromboplastin Ratio 1.7 Sodium Level 141 136-145 mmol/L Potassium Level 4.2 3.5-5.1 mmol/L Chloride Level 108 98-107 mmol/L Carbon Dioxide Level 26 21-32 mmol/L Anion Gap 7.0 3-11 mmol/L Blood Urea Nitrogen 25 7-18 mg/dl Creatinine 0.77 0.60-1.20 mg/dl Est Creatinine Clear Calc Drug Dose 57.6 ml/min Estimated GFR () 83.3 Estimated GFR (Non- 71.9 BUN/Creatinine Ratio 32.3 10-20 Random Glucose 102 70-99 mg/dl Calcium Level 9.0 8.5-10.1 mg/dl Phosphorus Level 2.8 2.5-4.9 mg/dl Magnesium Level 2.1 1.8-2.4 mg/dl Test 07/16/16 20:19 07/17/16 04:44 Range/Units Bedside Glucose 121 70-90 mg/dl Assessment & Plan 07/17/16- doing well- IV Heparin until INR to adequate level. can stop tpn after current bag, low fiber diet today cont IV atbx, d/c drain- to [facility] soon (2-3 days?) 07/16/16- path shows ischemic colitis of cecum- no tumor cont clear liq for now, add senna syrup, dose of mineral oil, cont hep/ coum- do not bolus Heparin check PTT, to floor- pt needs to walk more. cont tpn and atbx for now 07/12/16- will continue same- ice only, IV atbx and tpn- to med/surg when ok with med team- pt needs to walk in hallway will not begin clear liquids until Sat 07/14 and adv very slowly Dr Wright is covering over the weekend 07/11/16- s/p extended Rt hemicolectomy w/ iliocolic anastomosis for cecal ischemia and ulceration w/ bleeding. Stable overnight- tpn today, cont atbx, mobilize- to PCU when ok with medical team 07/10/16- pt is stable for surgery this am- will likely give pt one unit of PRBCs in OR- to ICU postop 07/09/16- plan for Rt colectomy tomorrow- clear liquids today. Cont Cipro/ flagyl. ordered ppn- would benefit from picc line/tpn postop Type and cross for OR- discuss with daughters 07/16/16- path shows ischemic colitis of cecum- no tumor cont clear liq for now, add senna syrup, dose of mineral oil, cont hep/ coum- do not bolus Heparin check PTT, to floor- pt needs to walk more. cont tpn and atbx for now 07/12/16- will continue same- ice only, IV atbx and tpn- to med/surg when ok with med team- pt needs to walk in hallway will not begin clear liquids until Sat /3 and adv very slowly Dr Wright is covering over the weekend 07/11/16- s/p extended Rt hemicolectomy w/ iliocolic anastomosis for cecal ischemia and ulceration w/ bleeding. Stable overnight- tpn today, cont atbx, mobilize- to PCU when ok with medical team 07/10/16- pt is stable for surgery this am- will likely give pt one unit of PRBCs in OR- to ICU postop 07/09/16- plan for Rt colectomy tomorrow- clear liquids today. Cont Cipro/ flagyl. ordered ppn- would benefit from picc line/tpn postop Type and cross for OR- discuss with daughters
[2016-07-17 08:04] LABS: HEMATOCRIT 33.6 % (37-47); MEAN CELL VOLUME 87.3 fL (80-100); MEAN CORPUSCULAR HEMOGLOBIN 27.5 pg (25-34); MEAN CORPUSCULAR HGB CONC 31.5 g/dl (32-36); MEAN PLATELET VOLUME 10.6 fL (7.4-10.4); PLATELET COUNT 399 K/uL (130-400); RED BLOOD COUNT 3.85 M/uL (4.2-5.4); WHITE BLOOD COUNT 12.87 K/uL (4.8-10.8)
[2016-07-17] MEDS: SENNA 8.8 MG/5 ML UDP PO SCH ×2 (08:23→19:26)
[2016-07-17] MEDS: FERROUS SULFATE 325 MG TAB PO SCH ×2 (08:23→16:33)
[2016-07-17] MEDS: METOPROLOL SUCC 50MG EXT REL TAB PO SCH (08:23)
[2016-07-17] MEDS: DILTIAZEM HCL 180 MG CAPCR PO SCH (08:23)
[2016-07-17 08:24] LABS: INR 1.4 (0.9-1.1); PROTHROMBIN TIME (PATIENT) 15.4 SECONDS (9.0-12.0)
[2016-07-17 08:37] LABS: BUN/CREATININE RATIO 33.7 (10-20); CREATININE 0.79 mg/dl (0.60-1.20); POTASSIUM 3.8 mmol/L (3.5-5.1)
[2016-07-17 08:41] LABS: PHOSPHORUS 2.7 mg/dl (2.5-4.9); PREALBUMIN 23.6 mg/dl (20-40)
[2016-07-17 08:46] LABS: CALCIUM 9.5 mg/dl (8.5-10.1)
--- NOTE | 2016-07-17 08:53 | Family Medicine Progress Note ---
Progress Note Date of Service Jul 17, 2016. Subjective Pt evaluation today including: conversation w/ patient, physical exam, chart review, lab review Pain: None Voiding: no voiding problems Additional Comments: A 10 point review of systems was negative unless stated above. Medications Current Inpatient Medications Medications (Trade) Dose Ordered Sig/Hair Route Start Time Stop Time Status Last Admin Dose Admin Acetaminophen (Tylenol Tab) 650 mg Q4H PRN PO 07/04/16 16:30 08/03/16 16:29 07/16/16 21:39 650 MG Metoprolol Tartrate (Lopressor Iv) 2.5 mg Q6 PRN IV 07/05/16 08:15 08/04/16 08:14 07/16/16 19:34 2.5 MG Digoxin (Lanoxin Tab) 0.125 mg MoWeFr@1600 PO 07/06/16 16:00 08/05/16 15:59 07/16/16 16:56 0.125 MG Carbidopa/Levodopa (Sinemet 25/ 100MG Tab) 1 tab Q3H PRN PO 07/08/16 10:54 08/07/16 10:53 07/17/16 08:23 1 TAB Miscellaneous Information (Pharmacy Tpn/ Ppn Consult Active) 1 ea UD PRN N/A 07/09/16 07:15 08/08/16 07:14 Cefoxitin Sodium 1000 mg/Dextrose 60 ml @ 100 mls/hr Q8H IV 07/10/16 14:00 07/20/16 13:59 07/17/16 06:03 100 MLS/HR Hydromorphone HCl (Dilaudid Inj) FOR PAIN 0.5-1MG 0.5MG ... Q3H PRN IV 07/10/16 11:45 07/24/16 11:44 07/11/16 05:46 1 MG Pantoprazole Sodium 40 mg/ Syringe 10 ml @ 5 mls/min DAILY@11 IV 07/11/16 11:00 08/10/16 10:59 07/16/16 12:35 5 MLS/MIN Ondansetron HCl (Zofran Inj) 4 mg Q6H PRN IV 07/10/16 11:45 08/09/16 11:44 Diphenhydramine HCl (Benadryl Extra Strength Cream) 1 appln Q12 PRN EXT 07/10/16 22:30 08/09/16 22:29 07/11/16 08:35 1 APPLN Heparin Sodium (Porcine) (Heparin 10 Unit/ ml 5 ml Flush) 5 ml PRN PRN FLUSH 07/12/16 00:15 08/11/16 00:14 07/12/16 04:52 5 ML Heparin Sodium/ Dextrose 500 ml @ 28 mls/hr [id number] PRN IV 07/12/16 09:15 08/11/16 09:14 07/17/16 00:25 28 MLS/HR Warfarin Sodium (Coumadin Tab) 7.5 mg DAILY@16 PO 07/15/16 16:00 08/13/16 15:59 07/16/16 16:55 7.5 MG Metoprolol Succinate (Toprol Xl Tab) 100 mg DAILY PO 07/16/16 09:00 08/14/16 08:59 07/17/16 08:23 100 MG Senna (Senokot Syrup) 8.8 mg BID PO 07/16/16 09:00 08/15/16 08:59 07/17/16 08:23 8.8 MG Nutrition (Parenteral) 0 ml @ 0 mls/hr TODAY@1600 IV 07/16/16 16:00 07/17/16 15:59 07/16/16 16:55 0 MLS/HR Ferrous Sulfate (Feosol Tab) 325 mg BIDM PO 07/16/16 16:45 08/15/16 16:44 07/17/16 08:23 325 MG Diltiazem HCl (Cardizem Cd Cap) 360 mg QAM PO 07/17/16 09:00 08/16/16 08:59 07/17/16 08:23 360 MG Objective Vital Signs Date Time Temp Pulse Resp B/P (MAP) Pulse Ox O2 Delivery O2 Flow Rate FiO2 07/17/16 07:20 36.5 117 18 125/89 (101) 94 Room Air 07/17/16 04:29 36.6 96 18 125/83 (97) 99 Room Air 07/17/16 04:00 Room Air 07/17/16 00:00 Room Air 07/16/16 23:49 36.7 86 18 103/70 (81) 98 Room Air 07/16/16 20:00 Room Air 07/16/16 19:47 36.5 112 20 106/72 (83) 99 Room Air 07/16/16 19:34 128 129/84 07/16/16 16:56 89 07/16/16 16:00 95 Room Air 07/16/16 15:26 36.4 119 16 129/84 (99) 100 Room Air 07/16/16 12:00 36.4 91 16 112/77 (89) 99 Room Air 07/16/16 12:00 96 Room Air Physical Exam General Appearance: WD/WN, no apparent distress Eyes: normal inspection, EOMI ENT: normal ENT inspection, hearing grossly normal, pharynx normal Neck: supple, no adenopathy, no JVD Respiratory/Chest: lungs clear, no respiratory distress Cardiovascular: no gallop, no murmur, + tachycardia, + irregularly irregular Abdomen: normal bowel sounds, non tender, + pertinent finding (dry intact dressing) Extremities: non-tender, no pedal edema Neurologic/Psychiatric: alert, normal mood/affect, oriented x 3 Skin: normal color, warm/dry, no rash Lymphatic: no adenopathy Laboratory Results Last 24 Hours Test 07/16/16 11:04 07/16/16 16:31 07/16/16 20:19 07/17/16 06:45 Bedside Glucose 117 mg/dl 116 mg/dl 121 mg/dl 119 mg/dl Test 07/17/16 07:30 White Blood Count 12.87 K/uL Red Blood Count 3.85 M/uL Hemoglobin 10.6 g/dL Hematocrit 33.6 % Mean Corpuscular Volume 87.3 fL Mean Corpuscular Hemoglobin 27.5 pg Mean Corpuscular Hemoglobin Concent 31.5 g/dl RDW Standard Deviation 49.9 fL RDW Coefficient of Variation 15.5 % Platelet Count 399 K/uL Mean Platelet Volume 10.6 fL Prothrombin Time 15.4 SECONDS Prothromb Time International Ratio 1.4 Activated Partial Thromboplast Time 78.3 SECONDS Partial Thromboplastin Ratio 3.0 Sodium Level 140 mmol/L Potassium Level 3.8 mmol/L Chloride Level 107 mmol/L Carbon Dioxide Level 24 mmol/L Anion Gap 9.0 mmol/L Blood Urea Nitrogen 27 mg/dl Creatinine 0.79 mg/dl Est Creatinine Clear Calc Drug Dose 56.2 ml/min Estimated GFR () 80.8 Estimated GFR (Non- 69.7 BUN/Creatinine Ratio 33.7 Random Glucose 89 mg/dl Calcium Level 9.5 mg/dl Phosphorus Level 2.7 mg/dl Magnesium Level 2.0 mg/dl Total Bilirubin 0.4 mg/dl Aspartate Amino Transf (AST/SGOT) 15 U/L Alanine Aminotransferase (ALT/SGPT) 10 U/L Alkaline Phosphatase 129 U/L Prealbumin 23.6 mg/dl Assessment and Plan 80 year old female with GI bleeding due to cecal ulcer who s/p right colectomy. Doing well at this time. Surgery following and has advanced her to PO diet We have her back on anticoagulation and are titrating Coumadin on which she will be discharged when medically stable. Status Post Right Colectomy for Acute GI bleeding from Cecal ulcer - Acute blood loss anemia improving; Hb stable at 10.6 - Hemodynamically stable - Surgery following: Low fiber diet today; TPN to be stopped after this morning' s bag - Continue to monitor CBC daily for evidence of new blood loss - Resuming Anticoagulation as noted below - Surgery recommendations appreciated Atrial fibrillation with rapid ventricular response - Resume home dose of Metoprolol Succinate 100 daily - Start Cardizem CD 360 mg per home dose - Continue Digoxin - Heparin infusion - Coumadin 7.5 daily INR daily; patient has INRs checked by cardiology clinic Restless Leg Syndrome - Sinemet q3 hours PRN - Continue Iron supplementation; will need to continue at discharge Non-specific Colitis - Per CT scan - Continue Cefoxitin per surgery recommendations DVT Prophylaxis - Continue Heparin infusion and Coumadin bridging Code Status - DNR Disposition - OT and PT consulted - Continue telemetry monitoring due to low grade tacchycardia; currently titrating up to home med doses - Increase ambulation - [facility] Resident Physician Supervision Note: I was present with PGY2 Dr. Jeremiah Parra during the history and exam. I discussed the case with the resident and agree with the findings and plan as documented in the note. Any exceptions or clarifications are listed here: none. Tele overnight - a. fib with RVR, rates still over 100 fairly consistently - even at rest. Pt w/o c/o chest pain, sob, abd pain. Feeling good. +multiple bowel movements. Tolerating diet well. VSS no fever gen - NAD neck - no JVD mouth - MMM, no thrush heart - tachy, irregular lungs - CTA b/l abd - soft ext - trace edema b/l BMP nl mag nl A/P: 1. right-sided hemicolectomy 2nd to large bleeding cecal ulcer 2. a. fib with RVR - ongoing issue despite 3 AV florence agents 3. anemia 2nd to Fe def 4. RLS TPN to be d/c today regular diet as per surgery iron replacement sinemet for RLS heparin with coumadin; INR climbing appropriately PT, OT with respect to #2 - digoxin is only M/W/F in light of normal CrCl / renal function reasonable to increase digoxin to DAILY DOSING; will do so tonight agree with changing diltiazem to long acting version if rates do not improve then cardiology consult check TSH to r/o hyperthyroidism Gerry Goodwin MD Continued [facility] stay due to: inadequate po fluid intake Discharge planning: uncertain
[2016-07-17] MEDS: PANTOprazole INJ 40 MG in SYRINGE 0 ML IV SCH (12:01)
[2016-07-17 15:26] LABS: PARTIAL THROMBOPLASTIN RATIO 2.8
[2016-07-17] MEDS: WARFARIN SOD 7.5 MG TAB PO SCH (16:00)
[2016-07-17] MEDS ORDERED: FUROSEMIDE INJ 40 MG in SYRINGE 0 ML IV ONE (16:45)
[2016-07-17] MEDS ORDERED: DIGOXIN 0.125 MG TAB PO ONE (21:15)
[2016-07-17 21:55] LABS: PARTIAL THROMBOPLASTIN RATIO 3.3
[2016-07-17] MEDS: ACETAMINOPHEN 325 MG TAB PO PRN (23:56)
[2016-07-18] VITALS (11 sets, daily range): BP systolic 94–117; BP diastolic 39–81; PULSE 56–125; TEMP 36.4–36.8; O2SAT 93–98
[2016-07-18] MEDS: CARBIDOPA/LEVODOPA 25/100MG TAB PO PRN ×6 (04:27→21:58)
[2016-07-18] MEDS: CEFOXITIN IV 1,000 MG in DEXTROSE 5% 50ML 50 ML IV SCH ×2 (06:02→13:48)
--- NOTE | 2016-07-18 06:34 | Surgery Progress Note ---
Surgery Progress Note Date of Service Jul 18, 2016. Subjective tolerating diet, tpn off Objective Vital Signs: Date Time Temp Pulse Resp B/P (MAP) Pulse Ox O2 Delivery O2 Flow Rate FiO2 07/18/16 04:22 36.7 125 20 114/81 (92) 93 Room Air 07/18/16 04:00 Room Air 07/17/16 23:59 Room Air 07/17/16 23:49 36.5 123 18 123/81 (95) 99 Room Air 07/17/16 21:25 127 07/17/16 20:00 Room Air 07/17/16 19:58 36.9 100 20 92/64 (73) 98 Room Air 07/17/16 16:00 94 Room Air 07/17/16 15:15 36.6 91 18 116/81 (93) 94 Room Air 07/17/16 12:00 94 Room Air 07/17/16 11:29 36.6 75 18 130/76 (94) 94 Room Air 07/17/16 08:00 94 Room Air 07/17/16 07:20 36.5 117 18 125/89 (101) 94 Room Air Laboratory Results: Results Past 24 Hours Test 07/17/16 06:45 07/17/16 07:30 07/17/16 11:15 07/17/16 14:36 Range/Units Bedside Glucose 119 111 70-90 mg/dl White Blood Count 12.87 4.8-10.8 K/uL Red Blood Count 3.85 4.2-5.4 M/uL Hemoglobin 10.6 12.0-16.0 g/dL Hematocrit 33.6 37-47 % Mean Corpuscular Volume 87.3 80-100 fL Mean Corpuscular Hemoglobin 27.5 25-34 pg Mean Corpuscular Hemoglobin Concent 31.5 32-36 g/dl RDW Standard Deviation 49.9 36.4-46.3 fL RDW Coefficient of Variation 15.5 11.5-14.5 % Platelet Count 399 130-400 K/uL Mean Platelet Volume 10.6 7.4-10.4 fL Prothrombin Time 15.4 9.0-12.0 SECONDS Prothromb Time International Ratio 1.4 0.9-1.1 Activated Partial Thromboplast Time 78.3 73.4 21.0-31.0 SECONDS Partial Thromboplastin Ratio 3.0 2.8 Sodium Level 140 136-145 mmol/L Potassium Level 3.8 3.5-5.1 mmol/L Chloride Level 107 98-107 mmol/L Carbon Dioxide Level 24 21-32 mmol/L Anion Gap 9.0 3-11 mmol/L Blood Urea Nitrogen 27 7-18 mg/dl Creatinine 0.79 0.60-1.20 mg/dl Est Creatinine Clear Calc Drug Dose 56.2 ml/min Estimated GFR () 80.8 Estimated GFR (Non- 69.7 BUN/Creatinine Ratio 33.7 10-20 Random Glucose 89 70-99 mg/dl Calcium Level 9.5 8.5-10.1 mg/dl Phosphorus Level 2.7 2.5-4.9 mg/dl Magnesium Level 2.0 1.8-2.4 mg/dl Total Bilirubin 0.4 0.2-1 mg/dl Aspartate Amino Transf (AST/SGOT) 15 15-37 U/L Alanine Aminotransferase (ALT/SGPT) 10 12-78 U/L Alkaline Phosphatase 129 45-117 U/L Prealbumin 23.6 20-40 mg/dl Test 07/17/16 16:21 07/17/16 20:45 07/17/16 21:28 07/18/16 04:44 Range/Units Bedside Glucose 107 99 70-90 mg/dl Activated Partial Thromboplast Time 86.5 21.0-31.0 SECONDS Partial Thromboplastin Ratio 3.3 no acute chgs Assessment & Plan 07/18/16- cont low fiber diet, tpn off, stop heparin- cont coumadin to [facility] when ok with medical team 07/17/16- doing well- IV Heparin until INR to adequate level. can stop tpn after current bag, low fiber diet today cont IV atbx, d/c drain- to [facility] soon (2-3 days?) 07/16/16- path shows ischemic colitis of cecum- no tumor cont clear liq for now, add senna syrup, dose of mineral oil, cont hep/ coum- do not bolus Heparin check PTT, to floor- pt needs to walk more. cont tpn and atbx for now 07/12/16- will continue same- ice only, IV atbx and tpn- to med/surg when ok with med team- pt needs to walk in hallway will not begin clear liquids until Sat 6/3 and adv very slowly Dr Wright is covering over the weekend 07/11/16- s/p extended Rt hemicolectomy w/ iliocolic anastomosis for cecal ischemia and ulceration w/ bleeding. Stable overnight- tpn today, cont atbx, mobilize- to PCU when ok with medical team 07/10/16- pt is stable for surgery this am- will likely give pt one unit of PRBCs in OR- to ICU postop 07/09/16- plan for Rt colectomy tomorrow- clear liquids today. Cont Cipro/ flagyl. ordered ppn- would benefit from picc line/tpn postop Type and cross for OR- discuss with daughters 07/17/16- doing well- IV Heparin until INR to adequate level. can stop tpn after current bag, low fiber diet today cont IV atbx, d/c drain- to [facility] soon (2-3 days?) 07/16/16- path shows ischemic colitis of cecum- no tumor cont clear liq for now, add senna syrup, dose of mineral oil, cont hep/ coum- do not bolus Heparin check PTT, to floor- pt needs to walk more. cont tpn and atbx for now 07/12/16- will continue same- ice only, IV atbx and tpn- to med/surg when ok with med team- pt needs to walk in hallway will not begin clear liquids until Sat 6/3 and adv very slowly Dr Wright is covering over the weekend 07/11/16- s/p extended Rt hemicolectomy w/ iliocolic anastomosis for cecal ischemia and ulceration w/ bleeding. Stable overnight- tpn today, cont atbx, mobilize- to PCU when ok with medical team 07/10/16- pt is stable for surgery this am- will likely give pt one unit of PRBCs in OR- to ICU postop 07/09/16- plan for Rt colectomy tomorrow- clear liquids today. Cont Cipro/ flagyl. ordered ppn- would benefit from picc line/tpn postop Type and cross for OR- discuss with daughters
--- NOTE | 2016-07-18 06:37 | Discharge Instructions ---
Discharge Instructions Date of Service Jul 18, 2016. Admission Reason for Admission: Brbpr (Bright Red Blood Per Rectum) Discharge Discharge Diagnosis / Problem: ischemic colitis Discharge Goals Goal(s): Decrease discomfort, Improve function, Improve disease control Activity Recommendations Activity Limitations: as noted below Lifting Limitations: no more than 10 pounds Exercise/Sports Limitations: until after follow-up appointment May Resume Sexual Activity: after follow-up appointment Shower/Bathe: no limitations (may shower, no bath) SPECIAL CARE INSTRUCTIONS: * Cover incisions and change daily for comfort/drainage. * May use ibuprofen for pain as tolerated. * Expect some swelling and bruising. Call your doctor if: * Temperature above 101 degrees * Pain not relieved by pain medicine ordered * There is increased drainage or redness from any incision * You have any unanswered questions or concerns [phone]. FOLLOW UP VISIT: If not already scheduled, please call the office for a follow-up visit. for next week- staple removal OFFICE PHONE NUMBER: Dr. Omalley Office . Current Hospital Diet Patient's current hospital diet: Low Fiber Diet Discharge Diet Recommended Diet: Regular Diet Procedures Procedures Performed: extended Right Hemicolectomy, with iliocolic anastomosis Pending Studies Studies pending at discharge: no Laboratory Results Hemoglobin A1c Test 07/12/16 04:50 Range/Units Estimated Average Glucose 111 mg/dl Hemoglobin A1c 5.5 4.5-5.6 % Lipid Panel Test 07/11/16 05:36 Range/Units Triglycerides Level 108 0-150 mg/dl Medical Emergencies . Who to Call and When: Medical Emergencies: If at any time you feel your situation is an emergency, please call 911 immediately. . Non-Emergent Contact Non-Emergency issues call your: Primary Care Provider, Surgeon . "Provider Documentation" section prepared by Johnnie Omalley. . VTE Core Measure Inpt VTE Proph given/why not?: Unfractionated heparin SQ, Warfarin (Coumadin), SCD's, Contraindicated
[2016-07-18 07:18] LABS: INR 1.9 (0.9-1.1); PARTIAL THROMBOPLASTIN RATIO 2.6; PROTHROMBIN TIME (PATIENT) 21.4 SECONDS (9.0-12.0)
[2016-07-18 07:29] LABS: HEMATOCRIT 35.4 % (37-47); MEAN CELL VOLUME 86.6 fL (80-100); MEAN CORPUSCULAR HEMOGLOBIN 26.9 pg (25-34); MEAN CORPUSCULAR HGB CONC 31.1 g/dl (32-36); MEAN PLATELET VOLUME 10.5 fL (7.4-10.4); PLATELET COUNT 384 K/uL (130-400); RED BLOOD COUNT 4.09 M/uL (4.2-5.4); WHITE BLOOD COUNT 14.75 K/uL (4.8-10.8)
[2016-07-18] MEDS: FERROUS SULFATE 325 MG TAB PO SCH ×2 (07:39→15:15)
[2016-07-18 07:45] LABS: BUN/CREATININE RATIO 20.7 (10-20); CALCIUM 9.5 mg/dl (8.5-10.1); CREATININE 1.1 mg/dl (0.60-1.20); POTASSIUM 3.8 mmol/L (3.5-5.1)
[2016-07-18 07:57] LABS: THYROID STIMULATING HORMONE 2.11 uIu/ml (0.300-4.500)
[2016-07-18] MEDS: DILTIAZEM HCL 180 MG CAPCR PO SCH (08:34)
[2016-07-18] MEDS: SENNA 8.8 MG/5 ML UDP PO SCH ×2 (08:34→18:30)
[2016-07-18] MEDS ORDERED: METOPROLOL SUCC 25MG EXT REL TAB PO ONE (09:00)
[2016-07-18] MEDS: METOPROLOL SUCC 50MG EXT REL TAB PO SCH (09:33)
--- NOTE | 2016-07-18 10:02 | Cardiology Consultation ---
Cardiology Consultation Date of Consultation: Jul 18, 2016. Requesting Physician: Dr. Parra Reason for Consultation: Atrial fibrillation with rapid ventricular response Pt evaluation today including: conversation w/ patient, physical exam, lab review, review of studies, review of inpatient medication list History of Present Illness This is an 80-year-old woman who has a long history of atrial fibrillation, dating back at least until 2008. She has been on Multaq and then on amiodarone to try to control her arrhythmia, however she had recurrence of atrial fibrillation on amiodarone and therefore this was discontinued. Subsequently she was managed with a combination of beta blockade, calcium channel blockade, digoxin. She had some difficulty with ambulation and a fall in the fall of 2014 and had bradycardia prompting the discontinuation of her amiodarone and reduction of her beta blockade to metoprolol succinate 50 mg daily. She was also maintained on digoxin 0.125 mg daily and Taztia XT 360 mg daily in addition. She is on warfarin for anticoagulation. Holter monitoring on these medications on 01/17/2015 showed a heart rate range from 54-129 bpm with an average of 89 bpm. She also has history of coronary artery disease with a right coronary artery occlusion on 07/17/2012. This was felt suspicious for embolism, although at that time her INR was therapeutic. She did not seem to have significant underlying coronary artery disease. She presented to the emergency room on 07/04/2016 with several days of rectal bleeding. That appeared to be due to ischemic colitis and she has had a partial colectomy. She has continued to have atrial fibrillation, at times with rapid heart rates. Here her rate control medications include digoxin 0.125 mg daily but that is ordered to start today, diltiazem 360 mg daily, metoprolol succinate 100 mg daily and she is on warfarin with an INR of 2.6 today. She is currently feeling quite well, she is recovering from her surgery. She is relatively unaware of her heart rhythm or rate and is not having lightheadedness or dizziness. Past Medical/Surgical History (1) Cholecystectomy (2) BRBPR (bright red blood per rectum) (3) Anticoagulated on Coumadin (4) Atrial fibrillation (5) Replacement of total knee joint (6) Restless leg syndrome Social History Smoking Status: Unknown if Ever Smoked History of Alcohol Use: No Review of Systems Constitutional: No fever, No weight loss, No weakness Respiratory: No cough, No sputum, No wheezing, No shortness of breath, No dyspnea on exertion Cardiac: No chest pain Abdomen: + see HPI, + GI bleeding, No pain, No nausea, No vomiting, No diarrhea Female : No problem reported Neurologic: No paralysis, No weakness, No numbness/tingling, No balance problems Heme: No abnormal bleeding/bruising, No clotting problems Endo: No fatigue Skin: No problem reported All Other Systems: Reviewed and Negative Allergies Coded Allergies: Scopolamine (Verified Allergy, Unknown, UNKNOWN, 07/04/16) Pseudoephedrine (Verified Adverse Reaction, Intermediate, TACHYCARDIA, ) Quinine (Verified Adverse Reaction, Intermediate, DIARRHEA, 07/04/16) Ropinirole (Verified Adverse Reaction, Intermediate, VERTIGO, 07/04/16) Medications Current Inpatient Medications Medications (Trade) Dose Ordered Sig/Hair Route Start Time Stop Time Status Last Admin Dose Admin Acetaminophen (Tylenol Tab) 650 mg Q4H PRN PO 07/04/16 16:30 08/03/16 16:29 07/17/16 23:56 650 MG Metoprolol Tartrate (Lopressor Iv) 2.5 mg Q6 PRN IV 07/05/16 08:15 08/04/16 08:14 07/16/16 19:34 2.5 MG Carbidopa/Levodopa (Sinemet 25/ 100MG Tab) 1 tab Q3H PRN PO 07/08/16 10:54 08/07/16 10:53 07/18/16 07:39 1 TAB Cefoxitin Sodium 1000 mg/Dextrose 60 ml @ 100 mls/hr Q8H IV 07/10/16 14:00 07/20/16 13:59 07/18/16 06:02 100 MLS/HR Hydromorphone HCl (Dilaudid Inj) FOR PAIN 0.5-1MG 0.5MG ... Q3H PRN IV 07/10/16 11:45 07/24/16 11:44 07/11/16 05:46 1 MG Pantoprazole Sodium 40 mg/ Syringe 10 ml @ 5 mls/min DAILY@11 IV 07/11/16 11:00 08/10/16 10:59 07/17/16 12:01 5 MLS/MIN Ondansetron HCl (Zofran Inj) 4 mg Q6H PRN IV 07/10/16 11:45 08/09/16 11:44 Diphenhydramine HCl (Benadryl Extra Strength Cream) 1 appln Q12 PRN EXT 07/10/16 22:30 08/09/16 22:29 07/11/16 08:35 1 APPLN Heparin Sodium (Porcine) (Heparin 10 Unit/ ml 5 ml Flush) 5 ml PRN PRN FLUSH 07/12/16 00:15 08/11/16 00:14 07/12/16 04:52 5 ML Warfarin Sodium (Coumadin Tab) 7.5 mg DAILY@16 PO 07/15/16 16:00 08/13/16 15:59 07/17/16 16:00 7.5 MG Metoprolol Succinate (Toprol Xl Tab) 100 mg DAILY PO 07/16/16 09:00 08/14/16 08:59 07/17/16 08:23 100 MG Senna (Senokot Syrup) 8.8 mg BID PO 07/16/16 09:00 08/15/16 08:59 07/17/16 08:23 8.8 MG Ferrous Sulfate (Feosol Tab) 325 mg BIDM PO 07/16/16 16:45 08/15/16 16:44 07/18/16 07:39 325 MG Diltiazem HCl (Cardizem Cd Cap) 360 mg QAM PO 07/17/16 09:00 08/16/16 08:59 07/18/16 08:34 360 MG Digoxin (Lanoxin Tab) 0.125 mg DAILY@1600 PO 07/18/16 16:00 08/05/16 15:59 Physical Exam Vital Signs Past 12 Hours Date Time Temp Pulse Resp B/P (MAP) Pulse Ox O2 Delivery O2 Flow Rate FiO2 07/18/16 08:31 117 110/76 (87) 07/18/16 08:04 36.5 56 16 99/67 (78) 98 Room Air 07/18/16 04:22 36.7 125 20 114/81 (92) 93 Room Air 07/18/16 04:00 Room Air 07/17/16 23:59 Room Air 07/17/16 23:49 36.5 123 18 123/81 (95) 99 Room Air Constitutional: General Apperance: heathly-appearing Level of Distress: NAD Psychiatric: Mental Status: active & alert Head: normocephalic Eyes: EOM: EOMI ENMT: normal ENT inspection, hearing grossly normal Neck: supple, no masses Lungs: Respiratory effort: no dyspnea, good air movement Auscultation: breath sounds normal, no wheezing Cardiovascular: Heart Auscultation: no murmurs, no rubs, no gallops, tachycardia, irregular rate rhythm Peripheral Pulses: Bruits: none appreciated Abdomen: Bowel Sounds: normal Inspection & Palpation: soft, no tenderness, guarding & rebound, no masses Musculoskeletal: normal strength (5/5 throughout) Extremities: no edema Neurologic: Cranial Nerves: grossly intact Sensation: grossly intact Data Laboratory Results: Last 24 Hours Test 07/17/16 11:15 07/17/16 14:36 07/17/16 16:21 07/17/16 20:45 Bedside Glucose 111 mg/dl 107 mg/dl 99 mg/dl Activated Partial Thromboplast Time 73.4 SECONDS Partial Thromboplastin Ratio 2.8 Test 07/17/16 21:28 07/18/16 06:49 Activated Partial Thromboplast Time 86.5 SECONDS 68.6 SECONDS Partial Thromboplastin Ratio 3.3 2.6 White Blood Count 14.75 K/uL Red Blood Count 4.09 M/uL Hemoglobin 11.0 g/dL Hematocrit 35.4 % Mean Corpuscular Volume 86.6 fL Mean Corpuscular Hemoglobin 26.9 pg Mean Corpuscular Hemoglobin Concent 31.1 g/dl RDW Standard Deviation 48.5 fL RDW Coefficient of Variation 15.4 % Platelet Count 384 K/uL Mean Platelet Volume 10.5 fL Prothrombin Time 21.4 SECONDS Prothromb Time International Ratio 1.9 Sodium Level 140 mmol/L Potassium Level 3.8 mmol/L Chloride Level 106 mmol/L Carbon Dioxide Level 25 mmol/L Anion Gap 9.0 mmol/L Blood Urea Nitrogen 23 mg/dl Creatinine 1.10 mg/dl Est Creatinine Clear Calc Drug Dose 40.4 ml/min Estimated GFR () 54.1 Estimated GFR (Non- 46.7 BUN/Creatinine Ratio 20.7 Random Glucose 90 mg/dl Calcium Level 9.5 mg/dl Magnesium Level 2.0 mg/dl Thyroid Stimulating Hormone (TSH) 2.110 uIu/ml Imaging: EKG: Telemetry reviewed: Atrial fibrillation with rapid heart rate, often 140 bpm while active, never much under 100. Assessment & Plan #1. Atrial fibrillation: This is permanent, there is probably no point in trying to convert her to normal rhythm. #2. Rapid heart rate: Her heart rate is quite rapid for reasons which are not clear. Her beta sterling is higher now than at home, her diltiazem as the same but she is not on digoxin (it was ordered but she is going to receive her first dose today). She may be very responsive to digoxin, especially when combined with calcium blockade and beta-blockade. I think it would be reasonable to try that first, additional options are more difficult such as AV florence ablation and pacing, etc. Her blood pressure is borderline low and I hesitate to put on higher doses of calcium or beta-blockade. I'm going to give her digoxin 0.5 mg intravenously today and 2 doses and see if that controls her heart rate. #3. Prior myocardial infarction: No significant coronary disease at catheterization despite her probable embolic infarction, no symptoms to suggest progressive coronary disease. I would not pursue further. #4. Anticoagulation: She is therapeutic on warfarin and seems to be doing well on that, I would continue that medication. Thank you for allowing me to participate in her care.
[2016-07-18] MEDS ORDERED: DIGOXIN IV 250 MCG in SYRINGE 9 ML IV ONE (10:15)
[2016-07-18] MEDS: PANTOprazole INJ 40 MG in SYRINGE 0 ML IV SCH (10:56)
[2016-07-18] MEDS ORDERED: DIGOXIN IV 250 MCG in SYRINGE 9 ML IV SCH (13:00)
--- NOTE | 2016-07-18 14:04 | Family Medicine Progress Note ---
Progress Note Date of Service Jul 18, 2016. Subjective Pt evaluation today including: conversation w/ patient, physical exam, chart review, lab review Pain: None PO Intake: Tolerating advancing diet Voiding: no voiding problems Doing well at this time No pain or other complaints Tolerating PO diet; TPN discontinued Continues to be tacchycardic on monitor Additional Comments: A 10 point review of systems was negative unless stated above. Medications Current Inpatient Medications Medications (Trade) Dose Ordered Sig/Hair Route Start Time Stop Time Status Last Admin Dose Admin Acetaminophen (Tylenol Tab) 650 mg Q4H PRN PO 07/04/16 16:30 08/03/16 16:29 07/17/16 23:56 650 MG Metoprolol Tartrate (Lopressor Iv) 2.5 mg Q6 PRN IV 07/05/16 08:15 08/04/16 08:14 07/16/16 19:34 2.5 MG Carbidopa/Levodopa (Sinemet 25/ 100MG Tab) 1 tab Q3H PRN PO 07/08/16 10:54 08/07/16 10:53 07/18/16 10:56 1 TAB Cefoxitin Sodium 1000 mg/Dextrose 60 ml @ 100 mls/hr Q8H IV 07/10/16 14:00 07/20/16 13:59 07/18/16 13:48 100 MLS/HR Hydromorphone HCl (Dilaudid Inj) FOR PAIN 0.5-1MG 0.5MG ... Q3H PRN IV 07/10/16 11:45 07/24/16 11:44 07/11/16 05:46 1 MG Ondansetron HCl (Zofran Inj) 4 mg Q6H PRN IV 07/10/16 11:45 08/09/16 11:44 Diphenhydramine HCl (Benadryl Extra Strength Cream) 1 appln Q12 PRN EXT 07/10/16 22:30 08/09/16 22:29 07/11/16 08:35 1 APPLN Heparin Sodium (Porcine) (Heparin 10 Unit/ ml 5 ml Flush) 5 ml PRN PRN FLUSH 07/12/16 00:15 08/11/16 00:14 07/12/16 04:52 5 ML Warfarin Sodium (Coumadin Tab) 7.5 mg DAILY@16 PO 07/15/16 16:00 7/3/17 15:59 07/17/16 16:00 7.5 MG Metoprolol Succinate (Toprol Xl Tab) 100 mg DAILY PO 07/16/16 09:00 08/14/16 08:59 07/18/16 09:33 100 MG Senna (Senokot Syrup) 8.8 mg BID PO 07/16/16 09:00 08/15/16 08:59 07/17/16 08:23 8.8 MG Ferrous Sulfate (Feosol Tab) 325 mg BIDM PO 07/16/16 16:45 08/15/16 16:44 07/18/16 07:39 325 MG Diltiazem HCl (Cardizem Cd Cap) 360 mg QAM PO 07/17/16 09:00 08/16/16 08:59 07/18/16 08:34 360 MG Digoxin (Lanoxin Tab) 0.125 mg DAILY@1600 PO 07/18/16 16:00 08/05/16 15:59 Pantoprazole Sodium (Protonix Tab) 40 mg QAM PO 07/19/16 09:00 08/18/16 08:59 Objective Vital Signs Date Time Temp Pulse Resp B/P (MAP) Pulse Ox O2 Delivery O2 Flow Rate FiO2 07/18/16 13:44 94 07/18/16 12:37 36.8 101 16 97/66 (76) 98 Room Air 07/18/16 11:06 112 109/73 (85) 07/18/16 10:56 122 07/18/16 08:31 117 110/76 (87) 07/18/16 08:04 36.5 56 16 99/67 (78) 98 Room Air 07/18/16 08:00 98 Room Air 07/18/16 04:22 36.7 125 20 114/81 (92) 93 Room Air 07/18/16 04:00 Room Air 07/17/16 23:59 Room Air 07/17/16 23:49 36.5 123 18 123/81 (95) 99 Room Air 07/17/16 21:25 127 07/17/16 20:00 Room Air 07/17/16 19:58 36.9 100 20 92/64 (73) 98 Room Air 07/17/16 16:00 94 Room Air 6/6/17 15:15 36.6 91 18 116/81 (93) 94 Room Air Physical Exam General Appearance: WD/WN, no apparent distress Eyes: normal inspection, EOMI ENT: hearing grossly normal, pharynx normal Neck: supple, no adenopathy, no JVD Respiratory/Chest: lungs clear, no respiratory distress Cardiovascular: no gallop, no murmur, + tachycardia, + irregularly irregular Abdomen: normal bowel sounds, non tender, soft, + pertinent finding ( abdominald dressing, dry and intact) Extremities: non-tender, no pedal edema Neurologic/Psychiatric: alert, normal mood/affect, oriented x 3 Skin: normal color, warm/dry, no rash Lymphatic: no adenopathy Laboratory Results Last 24 Hours Test 07/17/16 14:36 07/17/16 16:21 07/17/16 20:45 07/17/16 21:28 Activated Partial Thromboplast Time 73.4 SECONDS 86.5 SECONDS Partial Thromboplastin Ratio 2.8 3.3 Bedside Glucose 107 mg/dl 99 mg/dl Test 07/18/16 06:49 07/18/16 11:32 White Blood Count 14.75 K/uL Red Blood Count 4.09 M/uL Hemoglobin 11.0 g/dL Hematocrit 35.4 % Mean Corpuscular Volume 86.6 fL Mean Corpuscular Hemoglobin 26.9 pg Mean Corpuscular Hemoglobin Concent 31.1 g/dl RDW Standard Deviation 48.5 fL RDW Coefficient of Variation 15.4 % Platelet Count 384 K/uL Mean Platelet Volume 10.5 fL Prothrombin Time 21.4 SECONDS Prothromb Time International Ratio 1.9 Activated Partial Thromboplast Time 68.6 SECONDS Partial Thromboplastin Ratio 2.6 Sodium Level 140 mmol/L Potassium Level 3.8 mmol/L Chloride Level 106 mmol/L Carbon Dioxide Level 25 mmol/L Anion Gap 9.0 mmol/L Blood Urea Nitrogen 23 mg/dl Creatinine 1.10 mg/dl Est Creatinine Clear Calc Drug Dose 40.4 ml/min Estimated GFR () 54.1 Estimated GFR (Non- 46.7 BUN/Creatinine Ratio 20.7 Random Glucose 90 mg/dl Calcium Level 9.5 mg/dl Magnesium Level 2.0 mg/dl Thyroid Stimulating Hormone (TSH) 2.110 uIu/ml Bedside Glucose 77 mg/dl Assessment and Plan 80 year old female with GI bleeding due to cecal ulcer who s/p right hemicolectomy Surgery has been following, note she is stable from their standpoint. Doing well at this time with low fibre diet. We have her back on anticoagulation and are titrating Coumadin on which she will be discharged when medically stable. At this point, main acute issue is ongoing tachycardia with HR between 110-120. Our plan for her is as follows: Status Post Right Colectomy for Acute GI bleeding from Cecal ulcer - Acute blood loss anemia improving; Hb improved to 11 - Surgical site appears stable and intact; will follow-up with surgery as outpatient - Continue low fibre diet; will recommend continuing in outpatient setting until seen by surgery TPN has been stopped - Continue to monitor CBC daily - Tolerating anticoagulation escalation Atrial fibrillation with rapid ventricular response - Remains tachycardic at this time escalated back to home meds - Cardiology consulted - Resume home dose of Metoprolol Succinate 100 daily: additional 25 mg given with today's dose - Continue Cardizem CD 360 mg daily - Per cardiology, patient will be loaded with IV digoxin at this time - Titrate Coumadin with daily INR daily; patient has INRs checked by cardiology clinic - Can D/C heparin infusion today Restless Leg Syndrome - Sinemet q3 hours PRN - Continue Iron supplementation; will need to continue at discharge Non-specific Colitis - Per CT scan - Will discontinue Cefoxitine today DVT Prophylaxis - INR 1.9; nearly therapeutic - Will D/C heparin today and lower Coumadin dose to 2.5 - Repeat INR tomorrow - SCDs Code Status - DNR Disposition - OT and PT consulted - Continue telemetry monitoring due to low grade tacchycardia; currently titrating up to home med doses - Aim to [facility] ---- Resident Physician Supervision Note: I was present with PGY2 Dr. Jeremiah Parra during the history and exam. I discussed the case with the resident and agree with the findings and plan as documented in the note. Any exceptions or clarifications are listed here: none. Tele overnight - a. fib with RVR continues with rates still over 100 at rest. No complaints; feels good. VSS except tachycardia no fever gen - NAD neck - no JVD mouth - MMM, no thrush heart - tachy, irregular lungs - CTA b/l abd - soft ext - trace edema b/l but improved today TSH nl BMP nl Hb 11 A/P: 1. right-sided hemicolectomy 2nd to large bleeding cecal ulcer - doing well from surgical standpoint. Tolerating diet; TPN has been d/c. 2. a. fib with RVR - ongoing issue despite 3 AV florence agents. 3. anemia 2nd to Fe def - stable. 4. RLS cardiology consult as we are maxed out on 3 AV florence agents no evidence of hyperthyroidism stop heparin drip cont coumadin PT, OT once a. fib rates are <100 at rest can d/c home Gerry Goodwin MD Continued [facility] stay due to: abnormal vital signs Discharge planning: home
[2016-07-18] MEDS: DIGOXIN 0.125 MG TAB PO SCH (15:16)
[2016-07-18] MEDS: WARFARIN SOD 2.5 MG TAB PO SCH (15:18)
[2016-07-18] MEDS: ACETAMINOPHEN 325 MG TAB PO PRN (21:57)
[2016-07-19] VITALS (8 sets, daily range): BP systolic 100–127; BP diastolic 57–80; PULSE 81–112; TEMP 36.2–36.6; O2SAT 96–98
[2016-07-19] MEDS: CARBIDOPA/LEVODOPA 25/100MG TAB PO PRN ×6 (01:08→20:51)
[2016-07-19 07:11] LABS: HEMATOCRIT 30.6 % (37-47); MEAN CORPUSCULAR HEMOGLOBIN 27.2 pg (25-34); MEAN CORPUSCULAR HGB CONC 31.7 g/dl (32-36); MEAN PLATELET VOLUME 10.5 fL (7.4-10.4); PLATELET COUNT 321 K/uL (130-400); RED BLOOD COUNT 3.56 M/uL (4.2-5.4); WHITE BLOOD COUNT 10.22 K/uL (4.8-10.8)
[2016-07-19 07:25] LABS: INR 2.6 (0.9-1.1); PARTIAL THROMBOPLASTIN RATIO 1.4; PROTHROMBIN TIME (PATIENT) 29.3 SECONDS (9.0-12.0)
[2016-07-19 07:53] LABS: ALB/GLOB RATIO 0.8 (0.9-2); BUN/CREATININE RATIO 35.8 (10-20); CREATININE 0.66 mg/dl (0.60-1.20); POTASSIUM 3.6 mmol/L (3.5-5.1)
[2016-07-19] MEDS: SENNA 8.8 MG/5 ML UDP PO SCH ×2 (08:14→20:51)
[2016-07-19] MEDS: PANTOprazole SOD 40 MG TAB PO SCH (08:14)
[2016-07-19] MEDS: DILTIAZEM HCL 180 MG CAPCR PO SCH (08:14)
[2016-07-19] MEDS: FERROUS SULFATE 325 MG TAB PO SCH ×2 (08:15→17:00)
[2016-07-19] MEDS: METOPROLOL SUCC 50MG EXT REL TAB PO SCH (08:15)
--- NOTE | 2016-07-19 12:59 | Cardiology Follow-Up ---
Subjective Date of Service: Jul 19, 2016. Pt evaluation today including: conversation w/ patient, physical exam, lab review, review of studies, review of inpatient medication list History of Present Illness This is an 80-year-old woman who has a long history of atrial fibrillation, dating back at least until 2008. She has been on Multaq and then on amiodarone to try to control her arrhythmia, however she had recurrence of atrial fibrillation on amiodarone and therefore this was discontinued. Subsequently she was managed with a combination of beta blockade, calcium channel blockade, digoxin. She had some difficulty with ambulation and a fall in the fall of 2014 and had bradycardia prompting the discontinuation of her amiodarone and reduction of her beta blockade to metoprolol succinate 50 mg daily. She was also maintained on digoxin 0.125 mg daily and Taztia XT 360 mg daily in addition. She is on warfarin for anticoagulation. Holter monitoring on these medications on 01/17/2015 showed a heart rate range from 54-129 bpm with an average of 89 bpm. She also has history of coronary artery disease with a right coronary artery occlusion on 07/17/2012. This was felt suspicious for embolism, although at that time her INR was therapeutic. She did not seem to have significant underlying coronary artery disease. She presented to the emergency room on 07/04/2016 with several days of rectal bleeding. That appeared to be due to ischemic colitis and she has had a partial colectomy. She has continued to have atrial fibrillation, at times with rapid heart rates. Here her rate control medications include digoxin 0.125 mg daily but that is ordered to start today, diltiazem 360 mg daily, metoprolol succinate 100 mg daily and she is on warfarin with an INR of 2.6 today. She is currently feeling quite well, she is recovering from her surgery. She is relatively unaware of her heart rhythm or rate and is not having lightheadedness or dizziness. Social History Smoking Status: Unknown if Ever Smoked History of Alcohol Use: No Review of Systems Respiratory: No cough, No sputum, No wheezing, No shortness of breath, No dyspnea on exertion Cardiac: No chest pain Medications Cardiovascular: Item Value Date Time Digoxin 0.125 mg 07/18/16 1600 (Lanoxin Tab) DAILY@1600/PO 07/18/16 1516 Warfarin Sodium 2.5 mg 07/18/16 1600 (Coumadin Tab) DAILY@16/PO 07/18/16 1518 Diltiazem HCl 360 mg 07/17/16 0900 (Cardizem Cd Cap) QAM/PO 07/19/16 0814 Metoprolol 100 mg 07/16/16 0900 Succinate DAILY/PO 07/19/16 0815 (Toprol Xl Tab) Objective Vital Signs Past 12 Hours Date Time Temp Pulse Resp B/P (MAP) Pulse Ox O2 Delivery O2 Flow Rate FiO2 07/19/16 12:20 Room Air 07/19/16 12:15 36.6 81 18 100/57 (71) 98 Room Air 07/19/16 08:30 98 Room Air 07/19/16 08:00 36.4 82 16 124/66 (85) 98 Room Air 07/19/16 04:00 36.4 82 20 108/63 (78) 97 Room Air 07/19/16 04:00 Room Air Last Recorded Weight-Kilograms: 81.100 Physical Exam Constitutional: General Apperance: heathly-appearing Level of Distress: NAD Lungs: Respiratory effort: no dyspnea, good air movement Auscultation: breath sounds normal, no wheezing Cardiovascular: Heart Auscultation: no murmurs, no rubs, no gallops, irregular rate rhythm Peripheral Pulses: Bruits: none appreciated Extremities: no edema Data Laboratory Results: Last 24 Hours Test 07/18/16 16:00 07/19/16 06:33 Bedside Glucose 112 mg/dl White Blood Count 10.22 K/uL Red Blood Count 3.56 M/uL Hemoglobin 9.7 g/dL Hematocrit 30.6 % Mean Corpuscular Volume 86.0 fL Mean Corpuscular Hemoglobin 27.2 pg Mean Corpuscular Hemoglobin Concent 31.7 g/dl RDW Standard Deviation 48.3 fL RDW Coefficient of Variation 15.3 % Platelet Count 321 K/uL Mean Platelet Volume 10.5 fL Prothrombin Time 29.3 SECONDS Prothromb Time International Ratio 2.6 Activated Partial Thromboplast Time 36.6 SECONDS Partial Thromboplastin Ratio 1.4 Sodium Level 142 mmol/L Potassium Level 3.6 mmol/L Chloride Level 109 mmol/L Carbon Dioxide Level 23 mmol/L Anion Gap 10.0 mmol/L Blood Urea Nitrogen 24 mg/dl Creatinine 0.66 mg/dl Est Creatinine Clear Calc Drug Dose 67.7 ml/min Estimated GFR () 95.3 Estimated GFR (Non- 82.3 BUN/Creatinine Ratio 35.8 Random Glucose 77 mg/dl Calcium Level 9.0 mg/dl Total Bilirubin 0.3 mg/dl Aspartate Amino Transf (AST/SGOT) 14 U/L Alanine Aminotransferase (ALT/SGPT) 6 U/L Alkaline Phosphatase 127 U/L Total Protein 5.9 gm/dl Albumin 2.7 gm/dl Globulin 3.2 gm/dl Albumin/Globulin Ratio 0.8 Digoxin Level 1.5 ng/ml Telemetry reviewed: AF with HR well controlled after about noon yesterday. Assessment and Plan #1. Atrial fibrillation: This is permanent, there is probably no point in trying to convert her to normal rhythm. #2. Rapid heart rate: Her heart rate has been well controlled or slow on her current regimen. Her beta sterling is at a higher dose than outpatient, it is probably a better idea to reduce to her outpatient dose although she got it today. #3. Prior myocardial infarction: No significant coronary disease at catheterization despite her probable embolic infarction, no symptoms to suggest progressive coronary disease. I would not pursue further. #4. Anticoagulation: She is therapeutic on warfarin and seems to be doing well on that, I would continue that medication. Thank you for allowing me to participate in her care.
--- NOTE | 2016-07-19 14:01 | Family Medicine Progress Note ---
Progress Note Date of Service Jul 19, 2016. Subjective Pt evaluation today including: conversation w/ patient, physical exam, chart review, lab review Pain: None PO Intake: Good Voiding: no voiding problems No complaints Eager to progress towards home No issues overnight HR controlled to < 100 No chest pain, no palpitations or shortness of breath Additional Comments: A 10 point review of systems was negative unless stated above. Medications Current Inpatient Medications Medications (Trade) Dose Ordered Sig/Hair Route Start Time Stop Time Status Last Admin Dose Admin Acetaminophen (Tylenol Tab) 650 mg Q4H PRN PO 07/04/16 16:30 08/03/16 16:29 07/18/16 21:57 650 MG Metoprolol Tartrate (Lopressor Iv) 2.5 mg Q6 PRN IV 07/05/16 08:15 08/04/16 08:14 07/16/16 19:34 2.5 MG Carbidopa/Levodopa (Sinemet 25/ 100MG Tab) 1 tab Q3H PRN PO 07/08/16 10:54 08/07/16 10:53 07/19/16 16:31 1 TAB Cefoxitin Sodium 1000 mg/Dextrose 60 ml @ 100 mls/hr Q8H IV 07/10/16 14:00 07/20/16 13:59 Future Hold 07/18/16 13:48 100 MLS/HR Hydromorphone HCl (Dilaudid Inj) FOR PAIN 0.5-1MG 0.5MG ... Q3H PRN IV 07/10/16 11:45 07/24/16 11:44 07/11/16 05:46 1 MG Ondansetron HCl (Zofran Inj) 4 mg Q6H PRN IV 07/10/16 11:45 08/09/16 11:44 Diphenhydramine HCl (Benadryl Extra Strength Cream) 1 appln Q12 PRN EXT 07/10/16 22:30 08/09/16 22:29 07/11/16 08:35 1 APPLN Heparin Sodium (Porcine) (Heparin 10 Unit/ ml 5 ml Flush) 5 ml PRN PRN FLUSH 07/12/16 00:15 08/11/16 00:14 07/12/16 04:52 5 ML Senna (Senokot Syrup) 8.8 mg BID PO 07/16/16 09:00 08/15/16 08:59 07/19/16 08:14 8.8 MG Ferrous Sulfate (Feosol Tab) 325 mg BIDM PO 07/16/16 16:45 08/15/16 16:44 07/19/16 17:00 325 MG Diltiazem HCl (Cardizem Cd Cap) 360 mg QAM PO 07/17/16 09:00 08/16/16 08:59 07/19/16 08:14 360 MG Digoxin (Lanoxin Tab) 0.125 mg DAILY@1600 PO 07/18/16 16:00 08/05/16 15:59 07/19/16 16:31 0.125 MG Pantoprazole Sodium (Protonix Tab) 40 mg QAM PO 07/19/16 09:00 08/18/16 08:59 07/19/16 08:14 40 MG Warfarin Sodium (Coumadin Tab) 2.5 mg DAILY@16 PO 07/18/16 16:00 08/13/16 15:59 07/19/16 16:31 2.5 MG Metoprolol Succinate (Toprol Xl Tab) 50 mg QAM PO 07/20/16 09:00 08/19/16 08:59 Objective Vital Signs Date Time Temp Pulse Resp B/P (MAP) Pulse Ox O2 Delivery O2 Flow Rate FiO2 07/19/16 16:31 82 07/19/16 16:20 Room Air 07/19/16 15:33 36.2 92 18 106/68 (81) 97 Room Air 07/19/16 12:20 Room Air 07/19/16 12:15 36.6 81 18 100/57 (71) 98 Room Air 07/19/16 08:30 98 Room Air 07/19/16 08:00 36.4 82 16 124/66 (85) 98 Room Air 07/19/16 04:00 36.4 82 20 108/63 (78) 97 Room Air 07/19/16 04:00 Room Air 07/19/16 00:00 Room Air 07/18/16 23:51 36.4 81 18 102/66 (78) 98 Room Air 07/18/16 20:00 Room Air 07/18/16 19:37 36.5 94 18 117/77 (90) 97 Room Air Physical Exam General Appearance: WD/WN, no apparent distress Eyes: normal inspection, EOMI ENT: hearing grossly normal, pharynx normal Neck: supple, no adenopathy, no JVD Respiratory/Chest: lungs clear, no respiratory distress Cardiovascular: no gallop, no murmur, + irregularly irregular (regular rate) Abdomen: normal bowel sounds, non tender, soft Extremities: non-tender, no pedal edema Neurologic/Psychiatric: alert, normal mood/affect, oriented x 3 Skin: normal color, warm/dry, no rash Lymphatic: no adenopathy Laboratory Results Last 24 Hours Test 07/19/16 06:33 White Blood Count 10.22 K/uL Red Blood Count 3.56 M/uL Hemoglobin 9.7 g/dL Hematocrit 30.6 % Mean Corpuscular Volume 86.0 fL Mean Corpuscular Hemoglobin 27.2 pg Mean Corpuscular Hemoglobin Concent 31.7 g/dl RDW Standard Deviation 48.3 fL RDW Coefficient of Variation 15.3 % Platelet Count 321 K/uL Mean Platelet Volume 10.5 fL Prothrombin Time 29.3 SECONDS Prothromb Time International Ratio 2.6 Activated Partial Thromboplast Time 36.6 SECONDS Partial Thromboplastin Ratio 1.4 Sodium Level 142 mmol/L Potassium Level 3.6 mmol/L Chloride Level 109 mmol/L Carbon Dioxide Level 23 mmol/L Anion Gap 10.0 mmol/L Blood Urea Nitrogen 24 mg/dl Creatinine 0.66 mg/dl Est Creatinine Clear Calc Drug Dose 67.7 ml/min Estimated GFR () 95.3 Estimated GFR (Non- 82.3 BUN/Creatinine Ratio 35.8 Random Glucose 77 mg/dl Calcium Level 9.0 mg/dl Total Bilirubin 0.3 mg/dl Aspartate Amino Transf (AST/SGOT) 14 U/L Alanine Aminotransferase (ALT/SGPT) 6 U/L Alkaline Phosphatase 127 U/L Total Protein 5.9 gm/dl Albumin 2.7 gm/dl Globulin 3.2 gm/dl Albumin/Globulin Ratio 0.8 Digoxin Level 1.5 ng/ml Assessment and Plan 80 year old female with GI bleeding due to cecal ulcer who s/p right hemicolectomy. Doing well at this time with low fibre diet. Stable to discharge from surgery standpoint Loaded with digoxin today and tolerating well. HR has improved to < 100. Making progress towards discharge. Our plan for her is as follows: Status Post Right Colectomy for Acute GI bleeding from Cecal ulcer - Acute blood loss anemia stable; Hb 9.7 today - Surgical site appears stable and intact; will follow-up with surgery as outpatient - Continue low fibre diet; will recommend continuing in outpatient setting until seen by surgery - Continue to monitor CBC daily - On Coumadin, INR 2.6, no evidence of bleeding recurrence Atrial fibrillation with rapid ventricular response - Metoprolol Succinate 100mg daily - Cardizem CD 360 mg daily - Loaded with Digoxin; continue PO 0.125 mg daily ; to continue daily at discharge Dig level with AM labs - Heparin DCd - Coumadin PO daily; INR today therapeutic at 2.6 - Can D/C heparin infusion today - Cardiology recommendations appreciated Restless Leg Syndrome - Sinemet q3 hours PRN - Continue Iron supplementation; will need to continue at discharge Non-specific Colitis - Completed treatment - Stable; no evidence of active colitis at this time DVT Prophylaxis - Coumadin; INR therapeutic today - SCDs Code Status - DNR Disposition - If stable tonight, then plan for discharge tomorrow to the [facility] - Will phone daughters to update this evening ---- Resident Physician Supervision Note: I was present with PGY2 Dr. Jeremiah Parra during the history and exam. I discussed the case with the resident and agree with the findings and plan as documented in the note. Any exceptions or clarifications are listed here: none. Tele overnight - a. fib with RVR resolved; rates MUCH better and most are <100. No complaints; feels good. Anxious to get to the [facility]. VSS no fever gen - NAD neck - no JVD mouth - MMM, no thrush heart - regular rate, irregular, s1, s2, no murmur lungs - CTA b/l abd - soft ext - trace edema b/l BMP wnl Hb 9.7 INR 2.6 A/P: 1. right-sided hemicolectomy 2nd to large bleeding cecal ulcer - doing well from surgical standpoint. Tolerating diet; TPN has been d/c. H/h stable. 2. a. fib with RVR - RVR resolved, rates overall much better. Continue 3 AV florence agents. 3. anemia 2nd to Fe def - stable. 4. RLS cardiology consult appreciated cont coumadin PT, OT labs in am anticipate d/c tomorrow daughter updated Gerry Goodwin MD Continued [facility] stay due to: abnormal vital signs Discharge planning: home
[2016-07-19] MEDS: DIGOXIN 0.125 MG TAB PO SCH (16:31)
[2016-07-19] MEDS: WARFARIN SOD 2.5 MG TAB PO SCH (16:31)
[2016-07-19] MEDS: ACETAMINOPHEN 325 MG TAB PO PRN (20:51)
[2016-07-20] MEDS: CARBIDOPA/LEVODOPA 25/100MG TAB PO PRN ×4 (00:13→12:46)
[2016-07-20 04:00] VITALS: O2SAT 98
[2016-07-20 04:13] VITALS: BP 115/73; PULSE 92; TEMP 36.7; O2SAT 98
[2016-07-20 06:13] LABS: HEMATOCRIT 33.1 % (37-47); MEAN CELL VOLUME 86.4 fL (80-100); MEAN CORPUSCULAR HEMOGLOBIN 27.2 pg (25-34); MEAN CORPUSCULAR HGB CONC 31.4 g/dl (32-36); PLATELET COUNT 324 K/uL (130-400); RED BLOOD COUNT 3.83 M/uL (4.2-5.4); WHITE BLOOD COUNT 10.41 K/uL (4.8-10.8)
[2016-07-20 06:28] LABS: INR 2.4 (0.9-1.1); PARTIAL THROMBOPLASTIN RATIO 1.5; PROTHROMBIN TIME (PATIENT) 26.9 SECONDS (9.0-12.0)
[2016-07-20 06:45] LABS: BUN/CREATININE RATIO 27.3 (10-20); CREATININE 0.74 mg/dl (0.60-1.20); POTASSIUM 3.8 mmol/L (3.5-5.1)
[2016-07-20 06:52] LABS: CALCIUM 9.3 mg/dl (8.5-10.1)
--- NOTE | 2016-07-20 07:21 | Discharge Instructions ---
Discharge Instructions Date of Service Jul 20, 2016. Admission Reason for Admission: Brbpr (Bright Red Blood Per Rectum) Discharge Discharge Diagnosis / Problem: Cecal ulcer with right hemicolectomy Discharge Goals Goal(s): Improve function, Improve nutritional status Activity Recommendations Activity Limitations: as noted below Lifting Limitations: gradually increase as tolerated Exercise/Sports Limitations: gradually increase as tolerated Weightbearing Status: Left weightbearing (as tolerated), Right weightbearing ( as tolerated) . Instructions / Follow-Up Instructions / Follow-Up You were admitted to [facility] because of gastrointestinal bleeding. You had a colonoscopy which showed a non-bleeding ulcer in the cecum. We initially tried to manage this conservatively by observing you for bleeding recurrence. Unfortunately, you started bleeding once we tried to re-start your anticoagulation for atrial fibrillation. We therefore got our general surgeon involved and decided that that you needed to remove the segment of bowel with the ulcer to prevent bleeding in the future. You successful had your surgery. After surgery, you were placed on bowel rest ( no food by mouth) and were fed through an IV (called total parenteral nutrition) . As you continued to progress, we were able to restart you on an oral diet. You tolerated this very well. In addition, we were able to re-start your Coumadin without recurrence of bleeding. Please follow Dr. Omalley's instructions regarding your diet and post-surgical care at home. We will arrange for you to have a follow-up in his office in 1 week. We have also started you on iron supplementation twice daily to help your blood counts continue to recover after surgery. These can cause constipation so please notify your PCP if this happens. As we tried to restart all your home medications, particularly those to control your heart rate for atrial fibrillation, we continued to have difficulty getting your heart rate under control. As such we consulted our cardiology who recommended medication changes. On your discharge day, your heart rate was well controlled and you were eating and ambulating well so we felt [place]. Because you had a prolonged hospital stay, we feel it would be best for you to go to the [facility] for a short period as you continue your recovery. The goal is to have you transition you back to your apartment. Regarding your atrial fibrillation, here are the medications/doses you should be taking: - Metoprolol Succinate (Toprol XL) 50 mg daily - Diltiazem (Cardizem CD) 360 mg daily - Digoxin 0.125 mg daily - Regarding anticoagulation, your Coumadin level was 2.4 on the day of discharge which in the appropriate range. We will discharge you to take 5 mg over the weekend and re-check your INR on Saturday July 23, 2016. The cardiology or physician at the [facility] will determine your next dose of Coumadin from that point. Your PCP Dr. Reynaga and Dr. Parra will arrange to visit you at the [facility] shortly after you are discharged. If your symptoms fail to improve, acutely worsen, please seek medical attention immediately by either calling your primary care provider or going to your nearest emergency department. Otherwise, please see your primary care provider in 3-5 days to ensure that your symptoms continue to improve. Current Hospital Diet Patient's current hospital diet: Low Fiber Diet Discharge Diet Recommended Diet: Low Fiber Diet Procedures Procedures Performed: Colonoscopy and EGD extended Right Hemicolectomy, with iliocolic anastomosis Pending Studies Studies pending at discharge: no Laboratory Results Hemoglobin A1c Test 07/12/16 04:50 Range/Units Estimated Average Glucose 111 mg/dl Hemoglobin A1c 5.5 4.5-5.6 % Lipid Panel Test 07/11/16 05:36 Range/Units Triglycerides Level 108 0-150 mg/dl Medical Emergencies . Who to Call and When: Medical Emergencies: If at any time you feel your situation is an emergency, please call 911 immediately. . Non-Emergent Contact Non-Emergency issues call your: Primary Care Provider, Surgeon Call Non-Emergent contact if: you have a fever, your pain is not controlled, wound has increased drainage, wound has increased redness, wound has increased pain . . "Provider Documentation" section prepared by Jeremiah Parra. Attending Attestation: Discharge care plan d/w PGY2 Dr. Jeremiah Parra on day of discharge. I agree with his discharge instructions as outlined. Gerry Goodwin MD . VTE Core Measure Inpt VTE Proph given/why not?: Unfractionated heparin SQ, Warfarin (Coumadin)
[2016-07-20 07:44] VITALS: BP 109/71; PULSE 98; TEMP 36.7; O2SAT 99
[2016-07-20] MEDS: SENNA 8.8 MG/5 ML UDP PO SCH (08:01)
[2016-07-20] MEDS: FERROUS SULFATE 325 MG TAB PO SCH (08:02)
[2016-07-20] MEDS: DILTIAZEM HCL 180 MG CAPCR PO SCH (08:02)
[2016-07-20] MEDS: PANTOprazole SOD 40 MG TAB PO SCH (08:03)
[2016-07-20] MEDS ORDERED: METOPROLOL SUCC 50MG EXT REL TAB PO SCH (09:00)
--- NOTE | 2016-07-20 09:14 | Cardiology Follow-Up ---
Subjective Date of Service: Jul 20, 2016. Pt evaluation today including: conversation w/ patient, conversation w/ family , physical exam, lab review, review of studies, review of inpatient medication list, conversation w/ attending History of Present Illness This is an 80-year-old woman who has a long history of atrial fibrillation, dating back at least until 2008. She has been on Multaq and then on amiodarone to try to control her arrhythmia, however she had recurrence of atrial fibrillation on amiodarone and therefore this was discontinued. Subsequently she was managed with a combination of beta blockade, calcium channel blockade, digoxin. She had some difficulty with ambulation and a fall in the fall of 2014 and had bradycardia prompting the discontinuation of her amiodarone and reduction of her beta blockade to metoprolol succinate 50 mg daily. She was also maintained on digoxin 0.125 mg daily and Taztia XT 360 mg daily in addition. She is on warfarin for anticoagulation. Holter monitoring on these medications on 01/17/2015 showed a heart rate range from 54-129 bpm with an average of 89 bpm. She also has history of coronary artery disease with a right coronary artery occlusion on 07/17/2012. This was felt suspicious for embolism, although at that time her INR was therapeutic. She did not seem to have significant underlying coronary artery disease. She presented to the emergency room on 07/04/2016 with several days of rectal bleeding. That appeared to be due to ischemic colitis and she has had a partial colectomy. She has continued to have atrial fibrillation, at times with rapid heart rates. Here her rate control medications have been adjusted and her HR has been under good control. She is currently feeling quite well, she is recovering from her surgery. She is relatively unaware of her heart rhythm or rate and is not having lightheadedness or dizziness. Social History Smoking Status: Unknown if Ever Smoked History of Alcohol Use: No Review of Systems Respiratory: No cough, No sputum, No wheezing, No shortness of breath, No dyspnea on exertion Cardiac: No chest pain Medications Cardiovascular: Item Value Date Time Metoprolol 50 mg 07/20/16 0900 Succinate QAM/PO 07/20/16 0802 (Toprol Xl Tab) Digoxin 0.125 mg 07/18/16 1600 (Lanoxin Tab) DAILY@1600/PO 07/19/16 1631 Warfarin Sodium 2.5 mg 07/18/16 1600 (Coumadin Tab) DAILY@16/PO 07/19/16 1631 Diltiazem HCl 360 mg 07/17/16 0900 (Cardizem Cd Cap) QAM/PO 07/20/16 0802 Objective Vital Signs Past 12 Hours Date Time Temp Pulse Resp B/P (MAP) Pulse Ox O2 Delivery O2 Flow Rate FiO2 07/20/16 08:00 Room Air 07/20/16 07:44 36.7 98 17 109/71 (84) 99 07/20/16 04:13 36.7 92 18 115/73 (87) 98 Room Air 07/20/16 04:00 98 Room Air 07/20/16 00:10 Room Air 07/19/16 23:54 36.5 102 18 127/80 (96) 97 Room Air Last Recorded Weight-Kilograms: 79.100 Physical Exam Constitutional: General Apperance: heathly-appearing Level of Distress: NAD Lungs: Respiratory effort: no dyspnea, good air movement Auscultation: breath sounds normal, no wheezing Cardiovascular: Heart Auscultation: no murmurs, no rubs, no gallops, irregular rate rhythm Peripheral Pulses: Bruits: none appreciated Extremities: no edema Data Laboratory Results: Last 24 Hours Test 07/20/16 05:53 White Blood Count 10.41 K/uL Red Blood Count 3.83 M/uL Hemoglobin 10.4 g/dL Hematocrit 33.1 % Mean Corpuscular Volume 86.4 fL Mean Corpuscular Hemoglobin 27.2 pg Mean Corpuscular Hemoglobin Concent 31.4 g/dl RDW Standard Deviation 48.9 fL RDW Coefficient of Variation 15.4 % Platelet Count 324 K/uL Mean Platelet Volume 10.0 fL Prothrombin Time 26.9 SECONDS Prothromb Time International Ratio 2.4 Activated Partial Thromboplast Time 37.9 SECONDS Partial Thromboplastin Ratio 1.5 Sodium Level 142 mmol/L Potassium Level 3.8 mmol/L Chloride Level 110 mmol/L Carbon Dioxide Level 24 mmol/L Anion Gap 8.0 mmol/L Blood Urea Nitrogen 20 mg/dl Creatinine 0.74 mg/dl Est Creatinine Clear Calc Drug Dose 59.6 ml/min Estimated GFR () 87.4 Estimated GFR (Non- 75.4 BUN/Creatinine Ratio 27.3 Random Glucose 87 mg/dl Calcium Level 9.3 mg/dl Digoxin Level 1.2 ng/ml Telemetry reviewed: AF, HR a little fast but acceptable Assessment and Plan #1. Atrial fibrillation: This is permanent, there is probably no point in trying to convert her to normal rhythm. I am not sure exactly what dose of metoprolol she was on, our office records say she had 100 mg tablets that she was taking half a tablet daily. I would send her home on that, and I have arranged a Holter monitor for 2 weeks. She also has an appointment to see Dr. Dill in one month. #2. Rapid heart rate: Her heart rate has been reasonably well controlled on her current regimen. I will confirm that we have adequate control with a Holter monitor, a little worried about having her get too slow if we increase her medications any more than they currently are. I would rather have her heart rate little bit fast and titrate up than the other way around. #3. Prior myocardial infarction: No significant coronary disease at catheterization despite her probable embolic infarction, no symptoms to suggest progressive coronary disease. I would not pursue further. #4. Anticoagulation: She is therapeutic on warfarin and seems to be doing well on that, I would continue that medication. Thank you for allowing me to participate in her care.
[2016-07-20 11:25] VITALS: BP 121/77; PULSE 95; TEMP 36.4; O2SAT 99
[2016-07-20] MEDS ORDERED: CMD25 PO (12:13)
[2016-07-20] MEDS ORDERED: FRRS300 PO (12:13)
[2016-07-20] MEDS ORDERED: TPRSR50 PO (12:13)
[2016-07-20] MEDS ORDERED: LNX125 PO (12:13)
[2016-07-20 12:29] VITALS: BP 121/77; PULSE 95; TEMP 36.4; O2SAT 99
--- NOTE | 2016-07-20 20:19 | Discharge Summary ---
Discharge Summary Date of Service Jul 20, 2016. (Jeremiah Parra MD) Discharge Summary Admission Date: July 04, 2016 at 17:13 Discharge Date: Jul 20, 2016 Discharge Disposition: Home ([facility]) Principal Diagnosis: Cecal ulcer with gastrointestinal bleeding Problems/Secondary Diagnoses: Anticoagulated on Coumadin Permanent Atrial Fibrillation Immunizations: Have You Had Influenza Vaccine: Yes Influenza Vaccine Date: Oct 31, 2011 History of Tetanus Vaccine?: Unknown History of Pneumococcal: Yes Pneumococcal Date: Dec 12, 2010 History of Hepatitis B Vaccine: Unknown Procedures: EGD / Colonoscopy on 07/05/2016 Right Hemicolectomy on 07/11/2016 Consultations: General Surgery Cardiology Intensive Care (Jeremiah Parra MD) Problems/Secondary Diagnoses: acute blood loss anemia 2nd to GI bleeding hyperlipidemia restless legs syndrome ischemic colitis diverticulosis of entire colon CAD (Gerry Goodwin MD) Medication Reconciliation New Medications: Digoxin (Digoxin) 0.125 Mg Tab 0.125 MG PO DAILY@1600 for 30 Days, #30 TAB Ferrous Sulfate (Ferrous Sulfate) 325 Mg Tab 325 MG PO BIDM for 30 Days, #60 TAB Metoprolol Succinate (Metoprolol Succinate ER) 50 Mg Tabcr 50 MG PO QAM for 30 Days, #30 TAB Warfarin Sod (Coumadin) 2.5 Mg Tab 5 MG PO DAILY@16 for 14 Days, #28 TAB Continued Medications: Acetaminophen (Tylenol) 500 Mg Tab 500 MG PO PRN, 0 Refills Acetaminophen-Caffeine (Excedrin Tension Headache) 1 Tab Tab 1 TAB PO DIRECTED PRN for Headache Aspirin (Aspirin Ec) 81 Mg Tab 81 MG PO HS Carbidopa/Levodopa (Sinemet 25MG/250MG) Tab 1 TAB PO 8XD PT TAKES EVERY 3 HOURS. Diltiazem Hcl Coated Beads (Cardizem Cd) 360 Mg Cap 1 CAP PO DAILY for 90 Days, #90 CAP 3 Refills Flaxseed (Linseed) (Flaxseed Oil) 1 Cap Cap 1 CAP PO DAILY Furosemide (Lasix) 20 Mg Tab 40 MG PO DAILY, TAB Gabapentin (Neurontin) 300 Mg Cap 600 MG PO TID, CAP Lovastatin (Mevacor) 20 Mg Tab 20 MG PO HS, TAB Magnesium Chloride (Slow-Mag Tab) 64 Mg Tabcr 64 MG PO TID, TAB Multiple Vitamins W/ Minerals (Centrum Silver Adult 50+) 1 Tab Tab 1 TAB PO QAM Ocuvite Preservision (Ocuvite Preservision) 1 Tab Tab 1 TAB PO BID, TAB Potassium Chloride (Klor-Con M20) 20 Meq Tabcr 20 MEQ PO TID Discontinued Medications: Digoxin (Digoxin) 0.125 Mg Tab 0.125 MG PO 3XWK TAKES ON SAT, SAT, AND SAT. Metoprolol Succinate (Metoprolol Succinate ER) 50 Mg Tabcr 100 MG PO DAILY for 30 Days hold when systolic blood pressure <110, or when Heart rate <65 Warfarin Sod (Jantoven) 2.5 Mg Tab 1.25 MG PO DAILY, TAB TAKES ON , AND . Warfarin Sod (Jantoven) 2.5 Mg Tab 2.5 MG PO 5XWK, TAB SUN, SAT, SAT, SAT, SAT Discharge Exam A 10 point review of systems was negative unless in the hospital course Physical Exam: General Appearance: WD/WN, no apparent distress Eyes: normal inspection, EOMI ENT: hearing grossly normal, pharynx normal Neck: supple, no adenopathy, no JVD Respiratory/Chest: lungs clear, no respiratory distress Cardiovascular: no gallop, no murmur, + irregularly irregular (permanent tacchycardia) Abdomen / GI: normal bowel sounds, non tender, soft Extremities: no calf tenderness, no pedal edema Neurologic/Psychiatric: alert, normal mood/affect, oriented x 3 Skin: normal color, warm/dry, no rash Lymphatic: no adenopathy (Jeremiah Parra MD) Hospital Course (1) Cecal ulcer (2) Lower GI bleed (3) Anemia (4) Anticoagulated on Coumadin (5) Atrial fibrillation (6) Restless leg syndrome 80 year old admitted with acute lower GI bleeding. Colonoscopy evaluation revealed an ischemic ulcer at the cecum. No bleeding at the time of endoscopy but when anticoagulation for afib was resumed, patients bleeding also resumed. Decision made to proceed with right justo-colectomy. Her hospital course was as follows: Status Post Right Colectomy for Acute GI bleeding from Cecal ulcer - Colonoscopy on 07/05 revealing cecal ulcer, likely ischemic in etiology - Hemicolectomy on 07/11 - Post-operatively placed on TPN; gradually transitioned to low fibre diet; recommended low fibre diet until follow-up with general surgery - Uneventful recovery; did not require opioids at the time of discharge; recommended Tylenol PRN at discharge - Hb remained stable 9-10 after surgery; anticoagulation resumed as noted below ; Hb/Hct stable at discharge - For f/u with Dr. Omalley 1 week after discharge for staple removal Atrial fibrillation with rapid ventricular response - Some difficulty initially achieving rate control; rate control finally achieved on the following regimen: Metoprolol succinate 50 mg daily Cardizem CD 360 mg daily Digoxin 0.125 daily - Patient was bridged with Heparin infusion to Coumadin - INR 2.4 at discharge - Patient discharged on Coumadin 5 mg daily; needs repeat INR on Saturday - Cardiology will see in the office in August - Cardiology will arrange for outpatient Holter monitor to evaluate HR on regimen above. Restless Leg Syndrome - Continued Sinemet q3 hours PRN - Started iron supplementation; recommended continuing iron at discharge Non-specific Colitis - Noted on CT at admission - Started on Cipro/Flagyl --> transitioned to Cefoxitime; discontinued antibiotics prior to discharge DVT Prophylaxis - Heparin infusion post-operatively and bridged with Coumadin - Discharged on Coumadin; Needs repeat INR on 07/23/2016 - SCDs Code Status - DNR Disposition - [facility] Total Time Spent: Greater than 30 minutes This includes examination of the patient, discharge planning, medication reconciliation, and communication with other providers. (Jeremiah Parra MD) Attending Discharge Note & Attestation: Pt seen/examined, chart reviewed, care plan d/w PGY2 Dr. Jeremiah Parra. I agree w/ the shaikh components of his discharge summary. 80yo female with h/o a. fib on chronic coumadin and CAD who presented with rectal bleeding & acute blood loss anemia. She received, in total, 4 units of PRBCs while hospitalized. Underwent EGD and colonoscopy by [facility]. Colonoscopy demonstrated a cecal ulcer and pathology showed evidence of ischemic colitis. While in ICU, following the colonoscopy, she continued with low-grade rectal bleeding. General surgery was consulted and it was felt best to perform right-sided hemicolectomy. Dr. Johnnie Omalley performed such. Post-op she was managed with bowel rest, TPN via PICC line, and heparin drip for her a. fib. Her post-op course generally went well with ultimate nondenominational of bowel function and advancement of diet. However, she had [id number] a. fib. Cardiology was consulted for their assistance with the a. fib. Her digoxin was increased to daily dosing; beta sterling and calcium channel sterling were continued. With these adjustments her rates were <100 at discharge. INR on day of discharge was 2.4 and hemoglobin was stable at 10.4. Discharge exam - gen - nad neck - no JVD mouth - no thrush heart - irregular, s1, s2 lungs - scant rales bases, otherwise clear abd - soft, NT, ND, BS+ ext - trace edema skin - incision on abdominal wall clean, no erythema or drainage Gerry Goodwin MD (Gerry Goodwin MD) Discharge Instructions Please refer to the electronic Patient Visit Report (Discharge Instructions) for additional information. (Jeremiah Parra MD) Additional Copies To Dante Reynaga D.O.; Johnnie Omalley M.D.; Fausto Dill MD; Jamie Ardon M.D.; Paul Xiao M.D. Problem Qualifiers (1) Anemia: Anemia type: unspecified type Qualified Codes: D64.9 - Anemia, unspecified
== END 2016-07-20 13:05 | DRG 329 ==
LOC: ENRESERVTM → ENRESERVDT → CANRESERV → C.EDB 12:48 → C.MSICU 17:13 → EDBEDREQSVC 17:43 → C.2T 07-11 14:48 → ENRESERV 07-15 09:30 → CANRESERV 07-15 09:30 → CANBEDREQ 07-15 10:08 → ENRESERV 07-16 07:41 → CANRESERV 07-16 07:41 → CANBEDREQ 07-16 07:44
PROVIDERS: ADMIT Family Medicine; ATTEND Internal Medicine
PROC: 0DJ08ZZ Inspection of Upper Intestinal Tract, Via Natural or Artificial Opening Endoscopic (ICD-10-PCS; 2016-07-05 10:35)
PROC: 0DBH8ZX Excision of Cecum, Via Natural or Artificial Opening Endoscopic, Diagnostic (ICD-10-PCS; 2016-07-05 10:35)
PROC: 02HV33Z Insertion of Infusion Device into Superior Vena Cava, Percutaneous Approach (ICD-10-PCS; 2016-07-07)
PROC: 0DTF0ZZ Resection of Right Large Intestine, Open Approach (ICD-10-PCS; principal; 2016-07-10 08:30)
DX: K63.3 Ulcer of intestine (principal); K25.4 Chronic or unspecified gastric ulcer with hemorrhage; K55.9 Vascular disorder of intestine, unspecified; D62 Acute posthemorrhagic anemia; N17.9 Acute kidney failure, unspecified; T45.7X5A Adverse effect of anticoagulant antagonists, vitamin K and other coagulants, initial encounter; I48.91 Unspecified atrial fibrillation; G25.81 Restless legs syndrome; K64.4 Residual hemorrhoidal skin tags; D72.829 Elevated white blood cell count, unspecified; E78.5 Hyperlipidemia, unspecified; I87.2 Venous insufficiency (chronic) (peripheral); I27.2 Other secondary pulmonary hypertension; K57.30 Diverticulosis of large intestine without perforation or abscess without bleeding; I08.3 Combined rheumatic disorders of mitral, aortic and tricuspid valves; I25.10 Atherosclerotic heart disease of native coronary artery without angina pectoris; R00.0 Tachycardia, unspecified; Z79.01 Long term (current) use of anticoagulants; Z79.899 Other long term (current) drug therapy; Z79.82 Long term (current) use of aspirin; Z90.49 Acquired absence of other specified parts of digestive tract; Z66 Do not resuscitate; E66.9 Obesity, unspecified; Z68.29 Body mass index [BMI] 29.0-29.9, adult

== ENCOUNTER → 2016-08-01 | Outpatient (CLI) | payer OTHER, MEDICARE ==
[~2016-08-01] MED LIST changes: -FLX10 PO; +FRRS300 PO; +GABA-113 PO; -KFL500 PO; -MAGNTAB4 PO; -NRN600 PO; +SLWMEC PO; -WARF2.5T8 PO
[2016-08-01 09:59] LABS: INR 2.7 (0.9-1.1); PROTHROMBIN TIME (PATIENT) 29.7 SECONDS (9.0-12.0)
== END | disposition home or self-care (01) ==
LOC: C.LABVPSUA 09:08
PROVIDERS: ATTEND Internal Medicine Cardiovascular Disease
DX: I48.91 Unspecified atrial fibrillation (principal)

== ENCOUNTER → 2016-08-20 | Outpatient (CLI) | payer OTHER, MEDICARE ==
[~2016-08-20] MED LIST changes: +ACETTAB14 PO; -ACETTAB15 PO
[2016-08-20 10:47] LABS: INR 2.4 (0.9-1.1); PROTHROMBIN TIME (PATIENT) 26.1 SECONDS (9.0-12.0)
== END ==
LOC: C.LABVPSUA 09:59
PROVIDERS: ATTEND Internal Medicine Cardiovascular Disease
DX: I48.91 Unspecified atrial fibrillation (principal)

== ENCOUNTER → 2016-08-27 | Outpatient (CLI) | payer OTHER, MEDICARE ==
[2016-08-27 10:27] LABS: BLOOD UREA NITROGEN 16 mg/dl (7-18); BUN/CREATININE RATIO 15.5 (10-20); CALCIUM 9.6 mg/dl (8.5-10.1); CARBON DIOXIDE 26 mmol/L (21-32); CHLORIDE 107 mmol/L (98-107); GLUCOSE 115 mg/dl (70-99); POTASSIUM 3.8 mmol/L (3.5-5.1); SODIUM 142 mmol/L (136-145)
== END | disposition home or self-care (01) ==
LOC: C.LABVPSUW 09:36
PROVIDERS: ATTEND Internal Medicine Interventional Cardiology
DX: I48.91 Unspecified atrial fibrillation (principal)

== ENCOUNTER → 2016-09-19 | Outpatient (CLI) | payer OTHER, MEDICARE ==
[2016-09-19 10:37] LABS: INR 2.7 (0.9-1.1); PROTHROMBIN TIME (PATIENT) 30.3 SECONDS (9.0-12.0)
== END | disposition home or self-care (01) ==
LOC: C.LABVPSUW 09:22
PROVIDERS: ATTEND Internal Medicine Cardiovascular Disease
DX: I48.91 Unspecified atrial fibrillation (principal)

== ENCOUNTER → 2016-11-14 | Outpatient (CLI) | payer OTHER, MEDICARE ==
[2016-11-14 10:01] LABS: INR 3.2 (0.9-1.1); PROTHROMBIN TIME (PATIENT) 36.3 SECONDS (9.0-12.0)
== END | disposition home or self-care (01) ==
LOC: C.LABVPSUW 09:17
PROVIDERS: ATTEND Internal Medicine Interventional Cardiology
DX: I48.91 Unspecified atrial fibrillation (principal)

== ENCOUNTER → 2016-12-07 | Outpatient (CLI) | payer OTHER, MEDICARE ==
[~2016-12-07] MED LIST changes: -ACETTAB14 PO; +ACETTAB15 PO
[2016-12-07 09:55] LABS: INR 2.3 (0.9-1.1); PROTHROMBIN TIME (PATIENT) 25.4 SECONDS (9.0-12.0)
== END | disposition home or self-care (01) ==
LOC: C.LABVPSUW 09:24
PROVIDERS: ATTEND Internal Medicine Interventional Cardiology
DX: I48.91 Unspecified atrial fibrillation (principal)

== ENCOUNTER → 2016-12-31 | Outpatient (CLI) | payer OTHER, MEDICARE ==
[2016-12-31 10:08] LABS: INR 3.3 (0.9-1.1)
--- NOTE | 2017-01-06 06:08 | CODING QUERY NO DIAGNOSIS ---
TREATMENT RENDERED WITHOUT A DIAGNOSIS 33 To promote full compliance with coding requirements relating to patient care, physician participation is requested in all cases of pewter finisher uncertainty. Please assist us with providing a diagnosis/symptom for the test(s) below: A diagnosis/symptom was not documented on your Order. A valid diagnosis/symptom is required to bill all insurances. Please remember that we are unable to code a diagnosis of rule out, probable, possible, questionable, or suspected. DOS 12/2016 Tests that require a diagnosis: * PROTHROMBIN TIME DIAGNOSIS: Provider Signature: Date: Thank you Gayathri Rader [email or web address] Once completed, please kindly fax back to [phone] For questions please call [phone]
== END | disposition home or self-care (01) ==
LOC: C.LABVPSUW 09:46
PROVIDERS: ATTEND Internal Medicine Interventional Cardiology
DX: Z01.89 Encounter for other specified special examinations (principal)

== ENCOUNTER → 2017-01-07 | Outpatient (CLI) | payer OTHER, MEDICARE ==
[2017-01-07 09:30] LABS: INR 2.6 (0.9-1.1)
== END | disposition home or self-care (01) ==
LOC: C.LABVPSUW 09:03
PROVIDERS: ATTEND Internal Medicine Interventional Cardiology
DX: I48.91 Unspecified atrial fibrillation (principal)

== ENCOUNTER → 2017-01-14 | Outpatient (CLI) | payer OTHER, MEDICARE ==
[2017-01-14 09:39] LABS: INR 2.4 (0.9-1.1); PROTHROMBIN TIME (PATIENT) 26.1 SECONDS (9.0-12.0)
== END | disposition home or self-care (01) ==
LOC: C.LABVPSUW 09:00 → C.LABSPEC 09:00
PROVIDERS: ATTEND Internal Medicine Interventional Cardiology
DX: I48.91 Unspecified atrial fibrillation (principal)

== ENCOUNTER → 2017-02-12 | Outpatient (CLI) | payer OTHER, MEDICARE ==
[2017-02-12 10:12] LABS: INR 2.2 (0.9-1.1)
--- NOTE | 2017-03-08 08:17 | CODING QUERY NO DIAGNOSIS ---
TREATMENT RENDERED WITHOUT A DIAGNOSIS 33 To promote full compliance with coding requirements relating to patient care, physician participation is requested in all cases of cloth worker uncertainty. Please assist us with providing a diagnosis/symptom for the test(s) below: A diagnosis/symptom was not documented on your Order. A valid diagnosis/symptom is required to bill all insurances. Please remember that we are unable to code a diagnosis of rule out, probable, possible, questionable, or suspected. DOS 02/12/17 Tests that require a diagnosis: * PROTHROMBIN TIME DIAGNOSIS: Provider Signature: Date: Thank you Gayathri Rader [employer] Once completed, please kindly fax back to [phone] For questions please call [phone]
== END | disposition home or self-care (01) ==
LOC: C.LABSPEC 09:27
PROVIDERS: ATTEND Internal Medicine Interventional Cardiology
DX: Z01.89 Encounter for other specified special examinations (principal)

== ENCOUNTER → 2017-03-12 | Outpatient (CLI) | payer OTHER, MEDICARE ==
[2017-03-12 10:52] LABS: INR 2.1 (0.9-1.1)
== END | disposition home or self-care (01) ==
LOC: C.LABVPSUW 09:44
PROVIDERS: ATTEND Internal Medicine Interventional Cardiology
DX: I48.91 Unspecified atrial fibrillation (principal)

== ENCOUNTER → 2017-05-06 | Outpatient (CLI) | payer OTHER, MEDICARE ==
[2017-05-06 09:44] LABS: INR 2.5 (0.9-1.1)
[2017-05-06 10:21] LABS: BLOOD UREA NITROGEN 21 mg/dl (7-18); CALCIUM 9.7 mg/dl (8.5-10.1); CARBON DIOXIDE 26 mmol/L (21-32); CREATININE 0.91 mg/dl (0.60-1.20); GLUCOSE 94 mg/dl (70-99); POTASSIUM 4.2 mmol/L (3.5-5.1); SODIUM 139 mmol/L (136-145)
== END ==
LOC: C.LABVPSUW 09:05
PROVIDERS: ATTEND Internal Medicine Interventional Cardiology
DX: I10 Essential (primary) hypertension (principal); E78.5 Hyperlipidemia, unspecified; G25.81 Restless legs syndrome; K21.9 Gastro-esophageal reflux disease without esophagitis; I48.91 Unspecified atrial fibrillation

== ENCOUNTER → 2017-06-03 | Outpatient (CLI) | payer OTHER, MEDICARE ==
[2017-06-03 09:32] LABS: INR 2.4 (0.9-1.1)
== END | disposition home or self-care (01) ==
LOC: C.LABVPSUW 09:05
PROVIDERS: ATTEND Internal Medicine Interventional Cardiology
DX: I48.91 Unspecified atrial fibrillation (principal)

== ENCOUNTER → 2017-07-02 | Outpatient (CLI) | payer OTHER, MEDICARE ==
[2017-07-02 10:17] LABS: INR 2.4 (0.9-1.1)
== END | disposition home or self-care (01) ==
LOC: C.LABVPSUW 09:29
PROVIDERS: ATTEND Internal Medicine Interventional Cardiology
DX: I48.91 Unspecified atrial fibrillation (principal)

== ENCOUNTER → 2017-09-27 | Outpatient (CLI) | payer OTHER, MEDICARE ==
[2017-09-27 10:56] LABS: INR 2.3 (0.9-1.1)
== END | disposition home or self-care (01) ==
LOC: C.LABVPSUW 10:39
PROVIDERS: ATTEND Internal Medicine Interventional Cardiology
DX: I48.91 Unspecified atrial fibrillation (principal)

== ENCOUNTER 2019-07-28 15:24 | Inpatient (IN) ==
[2019-07-28] MEDS ORDERED: SODIUM CHLORIDE 0.9% 500 ML IV ONE (16:23)
[2019-07-28] MEDS ORDERED: DAPTOmycin 400 MG in SYRINGE 0 ML IV ONE (16:30)
[2019-07-28] MEDS ORDERED: CEFEPIME 20 ML IV STA (16:31)
--- NOTE | 2019-07-28 16:36 | Emergency Department Note ---
History of Present Illness General Chief complaint: Infection Stated complaint: CELLULITIS IN BOTH LEGS IS OPEN AND DRAINING Time Seen by Provider: 07/28/19 16:11 Source: patient and family Mode of arrival: wheelchair History of Present Illness Provider complaint: Left leg infection Onset (ago): week(s) Location: lower extremity and left Radiation: non-radiation Severity: moderate Pain Consistency: + constant Quality: + other (Redness and weeping) Relieved By: + none Associated symptoms: no chest pain, no cough, no fever/chills, no headaches, no malaise, no nausea/vomiting, no shortness of breath and no weakness This is an 83-year-old female sent over by her PCP for evaluation of her leg infection. Patient has had a left leg infection for the past week. She has been on Keflex with no improvement. Today she started having increased pain to the ankle with redness and weeping throughout her legs. She is on a diuretic and does not have a diagnosis of lymphedema but does have chronic swelling to her legs with discoloration. She denies any other symptoms including chest pain, shortness of breath, cough cold symptoms, abdominal pain, vomiting or diarrhea or known exposure COVID-19. She states she did not have a fever but her temperature normally runs low and she had a normal temperature recently. She also complains of possible chills but she states she is cold all the time. Home Medications Home Medications Medication Instructions Recorded Confirmed Type acetaminophen 500 mg capsule 500 - 1,000 mg PO BID PRN cap 10/27/18 07/28/19 History aspirin 81 mg tablet 81 mg PO DAILY tab 10/27/18 07/28/19 History carbidopa 25 mg-levodopa 250 mg 1 tab PO .8XSADAY tab 10/27/18 07/28/19 History tablet diltiazem HCl 360 mg capsule,24 360 mg PO DAILY #30 cap 10/27/18 07/28/19 History hr,extended release ferrous sulfate 325 mg (65 mg 325 mg PO BID #180 tab 10/27/18 07/28/19 History iron) tablet flaxseed oil 1,000 mg capsule 1,000 mg PO DAILY 10/27/18 07/28/19 History furosemide 20 mg tablet 20 mg PO QAM #180 tab 10/27/18 07/28/19 History gabapentin 600 mg tablet 600 mg PO TID #90 tab 10/27/18 07/28/19 History lovastatin 20 mg tablet 20 mg PO DAILY tab 10/27/18 07/28/19 History rblvbqhmkdgu-avtukyka-dqkqms 1 tab PO DAILY 10/27/18 07/28/19 History nystatin 100,000 unit/gram topical 1 appln TOPICAL DAILY PRN gm 10/27/18 07/28/19 History cream potassium chloride 20 mEq 20 meq PO TID #90 tab 10/27/18 07/28/19 History tablet,extended release warfarin 2.5 mg tablet 1.25 - 2.5 mg PO DAILY #150 tab 10/27/18 07/28/19 History metoprolol succinate 100 mg 100 mg PO DAILY #90 tab 05/18/19 07/28/19 Rx tablet,extended release 24 hr magnesium chloride 64 mg 64 mg PO TID #270 tab 06/01/19 07/28/19 Rx (magnesium chloride) tablet,delayed release digoxin 125 mcg PO 3XWK 07/28/19 07/28/19 History furosemide 20 mg PO DAILY PRN 07/28/19 07/28/19 History ibuprofen [Advil] 200 - 400 mg PO Q6H PRN 07/28/19 07/28/19 History aeuusngrbmzd-nqov-jlpem acid 1 tab PO DAILY 07/28/19 07/28/19 History [Centrum] Allergies Allergy/AdvReac Type Severity Reaction Status Date / Time scopolamine Allergy Unknown UNKNOWN Verified 07/28/19 17:25 pseudoephedrine AdvReac Intermediate TACHYCARDIA Verified 07/28/19 17:25 quinine AdvReac Intermediate DIARRHEA Verified 07/28/19 17:25 ropinirole AdvReac Intermediate VERTIGO Verified 07/28/19 17:25 Past Med/Surg History Medical History (Updated 07/28/19 @ 19:46 by Mart Hoskins MD) Atrial fibrillation (Chronic 07/17/12) Cecal ulcer Restless leg syndrome (Chronic) Surgical History (Updated 07/28/19 @ 19:06 by Gerry Goodwin) H/O cataract extraction H/O right hemicolectomy S/P cholecystectomy Status post tonsillectomy and adenoidectomy Family History (Updated 07/28/19 @ 19:07 by Gerry Goodwin) Mother Breast cancer Father Heart disease Social History (Updated 07/28/19 @ 19:08 by Gerry Goodwin) Preferred Language: Belgian marital status: / Current Living Situation: Alone Current Living Situation Comment: [facility] - independent living current occupational status: retired other: worked in [employer]; 2 daughters Feels Safe at Home: Yes Smoking Status: Never smoker Hx Alcohol Use: No Review of Systems See HPI for pertinent positives & negatives. and A total of 10 systems reviewed and were otherwise negative Physical Exam Vital Signs Vital Signs - 24 hr 07/28/19 15:27 07/28/19 17:29 07/28/19 17:31 Temperature 36.4 C L Temperature Source Oral Pulse Rate 75 Pulse Rate [Left Finger] 79 Respiratory Rate 18 18 Blood Pressure 91/51 L Blood Pressure [Right Arm] 122/75 Blood Pressure Mean 64 Blood Pressure Mean [Right Arm] 90 Pulse Oximetry 96 99 99 Oxygen Delivery Method Room Air Room Air Room Air Sepsis Recent Fever Within 48 Hours No Sepsis New/Unexplained Change in Mental Status No Sepsis Action Taken by Nursing No Action Required 07/28/19 18:28 Temperature Temperature Source Pulse Rate Pulse Rate [Left Finger] 76 Respiratory Rate 24 Blood Pressure Blood Pressure [Right Arm] 118/65 Blood Pressure Mean Blood Pressure Mean [Right Arm] 82 Pulse Oximetry 97 Oxygen Delivery Method Room Air Sepsis Recent Fever Within 48 Hours Sepsis New/Unexplained Change in Mental Status Sepsis Action Taken by Nursing Constitutional: Vital signs reviewed. Eyes: Pupils are equal round reactive to light. Conjunctiva are noninjected. ENT: Pharynx is clear without erythema or exudate. Mucous membranes are moist. Neck supple without meningeal signs. Respiratory: Clear to auscultation bilaterally. Breath sounds are equal bilaterally. Cardiovascular: Irregularly irregular rhythm. Normal rate. No rubs or gallops. GI: Soft, nondistended and nontender. Bowel sounds are present. Musculoskeletal: Bilateral lymphedema with serous weeping from both legs. Significant erythema and increased warmth to the left lower extremity. Chronic discoloration of both legs likely related to venous stasis. Distal capillary refill is less than 2 seconds bilaterally. Integumentary: No cyanosis. or jaundice. Neurological: The patient is awake and alert. No focal deficits. Psychiatric: Normal affect. Not anxious appearing. Course Administered Medications Discontinued Medications Carbidopa/Levodopa (Sinemet 25/250mg) 1 tab PO NOW STA Stop: 07/28/19 18:34 Last Admin: 07/28/19 18:47 Dose: 1 tab Documented by: [id number] Dextrose (Dextrose 50%) 50 ml IV NOW STA Stop: 07/28/19 18:30 Last Admin: 07/28/19 18:47 Dose: 50 ml Documented by: [id number] Sodium Chloride (Nss) 500 mls @ 999 mls/hr IV .Q31M ONE Stop: 07/28/19 16:53 Last Infusion: 07/28/19 18:27 Dose: 0 mls/hr Documented by: [id number] Admin: 07/28/19 17:24 Dose: 999 mls/hr Documented by: [id number] Daptomycin 400 mg/ Syringe 8 mls @ 4 mls/min IV NOW ONE; Protocol Stop: 07/28/19 16:31 Last Admin: 07/28/19 17:51 Dose: 4 mls/min Documented by: [id number] Cefepime HCl (Maxipime) 20 mls @ 5 mls/min IV NOW STA Stop: 07/28/19 16:34 Last Admin: 07/28/19 17:54 Dose: 5 mls/min Documented by: [id number] Insulin Human Regular (Novolin R U-100 Per Unit) 10 units IV NOW STA Stop: 07/28/19 18:30 Last Admin: 07/28/19 18:47 Dose: 10 units Documented by: [id number] Cosigned by: [id number] Critical Care Time Critical Care Time: Yes Total Critical Care Time: 40 I have personally spent approximately 40 minutes of critical care time in the direct management of this patient. This includes bedside care, interpretation of diagnostic studies, and testing, discussion with consultants, patient, and family members, and other required patient management activities. These minutes are in excess of all separately billable procedures. Medical Decision Making Differential Diagnosis Cellulitis, abscess, osteomyelitis, lymphedema, sepsis Medical Records Attestation: I reviewed the patient's medical records. I did perform a limited focused review of portions of the patient's old chart on the electronic medical record. The patient has had no recent pertinent visits to this hospital. Home Medications Current Medication List: was personally reviewed by me Laboratory Data Attestation: I reviewed the patient's lab results. Result diagrams: 07/28/19 17:11 07/28/19 17:11 Lab Results 07/28/19 07/28/19 07/28/19 Range/Units 17:11 17:11 17:11 WBC 20.87 H (4.8-10.8) K/uL RBC 4.58 (4.2-5.4) M/uL Hgb 13.7 (12.0-16.0) g/dL Hct 41.4 (37-47) % MCV 90.4 (80-100) fL MCH 29.9 (25-34) pg MCHC 33.1 (32-36) g/dL RDW Std Deviation 51.6 H (36.4-46.3) fL RDW Coeff of Nancy 15.6 H (11.5-14.5) % Plt Count 258 (130-400) K/uL MPV 10.5 H (7.4-10.4) fL Immature Gran % (Auto) 0.8 % Neut % (Auto) 83.8 % Lymph % (Auto) 6.5 % [place] % (Auto) 8.0 % Eos % (Auto) 0.4 % Baso % (Auto) 0.5 % Immature Gran # (Auto) 0.16 H (0.00-0.02) K/uL Neut # (Auto) 17.51 H (1.4-6.5) K/uL Lymph # (Auto) 1.35 (1.2-3.4) K/uL [place] # (Auto) 1.67 H (0.11-0.59) K/uL Eos # (Auto) 0.08 (0-0.5) K/uL Baso # (Auto) 0.10 (0-0.2) K/uL PT 30.9 H (9.0-12.0) Seconds INR 3.1 H (0.9-1.1) APTT 48.4 H* (21.0-31.0) Seconds PTT Ratio 1.7 Sodium 136 (136-145) mmol/L Potassium 6.0 H (3.5-5.1) mmol/L Chloride 108 H (98-107) mmol/L Carbon Dioxide 24 (21-32) mmol/L Anion Gap 4.0 (3-11) BUN 47 H (7-18) mg/dl Creatinine 1.64 H (0.6-1.2) mg/dl Est Cr Clr Drug Dosing 26.2 ml/min Est GFR ( Amer) 32.7 Est GFR (Non-Af Amer) 28.2 BUN/Creatinine Ratio 28.5 H (10-20) Glucose 106 H (70-99) mg/dl Lactate (0.4-2.0) mmol/L Calcium 9.8 (8.5-10.1) mg/dl Magnesium 2.4 (1.8-2.4) mg/dl Total Bilirubin 0.6 (0.2-1) mg/dl AST 26 (15-37) U/L ALT 8 L (12-78) U/L Alkaline Phosphatase 108 (45-117) U/L Total Protein 7.5 (6.4-8.2) gm/dl Albumin 3.3 L (3.4-5.0) gm/dl Globulin 4.2 H (2.5-4.0) gm/dl Albumin/Globulin Ratio 0.8 L (0.9-2) Digoxin (0.8-2.0) ng/ml 07/28/19 07/28/19 Range/Units 17:11 17:11 WBC (4.8-10.8) K/uL RBC (4.2-5.4) M/uL Hgb (12.0-16.0) g/dL Hct (37-47) % MCV (80-100) fL MCH (25-34) pg MCHC (32-36) g/dL RDW Std Deviation (36.4-46.3) fL RDW Coeff of Nancy (11.5-14.5) % Plt Count (130-400) K/uL MPV (7.4-10.4) fL Immature Gran % (Auto) % Neut % (Auto) % Lymph % (Auto) % [place] % (Auto) % Eos % (Auto) % Baso % (Auto) % Immature Gran # (Auto) (0.00-0.02) K/uL Neut # (Auto) (1.4-6.5) K/uL Lymph # (Auto) (1.2-3.4) K/uL [place] # (Auto) (0.11-0.59) K/uL Eos # (Auto) (0-0.5) K/uL Baso # (Auto) (0-0.2) K/uL PT (9.0-12.0) Seconds INR (0.9-1.1) APTT (21.0-31.0) Seconds PTT Ratio Sodium (136-145) mmol/L Potassium (3.5-5.1) mmol/L Chloride (98-107) mmol/L Carbon Dioxide (21-32) mmol/L Anion Gap (3-11) BUN (7-18) mg/dl Creatinine (0.6-1.2) mg/dl Est Cr Clr Drug Dosing ml/min Est GFR ( Amer) Est GFR (Non-Af Amer) BUN/Creatinine Ratio (10-20) Glucose (70-99) mg/dl Lactate 1.4 (0.4-2.0) mmol/L Calcium (8.5-10.1) mg/dl Magnesium (1.8-2.4) mg/dl Total Bilirubin (0.2-1) mg/dl AST (15-37) U/L ALT (12-78) U/L Alkaline Phosphatase (45-117) U/L Total Protein (6.4-8.2) gm/dl Albumin (3.4-5.0) gm/dl Globulin (2.5-4.0) gm/dl Albumin/Globulin Ratio (0.9-2) Digoxin 0.9 (0.8-2.0) ng/ml Imaging Data Radiologist's Impression: XR chest 1V portable CLINICAL HISTORY: SEPSIS COMPARISON STUDY: Chest radiograph July 07, 2016. FINDINGS: Lung volumes are normal. Lungs are clear. There is no pneumothorax or pleural effusion. Moderate cardiomegaly is unchanged. Mediastinal contours are normal. There is no evidence for pulmonary edema. A skin fold projects over the right hemithorax. IMPRESSION: No acute cardiopulmonary findings. Moderate cardiomegaly. ACT 112: Negative or not required by law. Electronically signed by: Lamont Dean M.D. 07/28/2019 5:50 PM ECG Data Attestation: I personally reviewed and interpreted this ECG as follows: Indication: + other (Hypotension) Rate (beats per minute): 64 Rhythm: + atrial fibrillation ECG Intervals/blocks: no Left bundle branch block ECG ST segments: no ST elevation ECG Findings: + Q waves (Septal); no PVCs Blood Pressure Blood Pressure Findings: Low blood pressure Blood Pressure Disposition: further management by hospitalist BLANCHE Narrative I did evaluate the patient as noted above. Patient has significant bilateral lymphedema and cellulitis to her left foot. She was on Keflex with no improvement of her symptoms. She is mildly hypotensive here. I did give her a bolus of normal saline IV. After discussion with the ED pharmacist I did treat the patient with IV cefepime and daptomycin. This was given after blood cultures were obtained. IV access was established. I did place an order for continuous cardiac monitoring. The monitor showed atrial fibrillation with a rate of 76 bpm. I did order and personally review the patient's 12-lead EKG as described above. She has atrial fibrillation with septal Q waves. I did order and personally reviewed the images of the patient's chest x-ray as described above. There is moderate cardiomegaly without a pneumonia. I did order and review the patient's blood work as noted in the electronic medical record. Her white blood cell count is over 20,000. She has AK I with a creatinine of 1.6. Her last creatinine was 0.8. She has hyperkalemia. I did treat her with IV insulin and dextrose. She was also given albuterol nebulizer. She also had hypotension and was given a small bolus of normal saline IV. I did not wish to give her excessive amount of fluids out of concern for exacerbating her CHF. I did order a digoxin level because of her NOÉ. This is not elevated. I did discuss the test results with the patient. She does state that she has been urinating as she is on Lasix. She also takes potassium pills. I did discuss the case with the hospitalist and renal case manager. Impression & Plan Sepsis, Cellulitis of left leg, Lymphedema, NOÉ (acute kidney injury), Acute hyperkalemia Discharge Plan Visit Data Chief Complaint: Infection Stated Complaint: CELLULITIS IN BOTH LEGS IS OPEN AND DRAINING ED Provider: Mart Hoskins Discharge Problem: Sepsis, Cellulitis of left leg, Lymphedema, NOÉ (acute kidney injury), Acute hyperkalemia Forms Stand Alone Forms: My [facility] [employer] Prescriptions Prescriptions: No Action metoprolol succinate 100 mg tablet extended release 24 hr 100 mg PO DAILY Qty: 90 RF: 3 magnesium chloride 64 mg tablet,delayed release (DR/EC) 64 mg PO TID Qty: 270 RF: 3 acetaminophen 500 mg capsule 500 - 1,000 mg PO BID PRN (Reason: Pain) RF: 0 lovastatin 20 mg tablet 20 mg PO DAILY RF: 0 aspirin 81 mg tablet 81 mg PO DAILY RF: 0 carbidopa-levodopa 25-250 mg tablet 1 tab PO .[id number] RF: 0 ferrous sulfate 325 mg (65 mg iron) tablet 325 mg PO BID Qty: 180 RF: 0 gabapentin 600 mg tablet 600 mg PO TID Qty: 90 RF: 0 flaxseed oil 1,000 mg capsule 1,000 mg PO DAILY RF: 0 nystatin 100,000 unit/gram cream 1 appln topical DAILY PRN (Reason: BREAKOUTS) RF: 0 diltiazem HCl 360 mg capsule,extended release 24 hr 360 mg PO DAILY Qty: 30 RF: 0 warfarin 2.5 mg tablet 1.25 - 2.5 mg PO DAILY Qty: 150 RF: 0 furosemide 20 mg tablet 20 mg PO QAM Qty: 180 RF: 0 potassium chloride 20 mEq tablet extended release 20 meq PO TID Qty: 90 RF: 0 zxynszvtoyrh-rijospjz-jdbrdy 1 tab PO DAILY RF: 0 ibuprofen [Advil] 200 mg Tablet 200 - 400 mg PO Q6H PRN (Reason: Pain) RF: 0 furosemide 20 mg tablet 20 mg PO DAILY PRN (Reason: FLUID RETENSION) RF: 0 Centrum 18-400 mg-mcg Tablet 1 tab PO DAILY RF: 0 digoxin 125 mcg (0.125 mg) tablet 125 mcg PO [id number] RF: 0 Referrals Referrals: [facility] [Primary Care Provider] - Discharge Problem: Sepsis Qualifiers: Sepsis type: sepsis due to unspecified organism Sepsis acute organ dysfunction status: unspecified Qualified Code(s): A41.9 - Sepsis, unspecified organism
[2019-07-28 17:37] LABS: Basophils % (auto) 0.5 %; Eosinophils # (auto) 0.08 K/uL (0-0.5); Eosinophils % (auto) 0.4 %; Hematocrit (blood only) 41.4 % (37-47); Hemoglobin 13.7 g/dL (12.0-16.0); Immature Granulocytes # (auto) 0.16 K/uL (0.00-0.02); Immature Granulocytes % (auto) 0.8 %; Lymphocytes # (auto) 1.35 K/uL (1.2-3.4); Lymphocytes % (auto) 6.5 %; Mean Corpuscular Hemoglobin 29.9 pg (25-34); Mean Corpuscular Hgb Conc 33.1 g/dL (32-36); Mean Corpuscular Volume 90.4 fL (80-100); Mean Platelet Volume 10.5 fL (7.4-10.4); Monocytes # (auto) 1.67 K/uL (0.11-0.59); Neutrophils # (auto) 17.51 K/uL (1.4-6.5); Neutrophils % (auto) 83.8 %; Platelet Count 258 K/uL (130-400); RDW Coefficient of Variation 15.6 % (11.5-14.5); RDW Standard Deviation 51.6 fL (36.4-46.3); Red Blood Count 4.58 M/uL (4.2-5.4); White Blood Count 20.87 K/uL (4.8-10.8)
--- NOTE | 2019-07-28 17:51 | XRay Report ---
XR chest 1V portable CLINICAL HISTORY: SEPSIS COMPARISON STUDY: Chest radiograph July 07, 2016. FINDINGS: Lung volumes are normal. Lungs are clear. There is no pneumothorax or pleural effusion. Mod erate cardiomegaly is unchanged. Mediastinal contours are normal. There is no evidence for pulmonary edema. A skin fold projects over the right hemithorax. IMPRESSION: No acute cardiopulmonary findings. Moderate cardiomegaly. ACT 112: Negative or not required by law. Electronically signed by: Lamont Dean M.D. 07/28/2019 5:50 PM
[2019-07-28 17:55] LABS: Albumin Level 3.3 gm/dl (3.4-5.0); BUN Creatinine Ratio 28.5 (10-20); Bilirubin,Total 0.6 mg/dl (0.2-1); Calcium 9.8 mg/dl (8.5-10.1); Creatinine Clr Calc Pharmacy 26.2 ml/min; Est GFR (African American) 32.7; Est GFR (Non-African American) 28.2; Magnesium 2.4 mg/dl (1.8-2.4)
[2019-07-28 17:57] LABS: Albumin Globulin Ratio 0.8 (0.9-2); Globulin 4.2 gm/dl (2.5-4.0); Total Protein 7.5 gm/dl (6.4-8.2)
[2019-07-28 18:06] LABS: INR 3.1 (0.9-1.1); Partial Thromboplastin Ratio 1.7; Prothrombin Time 30.9 Seconds (9.0-12.0)
[2019-07-28 18:10] LABS: Partial Thromboplastin Time 48.4 Seconds (21.0-31.0)
[2019-07-28] MEDS ORDERED: ALBUTEROL 0.5% NEB SOLN 2.5 MG/0.5 ML VIAL NEB STA (18:29)
[2019-07-28] MEDS ORDERED: NovoLIN-R INSULIN PER UNIT CHARGE IV STA (18:29)
[2019-07-28] MEDS ORDERED: DEXTROSE 50% 50 ML SYRINGE IV STA (18:29)
[2019-07-28] MEDS ORDERED: CARBIDOPA/LEVODOPA 25-250 1 EA TAB PO STA (18:33)
--- NOTE | 2019-07-28 18:45 | History & Physical Report ---
Date of Service July 28, 2019 Assessment & Plan (1) Sepsis: 2nd to LLE cellulitis. appears to have sepsis-associated ATN/NOÉ as well. IVF, broad-spectrum IV antibiotics (rocephin and daptomycin), follow cultures. Wound care nurse consult requested for left ankle ulceration from recently p opped blister (venous stasis ulcer). (2) Cellulitis of left leg: severe. rocephin and daptomycin. if she fails to improve with above combo then add additional gram negative/pseudomonas coverage. follow blood cultures. (3) Lymphedema: at baseline. would benefit from lymphedema therapy, wraps, diuretics, etc. arterial circulation on exam seems intact with brisk cap refill. on chronic coumadin - INR is 3.1 - doubt DVT of legs. (4) Wound of left leg: consult wound care team in meantime - xeroform covered with sterile kerlix defer to wound care team ongoing dressings for left ankle ulceration (5) NOÉ (acute kidney injury): likely sepsis-associated ATN +/-lasix use. HOLD lasix for now. gentle hydration overnight. BMP in am. checked dig level and was acceptable. HOLD NSAIDs. (6) Acute hyperkalemia: 2nd to NOÉ. calcium gluconate 1gm x 1. was given d50 and insulin in ER. kayexalate 20gm x 1 now. repeat K [address] on telemetry. HOLD NSAIDs, lasix. (7) Restless leg syndrome: gabapentin and sinemet for such ?? renally-dose the gabapentin (cut dose by 50%). consider Fe studies while hospitalized. (8) Atrial fibrillation: cont digoxin hold CCB due to low-normal BP continue metoprolol xl but lower dose due to low-normal BP place on tele since INR is 3.1 and likely to rise with IV abx will place coumadin on hold tonight INR in am (9) Dyspnea: cxr without edema or other findings. pulmonary HTN? other? last echo was 2016 - consider repeat. doubt PEs given her chronic coumadin use for a.fib. (10) CAD (coronary artery disease): s/p heart cath 07/[address] Tinoco showing totally occluded RCA and disease extending into posterolateral and posterior descending arteries. no stents deployed. resume statin once off daptomycin. cont asa. cont BB. (11) DVT prophylaxis: INR 3.1 today will need PT/OT evals - lives in independent living at [facility] History of Present Illness Chief Complaint: left leg infection Primary Care Provider: Jadyn [facility] 83yo female with h/o a.fib on chronic coumadin, RLS, and obesity who presents with concern of left leg infection. About 1 week ago she had a fluid-filled blister on the medial aspect of her left ankle. Then, sometime on Saturday or thereabouts, the blister broke open and has been oozing clear fluid since. Early last week she also had a blister on the back of the RIGHT heel and this broke open. She received a course of keflex and took it as a preventive measure for the right heel issue. She has chronic edema of both legs going back several years. Her edema of late has been much worse. Denies any fevers, chills, or loss of appetite. Yesterday the left foot began to get very red. The redness then spread to the melendez. Denies any pain in the left foot or leg. She has been taking her lasix daily for the last 1-2 weeks but typically uses it just PRN. Allergies Allergy/AdvReac Type Severity Reaction Status Date / Time scopolamine Allergy Unknown UNKNOWN Verified 07/28/19 17:25 pseudoephedrine AdvReac Intermediate TACHYCARDIA Verified 07/28/19 17:25 quinine AdvReac Intermediate DIARRHEA Verified 07/28/19 17:25 ropinirole AdvReac Intermediate VERTIGO Verified 07/28/19 17:25 Home Medications Home Medications Medication Instructions Recorded Confirmed Type acetaminophen 500 mg capsule 500 - 1,000 mg PO BID PRN cap 10/27/18 07/28/19 History aspirin 81 mg tablet 81 mg PO DAILY tab 10/27/18 07/28/19 History carbidopa 25 mg-levodopa 250 mg 1 tab PO .8XSADAY tab 10/27/18 07/28/19 History tablet diltiazem HCl 360 mg capsule,24 360 mg PO DAILY #30 cap 10/27/18 07/28/19 History hr,extended release ferrous sulfate 325 mg (65 mg 325 mg PO BID #180 tab 10/27/18 07/28/19 History iron) tablet flaxseed oil 1,000 mg capsule 1,000 mg PO DAILY 10/27/18 07/28/19 History furosemide 20 mg tablet 20 mg PO QAM #180 tab 10/27/18 07/28/19 History gabapentin 600 mg tablet 600 mg PO TID #90 tab 10/27/18 07/28/19 History lovastatin 20 mg tablet 20 mg PO DAILY tab 10/27/18 07/28/19 History qdejmqrzikhg-czjkmhmg-pquiaf 1 tab PO DAILY 10/27/18 07/28/19 History nystatin 100,000 unit/gram topical 1 appln TOPICAL DAILY PRN gm 10/27/18 07/28/19 History cream potassium chloride 20 mEq 20 meq PO TID #90 tab 10/27/18 07/28/19 History tablet,extended release warfarin 2.5 mg tablet 1.25 - 2.5 mg PO DAILY #150 tab 10/27/18 07/28/19 History metoprolol succinate 100 mg 100 mg PO DAILY #90 tab 05/18/19 07/28/19 Rx tablet,extended release 24 hr magnesium chloride 64 mg 64 mg PO TID #270 tab 06/01/19 07/28/19 Rx (magnesium chloride) tablet,delayed release digoxin 125 mcg PO 3XWK 07/28/19 07/28/19 History furosemide 20 mg PO DAILY PRN 07/28/19 07/28/19 History ibuprofen [Advil] 200 - 400 mg PO Q6H PRN 07/28/19 07/28/19 History nybtiuvbeiil-ngcj-yadjt acid 1 tab PO DAILY 07/28/19 07/28/19 History [Centrum] Past Med/Surg History Medical History (Updated 07/28/19 @ 23:07 by Gerry Goodwin) Atrial fibrillation (Chronic 07/17/12) CAD (coronary artery disease) Cecal ulcer Restless leg syndrome (Chronic) Surgical History (Updated 07/28/19 @ 22:55 by Gerry Goodwin) H/O cataract extraction H/O right hemicolectomy S/P cholecystectomy S/p total knee replacement, bilateral Status post tonsillectomy and adenoidectomy Family History (Updated 07/28/19 @ 19:07 by Gerry Goodwin) Mother Breast cancer Father Heart disease Social History (Updated 07/28/19 @ 19:08 by Gerry Goodwin) Preferred Language: Greek Communication Ability: Effective Slat Grader Required: No Beliefs That Will Affect Care: None marital status: / Current Living Situation: Alone Current Living Situation Comment: [facility] - independent living current occupational status: retired Other Information That Helps Us Care for You: No other: worked in [employer]; 2 daughters Feels Safe at Home: Yes Safety Concerns: Feels Safe At This Time Smoking Status: Never smoker Hx Alcohol Use: No Hx Substance Use: No Review of Systems Constitutional: no fever, no chills, no anorexia and no weight gain Eyes: no worsening vision Ear, Nose, Mouth, Throat: no dysphagia no loss of taste or smell Respiratory: + dyspnea on exertion; no cough Cardiovascular: + orthopnea and + edema; no chest pain Gastrointestinal: no abdominal pain, no nausea, no vomiting and no diarrhea/loose stools Genitourinary: no dysuria Musculoskeletal: no joint pain Integumentary: as per Subjective / HPI and + erythema Neurologic: + loss of sensation (feet - chronic ) Psychiatric: no depression Endocrine: denies diabetes Hematologic / Lymphatic: no easy bleeding Physical Exam Constitutional: well developed, well nourished and + obese; no acute distress and no altered mental status seemed short of breath just sitting on bed and speaking Eyes: + anicteric sclerae and PERRL ENMT: external ear and nose normal, oropharynx normal Neck: trachea midline, no thyromegaly Respiratory: normal respiratory effort, lungs clear to auscultation Cardiovascular: Rate/Rhythm: regular rate and + irregularly irregular Heart Sounds: normal S1 and normal S2; no murmur Vessels: + JVD, posterior tibial pulses present and dorsalis pedis pulses present Extremities: + edema (severe, left leg - extending to knee; <1+ edema right leg) Gastrointestinal (Abdomen): normal bowel sounds, soft, nontender, no hepatosplenomegaly Musculoskeletal: no cyanosis or clubbing, extremities motor strength 5/5 Skin: severe venous stasis changes b/l legs with severe hyperpigmentation, dry/thickened skin on feet/shins, etc. baseline lymphedema b/l legs worse on left. severe cellulitis left foot, ankle and melendez extending to just below the left knee. warm erythema present. ulceration present - about 2cm in width and 3cm in height - over medial aspect of left ankle (medial malleolar area). oozing thin serous fluid. blister present on right melendez. erythematous macules tibial plateau region left leg. healed ulceration right achilles region. Neurologic: deep tendon reflexes 2+ bilaterally and moves all extremities Psychiatric: A+Ox3, euthymic affect Lymphatic: no cervical lymphadenopathy Results & Data Results & [facility] ([facility]) Vital Signs (Past 12 Hours) Vital Signs Temp Pulse Pulse Resp BP BP Pulse Ox 07/28/19 18:28 76 24 118/65 97 07/28/19 17:31 79 18 122/75 99 07/28/19 17:29 99 07/28/19 15:27 36.4 C L 75 18 91/51 L 96 Laboratory Results Laboratory Results - last 24 hr 07/28/19 07/28/19 07/28/19 17:11 17:11 17:11 WBC 20.87 H RBC 4.58 Hgb 13.7 Hct 41.4 MCV 90.4 MCH 29.9 MCHC 33.1 RDW Std Deviation 51.6 H RDW Coeff of Nancy 15.6 H Plt Count 258 MPV 10.5 H Immature Gran % (Auto) 0.8 Neut % (Auto) 83.8 Lymph % (Auto) 6.5 Haakon % (Auto) 8.0 Eos % (Auto) 0.4 Baso % (Auto) 0.5 Immature Gran # (Auto) 0.16 H Neut # (Auto) 17.51 H Lymph # (Auto) 1.35 Haakon # (Auto) 1.67 H Eos # (Auto) 0.08 Baso # (Auto) 0.10 PT 30.9 H INR 3.1 H APTT 48.4 H* PTT Ratio 1.7 Sodium 136 Potassium 6.0 H Chloride 108 H Carbon Dioxide 24 Anion Gap 4.0 BUN 47 H Creatinine 1.64 H Est Cr Clr Drug Dosing 26.2 Est GFR ( Amer) 32.7 Est GFR (Non-Af Amer) 28.2 BUN/Creatinine Ratio 28.5 H Glucose 106 H Lactate Calcium 9.8 Magnesium 2.4 Total Bilirubin 0.6 AST 26 ALT 8 L Alkaline Phosphatase 108 Total Protein 7.5 Albumin 3.3 L Globulin 4.2 H Albumin/Globulin Ratio 0.8 L Digoxin 07/28/19 07/28/19 17:11 17:11 WBC RBC Hgb Hct MCV MCH MCHC RDW Std Deviation RDW Coeff of Nancy Plt Count MPV Immature Gran % (Auto) Neut % (Auto) Lymph % (Auto) Haakon % (Auto) Eos % (Auto) Baso % (Auto) Immature Gran # (Auto) Neut # (Auto) Lymph # (Auto) Haakon # (Auto) Eos # (Auto) Baso # (Auto) PT INR APTT PTT Ratio Sodium Potassium Chloride Carbon Dioxide Anion Gap BUN Creatinine Est Cr Clr Drug Dosing Est GFR ( Amer) Est GFR (Non-Af Amer) BUN/Creatinine Ratio Glucose Lactate 1.4 Calcium Magnesium Total Bilirubin AST ALT Alkaline Phosphatase Total Protein Albumin Globulin Albumin/Globulin Ratio Digoxin 0.9 Diagnostic Findings 1. cxr - no infiltrates. 2. EKG - my reading - a.fib, q waves V1/V2, NS ST Changes III, AVF. Code Status & VTE Plan Code Status full VTE Prophylaxis Plan VTE Prophylaxis will be ordered: Yes PG Care Time/CCT Total # of Minutes Spent Total Time Spent with Patient: Total time spent is greater than 50% in coordination of care (as documented) at patient's floor/unit and/or counseling patient: Coding Level of Care Code 77625 Initial Inpt Care Lvl 3 Diagnoses Sepsis A41.9 Sepsis acute organ dysfunction status: unspecified Sepsis type: sepsis due to unspecified organism Cellulitis of left leg L03.116 Lymphedema I89.0 Wound of left leg S81.802A Encounter type: initial encounter NOÉ (acute kidney injury) N17.9 Acute hyperkalemia E87.5 Restless leg syndrome G25.81 Atrial fibrillation I48.21 Atrial fibrillation type: permanent Dyspnea R06.09 Dyspnea type: other forms of dyspnea CAD (coronary artery disease) I25.10 Coronary Disease-Associated Artery/Lesion type: [place] artery [place] vs. transplanted heart: [place] heart Associated angina: without angina DVT prophylaxis Z29.9 (1) Sepsis Sepsis acute organ dysfunction status: unspecified Sepsis type: sepsis due to unspecified organism Qualified Code(s): A41.9 - Sepsis, unspecified organism (2) Atrial fibrillation Atrial fibrillation type: permanent Qualified Code(s): I48.21 - Permanent atrial fibrillation (3) Dyspnea Dyspnea type: other forms of dyspnea Qualified Code(s): R06.09 - Other forms of dyspnea (4) Wound of left leg Encounter type: initial encounter Qualified Code(s): S81.802A - Unspecified open wound, left lower leg, initial encounter (5) CAD (coronary artery disease) Coronary Disease-Associated Artery/Lesion type: [place] artery [place] vs. transplanted heart: [place] heart Associated angina: without angina Qualified Code(s): I25.10 - Atherosclerotic heart disease of [place] coronary artery without angina pectoris
[2019-07-28] MEDS ORDERED: SODIUM POLYSTYRENE SULFONATE 15G/60ML SUSP PO STA (19:31)
[2019-07-28] MEDS ORDERED: ONDANSETRON INJ 2 MG/ML 2 ML VIAL IV PRN (20:44)
[2019-07-28] MEDS ORDERED: ACETAMINOPHEN 500 MG TAB PO PRN (20:44)
[2019-07-28] MEDS ORDERED: SODIUM CHLORIDE 0.9% 1000ML 1,000 ML IV SCH (20:44)
[2019-07-28] MEDS ORDERED: DAPTOMYCIN CONSULT ACTIVE PRN (20:44)
[2019-07-28] MEDS ORDERED: CALCIUM GLUCONATE 10% 1,000 MG in SODIUM CHLORIDE 0.9% 50 ML IV STA (21:00)
[2019-07-28] MEDS: CARBIDOPA/LEVODOPA 25-250 1 EA TAB PO SCH ×2 (21:48→23:34)
[2019-07-28] MEDS: GABAPENTIN 300 MG CAP PO SCH (21:49)
[2019-07-28] MEDS: METOPROLOL TARTRATE 25 MG TAB PO SCH (21:49)
[2019-07-29] MEDS: CARBIDOPA/LEVODOPA 25-250 1 EA TAB PO SCH ×7 (02:39→21:00)
[2019-07-29] MEDS ORDERED: DIGOXIN 0.125 MG TAB PO SCH (04:45)
--- NOTE | 2019-07-29 04:50 | Communication Note ---
Date of Service: July 29, 2019 Notified by nursing that pt's HR was trending up to the 110s-120s, sustained. BP of 108/62. Has Hx of a fib. Per admission note, should be on reduced lopressor PO dose of 25mg BID (one dose given overnight) as well as home digoxin for her a fib. Home digoxin was ordered and one dose given stat. Digoxin level was noted to be within normal limits. Resident Activity Tracking Resident Involvement: Bung Remover Coverage Note Care Provided: Adult Hospital Medicine
[2019-07-29 06:59] LABS: Hematocrit (blood only) 37.5 % (37-47); Hemoglobin 11.7 g/dL (12.0-16.0); Mean Corpuscular Hemoglobin 28.5 pg (25-34); Mean Corpuscular Hgb Conc 31.2 g/dL (32-36); Mean Corpuscular Volume 91.5 fL (80-100); Mean Platelet Volume 10.6 fL (7.4-10.4); Platelet Count 250 K/uL (130-400); RDW Coefficient of Variation 15.6 % (11.5-14.5); RDW Standard Deviation 52.6 fL (36.4-46.3); White Blood Count 18.55 K/uL (4.8-10.8)
[2019-07-29 07:03] LABS: INR 2.9 (0.9-1.1); Prothrombin Time 29.2 Seconds (9.0-12.0)
[2019-07-29] MEDS ORDERED: MICONAZOLE NITRATE POWDER 43 GM EXT PRN (07:11)
[2019-07-29 07:20] LABS: BUN Creatinine Ratio 32.8 (10-20); Calcium 9.1 mg/dl (8.5-10.1); Creatinine Clr Calc Pharmacy 37.5 ml/min; Est GFR (African American) 50.2; Est GFR (Non-African American) 43.4; Potassium 3.9 mmol/L (3.5-5.1)
[2019-07-29] MEDS: GABAPENTIN 300 MG CAP PO SCH ×3 (08:43→21:00)
[2019-07-29] MEDS: METOPROLOL TARTRATE 25 MG TAB PO SCH ×2 (08:44→20:59)
[2019-07-29] MEDS: LACTOBACILLUS ACIDOPHILUS (FLORANEX) TAB PO SCH ×3 (08:44→16:14)
[2019-07-29] MEDS: ASPIRIN 81 MG ECTAB PO SCH (08:44)
[2019-07-29] MEDS: CEROVITE ADV FORMULA TAB PO SCH (08:44)
[2019-07-29] MEDS: cefTRIAXone SODIUM 2,000 MG in DEXTROSE 5% 50 ML IV SCH (08:45)
[2019-07-29] MEDS ORDERED: LOVASTATIN 20 MG TAB PO SCH (09:00)
[2019-07-29] MEDS ORDERED: MULTIVITAMIN MINERALS LUTEIN PO SCH (09:00)
--- NOTE | 2019-07-29 11:29 | Hospitalist Progress Note ---
Date of Service July 29, 2019 Assessment & Plan (1) Wound of left leg: Diane is an 83yo F with a PMhx of Afib, lymphedema, and CAD who presented with with worsening LLE erythema and swelling which did not improve with keflex and who has been admitted for LLE cellulitis LLE Cellulitis w/ venous stasis ulcer - Continue Rocephin/Dapto. 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 CAD (coronary artery disease): - s/p heart cath 07/[address] Tinoco showing totally occluded RCA and disease extending into posterolateral and posterior descending arteries. no stents deployed. - resume statin once off daptomycin. - Continue aspirin - Continue metoprolol as above DVT prophylaxis: - Restart warfarin tomorrow - INR 2.9 today, one dose held for supratherapeutic INR to 3.1 PT/OT pending Diet: FUJIAN HAIYUAN Dispo: Med/Tele (2) CAD (coronary artery disease): (3) Dyspnea: (4) S/p total knee replacement, bilateral: (5) Sepsis: (6) Cellulitis of left leg: (7) Lymphedema: (8) NOÉ (acute kidney injury): (9) DVT prophylaxis: Admission and Anticipated Discharge Date Admission Date: July 28, 2019 Supervising Physician Co-Signing Physician Notes Patient seen and examined with PGY-2 Dr. Carcamo. Agree with history, exam findings, assessment and plan of care as outlined by Dr. Carcamo. in brief, Ms. Zhao is an 83 year old female, patient of Dr. Reynaga, with history of CAD, afib, lymphedema, restless leg admitted with worsening cellulitis of the left leg despite outpatient treatment with keflex. Reviewed ED course, labs and imaging. Today, her leg does feel a bit better. Reports that there is less redness, although there is some weeping from the legs. VS, labs and nursing notes reviewed. ++lymphedema and weeping from the bilateral legs. Left leg with erythema which is receded a bit from the pen tj that was made on admission. Skin has a woody texture. Heart with irregularly irregular rhythm. 1. sepsis secondary to cellulitis with associated NOÉ (see details below). 2. left lower extremity cellulitis. improving. Leukocytosis downtrending (20-->18). Continue with rocephin and dapto. Cultures pending. 3. lymphedema. contributing factor to cellulitis. wound care consulted. tylenol for pain. 4. NOÉ/hyperkalemia. NOÉ improved. Hyperkalemia resolved. 5. Afib. resumed dig. continue home metoprolol. If rates increase, will plan to resume home diltiazem. AC with coumadin. INR today 2.9. Will continue with home coumadin dosing. 6. restless leg. continue home gabapentin and sinemet. Dispo: pending clinical improvement. Subjective "Lea" is seen at the bedside today. She reports she feels overall well, but her feet ache since being wrapped. Denies fever, chills, sweats, shortness of breath, and chest pain. She reports her feet feel heavy, not sure if she feels weak this morning. Would like some tylenol which helps her back and leg pain. No other questions or concerns at time of visit. Review of Systems Review of Systems: Constitutional: Denies fever, chills, malaise Eyes: Denies double vision, vision change ENT: Denies ear pain, sore throat, sinus pain Cardiovascular: Denies chest pain, chest pressure, palpitations. Endorses bilateral extremity swelling. Respiratory: Denies shortness of breath, cough, sputum production, difficulty breathing Gastrointestinal: Denies abdominal pain, nausea, vomiting, constipation, diarrhea Genitourinary: Denies dysuria Musculoskeletal: Endorses chronic back pain. Endorses bilateral lower leg ache since being wrapped. Integumentary: Endorses bilater leg swelling/erythema. Neurological: Denies headache, numbness, tingling Physical Exam Physical Exam: General: A&Ox3. NAD. Cooperative. HEENT: Atraumatic, normocephalic. PERLAA. Pulm: CTAB A&P. -wheezes, -rales, -rhonchi. Symmetrical chest rise. No increase work of breathing. No respiratory distress. Cardiac: irregularly irregular , -mrg. Radial pulses intact and symmetrical. Abdominal: Nontender, nondistended, soft. BS present. Extremity: Bilateral lower extremity edema. LLE swollen with pitting edema, violacious erythema receding from marked lines. PT pulse intact bilaterally. Results & Data Results & Data ([facility]) Vital Signs (Past 12 Hours) Vital Signs Temp Pulse Pulse Resp BP BP Pulse Ox 07/29/19 07:20 36.5 C 107 H 20 105/67 96 07/29/19 05:12 125 H 07/29/19 04:00 36.7 C 115 H 18 108/67 94 07/29/19 00:27 100 H Resident Activity Tracking Resident Involvement: Resident Care Provided Care Provided: Adult Hospital Medicine (1) CAD (coronary artery disease) Associated angina: without angina Coronary Disease-Associated Artery/Lesion type: [place] artery [place] vs. transplanted heart: [place] heart Qualified C ode(s): I25.10 - Atherosclerotic heart disease of [place] coronary artery without angina pectoris (2) Dyspnea Dyspnea type: other forms of dyspnea Qualified Code(s): R06.09 - Other forms of dyspnea (3) Sepsis Sepsis acute organ dysfunction status: unspecified Sepsis type: sepsis due to unspecified organism Qualified Code(s): A41.9 - Sepsis, unspecified organism (4) Wound of left leg Encounter type: initial encounter Qualified Code(s): S81.802A - Unspecified open wound, left lower leg, initial encounter
[2019-07-29] MEDS: ACETAMINOPHEN 325 MG TAB PO PRN (12:28)
--- NOTE | 2019-07-29 15:19 | Electrocardiogram Report ---
Test Reason : Blood Pressure : / mmHG Vent. Rate : 064 BPM Atrial Rate : 079 BPM P-R Int : 000 ms QRS Dur : 082 ms QT Int : 352 ms P-R-T Axes : 000 003 -16 degrees QTc Int : 363 ms Atrial fibrillation T wave abnormality, consider inferior ischemia Abnormal ECG When compared with ECG of 04-JUL-2016 14:18, Vent. rate has decreased BY 35 BPM Nonspecific T wave abnormality no longer evident in Lateral leads QT has shortened Confirmed by Fausto Posadas ([id number]) on 07/29/2019 3:18:44 PM Referred By: REFERRED SELF Confirmed By:Juan David Posadas
[2019-07-29] MEDS ORDERED: WARFARIN SOD 1.25 MG TAB PO SCH (16:00)
[2019-07-29] MEDS ORDERED: DAPTOmycin 500 MG VIAL IV SCH (18:00)
[2019-07-29] MEDS: DAPTOmycin 275 MG in SYRINGE 0 ML IV SCH (18:02)
[2019-07-30] MEDS: CARBIDOPA/LEVODOPA 25-250 1 EA TAB PO SCH ×8 (00:13→20:37)
[2019-07-30] MEDS: ACETAMINOPHEN 325 MG TAB PO PRN (00:14)
[2019-07-30 06:47] LABS: Prothrombin Time 20.5 Seconds (9.0-12.0)
[2019-07-30 08:14] LABS: Basophils # (auto) 0.11 K/uL (0-0.2); Basophils % (auto) 0.7 %; Eosinophils # (auto) 0.06 K/uL (0-0.5); Eosinophils % (auto) 0.4 %; Hematocrit (blood only) 39.1 % (37-47); Hemoglobin 12.9 g/dL (12.0-16.0); Immature Granulocytes # (auto) 0.17 K/uL (0.00-0.02); Immature Granulocytes % (auto) 1.1 %; Lymphocytes # (auto) 1.59 K/uL (1.2-3.4); Lymphocytes % (auto) 9.9 %; Mean Corpuscular Hemoglobin 29.4 pg (25-34); Mean Corpuscular Volume 89.1 fL (80-100); Mean Platelet Volume 10.6 fL (7.4-10.4); Monocytes # (auto) 1.54 K/uL (0.11-0.59); Monocytes % (auto) 9.6 %; Neutrophils # (auto) 12.55 K/uL (1.4-6.5); Neutrophils % (auto) 78.3 %; Platelet Count 269 K/uL (130-400); RDW Coefficient of Variation 15.3 % (11.5-14.5); Red Blood Count 4.39 M/uL (4.2-5.4); White Blood Count 16.02 K/uL (4.8-10.8)
[2019-07-30 08:16] LABS: BUN Creatinine Ratio 30.6 (10-20); Calcium 9.5 mg/dl (8.5-10.1); Creatinine Clr Calc Pharmacy 56.7 ml/min; Est GFR (African American) 82.9; Est GFR (Non-African American) 71.5; Potassium 3.7 mmol/L (3.5-5.1)
[2019-07-30] MEDS: METOPROLOL SUCC 50MG EXT REL TAB PO SCH (08:56)
[2019-07-30] MEDS: GABAPENTIN 300 MG CAP PO SCH ×3 (08:57→20:36)
[2019-07-30] MEDS: LACTOBACILLUS ACIDOPHILUS (FLORANEX) TAB PO SCH ×3 (08:57→16:20)
[2019-07-30] MEDS: CEROVITE ADV FORMULA TAB PO SCH (08:57)
[2019-07-30] MEDS: ASPIRIN 81 MG ECTAB PO SCH (08:57)
[2019-07-30] MEDS: cefTRIAXone SODIUM 2,000 MG in DEXTROSE 5% 50 ML IV SCH (08:58)
[2019-07-30] MEDS ORDERED: FUROSEMIDE 20 MG in SYRINGE 0 ML IV SCH (09:00)
--- NOTE | 2019-07-30 11:20 | Hospitalist Progress Note ---
Date of Service July 30, 2019 Assessment & Plan (1) Wound of left leg: Diane is an 83yo F with a PMhx of Afib, lymphedema, and CAD who presented with with worsening LLE erythema and swelling which did not improve with keflex and who has been admitted for LLE cellulitis LLE Cellulitis w/ venous stasis ulcer - Narrow abx to doxycycline 100mg BID x10 day course - Leukocytosis downtrending today - CBC qam - Wound care, wrap legs, keep ulcers dressed - BC pending, ngtd Baseline lymphedema - Continue wraps - Lasix 20mg IV daily - PT pulses intact bilaterally NOÉ (acute kidney injury), resolved - Resolved, Cr normalized - Lasix resumed - BMP qam Acute hyperkalemia: - 2/2 hyperkalemia, resolved Restless leg syndrome: - Continue ENVIRONMENTAL AID gabapentin - Continue ENVIRONMENTAL AID sinemet Atrial fibrillation: - Continue ENVIRONMENTAL AID digoxin - ENVIRONMENTAL AID MTP Succinate 100mg resumed - Resume dilt tomorrow - INR/Warfarin as below Dyspnea: - Resolved - CXR without edema or other findings. CAD (coronary artery disease): - s/p heart cath 07/[address] Tinoco showing totally occluded RCA and disease extending into posterolateral and posterior descending arteries. no stents deployed. - Resume statin tomorrow - Continue aspirin - Continue metoprolol as above DVT prophylaxis: - INR 2.0 today - Warfarin restarted PT/OT pending Diet: NetScaler Dispo: Med/Tele Admission and Anticipated Discharge Date Admission Date: July 28, 2019 Supervising Physician Co-Signing Physician Notes Patient seen and examined with PGY-2 Dr. Carcamo. Agree with history, exam findings, assessment and plan of care as outlined by Dr. Carcamo. in brief, Ms. Zhao is an 83 year old female, patient of Dr. Reynaga, with history of CAD, afib, lymphedema, restless leg admitted with worsening cellulitis of the left leg despite outpatient treatment with keflex. Reviewed ED course, labs and imaging. Today, her legs are feeling better. She is eager to go home, but thinks that she would like to continue with another day of lasix to try to help with the swelling in the legs as well. VS, labs and nursing notes reviewed. ++lymphedema and weeping from the bilateral legs. Left leg with erythema which is receded a bit from the pen tj that was made on admission. Skin has a woody texture. 1. sepsis secondary to cellulitis with associated NOÉ (see details below). 2. left lower extremity cellulitis. improving. Leukocytosis downtrending (20-->18-->16). Narrow to doxy. Blood cultures without growth x 24 hours. 3. lymphedema. contributing factor to cellulitis. wound care consulted. tylenol for pain. Lasix today and tomorrow. 4. NOÉ/hyperkalemia. NOÉ and hyperkalemia resolved. 5. Afib. Continue dig, restarted metoprololtoday. If rates increase, will plan to resume home diltiazem. AC with coumadin. INR today 2.0. Will continue with home coumadin dosing. 6. restless leg. continue home gabapentin and sinemet. Dispo: pending clinical improvement. Likely discharge tomorrow. Subjective Lea is seen at the bedside this morning. She is sitting up and eating breakfast, comfortable in no acute distress. She reports she feels better, and the pain in her legs is much better although the swelling has not changed much. She denies fever, chills, sweats, shortness of breath, chest pain, chest pressure overnight. She request that her care be discussed with both of her daughters via phone whose numbers are listed below. She reports she feels near ready to go home, but given that the swelling in her legs has not changed she would feel safer being discharged tomorrow after a full day of having Lasix resumed. No other acute questions or concerns. Sherrell Zhao (daughter, lives in [place]): [phone] Blessing Muse(daughter, lives in [place]): [phone] Review of Systems Review of Systems: Constitutional: Denies fever, chills, malaise Eyes: Denies double vision, vision change ENT: Denies ear pain, sore throat, sinus pain Cardiovascular: Denies chest pain, chest pressure, palpitations. Endorses bilateral extremity swelling. Respiratory: Denies shortness of breath, cough, sputum production, difficulty breathing Gastrointestinal: Denies abdominal pain, nausea, vomiting, constipation, diarrhea Genitourinary: Denies dysuria Musculoskeletal: Endorses chronic back pain. Endorses bilateral lower leg after wrapping greatly improved today compared to yesterday Integumentary: Endorses bilateral leg swelling/erythema. Neurological: Denies headache, numbness, tingling Physical Exam Physical Exam: General: A&Ox3. NAD. Cooperative. HEENT: Atraumatic, normocephalic. PERLAA. Pulm: CTAB A&P. -wheezes, -rales, -rhonchi. Symmetrical chest rise. No increase work of breathing. No respiratory distress. Cardiac: irregularly irregular , -mrg. Radial pulses intact and symmetrical. Abdominal: Nontender, nondistended, soft. BS present. Extremity: Bilateral lower extremity edema. LLE swollen with pitting edema, with improving erythema. PT pulse intact bilaterally. Results & Data Results & Data ([facility]) Vital Signs (Past 12 Hours) Vital Signs Temp Pulse Resp BP Pulse Ox 07/30/19 07:21 36.7 C 82 18 104/72 95 07/30/19 03:20 36.5 C 121 H 20 127/86 95 07/30/19 00:00 36.7 C 118 H 20 129/73 95 Resident Activity Tracking Resident Involvement: Resident Care Provided Care Provided: Adult Hospital Medicine (1) Wound of left leg Encounter type: initial encounter Qualified Code(s): S81.802A - Unspecified open wound, left lower leg, initial encounter
[2019-07-30] MEDS ORDERED: DAPTOmycin 275 MG in SYRINGE 0 ML IV SCH (16:00)
[2019-07-30] MEDS ORDERED: WARFARIN SOD 2.5 MG TAB PO SCH (16:00)
[2019-07-30] MEDS ORDERED: dilTIAZem ER 180 MG CAPCR PO ONE (18:00)
[2019-07-30] MEDS: DAPTOmycin 275 MG in SYRINGE 0 ML IV SCH (18:17)
[2019-07-31] MEDS: CARBIDOPA/LEVODOPA 25-250 1 EA TAB PO SCH ×5 (00:12→11:30)
[2019-07-31] MEDS: ACETAMINOPHEN 325 MG TAB PO PRN ×2 (00:16→09:27)
[2019-07-31 06:00] LABS: Basophils # (auto) 0.18 K/uL (0-0.2); Basophils % (auto) 1.2 %; Eosinophils # (auto) 0.13 K/uL (0-0.5); Eosinophils % (auto) 0.9 %; Hematocrit (blood only) 38.4 % (37-47); Hemoglobin 12.6 g/dL (12.0-16.0); Immature Granulocytes # (auto) 0.52 K/uL (0.00-0.02); Immature Granulocytes % (auto) 3.6 %; Lymphocytes # (auto) 1.69 K/uL (1.2-3.4); Lymphocytes % (auto) 11.6 %; Mean Corpuscular Hgb Conc 32.8 g/dL (32-36); Mean Corpuscular Volume 88.3 fL (80-100); Mean Platelet Volume 9.9 fL (7.4-10.4); Neutrophils # (auto) 10.45 K/uL (1.4-6.5); Neutrophils % (auto) 71.7 %; Platelet Count 280 K/uL (130-400); RDW Coefficient of Variation 15.1 % (11.5-14.5); RDW Standard Deviation 48.8 fL (36.4-46.3); Red Blood Count 4.35 M/uL (4.2-5.4); White Blood Count 14.57 K/uL (4.8-10.8)
[2019-07-31 06:14] LABS: INR 1.7 (0.9-1.1); Prothrombin Time 17.1 Seconds (9.0-12.0)
[2019-07-31 06:34] LABS: BUN Creatinine Ratio 35.7 (10-20); Calcium 9.2 mg/dl (8.5-10.1); Creatinine Clr Calc Pharmacy 70.7 ml/min; Est GFR (African American) 95.8; Est GFR (Non-African American) 82.7; Potassium 3.6 mmol/L (3.5-5.1)
[2019-07-31] MEDS: LACTOBACILLUS ACIDOPHILUS (FLORANEX) TAB PO SCH ×2 (07:45→11:31)
[2019-07-31] MEDS: METOPROLOL SUCC 50MG EXT REL TAB PO SCH (08:38)
[2019-07-31] MEDS: GABAPENTIN 300 MG CAP PO SCH ×2 (08:38→13:13)
[2019-07-31] MEDS: CEROVITE ADV FORMULA TAB PO SCH (08:39)
[2019-07-31] MEDS: ASPIRIN 81 MG ECTAB PO SCH (08:39)
[2019-07-31] MEDS ORDERED: FUROSEMIDE 30 MG in SYRINGE 0 ML IV SCH (09:00)
[2019-07-31] MEDS ORDERED: dilTIAZem ER 180 MG CAPCR PO SCH (09:00)
[2019-07-31] MEDS ORDERED: DOXYCYCLINE HYCLATE 100 MG CAP PO SCH (11:00)
--- NOTE | 2019-07-31 11:54 | Discharge Summary ---
Date of Service July 31, 2019 Admission HPI Per Admitting Provider 83yo female with h/o a.fib on chronic coumadin, RLS, and obesity who presents with concern of left leg infection. About 1 week ago she had a fluid-filled blister on the medial aspect of her left ankle. Then, sometime on Saturday or thereabouts, the blister broke open and has been oozing clear fluid since. Early last week she also had a blister on the back of the RIGHT heel and this broke open. She received a course of keflex and took it as a preventive measure for the right heel issue. She has chronic edema of both legs going back several years. Her edema of late has been much worse. Denies any fevers, chills, or loss of appetite. Yesterday the left foot began to get very red. The redness then spread to the melendez. Denies any pain in the left foot or leg. She has been taking her lasix daily for the last 1-2 weeks but typically uses it just PRN. Admission Exam Per Admitting Provider Constitutional: Denies fever, chills, malaise Eyes: Denies double vision, vision change ENT: Denies ear pain, sore throat, sinus pain Cardiovascular: Denies chest pain, chest pressure, palpitations. Endorses bilateral extremity swelling. Respiratory: Denies shortness of breath, cough, sputum production, difficulty breathing Gastrointestinal: Denies abdominal pain, nausea, vomiting, constipation, diarrhea Genitourinary: Denies dysuria. Musculoskeletal: Endorses chronic back pain. Bilateral leg swelling slowly improving. Integumentary: Endorses bilateral leg swelling. Denies pain Neurological: Denies headache, numbness, tingling Principal Diagnosis Cellulitis, NOÉ Discharge Exam General: A&Ox3. NAD. Cooperative. HEENT: Atraumatic, normocephalic. PERLAA. Pulm: CTAB A&P. -wheezes, -rales, -rhonchi. Symmetrical chest rise. No increase work of breathing. No respiratory distress. Cardiac: irregularly irregular , -mrg. Radial pulses intact and symmetrical. Abdominal: Nontender, nondistended, soft. BS present. Extremity: Bilateral lower extremity edema. LLE swollen with pitting edema, greatly improved erythema today receding from marked line. PT pulse intact bilaterally. 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 To Do As Outpatient: 1. Recheck PT/INR on 08/01 2. Strength/Conditioning PT and reassessment 3. Reevaluation, assess that HR has returned to baseline with diltiazem/MTP resumed as below 4. Followup at lymphedema clinic 5. Followup at wound care clinic 6. Complete abx course with doxycycline Left lower extremity cellulitis with venous stasis ulcer On admission really was found to have bilateral lymphedema with left lower extremity weeping wounds and overlying erythema and warmth consistent with cellulitis. She was treated with 1 dose of cefepime and then converted to ceftriaxone with daptomycin following transfer to inpatient service. She clinically improved and was converted to doxycycline with continued improvement in her erythema. Her Lasix was initially held due to NOÉ as below, and then resumed. Her lymphedema was treated as below, but also improved. At time of discharge she was not having any pain, warmth, or erythema of her lower extremities although there was residual lymphedema being treated with wraps and elevation. She was discharged to complete a total 10-day course of doxycycline as outpatient. Blood cultures at admission showed no growth. Chronic lymphedema Diane has a history of chronic lymphedema. She was treated with compression wraps, 3x/daily 20 minute elevations of her leg and antibiotics as above with steady improvement. Patient reprots her lympedema worsens with salt intake, and admitted that she does enjoy salty snacks like chips. Discussed the effect of her salt intake on lymphedema, and recommending discussing her diet with the [facility] staff to see if she benefits from a <2g daily sodium intake. She was set up with the lymphedema clinic at discharge and continued on lasix daily. NOÉ (acute kidney injury) Lea presented for LLE cellulitis and lymphedema as above and was noted to have an elevated creatinine of 1.6 from a baseline of less than one. She was treated as above, her lasix was held, and was treated with gentle IV fluids. Her creatinine downtrended and normalized, and lasix was resumed. She did not experience any hyperkalemia or repeat NOÉ during admission. Acute hyperkalemia: Diane had hyperkalemia in the setting of NOÉ on admission. She did not experience any cardiac symptoms during admission, and her hyperkalemia resolved with fluids and treatment as above. Atrial fibrillation: Diane has a history of afib on warfarin anticoagulation. Her metoprolol was dose reduced and diltiazem was held due to systolic hypotension on admission. She was continued on digixon which had therapeutic levels on admission. Her metoprolol was resumed at full dose on hospital day #2, and her diltiazem was started at 180q HS then resumed at the normal 360mg daily as her blood pressure improved. While her diltiazem was held her heart rate uptrended to a peak of ~130, and downtrended without any episodes of hemodynamic instability once diltiazem was resumed. Her warfarin was continued during admission. Her INR was therapeutic during admission, but dipped to 1.7 on day of admission. Her warfarin was resumed, and she was discharged to the [facility] for rehab and PT/INR followup. 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 CAD (coronary artery disease): Lea has a history of CAD s/p heart cath 07/[address] Tinoco showing totally occluded RCA and disease extending into posterolateral and posterior descending arteries without PCI. She was continued on her aspirin and metoprolol as above, and her statin was resumed on discharge. DVT prophylaxis: Warfarin as above Total Time Total Time Spent Total Time Spent (In Minutes): See Attending Documentation Discharge Plan Discharge Items Patient Disposition: Personal Senior Living Reason For Visit: LLE CELLULITIS,LLE ULCER,HYPERKALEMIA Discharge Diagnosis: Cellulitis with underlying lymphedema Activity: Resume your previous activity Non-emergency contact: Primary Care Provider Call non-emergency contact if: you have any medication questions, your symptoms worsen, your pain is not controlled, your pain is worsening, your pain is unusual for you, your pain is concerning for you and you have a fever Follow-up/Referrals: [facility] [Provider Group] - 08/06/19 1:40 pm (Please, follow up at [facility] on August 05 at 1:40 pm. *The center is located at [address] in [place]. If you need to change this appointment, call the center at [phone].) [facility] [Primary Care Provider] - Diet: Low Sodium (2gm) Addtl Attending Provider Instructions: You are seen in the hospital for leg swelling and an infection of your legs. You were treated with antibiotics. You have been continued on antibiotics as below. Your labs in the emergency department showed high levels of potassium and a mild kidney injury, these had resolved and return to normal by time of discharge. You have had appointments made as below. You have been prescribed an antibiotic, doxycycline. Please take doxycycline 100 mg twice daily for 7 days to complete a total course of 10 days of antibiotics. Doxycycline can be irritating to the stomach, please make sure to take this medication with food and a full glass of water. Doxycycline may make your skin sensitive to sunlight and extra sensitive to sunburn. Please avoid prolonged direct sun exposure while taking this medication. You can be allergic to any medication, if you develop any signs of allergy including rash, wheezing, shortness of breath, difficulty breathing, swelling in the extremities/face/lips/neck, or other new or concerning symptoms please stop taking this medication immediately and contact the [facility] services, or call 911 for transport to an evaluation in the emergency department if you are very concerned. You were found to have chronic lymphedema, swelling in both of your legs. Please elevate your legs for least 20 minutes 3 times a day. In addition salt will cause your swelling to suddenly worsen. Please maintain a low-salt diet with less than 2 g of salt intake daily. An appointment is being set up for you with the lymphedema clinic as below. An appointment is being made for you with the lymphedema clinic by our nurse navigator. You should receive a call to confirm your appointment. If you do not receive a call within 48 hours of discharge, please contact the navigator by calling the [facility] mainline at [phone]. An appointment is being made for you with the wound care clinic to follow the blisters/ulcers on your legs. You should receive a call to confirm your appointment. If you do not receive a call within 48 hours of discharge, please contact the navigator by calling the [facility] mainline at [phone]. An appointment is being made for you with your primary care provider at the [facility]. Should be seen within 48 hours of returning to the [facility]. If you do not hear about your appointment being concerned, please contact their office at [phone]. If you develop any new or worsening symptoms including fever, chills, sweats, chest pain, chest pressure, difficulty breathing, uncontrolled nausea/vomiting, rash, wheezing, passing out or nearly passing out, bleeding, black/bloody bowel movements, or other new or concerning symptoms please call your primary care physician at [phone], or call 911 for re-evaluation in the emergency department if you are very concerned. Pending Studies at Discharge: No Stand-Alone Forms: My [facility] urturn, Smoking Cessation Skilled Items Patient informed of condition?: Yes DNR: No Discharge Level of Care: Other Communicable Disease: No Discharge Prognosis: Stable Lines: None Urinary Catheter: No Medications and DC Order Prescriptions: New doxycycline hyclate 100 mg Capsule 100 mg PO BID 7 Days Qty: 14 RF: 0 Continued metoprolol succinate 100 mg tablet extended release 24 hr 100 mg PO DAILY Qty: 90 RF: 3 magnesium chloride 64 mg tablet,delayed release (DR/EC) 64 mg PO TID Qty: 270 RF: 3 acetaminophen 500 mg capsule 500 - 1,000 mg PO BID PRN (Reason: Pain) RF: 0 lovastatin 20 mg tablet 20 mg PO DAILY RF: 0 aspirin 81 mg tablet 81 mg PO DAILY RF: 0 carbidopa-levodopa 25-250 mg tablet 1 tab PO .[id number] RF: 0 ferrous sulfate 325 mg (65 mg iron) tablet 325 mg PO BID Qty: 180 RF: 0 gabapentin 600 mg tablet 600 mg PO TID Qty: 90 RF: 0 flaxseed oil 1,000 mg capsule 1,000 mg PO DAILY RF: 0 nystatin 100,000 unit/gram cream 1 appln topical DAILY PRN (Reason: BREAKOUTS) RF: 0 diltiazem HCl 360 mg capsule,extended release 24 hr 360 mg PO DAILY Qty: 30 RF: 0 warfarin 2.5 mg tablet 1.25 - 2.5 mg PO DAILY Qty: 150 RF: 0 furosemide 20 mg tablet 20 mg PO QAM Qty: 180 RF: 0 potassium chloride 20 mEq tablet extended release 20 meq PO TID Qty: 90 RF: 0 kanemxkyijob-lfyemnws-ecxwib 1 tab PO DAILY RF: 0 ibuprofen [Advil] 200 mg Tablet 200 - 400 mg PO Q6H PRN (Reason: Pain) RF: 0 furosemide 20 mg tablet 20 mg PO DAILY PRN (Reason: FLUID RETENSION) RF: 0 Centrum 18-400 mg-mcg Tablet 1 tab PO DAILY RF: 0 digoxin 125 mcg (0.125 mg) tablet 125 mcg PO [id number] RF: 0 Discharge Orders: Discharge Order (Routine); Ordered 07/31/19 Ordered By: Jamie Carcamo Admission Data Admit Date/Time: 07/28/19 19:41 Attending Provider: Edison Hernandez Admit Provider: Gerry Goodwin [facility] Other Providers: Gerry Goodwin Other Interventions: Discharge Summary Assessment (RN) Last Done: 07/31/19 13:17 DC Date/Time DO NOT enter until pt leaves facility: 07/31/19 14:33 Supervising Physician Co-Signing Physician Notes Attending attestation Pt seen and examined in concert with Dr. Carcamo. In agreement with the documented findings as noted in the resident documentation with any exceptions or additions as noted here. Reports continued improvement in LE tightness and pain following extra diuresis and abx. On examination, IRR/IRR. CTAB. Bilateral LE with improved violaceous rash and TTP from admission as well as persistent, but improved, lymphedema bilaterally to the knees. Cellulitis w/ sepsis - complete course of PO doxycycline as noted. Would strongly recommend photo documentation of baseline LE coloration in out patient chart Lymphedema - benefit from wound care and diuresis. Resume home course and would continue lymphedema care outpatient. HTN - BP improved on return to normal AF dosing of diltiazem. Resume home regimen. Else see resident documentation as noted. Resident Activity Tracking Resident Involvement: Resident Care Provided Care Provided: Adult [facility]
[2019-07-31] MEDS ORDERED: DIGOXIN 0.125 MG TAB PO SCH (16:00)
[2019-08-01] MEDS ORDERED: CEROVITE ADV FORMULA TAB PO SCH (06:30)
== END 2019-07-31 14:33 | disposition home or self-care (01) | DRG 871 ==
LOC: ED 15:24 → SUATTDRO 19:41 → 2N 19:41

== ENCOUNTER 2019-08-07 15:09 | Inpatient (IN) ==
[2019-08-07] MEDS ORDERED: FAMOTIDINE 20MG IV PUSH 20 MG/5 ML SYR IV STA (15:21)
--- NOTE | 2019-08-07 15:26 | Emergency Department Note ---
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, Supratherapeutic INR, Peptic ulcer disease with hemorrhage ED Provider Note NAME: JANELLE GALLO AGE: 83 SEX: F ARRIVES VIA: Ambulance INFORMANT: Patient, ED PROVIDER(S): Aurelio Wilkins MD CHIEF COMPLAINT: Black stool PLAN: Disposition: Admit MEDICAL DECISION MAKING: The patient is a pleasant 83-year-old woman with a past medical history of a.fib on chronic coumadin, RLS, obesity, CAD [facility] for management of cellulitis after recent admission discharged on 07/30 who presents emergency department with onset of black tarry stools last night with associated lightheadedness and weakness. She reports having similar episode in the past that was related to bleeding ulcer. Arrival the patient is fatigued appearing but no acute distress, afebrile with heart rate in the 120s-130s and vital signs otherwise stable. Her abdomen is benign. Rectal exam was deferred given the patient had a large loose black melanotic stool that was Hemoccult positive. WBC 18.3, nonspecific and likely related to her upper GI bleed. H/H 9.4/29 which is down from a hemoglobin of 12.6 last week. Platelets 400k likely reactive. INR is 3.9. Chemistry without acidosis. BUN is elevated at 52 is elevated from a week ago. LFTs unremarkable. Troponin negative/undetectable. Lipase is not elevated. CT abdomen pelvis demonstrates evidence of peptic ulcer. The patient's drop in her hemoglobin she was crossed for 2 units of PRBCs but transfusion held pending any change in her hemodynamic status or with recurrent episodes. The patient was consented if transfusion was needed. Protonix bolus and drip was ordered. Please also order for IV vitamin K given her INR and GI bleed. Case was discussed with Dr. Sakshi Tolliver, [facility] hospitalist, who will evaluate the patient for admission. Triage Nursing notes reviewed and agree them. Additional history obtained from EMS Prior medical records reviewed Vital Signs: reviewed and remarkable for no significant abnormalities Differential diagnosis: Diverticulosis, AVM, coagulopathy, colitis, inflammatory bowel disease, malignancy, Mansi-Abel tear, esophagitis, peptic ulcer disease, variceal bleed, gastritis, epistaxis, fissure, hemorrhoids, as well as other pathologies. ER treatment provided: See below Diagnostics interpreted by me: ECG: Atrial fibrillation with RVR, 131 bpm, normal axis, no overt ST elevation or depression. Cardiac Monitoring: An order for continuous cardiac monitoring was placed and demonstrated Atrial fibrillation with RVR, 131 bpm, no ectopy. Laboratory studies: See below Imaging studies: XR chest 1V portable CLINICAL HISTORY: Chest Pain dyspnea COMPARISON STUDY: 07/28/2019 FINDINGS: Interstitial infiltrate left base. Mild stable cardiomegaly. Lungs otherwise are clear. Diaphragms are smooth. IMPRESSION: Interstitial infiltrate left base. Mild stable cardiomegaly. -- ABDOMEN AND PELVIS CT WITH IV CONTRAST CT DOSE: 593.65 mGy.cm HISTORY: MELENA, DIZZZINESS TECHNIQUE: Multiaxial CT images of the abdomen and pelvis were performed following the use of intravenous contrast. A dose lowering technique was utilized adhering to the principles of ALARA. COMPARISON STUDY: Abdomen and pelvis CT 07/05/2016. FINDINGS: Mild interstitial thickening at the lung bases which is likely chronic. No pneumoperitoneum. No pneumatosis. No suspicious lytic are blastic osseous lesions. The heart remains mildly enlarged. Prior cholecystectomy. No hepatic or splenic masses. Multiple calcified granulomas seen within the spleen. The adrenal glands and pancreas are unremarkable. Moderate bilateral cortical renal scarring, unchanged. There is a punctate stone within the right kidney. Multiple subcentimeter hypodense lesions within the bilateral kidneys. These are certainly too small to characterize but not significant changed. There is also a stable 1.4 cm intermediate density lesion within the left kidney. Small to moderate size left fat-containing inguinal hernia. Enlarged right inguinal lymph node measuring 3.0 x 2.3 cm. This remains unchanged. Multiple additional mildly enlarged bilateral iliac lymph nodes. Subcentimeter retroperitoneal lymph nodes remain stable and do not meet CT criteria for pathologic involvement. Minimal inflammatory change along the undersurface of the distal gastric antrum. This is best seen image 142. This raises the possibility of a distal gastric ulcer. The bladder is unremarkable. The endometrium is distended for age measuring up to 1.8 cm. Colonic diverticulosis. No evidence for acute diverticulitis. No evidence for bowel obstruction. Evidence for prior right hemicolectomy. IMPRESSION: 1. Minimal inflammatory changes along the undersurface of the distal gastric antrum near the duodenal bulb. This raises the possibility distal gastric ulcer. Endoscopy recommended for further evaluation. 2. Colonic diverticulosis. No evidence for diverticulitis. 3. Pelvic and right inguinal lymphadenopathy. This is similar compared the prior study. A low-grade lymphoma would be the diagnosis of exclusion. 4. Thickened endometrium which is considered abnormal in a postmenopausal patient. Follow-up nonemergent pelvic ultrasound is recommended to exclude an endometrial lesion. 5. Additional findings as described above. Consultation(s): Case was discussed with Dr. Sakshi Tolliver, [facility] hospitalist, who will evaluate the patient for admission. HPI: The patient is a pleasant 83-year-old woman with a past medical history of a.fib on chronic coumadin, RLS, obesity, CAD emerge department from the [facility] where she has been for management of cellulitis after recent admission discharged on 07/30 who presents emergency department with onset of black tarry stools last night with associated lightheadedness and weakness. She reports having similar episode in the past that was related to bleeding ulcer. Otherwise she denies any fevers, chills, chest pain, shortness of breath, urinary symptoms. ROS: See above HPI for pertinent positives & negatives. A total of 10 systems reviewed and were otherwise negative. PAST MEDICAL HISTORY:See Below PAST SURGICAL HISTORY:See Below FAMILY HISTORY:See Below SOCIAL HISTORY:See Below HOME MEDICATIONS:See Below ALLERGIES:See Below VITALS:See Below PHYSICAL EXAMINATION: GENERAL: Awake, alert, fatigued-appearing, in no distress HENT: Normocephalic, atraumatic. Oropharynx with dry mucous membranes and otherwise unremarkable. EYES: Normal conjunctiva. Sclera non-icteric. NECK: Supple. No nuchal rigidity. FROM. No JVD. RESPIRATORY: Clear to auscultation. CARDIAC: Regular rate, normal rhythm. Extremities warm and well perfused. Pulses equal. ABDOMEN: Soft, non-distended. No tenderness to palpation. No rebound or guarding. No masses. RECTAL: Deferred. MUSCULOSKELETAL: Chest examination reveals no tenderness. The back is symmetrical on inspection without obvious abnormality. There is no CVA tenderness to palpation. No joint edema. LOWER EXTREMITIES: Calves are equal size bilaterally and non-tender. 3+ BLE lymphedema. No discoloration. NEURO: Normal sensorium. No sensory or motor deficits noted. SKIN: No rash or jaundice noted. ED COURSE: Critical Care: I have personally spent greater than 45 minutes of critical care time in the d irect management of this patient. This includes bedside care, interpretation of diagnostic studies, and testing, discussion with consultants, patient, and family members, and other required patient management activities. This 45 minutes is in excess of all separately billable procedures. 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 Beliefs That Will Affect Care: None marital status: / Current Living Situation: Alone Current Living Situation Comment: [facility] current occupational status: retired Other Information That Helps Us Care for You: No other: worked in [employer]; 2 daughters Feels Safe at Home: Yes Safety Concerns: Feels Safe At This Time Smoking Status: Never smoker Hx Alcohol Use: No Hx Substance Use: No Allergies Allergies Allergy/AdvReac Type Severity Reaction Status Date / Time scopolamine Allergy Unknown UNKNOWN Verified 08/07/19 17:51 pseudoephedrine AdvReac Intermediate TACHYCARDIA Verified 08/07/19 17:51 quinine AdvReac Intermediate DIARRHEA Verified 08/07/19 17:51 ropinirole AdvReac Intermediate VERTIGO Verified 08/07/19 17:51 Home Meds Home Medications Medication Instructions Recorded Confirmed aspirin 81 mg tablet 81 mg PO DAILY tab 10/27/18 08/07/19 diltiazem HCl 360 mg capsule,24 360 mg PO DAILY #30 cap 10/27/18 08/07/19 hr,extended release ferrous sulfate 325 mg (65 mg 325 mg PO BID #180 tab 10/27/18 08/07/19 iron) tablet flaxseed oil 1,000 mg capsule 1,000 mg PO DAILY 10/27/18 08/07/19 furosemide 20 mg tablet 20 mg PO QAM #180 tab 10/27/18 08/07/19 gabapentin 600 mg tablet 600 mg PO TID #90 tab 10/27/18 08/07/19 lovastatin 20 mg tablet 20 mg PO DAILY tab 10/27/18 08/07/19 zptfhgutvknh-jwxgiacx-lcsjmj 1 tab PO DAILY 10/27/18 08/07/19 nystatin 100,000 unit/gram topical 1 appln TOPICAL DAILY PRN gm 10/27/18 08/07/19 cream potassium chloride 20 mEq 20 meq PO TID #90 tab 10/27/18 08/07/19 tablet,extended release warfarin 2.5 mg tablet 1.25 mg PO MOWE #150 tab 10/27/18 08/07/19 Centrum 1 tab PO DAILY 07/28/19 08/07/19 digoxin 125 mcg PO 3XWK 07/28/19 08/07/19 carbidopa 25 mg-levodopa 250 mg 1 tab PO .every 3 hours tab 08/06/19 08/07/19 tablet acetaminophen [Tylenol] 650 mg PO Q4 PRN 08/07/19 08/07/19 bboradsuaatu-bkit-obgoj acid 1 tab PO DAILY 08/07/19 08/07/19 [Centrum] warfarin 2.5 mg PO SUTUTHFRSA 08/07/19 08/07/19 Previous Rx's Medication Instructions Recorded metoprolol succinate 100 mg 100 mg PO DAILY #90 tab 05/18/19 tablet,extended release 24 hr magnesium chloride 64 mg 64 mg PO TID #270 tab 06/01/19 (magnesium chloride) tablet,delayed release Results & Data (ED) Vital Signs Vital Signs - 24 hr 08/07/19 15:20 08/07/19 15:21 08/07/19 15:26 Temperature 36.7 C Temperature Source Oral Pulse Rate 129 H 126 H Pulse Rate from SpO2 Sensor 126 H Respiratory Rate 24 20 Blood Pressure 103/75 103/75 Blood Pressure Mean 94 84 Pulse Oximetry 97 97 Oxygen Delivery Method Room Air Room Air Sepsis Recent Fever Within 48 Hours No Sepsis Action Taken by Nursing No Action Required 08/07/19 15:30 08/07/19 16:00 08/07/19 16:33 Temperature Temperature Source Pulse Rate 141 H 114 H 131 H Pulse Rate from SpO2 Sensor 132 H 133 H Respiratory Rate 19 11 L 23 Blood Pressure 129/58 L 146/70 H Blood Pressure Mean 66 94 Pulse Oximetry 97 98 Oxygen Delivery Method Room Air Sepsis Recent Fever Within 48 Hours Sepsis Action Taken by Nursing 08/07/19 17:10 08/07/19 17:30 Temperature Temperature Source Pulse Rate 124 H 142 H Pulse Rate from SpO2 Sensor 125 H Respiratory Rate 26 H 24 Blood Pressure 138/79 128/93 Blood Pressure Mean 97 105 Pulse Oximetry 97 Oxygen Delivery Method Room Air Sepsis Recent Fever Within 48 Hours Sepsis Action Taken by Nursing Laboratory Data Attestation: I reviewed the patient's lab results. Result diagrams: 08/07/19 21:26 08/07/19 15:30 Lab Results 08/07/19 08/07/19 08/07/19 Range/Units 15:30 15:30 15:30 WBC 18.35 H (4.8-10.8) K/uL RBC 3.20 L (4.2-5.4) M/uL Hgb 9.4 L (12.0-16.0) g/dL Hct 29.1 L (37-47) % MCV 90.9 (80-100) fL MCH 29.4 (25-34) pg MCHC 32.3 (32-36) g/dL RDW Std Deviation 50.4 H (36.4-46.3) fL RDW Coeff of Nancy 15.1 H (11.5-14.5) % Plt Count 408 H (130-400) K/uL MPV 9.7 (7.4-10.4) fL Immature Gran % (Auto) 1.9 % Neut % (Auto) 79.5 % Lymph % (Auto) 11.3 % Webb % (Auto) 6.6 % Eos % (Auto) 0.1 % Baso % (Auto) 0.6 % Neut # (Auto) 14.58 H (1.4-6.5) K/uL Lymph # (Auto) 2.07 (1.2-3.4) K/uL Webb # (Auto) 1.22 H (0.11-0.59) K/uL Eos # (Auto) 0.02 (0-0.5) K/uL Baso # (Auto) 0.11 (0-0.2) K/uL Immature Gran # (Auto) 0.35 H (0.00-0.02) K/uL PT 38.0 H (9.0-12.0) Seconds INR 3.9 H (0.9-1.1) APTT 45.0 H (21.0-31.0) Seconds PTT Ratio 1.6 Sodium (136-145) mmol/L Potassium (3.5-5.1) mmol/L Chloride (98-107) mmol/L Carbon Dioxide (21-32) mmol/L Anion Gap (3-11) BUN (7-18) mg/dl Creatinine (0.6-1.2) mg/dl Est Cr Clr Drug Dosing ml/min Est GFR ( Amer) Est GFR (Non-Af Amer) BUN/Creatinine Ratio (10-20) Glucose (70-99) mg/dl Calcium (8.5-10.1) mg/dl Phosphorus (2.5-4.9) mg/dl Magnesium (1.8-2.4) mg/dl Total Bilirubin (0.2-1) mg/dl Direct Bilirubin (0-0.2) mg/dl AST (15-37) U/L ALT (12-78) U/L Alkaline Phosphatase (45-117) U/L Troponin I (0-0.045) ng/ml Total Protein (6.4-8.2) gm/dl Albumin (3.4-5.0) gm/dl Globulin (2.5-4.0) gm/dl Albumin/Globulin Ratio (0.9-2) Lipase (73-393) U/L Blood Type A Positive Antibody Screen NEGATIVE Crossmatch See Detail 08/07/19 Range/Units 15:30 WBC (4.8-10.8) K/uL RBC (4.2-5.4) M/uL Hgb (12.0-16.0) g/dL Hct (37-47) % MCV (80-100) fL MCH (25-34) pg MCHC (32-36) g/dL RDW Std Deviation (36.4-46.3) fL RDW Coeff of Nancy (11.5-14.5) % Plt Count (130-400) K/uL MPV (7.4-10.4) fL Immature Gran % (Auto) % Neut % (Auto) % Lymph % (Auto) % Webb % (Auto) % Eos % (Auto) % Baso % (Auto) % Neut # (Auto) (1.4-6.5) K/uL Lymph # (Auto) (1.2-3.4) K/uL Webb # (Auto) (0.11-0.59) K/uL Eos # (Auto) (0-0.5) K/uL Baso # (Auto) (0-0.2) K/uL Immature Gran # (Auto) (0.00-0.02) K/uL PT (9.0-12.0) Seconds INR (0.9-1.1) APTT (21.0-31.0) Seconds PTT Ratio Sodium 141 (136-145) mmol/L Potassium 4.5 (3.5-5.1) mmol/L Chloride 112 H (98-107) mmol/L Carbon Dioxide 23 (21-32) mmol/L Anion Gap 7.0 (3-11) BUN 52 H (7-18) mg/dl Creatinine 0.78 (0.6-1.2) mg/dl Est Cr Clr Drug Dosing 57.7 ml/min Est GFR ( Amer) 80.3 Est GFR (Non-Af Amer) 69.3 BUN/Creatinine Ratio 67.0 H (10-20) Glucose 121 H (70-99) mg/dl Calcium 8.9 (8.5-10.1) mg/dl Phosphorus 2.5 (2.5-4.9) mg/dl Magnesium 1.8 (1.8-2.4) mg/dl Total Bilirubin 0.5 (0.2-1) mg/dl Direct Bilirubin 0.2 (0-0.2) mg/dl AST 18 (15-37) U/L ALT 11 L (12-78) U/L Alkaline Phosphatase 91 (45-117) U/L Troponin I 0.017 (0-0.045) ng/ml Total Protein 6.2 L (6.4-8.2) gm/dl Albumin 2.5 L (3.4-5.0) gm/dl Globulin 3.7 (2.5-4.0) gm/dl Albumin/Globulin Ratio 0.7 L (0.9-2) Lipase 53 L (73-393) U/L Blood Type Antibody Screen Crossmatch Administered Medications Carbidopa/Levodopa (Sinemet 25/250mg) 1 tab PO Q3H NALLELY Stop: 09/06/19 19:59 Last Admin: 08/08/19 02:06 Dose: 1 tab Documented by: [id number] Admin: 08/07/19 23:15 Dose: 1 tab Documented by: [id number] Admin: 08/07/19 20:18 Dose: 1 tab Documented by: [id number] Gabapentin (Neurontin) 600 mg PO TID NALLELY Stop: 09/06/19 20:59 Last Admin: 08/07/19 20:17 Dose: 600 mg Documented by: [id number] Pantoprazole Sodium 40 mg/ (Dextrose) 100 mls @ 20 mls/hr IV Q5H NALLELY Stop: 09/06/19 17:03 Last Admin: 08/07/19 23:15 Dose: 8 mg/hr, 20 mls/hr Documented by: [id number] Infusion: 08/07/19 23:15 Dose: 8 mg/hr, 20 mls/hr Documented by: [id number] Admin: 08/07/19 18:19 Dose: 8 mg/hr, 20 mls/hr Documented by: [id number] Sodium Chloride (Nss 1000ml) 1,000 mls @ 100 mls/hr IV .Q10H NALLELY Stop: 09/06/19 18:52 Last Admin: 08/07/19 19:57 Dose: 100 mls/hr Documented by: [id number] Ioversol (Optiray 320 100ml) 93 ml IV ONCE PRN PRN Reason: Interaction Checking Stop: 08/11/19 16:49 Last Admin: 08/07/19 16:51 Dose: 1 ml Documented by: [id number] Discontinued Medications Famotidine (Pepcid 20mg Iv Push) 20 mg in 5 mls @ 2.5 mls/min IV NOW STA Stop: 08/07/19 15:22 Last Admin: 08/07/19 16:20 Dose: 2.5 mls/min Documented by: [id number] Phytonadione 2.5 mg/ Sodium (Chloride) 50.25 mls @ 100.5 mls/hr IV ONE ONE Stop: 08/07/19 17:16 Last Infusion: 08/07/19 19:37 Dose: 0 mls/hr Documented by: [id number] Admin: 08/07/19 18:05 Dose: 100.5 mls/hr Documented by: [id number] Pantoprazole Sodium (Protonix Bolus/Drip) 0 mls @ 1 mls/hr IV ONE STA Stop: 08/07/19 16:50 Last Infusion: 08/07/19 20:10 Dose: 0 mls/hr Documented by: [id number] Admin: 08/07/19 18:06 Dose: 1 mls/hr Documented by: [id number] Pantoprazole Sodium 80 mg/ (Dextrose) 120 mls @ 400 mls/hr IV NOW ONE Stop: 08/07/19 17:06 Last Infusion: 08/07/19 19:37 Dose: 0 mls/hr Documented by: [id number] Admin: 08/07/19 18:06 Dose: 400 mls/hr Documented by: [id number] Sodium Chloride (Nss) 500 mls @ 999 mls/hr IV .Q31M ONE Stop: 08/07/19 17:29 Last Infusion: 08/07/19 19:37 Dose: 0 mls/hr Documented by: [id number] Admin: 08/07/19 18:06 Dose: 999 mls/hr Documented by: [id number] Acetaminophen (Ofirmev) 1,000 mg in 100 mls @ 400 mls/hr IV NOW STA Stop: 08/07/19 22:54 Last Infusion: 08/07/19 23:29 Dose: 0 mls/hr Documented by: [id number] Admin: 08/07/19 23:14 Dose: 400 mls/hr Documented by: [id number] Metoprolol Tartrate (Lopressor) 5 mg IV NOW STA Stop: 08/07/19 19:36 Last Admin: 08/07/19 19:57 Dose: 5 mg Documented by: [id number] Metoprolol Tartrate (Lopressor) 5 mg IV NOW STA Stop: 08/07/19 21:54 Last Admin: 08/07/19 23:14 Dose: 5 mg Documented by: [id number] Blood Pressure Blood Pressure Findings: Low blood pressure Blood Pressure Disposition: further management by hospitalist Discharge Plan Visit Data *Final* Discharge Date/Time: 08/07/19 18:15 Chief Complaint: GI Bleed ED Provider: Aurelio Wilkins Discharge Problem: GIB (gastrointestinal bleeding), Atrial fibrillation, alf (current) use of anticoagulants, Supratherapeutic INR, Peptic ulcer disease with hemorrhage Patient Disposition: Admitted As Inpatient Discharge Instructions Interventions: ED Discharge Assessment Last Done: 08/07/19 18:15 Discharge Problem: GIB (gastrointestinal bleeding) Qualifiers: GI bleed type/associated pathology: unspecified peptic ulcer Qualified Code(s): K27.4 - Chronic or unspecified peptic ulcer, site unspecified, with hemorrhage
[2019-08-07 15:52] LABS: Basophils # (auto) 0.11 K/uL (0-0.2); Basophils % (auto) 0.6 %; Eosinophils # (auto) 0.02 K/uL (0-0.5); Eosinophils % (auto) 0.1 %; Hematocrit (blood only) 29.1 % (37-47); Hemoglobin 9.4 g/dL (12.0-16.0); Immature Granulocytes # (auto) 0.35 K/uL (0.00-0.02); Immature Granulocytes % (auto) 1.9 %; Lymphocytes # (auto) 2.07 K/uL (1.2-3.4); Lymphocytes % (auto) 11.3 %; Mean Corpuscular Hemoglobin 29.4 pg (25-34); Mean Corpuscular Hgb Conc 32.3 g/dL (32-36); Mean Corpuscular Volume 90.9 fL (80-100); Mean Platelet Volume 9.7 fL (7.4-10.4); Monocytes # (auto) 1.22 K/uL (0.11-0.59); Monocytes % (auto) 6.6 %; Neutrophils # (auto) 14.58 K/uL (1.4-6.5); Neutrophils % (auto) 79.5 %; Platelet Count 408 K/uL (130-400); RDW Coefficient of Variation 15.1 % (11.5-14.5); RDW Standard Deviation 50.4 fL (36.4-46.3); White Blood Count 18.35 K/uL (4.8-10.8)
--- NOTE | 2019-08-07 15:55 | XRay Report ---
XR chest 1V portable CLINICAL HISTORY: Chest Pain dyspnea COMPARISON STUDY: 07/28/2019 FINDINGS: Interstitial infiltrate left base. Mild stable cardiomegaly. Lungs otherwise are clear. Michelle phragms are smooth. IMPRESSION: Interstitial infiltrate left base. Mild stable cardiomegaly. ACT 112: Negative or not required by law. The above report was generated using voice recognition software. It may contain grammatical, syntax or spelling errors. Electronically signed by: Parag Choe M.D. 08/07/2019 3:53 PM
[2019-08-07 16:10] LABS: Albumin Level 2.5 gm/dl (3.4-5.0); Bilirubin Direct 0.2 mg/dl (0-0.2); Calcium 8.9 mg/dl (8.5-10.1); Creatinine Clr Calc Pharmacy 57.7 ml/min; Est GFR (African American) 80.3; Est GFR (Non-African American) 69.3; INR 3.9 (0.9-1.1); Magnesium 1.8 mg/dl (1.8-2.4); Partial Thromboplastin Ratio 1.6; Potassium 4.5 mmol/L (3.5-5.1)
[2019-08-07 16:13] LABS: Albumin Globulin Ratio 0.7 (0.9-2); Bilirubin,Total 0.5 mg/dl (0.2-1); Globulin 3.7 gm/dl (2.5-4.0); Phosphorus 2.5 mg/dl (2.5-4.9); Total Protein 6.2 gm/dl (6.4-8.2); Troponin I 0.017 ng/ml (0-0.045)
--- NOTE | 2019-08-07 16:37 | Electrocardiogram Report ---
Test Reason : Blood Pressure : / mmHG Vent. Rate : 131 BPM Atrial Rate : 125 BPM P-R Int : 000 ms QRS Dur : 082 ms QT Int : 300 ms P-R-T Axes : 000 -01 267 degrees QTc Int : 443 ms Atrial fibrillation with rapid ventricular response Low voltage QRS Inferior infarct , age undetermined Cannot rule out Anteroseptal infarct (cited on or before 07-AUG-2019) Abnormal ECG When compared with ECG of 28-JUL-2019 16:53, Vent. rate has increased BY 67 BPM Inferior infarct is now Present Questionable change in initial forces of Anterior leads Nonspecific T wave abnormality now evident in Lateral leads Confirmed by Jose Tillman ([id number]) on 08/07/2019 4:37:09 PM Referred By: REFERRED SELF Confirmed By:Jose Tillman
[2019-08-07] MEDS ORDERED: PHYTONADIONE 2.5 MG in SODIUM CHLORIDE 0.9% 50 ML IV ONE (16:47)
[2019-08-07] MEDS ORDERED: SODIUM CHLORIDE 0.9% 250 ML IV PRN ×2 (16:47→21:53)
[2019-08-07] MEDS ORDERED: PANTOprazole 80 MG in DEXTROSE 5% 100 ML IV ONE (16:49)
[2019-08-07] MEDS ORDERED: PANTOPRAZOLE BOLUS/DRIP 1 EA IV STA (16:49)
[2019-08-07] MEDS ORDERED: IOVERSOL 100ml IV PRN (16:50)
[2019-08-07] MEDS ORDERED: SODIUM CHLORIDE 0.9% 500 ML IV ONE (16:59)
--- NOTE | 2019-08-07 17:10 | History & Physical Report ---
Date of Service August 07, 2019 Assessment & Plan (1) GIB (gastrointestinal bleeding): Likely gastric ulcer, EGD recommended Likely related to supratherapeutic coumadin dosing in the setting of abx use Monitor Protonix Hb 12.4 recently, now at 9.4 Repeat later this evening and transfuse as needed GI c/s pending (2) Supratherapeutic INR: Vitamin K in the ED Monitor (3) PNA (pneumonia): Noted on CXR Recent hospitalization making risk for HAP Start cefepime on admission WBC elevated (4) Cellulitis of left leg: Completed course of outpt abx on 08/06 AM Monitor d/c on 07/30 for same (5) Atrial fibrillation: continue home meds Holding coumadin (6) Iron deficiency: continue home meds (7) DVT prophylaxis: Supratherapeutic on coumadin History of Present Illness Primary Care Provider: [facility] 83 y/o F c/o melena. Pt states that she has been having black, tarry stools since last night. Last episode was in the ED. Pt has hx of GIB and states that this is similar. She was lightheaded and weak as well. She states she she was up all night passing small pieces of black stool. This was confirmed by nursing as well. States last INR check was Saturday and was due for check on Saturday. Pt did have an episode of GERD leading to emesis on Saturday, but none since. No blood in emesis. She has no luiz abd pain, but does feel sore, which she thinks is due to all of the bowel movements she was having. Pt denies fever, SOB, chest pain Pt was a recent d/c from [facility] to the [facility] on 07/30 after being tx for cellulitis. She was d/c on doxy to complete a total of 10 days of abx, which she did complete today per med rec from [facility]. She is working with [facility] for this. She feels it is getting better, but still with redness and swelling. Allergies Allergy/AdvReac Type Severity Reaction Status Date / Time scopolamine Allergy Unknown UNKNOWN Verified 08/06/19 14:20 pseudoephedrine AdvReac Intermediate TACHYCARDIA Verified 08/06/19 14:20 quinine AdvReac Intermediate DIARRHEA Verified 08/06/19 14:20 ropinirole AdvReac Intermediate VERTIGO Verified 08/06/19 14:20 Home Medications Home Medications Medication Instructions Recorded Confirmed Type acetaminophen 500 mg capsule 500 - 1,000 mg PO BID PRN cap 10/27/18 07/28/19 History aspirin 81 mg tablet 81 mg PO DAILY tab 10/27/18 07/28/19 History diltiazem HCl 360 mg capsule,24 360 mg PO DAILY #30 cap 10/27/18 07/28/19 History hr,extended release ferrous sulfate 325 mg (65 mg 325 mg PO BID #180 tab 10/27/18 07/28/19 History iron) tablet flaxseed oil 1,000 mg capsule 1,000 mg PO DAILY 10/27/18 07/28/19 History furosemide 20 mg tablet 20 mg PO QAM #180 tab 10/27/18 07/28/19 History gabapentin 600 mg tablet 600 mg PO TID #90 tab 10/27/18 07/28/19 History lovastatin 20 mg tablet 20 mg PO DAILY tab 10/27/18 07/28/19 History uwxvwxkmchxw-mmaevmke-fesygs 1 tab PO DAILY 10/27/18 07/28/19 History nystatin 100,000 unit/gram topical 1 appln TOPICAL DAILY PRN gm 10/27/18 07/28/19 History cream potassium chloride 20 mEq 20 meq PO TID #90 tab 10/27/18 07/28/19 History tablet,extended release warfarin 2.5 mg tablet 1.25 - 2.5 mg PO DAILY #150 tab 10/27/18 07/28/19 History metoprolol succinate 100 mg 100 mg PO DAILY #90 tab 05/18/19 07/28/19 Rx tablet,extended release 24 hr magnesium chloride 64 mg 64 mg PO TID #270 tab 06/01/19 07/28/19 Rx (magnesium chloride) tablet,delayed release Centrum 1 tab PO DAILY 07/28/19 07/28/19 History digoxin 125 mcg PO 3XWK 07/28/19 07/28/19 History ibuprofen [Advil] 200 - 400 mg PO Q6H PRN 07/28/19 07/28/19 History carbidopa 25 mg-levodopa 250 mg 1 tab PO .every 3 hours tab 08/06/19 08/06/19 History tablet Past Med/Surg History Medical History Atrial fibrillation (Chronic 07/17/12) CAD (coronary artery disease) Cecal ulcer Restless leg syndrome (Chronic) Surgical History H/O cataract extraction H/O right hemicolectomy S/P cholecystectomy S/p total knee replacement, bilateral Status post tonsillectomy and adenoidectomy Family History Mother Breast cancer Father Heart disease Social History Preferred Language: Kazakh Communication Ability: Effective Director Of Quantitative Research Required: No Beliefs That Will Affect Care: None marital status: / Current Living Situation: Alone Current Living Situation Comment: [facility] - independent living current occupational status: retired other: worked in [employer]; 2 daughters Feels Safe at Home: Yes Smoking Status: Never smoker Hx Alcohol Use: No Hx Substance Use: No Review of Systems Review of Systems: Pertinent positives and negatives reviewed in HPI--all others negative Physical Exam Constitutional: WD/WN, vitals as above Eyes: normal visual lane by confrontation and + anicteric sclerae Neck: normal visual inspection and trachea midline Respiratory: normal respiratory effort, lungs clear to auscultation Cardiovascular: Rate/Rhythm: + irregularly irregular Gastrointestinal (Abdomen): Inspection/Auscultation: abdomen not distended Percussion/Palpation: + abdomen tender (diffuse, mild) and abdomen soft Musculoskeletal: Head/Neck/Chest: normocephalic and head atraumatic negative for edema, peripheral pulses intact Skin: b/l LE redness c/w improving cellulitis, moving away from ink lines Wrappings are clean and dry Neurologic: awake; not confused Speech / Cognition: normal speech Psychiatric: A+Ox3, euthymic affect Results & Data Results & Data ([facility]) Vital Signs (Past 12 Hours) Vital Signs Temp Pulse Resp BP Pulse Ox 08/07/19 15:26 36.7 C 126 H 20 103/75 97 Diagnostic Findings CXR: L base PNA CTAP: 1. Minimal inflammatory changes along the undersurface of the distal gastric antrum near the duodenal bulb. This raises the possibility distal gastric ulcer. Endoscopy recommended for further evaluation. 2. Colonic diverticulosis. No evidence for diverticulitis. 3. Pelvic and right inguinal lymphadenopathy. This is similar compared the prior study. A low-grade lymphoma would be the diagnosis of exclusion. 4. Thickened endometrium which is considered abnormal in a postmenopausal patient. Follow-up nonemergent pelvic ultrasound is recommended to exclude an endometrial lesion. 5. Additional findings as described above. ECG Additional Comments: Afib RVR Code Status & VTE Plan Code Status Full code, although pt states no prolonged mechanical life support, feeding tubes, etc VTE Prophylaxis Plan VTE Prophylaxis will be ordered: Yes PG Care Time/CCT Total # of Minutes Spent Total Time Spent with Patient: Total time spent is greater than 50% in coordination of care (as documented) at patient's floor/unit and/or counseling patient: Coding Diagnoses GIB (gastrointestinal bleeding) K92.2 Supratherapeutic INR R79.1 PNA (pneumonia) J18.9 Cellulitis of left leg L03.116 Atrial fibrillation I48.21 Atrial fibrillation type: permanent Iron deficiency E61.1 DVT prophylaxis Z29.9 (1) Atrial fibrillation Atrial fibrillation type: permanent Qualified Code(s): I48.21 - Permanent atrial fibrillation
--- NOTE | 2019-08-07 17:15 | CT Scan Report ---
ABDOMEN AND PELVIS CT WITH IV CONTRAST CT DOSE: 593.65 mGy.cm HISTORY: MELENA, DIZZZINESS TECHNIQUE: Multiaxial CT images of the abdomen and pelvis were performed following the use of intrave nous contrast. A dose lowering technique was utilized adhering to the principles of ALARA. COMPARISON STUDY: Abdomen and pelvis CT 07/05/2016. FINDINGS: Mild interstitial thickening at the lung bases which is likely chronic. No pneumoperitoneum . No pneumatosis. No suspicious lytic are blastic osseous lesions. The heart remains mildly enlarged. Prior cholecystectomy. No hepatic or splenic masses. Multiple calcified granulomas seen within the s pleen. The adrenal glands and pancreas are unremarkable. Moderate bilateral cortical renal scarring, unchanged. There is a punctate stone within the right kidney. Multiple subcentimeter hypodense lesion s within the bilateral kidneys. These are certainly too small to characterize but not significant agnes nged. There is also a stable 1.4 cm intermediate density lesion within the left kidney. Small to mode rate size left fat-containing inguinal hernia. Enlarged right inguinal lymph node measuring 3.0 x 2.3 cm. This remains unchanged. Multiple additional mildly enlarged bilateral iliac lymph nodes. Subcent imeter retroperitoneal lymph nodes remain stable and do not meet CT criteria for pathologic involveme nt. Minimal inflammatory change along the undersurface of the distal gastric antrum. This is best see n image 142. This raises the possibility of a distal gastric ulcer. The bladder is unremarkable. The endometrium is distended for age measuring up to 1.8 cm. Colonic diverticulosis. No evidence for acut e diverticulitis. No evidence for bowel obstruction. Evidence for prior right hemicolectomy. IMPRESSION: 1. Minimal inflammatory changes along the undersurface of the distal gastric antrum near the duodenal bulb. This raises the possibility distal gastric ulcer. Endoscopy recommended for further evaluation . 2. Colonic diverticulosis. No evidence for diverticulitis. 3. Pelvic and right inguinal lymphadenopathy. This is similar compared the prior study. A low-grade l ymphoma would be the diagnosis of exclusion. 4. Thickened endometrium which is considered abnormal in a postmenopausal patient. Follow-up nonemerg ent pelvic ultrasound is recommended to exclude an endometrial lesion. 5. Additional findings as described above. ACT 112: Negative or not required by law. Electronically signed by: Binh Vieyra M.D. 08/07/2019 5:14 PM
[2019-08-07] MEDS: PANTOprazole 40 MG in DEXTROSE 5% 100 ML IV SCH ×2 (18:19→23:15)
[2019-08-07] MEDS ORDERED: MAGNESIUM HYDROXIDE SUSP 30 ML UDC PO PRN (18:53)
[2019-08-07] MEDS ORDERED: ONDANSETRON INJ 2 MG/ML 2 ML VIAL IV PRN (18:53)
[2019-08-07] MEDS ORDERED: SODIUM CHLORIDE 0.9% 1000ML 1,000 ML IV SCH (18:53)
[2019-08-07] MEDS ORDERED: NYSTATIN CR 15 GM TUBE EXT PRN (18:53)
[2019-08-07] MEDS ORDERED: METOPROLOL TARTRATE 1 MG/ML VIAL IV STA ×2 (19:35→21:53)
[2019-08-07] MEDS ORDERED: CARBIDOPA/LEVODOPA 25-250 1 EA TAB PO SCH (20:00)
[2019-08-07] MEDS: GABAPENTIN 600 MG TAB PO SCH (20:17)
[2019-08-07] MEDS: CARBIDOPA/LEVODOPA 25-250 1 EA TAB PO SCH ×2 (20:18→23:15)
--- NOTE | 2019-08-07 20:44 | Progress Note ---
Date of Service August 07, 2019 Assessment & Plan Admission and Anticipated Discharge Date Admission Date: August 07, 2019 Subjective Patient with elevated INR - she did receive Vitamin K 2.5mg IV while in the ER. Repeat INR is ordered for tomorrow 08/07 Rapid Covid-19 testing ordered in anticipation of EGD in AM. Of note, patient is NOT a PUI and currently with no evidence of Covid Results & Data ([facility]) Vital Signs (Past 12 Hours) Vital Signs Temp Pulse Pulse Resp BP BP Pulse Ox 08/07/19 19:57 154 H 08/07/19 19:48 154 H 119/78 08/07/19 18:45 37.2 C 120 H 22 126/77 95 08/07/19 18:00 142 H 20 123/93 95 08/07/19 17:30 142 H 24 128/93 08/07/19 17:10 124 H 26 H 138/79 97 08/07/19 16:33 131 H 23 146/70 H 98 08/07/19 16:00 114 H 11 L 08/07/19 15:30 141 H 19 129/58 L 97 08/07/19 15:26 36.7 C 126 H 20 103/75 97 08/07/19 15:20 129 H 24 103/75 97 PG Care Time/CCT Total # of Minutes Spent Total Time Spent with Patient: Total time spent is greater than 50% in coordination of care (as documented) at patient's floor/unit and/or counseling patient: Coding Level of Care Code None
[2019-08-07 21:39] LABS: Hematocrit (blood only) 22.2 % (37-47); Hemoglobin 6.9 g/dL (12.0-16.0)
[2019-08-07] MEDS ORDERED: ACETAMINOPHEN 1,000 MG/100 ML VIAL IV STA (22:40)
--- NOTE | 2019-08-08 01:09 | Communication Note ---
Date of Service: August 08, 2019 Notified of Hgb of 6.9. Will give 2 units of pRBCs. Consent obtained at bedside. No signs of acute hemorrhage. Also notified of HR in 140s. Treated overnight with 2 doses of Lopressor 5mg IV. Will hold further doses to see if transfusion helps with HR. Resident Activity Tracking Resident Involvement: Resident Care Provided Care Provided: Adult Hospital Medicine
[2019-08-08] MEDS: CARBIDOPA/LEVODOPA 25-250 1 EA TAB PO SCH ×4 (02:06→10:56)
[2019-08-08] MEDS ORDERED: SODIUM CHLORIDE 0.9% 250 ML IV PRN ×3 (02:19→09:30)
[2019-08-08] MEDS ORDERED: PHYTONADIONE 5 MG in SODIUM CHLORIDE 0.9% 50 ML IV ONE ×2 (03:12→10:15)
[2019-08-08] MEDS ORDERED: SUCRALFATE 1 GM TAB PO STA (03:13)
[2019-08-08] MEDS ORDERED: SODIUM CHLORIDE 0.9% 1000ML 500 ML IV ONE (03:15)
--- NOTE | 2019-08-08 03:38 | Communication Note ---
Date of Service: August 08, 2019 Patient continues to have black BMs with a reported total of 7 since 11pm that were moderate to large BMs per nursing staff. Blood pressures declined to 9 0s/50s and HR remained in 120s-140s. Unable to give any further SA/AV florence blockers for afib because of soft pressures. Concern that patient was becoming hemodynamically unstable. Discussed with nurse and blood product transfusion was increased from 125ml/hr to 150ml/hr. A 500cc NSS bolus was ordered. Case was discussed with on-call physician Dr. Dean who advised MICU transfer, FFP, repeat PT/INR. Patient currently unstable for procedure at the moment. Delay in getting lab work as was unable to get blood draw in setting of patient receiving blood. Was able to get a stat PT/INR as with current protocols wouldn't be able to get a blood draw for another [address] Aguilera was updated throughout course of care. We further ordered carafate 1gm PO and Vitamin K 5mg IV. Dr. Aguilera discussed care with flume maker for transfer. Patient was updated on need for transfer. Resident Activity Tracking Resident Involvement: Resident Care Provided Care Provided: Adult Hospital Medicine
--- NOTE | 2019-08-08 04:00 | Critical Care Consultation ---
Date of Consultation August 08, 2019 Assessment & Plan (1) Admitted to intensive care unit: Reason Critically Ill: 83-year-old female with acute blood loss anemia in the setting of likely distal gastric ulcer hemorrhage in the setting of supratherapeutic INR requiring close hemodynamic monitoring and aggressive resuscitation with blood products. NEURO - * CAM ICU: NEGATIVE CARDIAC/VASCULAR - * Tachycardia: * Appears to be A. fib RVR with known history of the same. * Had received 2 doses of metoprolol on the floor. * Tachycardia is likely compensatory mediated at this point in the setting of UGIB. * Will aggressively treat with blood products. * Coronary artery disease, hyperlipidemia * Continue home medications when able to take p.o. * Borderline hypotension: * Continue with aggressive blood product resuscitation at this time. * Consider Ethan-Synephrine as first-line pressor if needed. * Monitor on telemetry. RESPIRATORY - * No history of pulmonary disease. * Saturating well on room air. * Monitor for desaturation with concerns of volume overload in the patient without history of CHF. * Consider administration dose of IV Lasix prior to FFP administration. GI/NUTRITION - * UGIB - ?Distal Gastric Ulcer per CT Findings * History of the same. * Currently on Protonix drip. * Replace blood products as needed. * Correct INR. * N.p.o. at this time. * Appreciate gastroenterology guidance. * Plan for early endoscopy. RENAL/LYTES - * No significant electrolyte derangements. * IVF: NSS@100mL/hr - * White in place - Strict I&Os. ENDO - * No h/o DM or Thyroid Dz. * BSGs per unit protocol. ISS --> gtt per unit policy. HEME - * Acute blood loss anemia: * Secondary to gastrointestinal hemorrhage. * Replace with blood products as needed. * Has received 2 units PRBCs at this point. * Agree with proceeding with FFP. * Repeat H&H 1 hour after last unit of blood. * Maintain hemoglobin greater than 7.5. * Supratherapeutic INR: * Hold Coumadin. * Received 2.5 mg vitamin K in the emergency department. * Received an additional 5 mg vitamin K prior to arrival in the ICU. * Agree with FFP with concerns for ongoing hemorrhage. ID - * Patient without known history of varices and CT findings demonstrate source as likely distal gastric ulcer. * Do not find utility in antibiotic coverage at this point. * Had recently completed a course of doxycycline for lower extremity cellulitis. LINES/IV ACCESS - * PIVs x2 * White DVT PROPHYLAXIS - * Hold on chemoprophylaxis secondary to UGIB. * SCDs I have personally spent 35 minutes of critical care time in the direct management of this patient. This is a life/limb threatening event. This includes time spent evaluating patient, direct bedside care, chart review, placing orders, interpretation of diagnostic studies, discussion with consultants, patient, and family members, as well as other required patient management activities. This time is exclusive of all separately billable procedures, and teaching time and separate from and in addition to any other critical care service time. Thank you for allowing us to participate in the care of this patient. Please refer to my attending physician's documentation for any further recommendations. 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 Patient deemed too unstable to undergo anesthesia for intervention, and was transferred for [place] for further evaluation and management. History of Present Illness Attending Physician: Sakshi Tolliver DO History of Present Illness Patient is an 83-year-old female with a significant past medical history of coronary artery disease, hypertension, A. fib on rate control and anticoagulation with Coumadin, with history of gastric ulcer bleed who presented to the emergency department with melanotic stools and near syncope. The patient had recently been seen in this facility and treated for a cellulitis of the lower extremities. She has been taking doxycycline at home. On evaluation in the emergency department, the patient was noted to have a drop in her H&H. Throughout the night, the patient was persistently tachycardic and developed softer blood pressures. Repeat H&H demonstrated a drop. She was ordered 2 units PRBCs. In conversation with gastroenterology, it was recommended to further correct her INR with an additional dose of vitamin K as well as FFP and transfer the patient to ICU for closer monitoring. Upon evaluation in the ICU, the patient is awake, alert, and oriented. She reports having some mild muscle discomfort in her abdomen, but otherwise feels well. She does complain of multiple loose stools which have been melanotic. She denies any pain rating her discomfort is 0/10. Patient denies any headaches, dizziness, lightheadedness, chest pain, palpitations, shortness of breath, nausea, or vomiting. Allergies Allergy/AdvReac Type Severity Reaction Status Date / Time scopolamine Allergy Unknown UNKNOWN Verified 08/07/19 17:51 pseudoephedrine AdvReac Intermediate TACHYCARDIA Verified 08/07/19 17:51 quinine AdvReac Intermediate DIARRHEA Verified 08/07/19 17:51 ropinirole AdvReac Intermediate VERTIGO Verified 08/07/19 17:51 Home Medications Home Medications Medication Instructions Recorded Confirmed Type ferrous sulfate 325 mg (65 mg 325 mg PO BID #180 tab 10/27/18 08/07/19 History iron) tablet flaxseed oil 1,000 mg capsule 1,000 mg PO DAILY 10/27/18 08/07/19 History gabapentin 600 mg tablet 600 mg PO TID #90 tab 10/27/18 08/07/19 History lovastatin 20 mg tablet 20 mg PO DAILY tab 10/27/18 08/07/19 History pwfkgkepidxy-prepbvru-axhlhb 1 tab PO DAILY 10/27/18 08/07/19 History nystatin 100,000 unit/gram topical 1 appln TOPICAL DAILY PRN gm 10/27/18 08/07/19 History cream potassium chloride 20 mEq 20 meq PO TID #90 tab 10/27/18 08/07/19 History tablet,extended release magnesium chloride 64 mg 64 mg PO TID #270 tab 06/01/19 08/07/19 Rx (magnesium chloride) tablet,delayed release Centrum 1 tab PO DAILY 07/28/19 08/07/19 History digoxin 125 mcg PO 3XWK 07/28/19 08/07/19 History carbidopa 25 mg-levodopa 250 mg 1 tab PO .every 3 hours tab 08/06/19 08/07/19 History tablet Centrum 1 tab PO DAILY 08/07/19 08/07/19 History gabapentin 600 mg PO TID 30 Days #90 tab 08/08/19 Rx Patient History Medical History Atrial fibrillation (Chronic 07/17/12) CAD (coronary artery disease) Cecal ulcer Restless leg syndrome (Chronic) Surgical History H/O cataract extraction H/O right hemicolectomy S/P cholecystectomy S/p total knee replacement, bilateral Status post tonsillectomy and adenoidectomy Family History Mother Breast cancer Father Heart disease Social History Preferred Language: Japanese Communication Ability: Effective Pricing Intern Required: No Beliefs That Will Affect Care: None marital status: / Current Living Situation: Alone Current Living Situation Comment: [facility] current occupational status: retired other: worked in [employer]; 2 daughters Feels Safe at Home: Yes Smoking Status: Never smoker Hx Alcohol Use: No Hx Substance Use: No Review of Systems Review of Systems: A complete 10 point review of systems was reviewed with the patient with pertinent positives and negatives as per history of present illness. All else were negative. Physical Exam Physical Exam: VITAL SIGNS - Vital signs and nursing notes were reviewed. GENERAL - 83-year-old female appearing her stated age who is in no acute distress. Communicates well with provider and answers questions appropriately. HEAD - NC/AT. EYES -sclera anicteric. EARS - No deformities of external structures noted on gross examination bilaterally. NOSE - Midline and without cyanosis. No epistaxis or purulent drainage noted. MOUTH/OROPHARYNX - Without perioral cyanosis. Buccal mucosa pink and moist and without leukoplakia. NECK - Neck with FROM. Supple to palpation. No nuchal rigidity. LUNGS - Chest wall symmetric without accessory muscle use, intercostals retractions, or central cyanosis. Normal vesicular breath sounds CTA B/L. No wheezes, rales, or rhonchi appreciated. CARDIAC - RRR with S1/S2. No murmur, rubs, or gallops appreciated. ABDOMEN - Abdominal contour obese without pulsations or visible masses. BS normoactive all four quadrants. No tenderness to palpation appreciated throughout. No guarding. No Rebound Tenderness. No palpable masses, hepatosplenomegaly, or ascites noted. EXTREMITIES - No clubbing or peripheral cyanosis. No pretibial edema present. +3/5 radial and dorsalis pedis pulses palpated throughout. NEUROLOGIC - Cranial nerves II through XII grossly intact. Sensory intact to light touch throughout. PSYCH - A&Ox3 and cooperates fully with examiner. Pt is very pleasant and interacts well with examiner. Results & Data Results & Data ([facility]) Vital Signs (Past 12 Hours) Vital Signs Temp Pulse Pulse Resp BP BP Pulse Ox 08/08/19 03:05 36.5 C 137 H 18 101/68 100 08/08/19 02:35 36.6 C 147 H 18 94/58 L 100 08/08/19 02:23 36.5 C 140 H 18 88/51 L 98 08/08/19 02:00 36.7 C 150 H 18 98/60 L 97 08/08/19 01:46 36.6 C 138 H 18 104/69 97 08/08/19 01:10 36.6 C 127 H 20 91/65 L 98 08/08/19 00:10 36.7 C 131 H 18 92/62 L 100 08/08/19 00:00 140 H 08/07/19 23:40 36.6 C 130 H 18 105/72 97 08/07/19 23:25 36.7 C 133 H 18 100/70 97 08/07/19 23:14 140 H 08/07/19 23:07 36.5 C 139 H 18 105/50 L 98 08/07/19 21:50 138 H 108/70 08/07/19 19:57 154 H 08/07/19 19:48 154 H 119/78 08/07/19 18:45 37.2 C 120 H 22 126/77 95 08/07/19 18:00 142 H 20 123/93 95 08/07/19 17:30 142 H 24 128/93 08/07/19 17:10 124 H 26 H 138/79 97 08/07/19 16:33 131 H 23 146/70 H 98 Coding Level of Care Code Critical Care 1st 30-74 mins Diagnoses Admitted to intensive care unit Z78.9 GIB (gastrointestinal bleeding) K27.4 GI bleed type/associated pathology: unspecified peptic ulcer Supratherapeutic INR R79.1 Peptic ulcer disease with hemorrhage K27.4 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 transplanted heart: [place] heart Wound of left leg S81.802A Encounter type: initial encounter Time Spent (min) 35 (1) GIB (gastrointestinal bleeding) GI bleed type/associated pathology: unspecified peptic ulcer Qualified Code(s): K27.4 - Chronic or unspecified peptic ulcer, site unspecified, with hemorrhage (2) CAD (coronary artery disease) Associated angina: without angina Coronary Disease-Associated Artery/Lesion type: [place] artery [place] vs. transplanted heart: [place] heart Qualified Code(s): I25.10 - Atherosclerotic heart disease of [place] coronary artery without angina pectoris (3) Wound of left leg Encounter type: initial encounter Qualified Code(s): S81.802A - Unspecified open wound, left lower leg, initial encounter
[2019-08-08 04:30] LABS: Prothrombin Time 20.8 Seconds (9.0-12.0)
[2019-08-08] MEDS ORDERED: FUROSEMIDE 20 MG in SYRINGE 0 ML IV ONE (04:41)
[2019-08-08] MEDS: PANTOprazole 40 MG in DEXTROSE 5% 100 ML IV SCH ×2 (05:17→10:13)
[2019-08-08 06:52] LABS: Basophils # (auto) 0.14 K/uL (0-0.2); Basophils % (auto) 0.7 %; Eosinophils # (auto) 0.09 K/uL (0-0.5); Eosinophils % (auto) 0.4 %; Hemoglobin 7.6 g/dL (12.0-16.0); Immature Granulocytes # (auto) 0.46 K/uL (0.00-0.02); Immature Granulocytes % (auto) 2.2 %; Lymphocytes # (auto) 3.38 K/uL (1.2-3.4); Lymphocytes % (auto) 16.1 %; Mean Corpuscular Hemoglobin 28.5 pg (25-34); Mean Corpuscular Volume 89.9 fL (80-100); Mean Platelet Volume 9.9 fL (7.4-10.4); Monocytes # (auto) 1.93 K/uL (0.11-0.59); Monocytes % (auto) 9.2 %; Neutrophils # (auto) 15.04 K/uL (1.4-6.5); Neutrophils % (auto) 71.4 %; Platelet Count 228 K/uL (130-400); RDW Coefficient of Variation 15.2 % (11.5-14.5); RDW Standard Deviation 49.2 fL (36.4-46.3); Red Blood Count 2.67 M/uL (4.2-5.4); White Blood Count 21.04 K/uL (4.8-10.8)
[2019-08-08 06:55] LABS: Mean Corpuscular Hgb Conc 31.7 g/dL (32-36)
[2019-08-08 07:02] LABS: INR 1.7 (0.9-1.1); Prothrombin Time 17.2 Seconds (9.0-12.0)
[2019-08-08 07:27] LABS: BUN Creatinine Ratio 59.9 (10-20); Calcium 7.9 mg/dl (8.5-10.1); Creatinine Clr Calc Pharmacy 54.8 ml/min; Est GFR (African American) 81.6; Est GFR (Non-African American) 70.4; Potassium 3.9 mmol/L (3.5-5.1)
[2019-08-08 07:41] LABS: RBC Morphology Unremarkable
[2019-08-08] MEDS: GABAPENTIN 600 MG TAB PO SCH (07:41)
[2019-08-08] MEDS ORDERED: dilTIAZem HCL 180 MG CAPCR PO SCH (09:00)
[2019-08-08] MEDS ORDERED: FUROSEMIDE 20 MG TAB PO SCH (09:00)
[2019-08-08] MEDS ORDERED: METOPROLOL SUCC 50MG EXT REL TAB PO SCH (09:00)
--- NOTE | 2019-08-08 09:11 | Gastrointestinal Consultation ---
Date of Consultation August 08, 2019 Assessment & Plan (1) Peptic ulcer disease with hemorrhage: Patient presenting with signs and symptoms of cath upper gastrointestinal bleeding from a combination of issues to include peptic ulcer disease and anticoagulation. Unfortunately it appears that she remains unstable with a heart rate of 130-150 and mild hypotension. Unfortunately she is not deemed to be a candidate for endoscopic evaluation at our center. Thus I would recommend urgent referral to a tertiary center as the patient may benefit from center with expertise in interventional radiology. Recommendations Consider referral to a tertiary center as patient was deemed to be not a can didate for upper endoscopy here Continue Protonix drip No nonsteroidals please Please call with any urgent questions or concerns History of Present Illness Reason for Consultation: Melena Requesting Physician: Dr. Tolliver/Shyla Attending Physician: Pascual Mansfield DO History of Present Illness This is an 83-year-old female who presented to the emergency room yesterday even ing for evaluation of dark sticky stool. The symptoms have been ongoing for approximately 24 hours prior to admission. She denies having any hematemesis or gross blood from the rectum. The patient notes that she had a similar problem several years ago and underwent emergency surgery with Dr. Omalley, fortunately she does not fully recall any details. She denies having fevers chills sweats or Rigor's. Denies taking Motrin ibuprofen or other nonsteroidals as an outpatient. Overnight the patient had problems with hypotension and tachycardia as a result of uncontrolled atrial fibrillation. She was treated with several doses of IV beta-sterling which was limited due to her blood pressure. The patient was given 2 units of FFP, adamant K in addition to 2 units of packed red blood cells. Despite this the patient remains tachycardic and hypotensive this morning. Allergies Allergy/AdvReac Type Severity Reaction Status Date / Time scopolamine Allergy Unknown UNKNOWN Verified 08/07/19 17:51 pseudoephedrine AdvReac Intermediate TACHYCARDIA Verified 08/07/19 17:51 quinine AdvReac Intermediate DIARRHEA Verified 08/07/19 17:51 ropinirole AdvReac Intermediate VERTIGO Verified 08/07/19 17:51 Home Medications Home Medications Medication Instructions Recorded Confirmed Type aspirin 81 mg tablet 81 mg PO DAILY tab 10/27/18 08/07/19 History diltiazem HCl 360 mg capsule,24 360 mg PO DAILY #30 cap 10/27/18 08/07/19 History hr,extended release ferrous sulfate 325 mg (65 mg 325 mg PO BID #180 tab 10/27/18 08/07/19 History iron) tablet flaxseed oil 1,000 mg capsule 1,000 mg PO DAILY 10/27/18 08/07/19 History furosemide 20 mg tablet 20 mg PO QAM #180 tab 10/27/18 08/07/19 History gabapentin 600 mg tablet 600 mg PO TID #90 tab 10/27/18 08/07/19 History lovastatin 20 mg tablet 20 mg PO DAILY tab 10/27/18 08/07/19 History lxhpemcquycb-hazmfmal-gyihdp 1 tab PO DAILY 10/27/18 08/07/19 History nystatin 100,000 unit/gram topical 1 appln TOPICAL DAILY PRN gm 10/27/18 08/07/19 History cream potassium chloride 20 mEq 20 meq PO TID #90 tab 10/27/18 08/07/19 History tablet,extended release warfarin 2.5 mg tablet 1.25 mg PO MOWE #150 tab 10/27/18 08/07/19 History metoprolol succinate 100 mg 100 mg PO DAILY #90 tab 05/18/19 08/07/19 Rx tablet,extended release 24 hr magnesium chloride 64 mg 64 mg PO TID #270 tab 06/01/19 08/07/19 Rx (magnesium chloride) tablet,delayed release Centrum 1 tab PO DAILY 07/28/19 08/07/19 History digoxin 125 mcg PO 3XWK 07/28/19 08/07/19 History carbidopa 25 mg-levodopa 250 mg 1 tab PO .every 3 hours tab 08/06/19 08/07/19 History tablet acetaminophen [Tylenol] 650 mg PO Q4 PRN 08/07/19 08/07/19 History qucutbuehuey-sjbv-feycg acid 1 tab PO DAILY 08/07/19 08/07/19 History [Centrum] warfarin 2.5 mg PO SUTUTHFRSA 08/07/19 08/07/19 History Patient History Medical History Atrial fibrillation (Chronic 07/17/12) CAD (coronary artery disease) Cecal ulcer Restless leg syndrome (Chronic) Surgical History H/O cataract extraction H/O right hemicolectomy S/P cholecystectomy S/p total knee replacement, bilateral Status post tonsillectomy and adenoidectomy Family History Mother Breast cancer Father Heart disease Social History Preferred Language: Finnish 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[employer] Operator Required: No Beliefs That Will Affect Care: None marital status: / Current Living Situation: Alone Current Living Situation Comment: [facility] current occupational status: retired Other Information That Helps Us Care for You: No other: worked in [employer]; 2 daughters Feels Safe at Home: Yes Safety Concerns: Feels Safe At This Time Smoking Status: Never smoker Hx Alcohol Use: No Hx Substance Use: No Review of Systems Constitutional: + malaise and + weakness; no fever, no sweats and no body aches Eyes: no diplopia Ear, Nose, Mouth, Throat: no ear trauma Respiratory: no change in sputum and no hemoptysis Cardiovascular: no chest pain with activity Gastrointestinal: + nausea; no early satiety, no vomiting and no hematemesis Genitourinary: no urinary incontinence Musculoskeletal: no radicular pain Neurologic: no falls Psychiatric: no hopelessness Hematologic / Lymphatic: + coagulopathy Physical Exam Constitutional: WD/WN, vitals as above Eyes: PERRL, conjunctivae normal, anicteric sclerae Neck: trachea midline, no thyromegaly Respiratory: normal respiratory effort, lungs clear to auscultation Cardiovascular: Rate/Rhythm: + tachycardic; + abnormal rate and + abnormal rhythm Gastrointestinal (Abdomen): normal bowel sounds, soft, nontender, no hepatosplenomegaly Skin: normal turgor; no rashes Results & Data ([facility]) Vital Signs (Past 12 Hours) Vital Signs Temp Pulse Pulse Resp BP BP Pulse Ox 08/08/19 08:48 36.5 C 149 H 21 93/64 L 92 08/08/19 08:00 36.5 C 141 H 18 86/57 L 95 08/08/19 07:45 36.5 C 150 H 22 97/71 L 99 08/08/19 07:22 36.5 C 155 H 22 87/51 L 94 08/08/19 06:26 36.5 C 143 H 21 89/65 L 91 08/08/19 05:45 36.5 C 135 H 19 109/75 98 08/08/19 05:28 36.5 C 134 H 20 97/66 L 97 08/08/19 05:01 36.5 C 144 H 19 121/73 98 08/08/19 03:05 36.5 C 137 H 18 101/68 100 08/08/19 02:35 36.6 C 147 H 18 94/58 L 100 08/08/19 02:23 36.5 C 140 H 18 88/51 L 98 08/08/19 02:00 36.7 C 150 H 18 98/60 L 97 08/08/19 01:46 36.6 C 138 H 18 104/69 97 08/08/19 01:10 36.6 C 127 H 20 91/65 L 98 08/08/19 00:10 36.7 C 131 H 18 92/62 L 100 08/08/19 00:00 140 H 08/07/19 23:40 36.6 C 130 H 18 105/72 97 08/07/19 23:25 36.7 C 133 H 18 100/70 97 08/07/19 23:14 140 H 08/07/19 23:07 36.5 C 139 H 18 105/50 L 98 08/07/19 21:50 138 H 108/70 Laboratory Results Laboratory Results - last 24 hr 08/07/19 08/07/19 08/07/19 15:30 15:30 15:30 WBC 18.35 H RBC 3.20 L Hgb 9.4 L Hct 29.1 L MCV 90.9 MCH 29.4 MCHC 32.3 RDW Std Deviation 50.4 H RDW Coeff of Nancy 15.1 H Plt Count 408 H MPV 9.7 Immature Gran % (Auto) 1.9 Neut % (Auto) 79.5 Lymph % (Auto) 11.3 [place] % (Auto) 6.6 Eos % (Auto) 0.1 Baso % (Auto) 0.6 Neut # (Auto) 14.58 H Lymph # (Auto) 2.07 [place] # (Auto) 1.22 H Eos # (Auto) 0.02 Baso # (Auto) 0.11 Immature Gran # (Auto) 0.35 H RBC Morphology PT 38.0 H INR 3.9 H APTT 45.0 H PTT Ratio 1.6 Sodium Potassium Chloride Carbon Dioxide Anion Gap BUN Creatinine Est Cr Clr Drug Dosing Est GFR ( Amer) Est GFR (Non-Af Amer) BUN/Creatinine Ratio Glucose Calcium Phosphorus Magnesium Total Bilirubin Direct Bilirubin AST ALT Alkaline Phosphatase Troponin I Total Protein Albumin Globulin Albumin/Globulin Ratio Lipase Digoxin COVID-19 PCR SARS-CoV-2 RNA (RT-PCR) Blood Type A Positive Antibody Screen NEGATIVE Crossmatch See Detail 08/07/19 08/07/19 08/07/19 15:30 21:26 21:45 WBC RBC Hgb 6.9 L* Hct 22.2 L MCV MCH MCHC RDW Std Deviation RDW Coeff of Nancy Plt Count MPV Immature Gran % (Auto) Neut % (Auto) Lymph % (Auto) [place] % (Auto) Eos % (Auto) Baso % (Auto) Neut # (Auto) Lymph # (Auto) [place] # (Auto) Eos # (Auto) Baso # (Auto) Immature Gran # (Auto) RBC Morphology PT INR APTT PTT Ratio Sodium 141 Potassium 4.5 Chloride 112 H Carbon Dioxide 23 Anion Gap 7.0 BUN 52 H Creatinine 0.78 Est Cr Clr Drug Dosing 57.7 Est GFR ( Amer) 80.3 Est GFR (Non-Af Amer) 69.3 BUN/Creatinine Ratio 67.0 H Glucose 121 H Calcium 8.9 Phosphorus 2.5 Magnesium 1.8 Total Bilirubin 0.5 Direct Bilirubin 0.2 AST 18 ALT 11 L Alkaline Phosphatase 91 Troponin I 0.017 Total Protein 6.2 L Albumin 2.5 L Globulin 3.7 Albumin/Globulin Ratio 0.7 L Lipase 53 L Digoxin COVID-19 PCR SARS-CoV-2 RNA (RT-PCR) Cancelled Blood Type Antibody Screen Crossmatch 08/07/19 08/08/19 08/08/19 23:20 04:05 06:43 WBC 21.04 H RBC 2.67 L Hgb 7.6 L Hct 24.0 L MCV 89.9 MCH 28.5 MCHC 31.7 L RDW Std Deviation 49.2 H RDW Coeff of Nancy 15.2 H Plt Count 228 MPV 9.9 Immature Gran % (Auto) 2.2 Neut % (Auto) 71.4 Lymph % (Auto) 16.1 [place] % (Auto) 9.2 Eos % (Auto) 0.4 Baso % (Auto) 0.7 Neut # (Auto) 15.04 H Lymph # (Auto) 3.38 [place] # (Auto) 1.93 H Eos # (Auto) 0.09 Baso # (Auto) 0.14 Immature Gran # (Auto) 0.46 H RBC Morphology Unremarkable PT 20.8 H INR 2.0 H APTT PTT Ratio Sodium Potassium Chloride Carbon Dioxide Anion Gap BUN Creatinine Est Cr Clr Drug Dosing Est GFR ( Amer) Est GFR (Non-Af Amer) BUN/Creatinine Ratio Glucose Calcium Phosphorus Magnesium Total Bilirubin Direct Bilirubin AST ALT Alkaline Phosphatase Troponin I Total Protein Albumin Globulin Albumin/Globulin Ratio Lipase Digoxin COVID-19 PCR NEGATIVE SARS-CoV-2 RNA (RT-PCR) Blood Type Antibody Screen Crossmatch 08/08/19 08/08/19 08/08/19 06:43 06:43 06:43 WBC RBC Hgb Hct MCV MCH MCHC RDW Std Deviation RDW Coeff of Nancy Plt Count MPV Immature Gran % (Auto) Neut % (Auto) Lymph % (Auto) [place] % (Auto) Eos % (Auto) Baso % (Auto) Neut # (Auto) Lymph # (Auto) [place] # (Auto) Eos # (Auto) Baso # (Auto) Immature Gran # (Auto) RBC Morphology PT 17.2 H INR 1.7 H APTT PTT Ratio Sodium 146 H Potassium 3.9 Chloride 117 H Carbon Dioxide 24 Anion Gap 5.0 BUN 46 H Creatinine 0.77 Est Cr Clr Drug Dosing 54.8 Est GFR ( Amer) 81.6 Est GFR (Non-Af Amer) 70.4 BUN/Creatinine Ratio 59.9 H Glucose 118 H Calcium 7.9 L Phosphorus Magnesium Total Bilirubin Direct Bilirubin AST ALT Alkaline Phosphatase Troponin I Total Protein Albumin Globulin Albumin/Globulin Ratio Lipase Digoxin 0.3 L COVID-19 PCR SARS-CoV-2 RNA (RT-PCR) Blood Type Antibody Screen Crossmatch Diagnostic Findings BDOMEN AND PELVIS CT WITH IV CONTRAST CT DOSE: 593.65 mGy.cm HISTORY: MELENA, DIZZZINESS TECHNIQUE: Multiaxial CT images of the abdomen and pelvis were performed following the use of intravenous contrast. A dose lowering technique was utilized adhering to the principles of ALARA. COMPARISON STUDY: Abdomen and pelvis CT 07/05/2016. FINDINGS: Mild interstitial thickening at the lung bases which is likely chronic. No pneumoperitoneum. No pneumatosis. No suspicious lytic are blastic osseous lesions. The heart remains mildly enlarged. Prior cholecystectomy. No hepatic or splenic masses. Multiple calcified granulomas seen within the spleen. The adrenal glands and pancreas are unremarkable. Moderate bilateral cortical renal scarring, unchanged. There is a punctate stone within the right kidney. Multiple subcentimeter hypodense lesions within the bilateral kidneys. These are certainly too small to characterize but not significant changed. There is also a stable 1.4 cm intermediate density lesion within the left kidney. Small to moderate size left fat-containing inguinal hernia. Enlarged right inguinal lymph node measuring 3.0 x 2.3 cm. This remains unchanged. Multiple additional mildly enlarged bilateral iliac lymph nodes. Subcentimeter retroperitoneal lymph nodes remain stable and do not meet CT criteria for pathologic involvement. Minimal inflammatory change along the undersurface of the distal gastric antrum. This is best seen image 142. This raises the possibility of a distal gastric ulcer. The bladder is unremarkable. The endometrium is distended for age measuring up to 1.8 cm. Colonic diverticulosis. No evidence for acute diverticulitis. No evidence for bowel obstruction. Evidence for prior right hemicolectomy. IMPRESSION: 1. Minimal inflammatory changes along the undersurface of the distal gastric antrum near the duodenal bulb. This raises the possibility distal gastric ulcer. Endoscopy recommended for further evaluation. 2. Colonic diverticulosis. No evidence for diverticulitis. 3. Pelvic and right inguinal lymphadenopathy. This is similar compared the prior study. A low-grade lymphoma would be the diagnosis of exclusion. 4. Thickened endometrium which is considered abnormal in a postmenopausal patient. Follow-up nonemergent pelvic ultrasound is recommended to exclude an endometrial lesion. 5. Additional findings as described above.
[2019-08-08] MEDS ORDERED: ACETAMINOPHEN 1,000 MG/100 ML VIAL IV PRN (10:34)
--- NOTE | 2019-08-08 10:39 | Discharge Summary ---
Date of Service August 08, 2019 Admission HPI Per Admitting Provider 83 y/o F c/o melena. Pt states that she has been having black, tarry stools since last night. Last episode was in the ED. Pt has hx of GIB and states that this is similar. She was lightheaded and weak as well. She states she she was up all night passing small pieces of black stool. This was confirmed by nursing as well. States last INR check was Saturday and was due for check on Saturday. Pt did have an episode of GERD leading to emesis on Saturday, but none since. No blood in emesis. She has no luiz abd pain, but does feel sore, which she thinks is due to all of the bowel movements she was having. Pt denies fever, SOB, chest pain Pt was a recent d/c from [facility] to the [facility] on 07/30 after being tx for cellulitis. She was d/c on doxy to complete a total of 10 days of abx, which she did complete today per med rec from [facility]. She is working with [facility] for this. She feels it is getting better, but still with redness and swelling. Admission Exam Per Admitting Provider Constitutional: WD/WN, vitals as above Eyes: normal visual lane by confrontation and + anicteric sclerae Neck: normal visual inspection and trachea midline Respiratory: normal respiratory effort, lungs clear to auscultation Cardiovascular: Rate/Rhythm: + irregularly irregular Gastrointestinal (Abdomen): Inspection/Auscultation: abdomen not distended Percussion/Palpation: + abdomen tender (diffuse, mild) and abdomen soft Musculoskeletal: Head/Neck/Chest: normocephalic and head atraumatic negative for edema, peripheral pulses intact Skin: b/l LE redness c/w improving cellulitis, moving away from ink lines Wrappings are clean and dry Neurologic: awake; not confused Speech / Cognition: normal speech Psychiatric: A+Ox3, euthymic affect Principal Diagnosis Acute blood loss anemia 2/2 gastric ulcer bleed Discharge Exam General: A&Ox3. Answers questions appropriately, cooperative. Appears fatigued. Pallor appreciated. HEENT: Atraumatic, normocephalic. No external nasal or ear deformity. Hearing grossly intact. Vision grossly intact. Oral mucosa tacky. Pulm: CTAB A&P. -wheezes, -rales, -rhonchi. Symmetrical chest rise. No increase work of breathing. No respiratory distress. Cardiac: Tachycardic, -mrg. Radial pulses intact and symmetrical. Abdominal: Nontender, nondistended, soft. BS present. Extremities: Warm, dry. No pedal edema. PT pulse intact bilaterally and symmetrical. Cap refill approximately 2 seconds. Discharge Data Allergies Allergy/AdvReac Type Severity Reaction Status Date / Time scopolamine Allergy Unknown UNKNOWN Verified 08/07/19 17:51 pseudoephedrine AdvReac Intermediate TACHYCARDIA Verified 08/07/19 17:51 quinine AdvReac Intermediate DIARRHEA Verified 08/07/19 17:51 ropinirole AdvReac Intermediate VERTIGO Verified 08/07/19 17:51 Consultations 08/07/19 16:50 ED Decision to Admit Stat 08/07/19 18:53 Consult Case Management - Discharge Planning Routine Consult Gastroenterology Routine 08/08/19 04:29 Consult Die Engraver Routine 08/08/19 09:45 Burn CD for patient Stat Procedures Performed Operation Date: 08/08/19 09:00 <No data on this case meets the specified criteria> Ordered Studies 08/07/19 15:21 CT abd pelvis IV con only Stat Hospital Course (1) Admitted to intensive care unit: Diane is an 83-year-old female with a past medical history of A. fib with RVR on anticoagulation, CHF NYHA class II with last EF approximately 50%, GERD, and lymphedema who presented to [facility] with melena and fatigue and who is been admitted for acute blood loss anemia due to bleeding peptic ulcer disease with supratherapeutic INR. Acute blood loss anemia 2/2 peptic ulcer disease with supratherapeutic INR Diane presented with fatigue and recurrent melena. Her INR on admission was 3.6. Her last hemoglobin on 619 was 12.6 and was acutely decreased to 6.[address]-ab showed inflammatory changes along the undersurface of the distal gastric antrum near the duodenal bulb Raising the possibility of a distal gastric ulcer. She was made NPO, received IV fluids and she underwent vitamin K reversal of her INR and was placed on a Protonix drip with additional famotidine push. She was transferred to the ICU and received 2 units of packed red blood cells with a rise in hemoglobin to 7.6. She had a transient increase in oxygen requirement related to her CHF, and aggressive blood product resuscitation was pursued. Given an inappropriate rise in hemoglobin with ongoing melena she re ceived an additional unit of blood. Gastroenterology was consulted, felt patient was not hemodynamically stable and required transfer to tertiary care with interventional radiology services available. [facility] was contacted and patient was accepted for transfer for further care. Patient and family were updated. Atrial fibrillation with RVR Diane has a history of A. fib with RVR on warfarin therapy. Her warfarin was held on admission and she received vitamin K reversal. Due to hypotension her metoprolol and diltiazem were held, she was continued on digoxin 3 times weekly. She experienced tachycardia during admission which was thought to be reflective of reflex tachycardia in the setting of acute blood loss anemia but may also have an element of loss of rate control due to her CCB/BB being held. She was discharged with her beta-sterling metoprolol continuing to be held with further care at tertiary care. (2) Peptic ulcer disease with hemorrhage: (3) Supratherapeutic INR: (4) GIB (gastrointestinal bleeding): (5) Iron deficiency: (6) Venous ulcer of both lower extremities with varicose veins: (7) Chronic venous insufficiency: (8) CAD (coronary artery disease): (9) DVT prophylaxis: Total Time Total Time Spent Total Time Spent (In Minutes): <30 Discharge Plan Discharge Items Patient Disposition: Transfer Acute Care Hospital Reason For Visit: GI BLEED Discharge Diagnosis: Acute GI bleed with blood loss anemia 2/2 gastric ulcer Activity: As commented below Non-emergency contact: Hospitalist Call non-emergency contact if: you have any medication questions, your symptoms worsen, your pain is not controlled, your pain is worsening, your pain is unusual for you and your pain is concerning for you [facility] - Diet: Other - See Diet Comment Diet Comment: npo Addtl Attending Provider Instructions: You have been seen in the hospital for acute blood loss anemia due to a bleeding gastric ulcer with supratherapeutic INR. You have received 2 units of blood with a rise in your hemoglobin from 6.9-7.6, and received a 3rd unit of blood prior to transport to tertiary care. You are seen by gastroenterology who recommended that you be transferred to tertiary care with interventional radiology services available for treatment of your bleeding ulcer, and felt it was not safe to perform interventional endoscopy at [facility]. You have been accepted at and are being transferred to [facility] with direct transport to their intensive care unit for further care. Your diltiazem and metoprolol have been held due to hypotension. You are being transferred with your hospital medications and IVs being continued, your home medications will be reevaluated as per the primary team at tertiary care. Pending Studies at Discharge: Yes Studies:: Further care at [facility] including repeat hemoglobin, and endoscopy/IR intervention Stand-Alone Forms: [facility] Skilled Items Patient informed of condition?: Yes DNR: No Discharge Level of Care: Other Communicable Disease: No Discharge Prognosis: Other Lines: Peripheral IV Urinary Catheter: Yes Medications and DC Order Prescriptions: New gabapentin 600 mg Tablet 600 mg PO TID 30 Days Qty: 90 RF: 0 Continued magnesium chloride 64 mg tablet,delayed release (DR/EC) 64 mg PO TID Qty: 270 RF: 3 lovastatin 20 mg tablet 20 mg PO DAILY RF: 0 ferrous sulfate 325 mg (65 mg iron) tablet 325 mg PO BID Qty: 180 RF: 0 gabapentin 600 mg tablet 600 mg PO TID Qty: 90 RF: 0 flaxseed oil 1,000 mg capsule 1,000 mg PO DAILY RF: 0 nystatin 100,000 unit/gram cream 1 appln topical DAILY PRN (Reason: BREAKOUTS) RF: 0 potassium chloride 20 mEq tablet extended release 20 meq PO TID Qty: 90 RF: 0 xsblqlfnefyu-jshtuceu-nsikhd 1 tab PO DAILY RF: 0 carbidopa-levodopa 25-250 mg tablet 1 tab PO .every 3 hours RF: 0 Centrum 18-400 mg-mcg Tablet 1 tab PO DAILY RF: 0 Centrum 18-400 mg-mcg Tablet 1 tab PO DAILY RF: 0 digoxin 125 mcg (0.125 mg) tablet 125 mcg PO 3XWK RF: 0 Discontinued metoprolol succinate 100 mg tablet extended release 24 hr 100 mg PO DAILY Qty: 90 RF: 3 aspirin 81 mg tablet 81 mg PO DAILY RF: 0 diltiazem HCl 360 mg capsule,extended release 24 hr 360 mg PO DAILY Qty: 30 RF: 0 warfarin 2.5 mg tablet 1.25 mg PO MOWE Qty: 150 RF: 0 furosemide 20 mg tablet 20 mg PO QAM Qty: 180 RF: 0 acetaminophen [Tylenol] 325 mg Tablet 650 mg PO Q4 PRN (Reason: mild pain/fever) RF: 0 warfarin 2.5 mg Tablet 2.5 mg PO SUTUTHFRSA RF: 0 Discharge Orders: Discharge Order (Routine); Ordered 08/08/19 Ordered By: Jamie Carcamo Admission Data Admit Date/Time: 08/07/19 17:40 Attending Provider: Pascual Mansfield Admit Provider: Sakshi Tolliver [facility] Other Providers: Sakshi Tolliver ; Jose Manuel Molina ; Feliberto Schrader Other Interventions: Discharge Summary Assessment (RN) Last Done: 08/08/19 11:11 DC Date/Time DO NOT enter until pt leaves facility: 08/08/19 11:19 Supervising Physician Co-Signing Physician Notes I personally examined the patient and verified all shaikh points of history and exam, discussed case, and agree with decision making with Dr Carcamo. feeling surprisingly OK except that she feels like she's going to have another BM. d/w GI - anesthesia did not feel she would be safe for endoscopy - therefore tx for IR. Dr Carcamo d/w sushila and arrangements made//pt transferred via air. vitals noted nad heent nc at mmm breathing unlabored no accessory muscles good effort skin no rashes no pallor or icterus acute GI bleed/acute blood loss anemia/early hemorrhagic shock - most likely PUD complicated by coumadin coagulopathy. vitamin K and FFP given for coagulatopathy, 3 units blood transfused. on protonix gtt. unable to intervene endoscopically here - transfer to tertiary, possible IR vs endoscopic intervention there. due to instability - had to fly. Resident Activity Tracking Resident Involvement: Resident Care Provided Care Provided: Adult Hospital Medicine
--- NOTE | 2019-08-08 16:10 | Billing Data ---
Date of Service August 08, 2019 Coding Level of Care Code D/C Day Management <30 mins
[2019-08-10] MEDS ORDERED: DIGOXIN 0.125 MG TAB PO SCH (16:00)
== END 2019-08-08 11:19 | disposition short-term general hospital (02) | DRG 378 ==
LOC: ED 15:09 → SUATTDRO 17:40 → 2S 17:40 → 1E 08-08 03:40

== ENCOUNTER 2023-03-05 08:58 | Inpatient (IN) ==
[2023-03-05] MEDS ORDERED: FUROSEMIDE 40 MG/4 ML VIAL IV ONE (09:11)
[2023-03-05] MEDS ORDERED: METOPROLOL TARTRATE 1 MG/ML VIAL IV STA ×2 (09:11→09:59)
--- NOTE | 2023-03-05 09:13 | Emergency Department Note ---
Impression & Plan Atrial fibrillation with rapid ventricular response, Lower extremity edema, Hypoxia, RSV (acute bronchiolitis due to respiratory syncytial virus) ED Provider Note Provider: Sukhdev Muñiz MD DATE OF SERVICE: 03/05/2023 CHIEF COMPLAINT: Shortness of breath, cough HISTORY OF PRESENT ILLNESS: Patient is a 87-year-old female past medical history of atrial fibrillation on Eliquis, CAD, chronic venous insufficiency and leg swelling, leg cellulitis [place] [facility] via ambulance complaining of breathing issues and cough. Evidently about 2 to 3 days ago started with bit of throat tickle and a wet nonproductive cough. Not normally on oxygen but found by EMS prior to arrival to be 88% on room air. Lives in the assisted living area. Normally ambulates with walker. States she took her medications yesterday morning but did not yesterday evening or this morning and she has been weaker and having more breathing issues. Chronic lower extremity edema has been present and she states she has had issues with wound in the right lower leg that is finally healed but also cellulitis here. Not currently on antibiotics. Does have a significant cardiac history of A-fib and CHF but again of the missing last evening's and this morning dose has been taking her medications. No trauma/falls or syncope reported. Denies significant chest discomfort or abdominal pain or nausea to me. PAST MEDICAL HISTORY: As noted above MEDICATIONS: Reviewed home medication list SOCIAL HISTORY: Resides by herself at the [facility] PHYSICAL EXAM: GENERAL: alert and oriented in no acute distress on stretcher Head: normocephalic and atraumatic EYES: No injection, discharge or icterus. NECK: Trachea midline. ENT: Mucous membranes pink and moist. LUNGS: Airway patent. No retractions. Breath sounds with some crackles in the bases HEART: Regular tachycardic rate and rhythm. No chest wall tenderness ABDOMEN: Soft and non-tender, without guarding or rebound. SKIN: Acyanotic, warm, dry, without rashes EXTREMITIES: 2-3+ edema of the lower extremities right greater than left without open wounds noted. Some very slight chronic stasis purpleish discoloration. No large erythema or crepitus. NEUROLOGICAL: No focal deficits. No aphasia. No facial droop or slurred speech. EK bpm atrial fibrillation with rapid ventricular response. Some slight inferior slight ST depression and T wave inversions noted without clear acute ST segment elevation. QTc 475. CONTINUOUS CARDIAC MONITORING: was ordered and showed a heart rate of 100s-140s bpm in atrial fibrillation Patient's laboratory studies and imaging reviewed. Differential includes Reactive airway disease, pneumonia, pneumothorax, COPD, CHF, infections, cardiac ischemia, pulmonary embolism, musculoskeletal, gastrointestinal, as well as other pathologies. IMPRESSION/MEDICAL DECISION MAKING: Patient with history of cardiac disease/A-fib/CHF not normally on oxygen. Missed evening medications as well as this morning dose and thus likely why she is in A-fib RVR today. Mild hypoxia which is new. Question fluid overload given her swelling but may be chronic. Will obtain chest x-ray. No fevers reported. Lab work sent. Respiratory viral panel sent. Given a small mount of Lasix and metoprolol IV to help with some diuresis and try to help control her A-fib. Digoxin level sent as she is normally on this. Not having active chest pain. No trauma or falls reported. As well as possibly left lower lobe atelectasis or pneumonia. Blood work obtained here shows no anemia with a white blood count of 10.7 normal but towards the high end. Procalcitonin undetectably low. Can lower suspicion for pneumonia and will defer to the hospitalist at this time as she requires admission given her hypoxia and illness. Chemistries without significant signs of renal dysfunction or electrolyte abnormality. BNP is elevated 650. Troponin minimally elevated 24 but no prior baseline. Transient improved with IV metoprolol and given an additional dose here. Do not see an echo in the chart but see history of heart failure preserved EF in the cardiology notes. Is normally on digoxin as well as diltiazem at home. If ongoing rate control issues will consider diltiazem drip. Hospitalist contacted for admission. DIAGNOSIS: A-fib RVR, hypoxia, fluid overload, RSV DISPOSITION: Hospitalist will evaluate Patient was agreeable with this plan. Critical Care I have personally spent 33 minutes of critical care time in the direct management of this patient. This includes bedside care, interpretation of diagnostic studies, and testing, discussion with consultants, patient, and other required patient management activities. These 33 minutes is in excess of all separately billable procedures. Past Med/Surg History Medical History (Updated 03/05/23 @ 15:08 by Sukhdev Muñiz M.D.) CAD (coronary artery disease) Restless leg syndrome Cecal ulcer Atrial fibrillation (07/17/12) Surgical History S/p total knee replacement, bilateral Status post tonsillectomy and adenoidectomy H/O cataract extraction H/O right hemicolectomy S/P cholecystectomy Family History Mother Breast cancer Father Heart disease Social History Smoking Status: Never smoker Hx Alcohol Use: No Hx Substance Use: No Preferred Language: Slovak Communication Ability: Effective Tobacco Cloth Reclaimer Required: No Beliefs That Will Affect Care: None marital status: Unknown Current Living Situation: Alone Current Living Situation Comment: [facility] current occupational status: retired other: worked in [employer]; 2 daughters Feels Safe at Home: Yes Assistive Devices: Glasses Allergies Allergies Allergy/AdvReac Type Severity Reaction Status Date / Time scopolamine Allergy Unknown UNKNOWN Verified 01/31/23 15:00 pseudoephedrine AdvReac Intermediate TACHYCARDIA Verified 01/31/23 15:00 quinine AdvReac Intermediate DIARRHEA Verified 01/31/23 15:00 ropinirole AdvReac Intermediate VERTIGO Verified 01/31/23 15:00 Home Meds Home Medications Medication Instructions Recorded Confirmed flaxseed oil 1,000 mg capsule 1,000 mg PO DAILY 10/27/18 03/05/23 lovastatin 20 mg tablet 20 mg PO DAILY 10/27/18 03/05/23 nystatin 100,000 unit/gram topical 1 appln topical DAILY PRN BREAKOUTS 10/27/18 03/05/23 cream potassium chloride 20 mEq 20 meq PO BID #90 tabs 10/27/18 03/05/23 tablet,extended release acetaminophen 325 mg tablet 650 mg PO Q4H PRN pain 08/19/19 03/05/23 diltiazem HCl 360 mg capsule,24 360 mg PO DAILY 08/19/19 03/05/23 hr,extended release ferrous sulfate 325 mg (65 mg 325 mg PO TID #180 tabs 08/19/19 03/05/23 iron) tablet furosemide 40 mg tablet (Lasix) 40 mg PO DAILY 08/19/19 03/05/23 lansoprazole 30 mg capsule,delayed 30 mg PO BID 08/19/19 03/05/23 release (Prevacid) multivitamin-ferrous 1 tab PO DAILY 08/19/19 03/05/23 fumarate-folic acid 18 mg-400 mcg tablet (Cerovite Advanced Formula) apixaban 5 mg tablet (Eliquis) 5 mg PO BID 12/01/19 03/05/23 gabapentin 600 mg tablet 600 mg PO TID 12/01/19 03/05/23 carbidopa 25 mg-levodopa 250 mg 1 tab PO Q3H PRN restless legs 09/08/20 03/05/23 tablet vitamin A-vitamin C-vit E-min 1 tab PO DAILY 03/05/23 03/05/23 tablet Previous Rx's Medication Instructions Recorded metoprolol succinate 100 mg 100 mg PO DAILY #90 tabs 08/11/20 tablet,extended release 24 hr magnesium chloride 64 mg 64 mg PO TID #270 tabs 09/29/20 (magnesium chloride) tablet,delayed release digoxin 125 mcg (0.125 mg) tablet 125 mcg PO 3XWK #36 tabs 06/18/22 Results & Data (ED) Vital Signs Vital Signs - 24 hr 03/05/23 09:05 03/05/23 09:05 03/05/23 09:14 Pulse Rate 107 H 127 H Pulse Rhythm Irregular Respiratory Rate 29 H 24 Blood Pressure 148/112 H Blood Pressure Mean 124 Pulse Oximetry 94 88 L 94 Oxygen Delivery Method Nasal Cannula Nasal Cannula Nasal Cannula Oxygen Flow Rate 2 0 2 Sepsis Recent Fever Within 48 Hours No Sepsis New/Unexplained Change in Mental Status N/A Sepsis Action Taken by Nursing Physician Notified Oxygen Flow Rate - Titration 4 Pulse Oximetry Post Tiitration 94 03/05/23 09:17 03/05/23 09:18 03/05/23 09:33 Pulse Rate 124 H 138 H 104 H Pulse Rhythm Respiratory Rate Blood Pressure 148/112 H 138/98 Blood Pressure Mean Pulse Oximetry Oxygen Delivery Method Oxygen Flow Rate Sepsis Recent Fever Within 48 Hours Sepsis New/Unexplained Change in Mental Status Sepsis Action Taken by Nursing Oxygen Flow Rate - Titration Pulse Oximetry Post Tiitration 03/05/23 10:08 03/05/23 10:23 Pulse Rate 102 H 99 H Pulse Rhythm Respiratory Rate Blood Pressure 138/98 Blood Pressure Mean Pulse Oximetry Oxygen Delivery Method Oxygen Flow Rate Sepsis Recent Fever Within 48 Hours Sepsis New/Unexplained Change in Mental Status Sepsis Action Taken by Nursing Oxygen Flow Rate - Titration Pulse Oximetry Post Tiitration Laboratory Data 03/05/23 09:15 03/05/23 09:15 Lab Results 03/05/23 Range/Units 09:15 WBC 10.76 (4.8-10.8) K/ul RBC 5.20 (4.20-5.40) M/uL Hgb 15.0 (12.0-16.0) g/dl Hct 45.5 (37.0-47.0) % MCV 87.5 (80.0-100.0) fL MCH 28.8 (25.0-34.0) pg MCHC 33.0 (32.0-36.0) g/dL RDW Std Deviation 44.3 (36.4-46.3) fL RDW Coeff of Nancy 13.8 (11.5-14.5) % Plt Count 257 (130-400) K/uL MPV 10.3 (9.4-12.4) fL Immature Gran % (Auto) 0.5 % Neut % (Auto) 84.1 % Lymph % (Auto) 6.0 % Coos % (Auto) 8.6 % Eos % (Auto) 0.1 % Baso % (Auto) 0.7 % Neut # (Auto) 9.06 H (1.40-6.50) K/uL Lymph # (Auto) 0.65 L (1.20-3.40) K/uL Coos # (Auto) 0.92 H (0.11-0.59) K/uL Eos # (Auto) 0.01 (0.00-0.50) K/uL Baso # (Auto) 0.07 (0.00-0.20) K/uL Immature Gran # (Auto) 0.05 (0.01-0.20) K/uL PT 12.3 H (9.0-12.0) Seconds INR 1.1 (0.9-1.1) APTT 33 H (21-31) Seconds PTT Ratio 1.2 Sodium 140 (136-145) mmol/L Potassium 4.1 (3.5-5.1) mmol/L Chloride 103 (98-107) mmol/L Carbon Dioxide 27 (21-32) mmol/L Anion Gap 10 (3-11) BUN 13 (6-23) mg/dl Creatinine 0.74 (0.6-1.2) mg/dl Est Cr Clr Drug Dosing 54.5 ml/min Est GFR ( Amer) 83.2 ml/min Est GFR (Non-Af Amer) 71.8 ml/min BUN/Creatinine Ratio 17.6 (10-20) Glucose 134 H (70-99(Fasting)) mg/dl Calcium 10.3 (8.6-10.3) mg/dl Magnesium 1.9 (1.7-2.4) mg/dl Total Bilirubin 0.9 (0.2-1.0) mg/dl AST 27 (13-39) U/L ALT 4 L (7-52) U/L Alkaline Phosphatase 142 H (34-104) U/L Troponin I High Sens 24.1 H (0-14) pg/ml B-Natriuretic Peptide 650 H (0-100) pg/ml Total Protein 7.9 (6.0-8.3) gm/dl Albumin 4.3 (3.4-5.0) gm/dl Globulin 3.6 (2.5-4.0) gm/dl Albumin/Globulin Ratio 1.2 (0.9-2) Procalcitonin < 0.05 (0-0.5) ng/ml Digoxin 0.6 L (0.8-2.0) ng/ml Adenovirus (PCR) Not Detected (NotDetected) B. pertussis DNA (PCR) Not Detected (NotDetected) B.parapertussis DNA PCR Not Detected (NotDetected) C. pneumoniae DNA (PCR) Not Detected (NotDetected) Coronavirus OC43 (PCR) Not Detected (NotDetected) Coronavirus HKU1 (PCR) Not Detected (NotDetected) Coronavirus 229E (PCR) Not Detected (NotDetected) SARS-CoV-2 (PCR) Not Detected (NotDetected) Coronavirus NL63 (PCR) Not Detected (NotDetected) Human Metapneumovir PCR Not Detected (NotDetected) Influenza Type A (PCR) Not Detected (NotDetected) Influenza Type B (PCR) Not Detected (NotDetected) M. pneumoniae (PCR) Not Detected (NotDetected) Parainfluenza 1 (PCR) Not Detected (NotDetected) Parainfluenza 2 (PCR) Not Detected (NotDetected) Parainfluenza 3 (PCR) Not Detected (NotDetected) Parainfluenza 4 (PCR) Not Detected (NotDetected) RSV (PCR) DETECTED A* (NotDetected) Entero/Rhino (PCR) Not Detected (NotDetected) Administered Medications Gabapentin (Gabapentin 600 Mg Tab) 600 mg PO TID NALLELY Stop: 04/04/23 13:59 Last Admin: 03/05/23 14:02 Dose: 600 mg Documented By: ROSANNA Magnesium Chloride (Magnesium Chloride W/Calcium 64mg Delayed Rel Tab) 64 mg PO TID [facility] Stop: 04/04/23 13:59 Last Admin: 03/05/23 14:02 Dose: 64 mg Documented By: ROSANNA Discontinued Medications Apixaban (Apixaban 5 Mg Tablet) 5 mg PO NOW STA Stop: 03/05/23 10:54 Last Admin: 03/05/23 12:26 Dose: 5 mg Documented By: NIKO Digoxin (Digoxin 0.125 Mg Tab) 0.125 mg PO NOW ONE Stop: 03/05/23 10:50 Last Admin: 03/05/23 11:08 Dose: Not Given Documented By: ROSANNA Diltiazem HCl (Diltiazem Hcl 180 Mg Capcr) 360 mg PO NOW STA Stop: 03/05/23 10:24 Last Admin: 03/05/23 10:45 Dose: 360 mg Documented By: KELLY Furosemide (Furosemide 40 Mg/4 Ml Vial) 40 mg IV ONE ONE Stop: 03/05/23 09:12 Last Admin: 03/05/23 09:18 Dose: 40 mg Documented By: KELLY Guaifenesin (Guaifenesin Sugar Free 100 Mg/5 Ml Udc) 100 mg PO NOW STA Stop: 03/05/23 11:31 Last Admin: 03/05/23 12:26 Dose: 100 mg Documented By: NIKO Levalbuterol HCl (Levalbuterol 1.25 Mg/3 Ml Neb) 1.25 mg NEB NOW STA Stop: 03/05/23 10:57 Last Admin: 03/05/23 11:34 Dose: 1.25 mg Documented By: ROSANNA Magnesium Oxide (Magnesium Oxide 400 Mg Tab) 400 mg PO NOW STA Stop: 03/05/23 11:07 Last Admin: 03/05/23 12:26 Dose: 400 mg Documented By: NIKO Metoprolol Succinate (Metoprolol Succ 50mg Ext Rel Tab) 100 mg PO NOW STA Stop: 03/05/23 10:24 Last Admin: 03/05/23 10:45 Dose: 100 mg Documented By: KELLY Metoprolol Tartrate (Metoprolol Tartrate 1 Mg/Ml Vial) 5 mg IV NOW STA Stop: 03/05/23 09:12 Last Admin: 03/05/23 09:18 Dose: 5 mg Documented By: KELLY Metoprolol Tartrate (Metoprolol Tartrate 1 Mg/Ml Vial) 5 mg IV NOW STA Stop: 03/05/23 10:00 Last Admin: 03/05/23 10:08 Dose: 5 mg Documented By: KELLY Imaging Data Radiologist's Impression: Chest X-Ray 03/05/23 09:11 XR chest 1V portable CLINICAL HISTORY: Dyspnea, infection vs CHF? COMPARISON STUDY: Chest radiograph August 07, 2019. FINDINGS: Patient is mildly rotated. Small left and trace right pleural effusions are present. There is mild interstitial thickening. Cardiomegaly is unchanged. There is no pneumothorax. There is apparent left lower lung opacity. IMPRESSION: 1. Mild interstitial pulmonary edema with small left and trace right pleural effusions. Stable cardiomegaly. 2. Apparent left lower lung opacity. This could reflect atelectasis or pneumonia. Radiographic follow up to ensure resolution is recommended. ACT 112: Negative or not required by law. Electronically signed by: Lamont Dean M.D. 03/05/2023 9:36 AM Discharge Plan Visit Data Chief Complaint: Shortness of Breath/Dyspnea ED Provider: Sukhdev Muñiz Discharge Problem: Atrial fibrillation with rapid ventricular response, Lower extremity edema, Hypoxia, RSV (acute bronchiolitis due to respiratory syncytial virus) Patient Disposition: Being Evaluated by Hospitalist Discharge Instructions Interventions: ED Discharge Assessment Last Done: 03/05/23 12:36
[2023-03-05 09:35] LABS: Basophils # (auto) 0.07 K/uL (0.00-0.20); Basophils % (auto) 0.7 %; Eosinophils # (auto) 0.01 K/uL (0.00-0.50); Eosinophils % (auto) 0.1 %; Hematocrit (blood only) 45.5 % (37.0-47.0); Immature Granulocytes # (auto) 0.05 K/uL (0.01-0.20); Immature Granulocytes % (auto) 0.5 %; Lymphocytes # (auto) 0.65 K/uL (1.20-3.40); Mean Corpuscular Hemoglobin 28.8 pg (25.0-34.0); Mean Corpuscular Volume 87.5 fL (80.0-100.0); Mean Platelet Volume 10.3 fL (9.4-12.4); Monocytes # (auto) 0.92 K/uL (0.11-0.59); Monocytes % (auto) 8.6 %; Neutrophils # (auto) 9.06 K/uL (1.40-6.50); Neutrophils % (auto) 84.1 %; Platelet Count 257 K/uL (130-400); RDW Coefficient of Variation 13.8 % (11.5-14.5); RDW Standard Deviation 44.3 fL (36.4-46.3); White Blood Count 10.76 K/ul (4.8-10.8)
--- NOTE | 2023-03-05 09:37 | XRay Report ---
XR chest 1V portable CLINICAL HISTORY: Dyspnea, infection vs CHF? COMPARISON STUDY: Chest radiograph August 07, 2019. FINDINGS: Patient is mildly rotated. Small left and trace right pleural effusions are present. There is mild interstitial thickening. Cardiomegaly is unchanged. There is no pneumothorax. There is appare nt left lower lung opacity. IMPRESSION: 1. Mild interstitial pulmonary edema with small left and trace right pleural effusions. Stable cardio megaly. 2. Apparent left lower lung opacity. This could reflect atelectasis or pneumonia. Radiographic follow up to ensure resolution is recommended. ACT 112: Negative or not required by law. Electronically signed by: Lamont Dean M.D. 03/05/2023 9:36 AM
[2023-03-05 09:46] LABS: INR 1.1 (0.9-1.1); Partial Thromboplastin Ratio 1.2; Partial Thromboplastin Time 33 Seconds (21-31); Prothrombin Time 12.3 Seconds (9.0-12.0)
[2023-03-05 09:55] LABS: Albumin Level 4.3 gm/dl (3.4-5.0); Bilirubin,Total 0.9 mg/dl (0.2-1.0); Calcium 10.3 mg/dl (8.6-10.3); Magnesium 1.9 mg/dl (1.7-2.4); Potassium 4.1 mmol/L (3.5-5.1)
[2023-03-05 10:01] LABS: Albumin Globulin Ratio 1.2 (0.9-2); BUN Creatinine Ratio 17.6 (10-20); Creatinine Clr Calc Pharmacy 54.5 ml/min; Est GFR (African American) 83.2 ml/min; Est GFR (Non-African American) 71.8 ml/min; Globulin 3.6 gm/dl (2.5-4.0); Total Protein 7.9 gm/dl (6.0-8.3)
[2023-03-05 10:06] LABS: Troponin I High Sensitivity 24.1 pg/ml (0-14)
[2023-03-05] MEDS ORDERED: dilTIAZem HCL 180 MG CAPCR PO STA (10:23)
[2023-03-05] MEDS ORDERED: METOPROLOL SUCC 50MG EXT REL TAB PO STA (10:23)
[2023-03-05 10:28] LABS: Adenovirus PCR Not Detected (NotDetected); Bordetella parapertussis PCR Not Detected (NotDetected); Bordetella pertussis PCR Not Detected (NotDetected); Chlamydia pneumoniae PCR Not Detected (NotDetected); Coronavirus 229E PCR Not Detected (NotDetected); Coronavirus CoV-2 (COVID19)PCR Not Detected (NotDetected); Coronavirus HKU1 PCR Not Detected (NotDetected); Coronavirus NL63 PCR Not Detected (NotDetected); Coronavirus OC43PCR Not Detected (NotDetected); Human Metapneumovirus PCR Not Detected (NotDetected); Influenza A PCR Not Detected (NotDetected); Influenza B PCR Not Detected (NotDetected); Mycoplasma pneumoniae PCR Not Detected (NotDetected); Parainfluenza Virus 1 PCR Not Detected (NotDetected); Parainfluenza Virus 2 PCR Not Detected (NotDetected); Parainfluenza Virus 3 PCR Not Detected (NotDetected); Parainfluenza Virus 4 PCR Not Detected (NotDetected); Rhinovirus/Enterovirus PCR Not Detected (NotDetected)
[2023-03-05 10:34] LABS: Respiratory Syncytial VirusPCR DETECTED (NotDetected)
--- OUTSIDE RECORDS SUMMARY | 2023-03-05 10:47 | External Medical Summary | Continuity of Care Document ---
Author Name Unknown Organization [place] [address] [address] [id number] Care Team Providers Care Core Fitter Name Role Phone Dante Reynaga Aravind Primary Care Physician [phone] Encounter [id number] Date(s): 02/14/23 - 02/14/23 [facility] 0 [facility] 207 [facility] 1850 [facility] [address] [place] [address] [phone] Encounter Diagnosis Cellulitis of leg(Discharge Diagnosis) - 02/14/23 Leg wound, right(Discharge Diagnosis) - 02/14/23 Discharge Disposition: Home or Self Care Attending Physician: DO Wesley Stephanie Marie Allergies, Adverse Reactions, Alerts Substance Reaction Severity Status Requip Active Lipitor Active Sudafed Active quiNINE Active Advicor 1 Active 1unless taken with aspirin 81 mg Assessment and Plan Extracted from: Title:Office Visit Note Author:DO Wesley Steph anie Marie Date:02/14/23 1.Cellulitis of leg Chronic condition exacerbated/progressive/side effects of treatment Goal:Resolution Plan: Continue Keflex, additional rx Keflex sent to pharmacy for 14 days of therapy. Continue compression.Home investor relations manager consult placed. Return precautions. S/s that would necessitate emergent evaluation discussed with patient. F/u on Saturday02/26/23 or sooner prn. 2.Leg wound, right See above Inclusive of time spent reviewing the medical record, dran-le-ldzs time with the patient, and time spent in documentation, the total minutes spent on this encounter today was 35 minutes. Immunizations Given and Recorded Vaccine Date Status Refusal Reason SARS-CoV-2 (COVID-19) mRNA-1273 vaccine 12/16/22 R ecorded SARS-CoV-2 (COVID-19) mRNA-1273 vaccine 1 12/16/20 Recorded SARS-CoV-2 (COVID-19) mRNA-1273 vaccine 2 04/14/20 Recorded SARS-CoV-2 (COVID-19) mRNA-1273 vaccine 3 03/17/20 Recorded influenza virus vaccine, inactivated 12/01/21 Sharif rded influenza virus vaccine, inactivated 12/02/20 Sharif rded influenza virus vaccine, inactivated 11/08/17 Give n influenza virus vaccine, inactivated 11/26/16 Sharif rded influenza virus vaccine, inactivated 11/07/12 Give n influenza virus vaccine, inactivated 11/30/11 Give n SARS-CoV-2 mRNA (tozinameran 5y-11y) 11/14/21 Sharif rded pneumococcal 13-valent vaccine 04/09/14 Recorded pneumococcal 23-valent vaccine 02/11/11 Recorded tetanus/diphtheria/pertuss, acel (Tdap) 10/03/06 R ecorded zoster vaccine live 04/22/06 Recorded 1Result Comment: 2021-01-23: Historical information-source unspecified 2Result Comment: 2021-01-23: Historical information-source unspecified 3Result Comment: 2020-03-21: Historical information-source unspecified Medications Bactrim DS 800 mg-160 mg oral tablet Start: 06/22/22 13:17:00 EDT, 1 tab, PO, bid, Disp# 14 tab, Refills: 0, Pharmacy: [id number] Start Date: 06/22/22 Stop Date: 06/29/22 Status: Ordered carbidopa-levodopa 25 mg-250 mg oral tablet Start: 08/10/22 10:00:00 EDT, See Instructions, Disp# 360 tab, Refills: 3, TAKE 1 TABLET BY MOUTH FOUR TIMES DAILY, Pharmacy: [id number] Start Date: 08/10/22 Status: Ordered cephalexin 500 mg oral capsule Start: 01/30/23 11:02:00 EST, See Instructions, Disp# 30 cap, Refills: 0, TAKE 1 CAPSULE BY MOUTH THREE TIMES DAILY FOR 10 DAYS, Pharmacy: [id number] Start Date: 01/30/23 Status: Ordered Cerovit vitamin Start: 01/18/20 10:59:00 EST, Cerovit vitamin, 1 tab, PO, Daily Start Date: 01/18/20 Status: Ordered digoxin 125 mcg (0.125 mg) oral tablet Start: 03/11/13 14:23:00, 1 tab, PO, Daily, one tab M-W-F Start Date: 03/11/13 Status: Ordered DilTIAZem (Eqv-Tiazac) 360 mg/24 hours oral capsule, extended release Start: 04/05/22 14:10:00 EST, See Instructions, Disp# 90 cap, Refills: 3, TAKE 1 CAPSULE BY MOUTH EVERY DAY, Pharmacy: [id number] Start Date: 04/05/22 Status: Ordered Eliquis 5 mg oral tablet Start: 08/01/22 16:04:00 EDT, See Instructions, Disp# 180 tab, Refills: 3, TAKE 1 TABLET BY MOUTH TWO TIMES DAILY, Pharmacy: [facility] Start Date: 08/01/22 Status: Ordered ferrous sulfate 325 mg (65 mg elemental iron) oral delayed release tablet Start: 08/02/16 16:51:00, 1 tab, PO, tid, Disp# 90 tab, Refills: 3, [facility] Start Date: 08/02/16 Status: Ordered Flax Seed Oil Start: 09/08/15 10:58:00, one tab, PO, Daily Start Date: 09/08/15 Status: Ordered furosemide 20 mg oral tablet Start: 01/10/23 14:38:00 EST, 2 tab, PO, Daily, Disp# 180 tab, Refills: 3, Pharmacy: [facility] Start Date: 01/10/23 Status: Ordered gabapentin 600 mg oral tablet Start: 04/16/22 11:49:00 EST, 1 tab, PO, tid, Disp# 270 tab, X 90 day, Refills: 3, Stop: 04/11/23 11:49:00 EST, Pharmacy: [facility] Start Date: 04/16/22 Stop Date: 04/11/23 Status: Ordered Keflex 500 mg oral capsule Start: 02/14/23 15:05:00 EST, 1 cap, PO, tid, Disp# 12 cap, Take after completion of current [id number] TID x10 days for a total duration of treatment of 14 days, Pharmacy: [id number] Start Date: 02/14/23 Stop Date: 02/18/23 Status: Ordered lansoprazole 30 mg oral delayed release capsule Start: 06/01/22 7:14:00 EDT, 1 cap, PO, Daily, Disp# 90 cap, Refills: 3, Pharmacy: [facility] Start Date: 06/01/22 Status: Ordered lovastatin 20 mg oral tablet Start: 12/14/22 13:40:00 EDT, 1 tab, PO, qhs, Disp# 90 tab, Refills: 3, Pharmacy: [facility] Start Date: 12/14/22 Status: Ordered Mag 64 Start: 08/22/10 10:22:00, 64 mg =, PO, tid, tab Start Date: 08/22/10 Status: Ordered Metoprolol Succinate ER 100 mg oral tablet, extended release Start: 07/24/22 12:25:00 EDT, See Instructions, Disp# 90 tab, Refills: 2, TAKE 1 TABLET BY MOUTH EVERY DAY, Pharmacy: [facility] Start Date: 07/24/22 Status: Ordered Metoprolol Succinate ER 100 mg oral tablet, extended release Start: 07/24/22 12:25:00 EDT, See Instructions, Disp# 90 tab, Refills: 3, TAKE 1 TABLET BY MOUTH EVERY DAY, Pharmacy: [facility] Start Date: 07/24/22 Status: Ordered nystatin 100,000 units/g topical powder Start: 01/18/20 11:02:00 EST, PRN rash Start Date: 01/18/20 Status: Ordered Potassium Chloride (Eqv-K-Tab) 20 mEq oral tablet, extended release Start: 07/24/22 12:25:00 EDT, See Instructions, Disp# 270 tab, Refills: 3, TAKE 1 TABLET BY MOUTH THREE TIMES DAILY, Pharmacy: [facility] Start Date: 07/24/22 Status: Ordered Potassium Chloride (Eqv-K-Tab) 20 mEq oral tablet, extended release Start: 07/24/22 12:25:00 EDT, See Instructions, Disp# 270 tab, Refills: 3, TAKE 1 TABLET BY MOUTH THREE TIMES DAILY, Pharmacy: [id number] Start Date: 07/24/22 Status: Ordered PreserVision oral tablet Start: 09/08/15 10:59:00, 1 tab, PO, Daily Start Date: 09/08/15 Status: Ordered Tylenol 325 mg oral tablet Start: 08/13/19 10:48:00 EDT, 2 tab, PO, q6h, PRN: fever/mild pain Start Date: 08/13/19 Status: Ordered Mental Status 02/14/23 Barriers to Learning one year None evide nt Mandatory Health Literacy Documentation Yes Health Literacy Communication Barriers N ever Primary Language Kazakh Problem List Condition Confirmation Course Effective Dates Status H ealth Status Informant CARPAL TUNNEL SYNDROME Confirmed Active Duodenal ulcer Confirmed Active Degenerative joint disease Confirmed Active Encounter for health maintenance examination Confirmed Active Gastric ulcer Confirmed Active GERD Confirmed Active S/P total knee replacement Confirmed Active Hyperlipidemia Confirmed Active Hypocalcemia Confirmed Active Increased body weight Confirmed Active Knee osteoarthritis 1 Confirmed Active Knee osteoarthritis 2 Confirmed Active NM (myocardial infarction) Confirmed Active ATRIAL FIBRILLATION Confirmed 12/30/09 Active Pulmonary artery hypertension Confirmed Active Weight disorder Confirmed Active 1left 2B/L Diagnosis Diagnosis Type Effective Dates Health Status Clinical Service Informant Cellulitis of leg Discharge Diagnosis 02/14/23 Leg wound, right Discharge Diagnosis 02/14/23 Procedures Procedure Date Related Diagnosis Body Site Status Laboratory findings data interpretation 1 06/26/21 Completed Laboratory findings data interpretation 2 06/15/21 Completed Echocardiogram 3 07/11/16 Complete d Right hemicolectomy 07/11/16 Compl eted Biopsy of colon 4, 5 07/05/[address] - Computerised tomography ,abdomen and pelvis 07/05/16 Completed Colonoscopy 07/04/16 Completed Endoscopy,upper GI 07/04/16 Comple dione Imaging,chest 07/04/16 Completed KUB X-ray 07/04/16 Completed Right TKA 10/13/09 Completed Left knee 11/21/06 Completed Right TKA 04/13/06 Completed Cholecystectomy 1989 Completed Tonsillectomy 1957 Completed Breast lumpectomy Compl eted D & C 7 Completed 1Mg 2.0 normal. 2B12 705 nl 3Limited views were obtained. Left ventricular systolic function is normal. No pericardial effusion. 4Colon, cecum ulcer biopsied 1. ulceration with associated fibrinopurulent exudate and granulation tissue. 2. no malignancy identified 5Final diagnosis: A. Terminal ileum, cecum, appendix, ascending colon, and a portion of the transverse colon (right hemicolectomy): 1. Chronic active colitis with features consistent with iscemic colitis is seen. 2. The clinical history of ischemic colitis and gastrointestinal bleeding is noted. B. Omentum (omentectomy): 1. Benign fibroadipose tissue with congested vessels is seen. 2. No tumor seen. 3. Hemorrhage is not seen on microscopy. 6x3 for cyst, during [address], 1987 Vital Signs Most recent to oldest [Reference Range]: 1 Temperature [36.5-37.9 DegC] 36.5 DegC (02/14/23 2:21 PM) Blood Pressure 114/64mmHg (02/14/23 2:21 PM) BP Location # 1 Right Arm (02/14/23 2:21 PM) Social History Social History Type Response Smoking Status Never smoked cigaret jaskaran Sex Female FCM Outpt Note * DO Wesley Stephanie Marie: PERFORM Event Display: FCM Outpt Note Authored Date: Chief Complaint Pt here for open sore on rt lower leg. Pt has a history of cellulitis. History of Present Illness Patient is an 87 yo female presenting to the office with concern for skin wound/blister and cellulitis. Patient notes that she has been "battling cellulitis" in the RLE since June (about 8 months ago)and she has been using Keflex intermittently. Patient last saw her PCP, Dr. Reynaga, in October (about 4 months ago). 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 Due to concern for recurrent/worsening cellulitis, patient started another course of Keflex at that time. They have been wrapping the leg for compression. Today, it was noted that the blister/ "raw" area of the wound has significantly increased in size. There has been no purulent discharge noted. There has been some bloody discharge. Patient feels that her chronic LE edema is actually somewhat improved. She denies fever or chills. Physical Exam Vitals & Measurements T:36.5C BP:114/64 SpO2:95% PHQ2 Data(Data Documented on:02/14/2023 14:18) Emotional health assessment NEGATIVE GENERAL: Elderly female, pleasant, seated in wheelchair in no acute distress. Well developed and well nourished. Vital signs reviewed as above. EYES: EOMI. Anicteric sclerae. HENT: Moist mucous membranes. RESPIRATORY: Unlabored respirations. No conversational dyspnea. RIGHT LOWER EXTREMITY: Large, opened blister ~4 inches in diameter with serous drainage. There is some surrounding erythema and warmth extending just proximal to right lateral knee. + chronic venous stasis changes. 2+ LE edema. NEUROLOGIC: Alert and oriented. Normal speech. PSYCHIATRIC: Cooperative. Appropriate mood and affect. Assessment/Plan 1.Cellulitis of leg Chronic condition exacerbated/progressive/side effects of treatment Goal:Resolution Plan: Continue Keflex, additional rx Keflex sent to pharmacy for 14 days of therapy. Continue compression.Home investor relations manager consult placed. Return precautions. S/s that would necessitate emergent evaluation discussed with patient. F/u on Saturday02/26/23 or sooner prn. 2.Leg wound, right See above Inclusive of time spent reviewing the medical record, ayyy-hy-zerp time with the patient, and time spent in documentation, the total minutes spent on this encounter today was 35 minutes. Problem List/Past Medical History Ongoing ATRIAL FIBRILLATION CARPAL TUNNEL SYNDROME Degenerative joint disease Duodenal ulcer ELEVATED BP W/ HTN Encounter for health maintenance examination Gastric ulcer GERD Hyperlipidemia Hypocalcemia Increased body weight Knee osteoarthritis Knee osteoarthritis NM (myocardial infarction) OTHER AND UNSPECIFIED HYPERLIPIDEMIA Pulmonary artery hypertension Restless legs syndrome (RLS) S/P total knee replacement Weight disorder Procedure/Surgical History Laboratory findings data interpretation (06/26/2021)Laboratory findings data interpretation (06/15/2021)Right hemicolectomy (07/11/2016)Echocardiogram (07/11/2016)Biopsy of colon (07/05/2016)CT - Computerised tomography,abdomen and pelvis (07/05/2016)Colonoscopy (07/04/2016)Endoscopy,upper GI (07/04/2016)Imaging,chest (07/04/2016)KUB X-ray (07/04/2016)Right TKA (10/13/2009)Left knee (11/21/2006)Right TKA (04/13/2006)Cholecystectomy (1989)Tonsillectomy (1957) Breast lumpectomy D & C Medications acetaminophen(Tylenol 325 mg oral tablet), 650 mg= 2 tab, PO, q6h, PRN apixaban(Eliquis 5 mg oral tablet), See Instructions carbidopa-levodopa(carbidopa-levodopa 25 mg-250 mg oral tablet), See Instructions cephalexin(cephalexin 500 mg oral capsule), See Instructions cephalexin(Keflex 500 mg oral capsule), 500 mg= 1 cap, PO, tid digoxin(digoxin 125 mcg (0.125 mg) oral tablet), 125 mcg= 1 tab, PO, Daily dilTIAZem(DilTIAZem (Eqv-Tiazac) 360 mg/24 hours oral capsule, extended release), See Instructions ferrous sulfate(ferrous sulfate 325 mg (65 mg elemental iron) oral delayed release tablet), 325 mg=1 tab, PO, tid, 3 refills flax(Flax Seed Oil), one tab, PO, Daily furosemide(furosemide 20 mg oral tablet), 2 tab, PO, Daily gabapentin(gabapentin 600 mg oral tablet), 600 mg= 1 tab, PO, tid, 3 refills lansoprazole(lansoprazole 30 mg oral delayed release capsule), 30 mg= 1 cap, PO, Daily, 3 refills lovastatin(lovastatin 20 mg oral tablet), 1 tab, PO, qhs magnesium chloride(Mag 64), 64 mg, PO, tid metoprolol(Metoprolol Succinate ER 100 mg oral tablet, extended release), See Instructions metoprolol(Metoprolol Succinate ER 100 mg oral tablet, extended release), See Instructions multivitamin with minerals(PreserVision oral tablet), 1 tab, PO, Daily nystatin topical(nystatin 100,000 units/g topical powder) potassium chloride(Potassium Chloride (Eqv-K-Tab) 20 mEq oral tablet, extended release), See Instructions potassium chloride(Potassium Chloride (Eqv-K-Tab) 20 mEq oral tablet, extended release), See Instructions sulfamethoxazole-trimethoprim(Bactrim DS 800 mg-160 mg oral tablet), 1 tab, PO, bid unknown medication(Cerovit vitamin), 1 tab, PO, Daily Allergies Advicor Lipitor Requip Javier Otoole Social History Smoking Status Never smoked cigarettes Substance Abuse - Denies Substance Abuse Tobacco - Denies Tobacco Use Family History Breast cancer: Mother. Health Status Family Member(s) Immunizations Vaccine Date Status SARS-CoV-2 (COVID-19) mRNA-1273 vaccine 12/16/2022 Recorded influenza virus vaccine, inactivated 12/01/2021 Recorded SARS-CoV-2 mRNA (tozinameran 5y-11y) 11/14/2021 Recorded SARS-CoV-2 (COVID-19) mRNA-1273 vaccine 12/16/2020 Recorded Comments : 2021-01-23: Historical information-source unspecified influenza virus vaccine, inactivated 12/02/2020 Recorded SARS-CoV-2 (COVID-19) mRNA-1273 vaccine 04/14/2020 Recorded Comments : 2021-01-23: Historical information-source unspecified SARS-CoV-2 (COVID-19) mRNA-1273 vaccine 03/17/2020 Recorded Comments : 2020-03-21: Historical information-source unspecified influenza virus vaccine, inactivated 2017 Given influenza virus vaccine, inactivated 11/26/2016 Recorded pneumococcal 13-valent vaccine 04/09/2014 Recorded influenza virus vaccine, inactivated 11/07/2012 Given influenza virus vaccine, inactivated 11/30/2011 Given pneumococcal 23-valent vaccine 2011 Recorded tetanus/diphtheria/pertuss, acel (Tdap) 10/03/2006 Recorded zoster vaccine live 04/22/2006 Recorded Recommendations Health Maintenance Pending(in the next year) OverDue Adult Influenza Vaccine due08/10/22and every 1year Due Adult Social Determinants of Health Screening due02/15/23Unknown Frequency Adult Tdap/Td Vaccine due02/15/23Unknown Frequency Shingles Vaccine due02/15/23One-time only Due In Future Body Mass Index not due until04/17/23and every day Medicare Annual Wellness Visit not due until04/17/23and every 1year Satisfied(in the past 1 year) Satisfied Adult COVID-19 Vaccination on12/16/22.Satisfied by MAG Urena Emma Body Mass Index on04/16/22.Satisfied by MAG Delaney Shania Medicare Annual Wellness Visit on04/16/22.Satisfied by SYSTEM Electronic Signature on File CC: Luís Posey MD [facility] [place] [address] Electronically Reviewed/Signed by: Kelli Wesley DO Author Signature Dt/Tm:02/15/2023 08:31 PM Department of Family Medicine SMB Patient Care team information Care Team Personnel Name: MD Wally, Gerry Moore Position: Physician - Family Med Member Role: Lifetime Relationship Address: Address: [address] [place] [address] [place] Name: DO Reynaga Franklin J Position: Physician - Family Med Member Role: Lifetime Relationship Address: Address: [address] [place] [address] [place] Name: DO Hurst Kristen M Position: Physician - Family Med Member Role: Lifetime Relationship Address: Address: [address] [place] [address] [place] Name: DIONTE Olivas Shari A Position: Nurse Pract - Family Med Member Role: Lifetime Relationship Address: Address: [address] [place] [address] [place] Name: Gustavo Rojas Kyle Position: Pharmacist Member Role: Pharmacy - Lifetime Address: Address: [address] [place] [id number] Care Team Related Persons Name: MABEL RIBEIRO Address: [address] [phone]
[2023-03-05] MEDS ORDERED: DIGOXIN 0.125 MG TAB PO ONE (10:49)
[2023-03-05] MEDS ORDERED: APIXABAN 5 MG TABLET PO STA (10:53)
[2023-03-05] MEDS ORDERED: LEVALBUTEROL 1.25 MG/3 ML NEB NEB STA (10:56)
--- NOTE | 2023-03-05 10:56 | History & Physical Report ---
Date of Service March 05, 2023 Assessment & Plan (1) Acute respiratory failure with hypoxia: Plan: -Admit to med/tele on pulse oximetry -Currently stable on 2L NC but with signs of respiratory failure with pursed lip breathing, tachypnea, and inability to speak in complete sentences -Presented to the ED via EMS for 3 days of progressive cough, SOB, and TOBAR -Noted to be hypoxic in the mid 80's on RA on arrival and in afib RVR with HR in the 120-130's -At this time her acute respiratory failure with hypoxia appears multifactorial as the patient is RSV positive but also appears to be experiencing a CHF exacerbation -She appears volume overloaded with signs of pulmonary edema and BL pleural effusions on CXR, + JVD, elevated BNP -Low suspicion for superimposed bacterial pneumonia at this time as she is without leukocytosis and procal is negative, will hold abx for now -S/P 40 mg IV lasix in the ED, will conitnue with 20 mg IV BID17 for now as she normally takes 40 mg PO daily -Will obtain stat abg for further evaluation -Lower suspicion for PE at this time as she has been compliant with her home Elqiuis besides taking one dose yesterday, has been hemodynamically stable, and without chest discomfort -Will ordered a xoponex treatment, incentive spirometry, and cough assist on admission -Continue scheduled chest PT and prn Xoponex treatments moving forward -If ABG warrants and/or patient's work of breathing is not improved with initial treatment plan on admission will start CPAP/Bipap -Continue prn O2 for SpO2 of 94% or higher -PRN Guaifenesin -Home Eliquis for DVT PPX -Will keep NPO until her respiratory status is stable -AM CBC, BMP, mag, PT/INR (2) Atrial fibrillation with rapid ventricular response: Plan: -Noted to be in afib with RVR with HR in the 120-130's on arrival -Has been hemodynamically stable -Hx of permanent afib and is on Elqiuis -Potassium is stable, mag is 1.9 -Likely in RVR due to her acute illness and not taking am meds prior to arrival -S/P 2 doses of 5 mg IV lopressor in the ED -Will give her am doses of Diltiazem and Metoprolol succinate now -Will give 400 mg PO mag now -Dig level this am is low, will monitor HR after diltiazem and metoprolol and give her missed dose of dig if needed -Continue Diltiazem, metoprolol, and dig moving forward -Continue BID elquis with am dose given on admission (3) Elevated troponin: Plan: -Initial high sen trop elevated at 24 -Patient denies chest discomfort -ECG on arrival does show some mild ST segment elevation in the lateral leads while in afib RVR -Likely due to demand from acute illness, acute CHF exacerbation, and afib RVR on arrival -Two hour repeat high sen trop is in process -Continue to monitor on tele -Will speak with Cardiology and continue to trend trop moving forward if second high sen trop is elevated -Will follow TTE ordered on admission (4) RSV (acute bronchiolitis due to respiratory syncytial virus): Plan: -See acute respiratory failure with hypoxia (5) CHF exacerbation: Plan: -Continue 20 mg IV lasix BID17 for now -Will obtain TTE for further evaluation -Monitor daily volume status (6) Lower extremity edema: Plan: -Continue IV diuresis -Will start BL CHAGO's (7) Restless leg syndrome: Plan: -Continue prn Carbidopa-levodopa Plan The patient was discussed with Dr. 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 The patient was reported to be hypoxic with SpO2 in the mid-high 80s on RA at the time of EMS arrival. In the ED she was stable on 2L NC and initially noted to be tachycardic with HR in the 120s but otherwise stable. Labs were significant for a lymphocyte count of 0.65, initial high sen trop of 24, BNP of 650, dig level of 0.6, and full respiratory biofire positive for RSV. Chest xray was read as 1. Mild interstitial pulmonary edema with small left and trace right pleural effusions. Stable cardiomegaly. 2. Apparent left lower lung opacity. This could reflect atelectasis or pneumonia. Radiographic follow up to ensure resolution is recommended.. The patient reported to the ED that she did not have any of her am medications prior to arrival. Prior to admission she was given 40 mg IV Lasix and 2 doses of 5mg IV Lopressor. At the time of the exam the patient was sitting in bed in mild respiratory distress with tachypnea, pursed lip breathing, and accessory muscle use. She states that she had been in her normal state of health until 48-72 hours ago when she started to develop a minimally productive cough and progressive SOB. She denies recent fever, chest pain, pleuritic chest pain, hemoptysis, abd pain, nausea, vomiting, diarrhea, dysuria, hematuria, worsening of her chronic LE swelling, and recent trauma. She states that her SOB/TOBAR became so severe tghat she was unable to safely ambulate to the bathroom. She states that she cannot get comfortable because of her respiratory discomfort. She only took one dose of her Eliquis yesterday and did not take her digoxin but states that she has otherwise been able to take her medications as prescribed over the past week. She confirms that she has a POLST form and is a DNR/DNI. She would want her daughter, Blessing Muse ([phone]), to make medical decisions for her if she cannot make them herself. I was able to call and speak to Blessing to unpdate her on her mother's current condition. She confirms that her mother is a DNR/DNI. Please refer to Dr. Carcamo's attestation for any changes to the treatment plan Allergies Allergy/AdvReac Type Severity Reaction Status Date / Time scopolamine Allergy Unknown UNKNOWN Verified 01/31/23 15:00 pseudoephedrine AdvReac Intermediate TACHYCARDIA Verified 01/31/23 15:00 quinine AdvReac Intermediate DIARRHEA Verified 01/31/23 15:00 ropinirole AdvReac Intermediate VERTIGO Verified 01/31/23 15:00 Home Medications Medication Instructions Recorded Confirmed Type flaxseed oil 1,000 mg capsule 1,000 mg PO DAILY 10/27/18 03/05/23 History lovastatin 20 mg tablet 20 mg PO DAILY 10/27/18 03/05/23 History nystatin 100,000 unit/gram topical 1 appln topical DAILY PRN BREAKOUTS 10/27/18 03/05/23 History cream potassium chloride 20 mEq 20 meq PO BID #90 tabs 10/27/18 03/05/23 History tablet,extended release acetaminophen 325 mg tablet 650 mg PO Q4H PRN pain 08/19/19 03/05/23 History diltiazem HCl 360 mg capsule,24 360 mg PO DAILY 08/19/19 03/05/23 History hr,extended release ferrous sulfate 325 mg (65 mg 325 mg PO TID #180 tabs 08/19/19 03/05/23 History iron) tablet furosemide 40 mg tablet (Lasix) 40 mg PO DAILY 08/19/19 03/05/23 History lansoprazole 30 mg capsule,delayed 30 mg PO BID 08/19/19 03/05/23 History release (Prevacid) multivitamin-ferrous 1 tab PO DAILY 08/19/19 03/05/23 History fumarate-folic acid 18 mg-400 mcg tablet (Cerovite Advanced Formula) apixaban 5 mg tablet (Eliquis) 5 mg PO BID 12/01/19 03/05/23 History gabapentin 600 mg tablet 600 mg PO TID 12/01/19 03/05/23 History metoprolol succinate 100 mg 100 mg PO DAILY #90 tabs 08/11/20 03/05/23 Rx tablet,extended release 24 hr carbidopa 25 mg-levodopa 250 mg 1 tab PO Q3H PRN restless legs 09/08/20 03/05/23 History tablet magnesium chloride 64 mg 64 mg PO TID #270 tabs 09/29/20 03/05/23 Rx (magnesium chloride) tablet,delayed release digoxin 125 mcg (0.125 mg) tablet 125 mcg PO 3XWK #36 tabs 06/18/22 03/05/23 Rx vitamin A-vitamin C-vit E-min 1 tab PO DAILY 03/05/23 03/05/23 History tablet Past Med/Surg History Medical History (Updated 03/05/23 @ 11:24 by Poncho Elena PA-C) CAD (coronary artery disease) Restless leg syndrome Cecal ulcer Atrial fibrillation (07/17/12) Surgical History S/p total knee replacement, bilateral Status post tonsillectomy and adenoidectomy H/O cataract extraction H/O right hemicolectomy S/P cholecystectomy Family History Mother Breast cancer Father Heart disease Social History Smoking Status: Never smoker Hx Alcohol Use: No Hx Substance Use: No Preferred Language: Citizen Of [place] Communication Ability: Effective Commodity Merchant Required: No Beliefs That Will Affect Care: None marital status: Unknown Current Living Situation: Alone Current Living Situation Comment: [facility] current occupational status: retired other: worked in [employer] shop; 2 daughters Feels Safe at Home: Yes Assistive Devices: Glasses Physical Exam Physical Exam: Physical Exam: General: In mild distress, stated age, she is ill appearing HEENT: Normocephalic, atraumatic, no scleral icterus, pupils around round, symmetrical, and reactive to light, moist mucus membranes, +JCD, trachea midline, no thyromegaly Chest/Pulm: mild-moderate respiratory distress with pursed lip breathing, accessory muscle use, and inability to speak in complete sentences, symmetrical chest expansion, scattered rales and expiratory wheezing throughout Cardiac: irregular rate and rhythm, no murmurs noted Abdomen: Negative for ascites and bruising, normoactive bowel sounds, soft, non-tender to palpation throughout Musculoskeletal: Symmetrical and without signs of acute trauma, upper and lower extremities with full ROM, no atrophy, spasticity, or flaccidity Extremities: Radial, dorsalis pedis, and posterior tibial pulses are intact and symmetrical, chronic, severe BL LE edema noted Skin: Signs of chronic venous insufficiency in the BL LE's without signs of infection Neuro: Alert and oriented to person, place, month, year, and president, no focal defects, no tremors noted Psych: fatigued but polite and cooperative during the exam Results & Data Results & Data Vital Signs (Past 12 Hours) Vital Signs Pulse Resp BP Pulse Ox O2 Del Method O2 Flow Rate 03/05/23 10:23 99 H 03/05/23 10:08 102 H 138/98 03/05/23 09:33 104 H 138/98 03/05/23 09:18 138 H 148/112 H 03/05/23 09:17 124 H 03/05/23 09:14 127 H 24 94 Nasal Cannula 2 03/05/23 09:05 88 L Nasal Cannula 0 03/05/23 09:05 107 H 29 H 148/112 H 94 Nasal Cannula 2 Laboratory Results Abnormal lab results 03/05/23 Range/Units 09:15 Neut # (Auto) 9.06 H (1.40-6.50) K/uL Lymph # (Auto) 0.65 L (1.20-3.40) K/uL [place] # (Auto) 0.92 H (0.11-0.59) K/uL PT 12.3 H (9.0-12.0) Seconds APTT 33 H (21-31) Seconds Glucose 134 H (70-99(Fasting)) mg/dl ALT 4 L (7-52) U/L Alkaline Phosphatase 142 H (34-104) U/L Troponin I High Sens 24.1 H (0-14) pg/ml B-Natriuretic Peptide 650 H (0-100) pg/ml Digoxin 0.6 L (0.8-2.0) ng/ml RSV (PCR) DETECTED A* (NotDetected) Diagnostic Findings Chest X-Ray 03/05/23 09:11 XR chest 1V portable CLINICAL HISTORY: Dyspnea, infection vs CHF? COMPARISON STUDY: Chest radiograph August 07, 2019. FINDINGS: Patient is mildly rotated. Small left and trace right pleural effusions are present. There is mild interstitial thickening. Cardiomegaly is unchanged. There is no pneumothorax. There is apparent left lower lung opacity. IMPRESSION: 1. Mild interstitial pulmonary edema with small left and trace right pleural effusions. Stable cardiomegaly. 2. Apparent left lower lung opacity. This could reflect atelectasis or pneumonia. Radiographic follow up to ensure resolution is recommended. ACT 112: Negative or not required by law. Electronically signed by: Lamont Dean M.D. 03/05/2023 9:36 AM ECG Additional Comments: Atrial fibrillation with rapid ventricular response Possible Inferior infarct (cited on or before 07-AUG-2019) Anterior infarct (cited on or before 07-AUG-2019) Marked ST abnormality, possible lateral subendocardial injury Abnormal ECG When compared with ECG of 07-AUG-2019 16:13, Questionable change in initial forces of Inferior leads Code Status & VTE Plan Code Status DNR/DNI VTE Prophylaxis Plan VTE Prophylaxis will be ordered: Yes Supervising Physician Co-Signing Physician Notes Patient seen and examined, chart reviewed, case discussed with Poncho Elena PA-C and I agree with the assessment and plan as above except as otherwise noted Labs and images reviewed Progressive shortness of breath over the weekend. Did not take morning meds, rate >120 on admit, EKG A-fib with RVR, borderline lateral ST depressions noted. trop 24. No chest pain. Repeat EKG following rate control pending. Chest x- ray shows mild interstitial pulmonary edema with effusions. LLL opacity suspicious for PNA. No leukocytosis, PCT negative. Suspect viral and fluid mediated, no additional antibiotics indicated at this time follow fever curve .BNP 650 without prior baseline availible. Dig is 0.6, slightly subtherapeutic. She takes digoxin Saturday, admitted on a Saturday was slightly low level 1 time 125 oral dose given for subtherapeutic levels, she reports she missed her dig yesterday due to feeling to tired to talk to take her meds. Home metoprolol succinate and diltiazem oral doses were given. Mg 1.9, 1 g ordered for optimization. No known reduced EF, does have history of diastolic failure. Lasix 40 mg IV x 1 given for evidence of pulmonary edema and elevated BNP consistent with acute diastolic CHF. Patient subsequently tested positive for RSV by [facility].presentation is consistent with multifactorial hypoxic respiratory failure due to both RSV and acute diastolic CHF. Diastolic CHF may be rate related in response to the RSV and missing home medications. Continue diuresis daily, continue supportive care for RSV. May use Xopenex for wheezing, no prior history of COPD/RAD/asthma; if rate is well-controlled switch to DuoNebs. Patient is anticoagulated for A-fib with apixaban, low VTE risk. Patient has increased work of breathing with conversational dyspnea on 2 L of nasal cannula, SpO2 approximately 94%. VBG is pending. Lungs are with scattered expiratory wheezes and rhonchorous superiorly, trace crackles in the bases. Agree with assessment and management above PG Care Time/CCT Total # of Minutes Spent Total Time Spent with Patient: Total time spent is greater than 50% in coordination of care (as documented) at patient's floor/unit and/or counseling patient: Coding [place] [address] INT INP/OBS CARE 3/75MIN Patient Type Established History Comprehensive Exam Comprehensive Medical Decision Making High Complexity Diagnoses Acute respiratory failure with hypoxia J96.01 Atrial fibrillation with rapid ventricular response I48.91 Elevated troponin R79.89 RSV (acute bronchiolitis due to respiratory syncytial virus) J21.0 CHF exacerbation I50.9 Lower extremity edema R60.0 Restless leg syndrome G25.81
[2023-03-05] MEDS ORDERED: MAGNESIUM OXIDE 400 MG TAB PO STA (11:06)
[2023-03-05] MEDS ORDERED: guaiFENesin SUGAR FREE 100 MG/5 ML UDC PO STA (11:30)
--- NOTE | 2023-03-05 12:23 | Electrocardiogram Report ---
Test Reason : Blood Pressure : / mmHG Vent. Rate : 138 BPM Atrial Rate : 000 BPM P-R Int : 000 ms QRS Dur : 094 ms QT Int : 314 ms P-R-T Axes : 000 040 258 degrees QTc Int : 475 ms Atrial fibrillation with rapid ventricular response Possible Inferior infarct (cited on or before 07-AUG-2019) Anterior infarct (cited on or before 07-AUG-2019) Abnormal ECG Confirmed by Fausto Posadas ([id number]) on 03/05/2023 12:22:43 PM Referred By: Confirmed By:Juan David Posadas
[2023-03-05] MEDS ORDERED: CARBIDOPA/LEVODOPA 25-250 1 EA TAB PO PRN (12:36)
[2023-03-05 13:15] LABS: Allen Test Pos (Pos); Base Excess ABG 4.4 mEq/L (-9-1.8); HCO3 ABG 31 mmol/L (19-24); Oxygen Saturation ABG 97.2 % (90-95); PCO2 ABG 52 mmHg (35-46); PO2 ABG 84 mmHg (80-95); pH ABG 7.38 (7.35-7.45)
[2023-03-05 13:44] LABS: Appearance Urine Clear (Clear); Bacteria Urine Automated Negative (Negative); Bilirubin Urine Negative (Negative); Blood Urine Trace (Negative); Cast Urine Automated 0 /lpf (0-5); Color Urine Yellow; Epithelial Cell Urine Auto 0-5 /lpf (0-5); Glucose Urine UA Negative (Negative); Ketones Urine Negative (Negative); Leukocyte Esterase Urine Trace (Negative); Nitrite Urine Negative (Negative); Protein Urine Negative (Negative); RBC Urine Automated 0-4 /hpf (0-4); Specific Gravity Urine 1.008 (1.000-1.030); Urobilinogen Urine Negative (Negative); pH Urine 5.5 (4.5-7.5)
[2023-03-05] MEDS: MAGNESIUM CHLORIDE W/CALCIUM 64MG DELAYED REL TAB PO SCH ×2 (14:02→21:04)
[2023-03-05] MEDS: GABAPENTIN 600 MG TAB PO SCH ×2 (14:02→21:04)
[2023-03-05] MEDS ORDERED: LEVALBUTEROL HCL 0.63 MG/3 ML NEB NEB PRN (15:00)
[2023-03-05] MEDS ORDERED: FUROSEMIDE INJ 20 MG/2 ML VIAL IV ONE (17:00)
--- NOTE | 2023-03-05 17:10 | XCELERA ---
[id number] \\[email or web address]\[id number]
[2023-03-05] MEDS: FERROUS SULFATE 325 MG TAB PO SCH (17:49)
[2023-03-05] MEDS: PANTOprazole 40 MG TAB PO SCH (21:04)
[2023-03-05] MEDS: POTASSIUM CHLORIDE CRTAB 20 MEQ TABCR PO SCH (21:04)
[2023-03-05] MEDS: APIXABAN 5 MG TABLET PO SCH (21:04)
[2023-03-06] MEDS ORDERED: MICONAZOLE NITRATE POWDER 85 GM EXT PRN (02:38)
[2023-03-06 06:29] LABS: Basophils # (auto) 0.06 K/uL (0.00-0.20); Basophils % (auto) 0.6 %; Eosinophils # (auto) 0.05 K/uL (0.00-0.50); Eosinophils % (auto) 0.5 %; Hematocrit (blood only) 44.6 % (37.0-47.0); Hemoglobin 13.9 g/dl (12.0-16.0); Immature Granulocytes # (auto) 0.04 K/uL (0.01-0.20); Immature Granulocytes % (auto) 0.4 %; Lymphocytes # (auto) 1.12 K/uL (1.20-3.40); Lymphocytes % (auto) 11.3 %; Mean Corpuscular Hemoglobin 28.1 pg (25.0-34.0); Mean Corpuscular Hgb Conc 31.2 g/dL (32.0-36.0); Mean Corpuscular Volume 90.3 fL (80.0-100.0); Mean Platelet Volume 10.3 fL (9.4-12.4); Monocytes # (auto) 1.06 K/uL (0.11-0.59); Monocytes % (auto) 10.7 %; Neutrophils # (auto) 7.57 K/uL (1.40-6.50); Neutrophils % (auto) 76.5 %; Platelet Count 235 K/uL (130-400); RDW Coefficient of Variation 13.8 % (11.5-14.5); RDW Standard Deviation 45.7 fL (36.4-46.3); Red Blood Count 4.94 M/uL (4.20-5.40)
[2023-03-06 06:42] LABS: BUN Creatinine Ratio 18.9 (10-20); Calcium 9.3 mg/dl (8.6-10.3); Creatinine Clr Calc Pharmacy 51.6 ml/min; Est GFR (African American) 83.2 ml/min; Est GFR (Non-African American) 71.8 ml/min; Magnesium 1.8 mg/dl (1.7-2.4); Potassium 3.6 mmol/L (3.5-5.1)
[2023-03-06 07:04] LABS: INR 1.2 (0.9-1.1); Prothrombin Time 13.2 Seconds (9.0-12.0)
--- NOTE | 2023-03-06 08:19 | Hospitalist Progress Note ---
Date of Service March 06, 2023 Assessment & Plan (1) Acute respiratory failure with hypoxia: Plan: Acute hypoxic respiratory failure related to acute diastolic heart failure and RSV infection - improved Mildly hypercarbic on vbg Improved to 2L supp O2 -supportive care for RSV -heart failure treatment as below -continue supp O2, flutter valve, xopenex PRN, mucinex (2) CHF exacerbation: Plan: Acute on chronic diastolic heart failure Reviewed TTE 03/06 - EF 65-70%, mod-severe aortic stenosis, mild MR and MS, mildly volume overloaded -Continue 20 mg IV lasix BID17 for now - caution not to drop preload too much with . Home lasix 40 po daily. -AM BMP -daily weights, I/O, tele -Monitor daily volume status -followed by Dr. Dill in clinic (3) Atrial fibrillation with rapid ventricular response: Plan: -Noted to be in afib with RVR with HR in the 120-130's on arrival, given several doses IV metoprolol Rate controlled AM of 03/06 -Continue Diltiazem, metoprolol, and digoxin -Continue BID eliquis (4) Elevated troponin: Plan: -Initial high sen trop elevated at 24, peak 42, then downtrended -Patient denies chest discomfort -ECG on arrival does show some mild ST segment elevation in the lateral leads while in afib RVR -Likely due to demand from acute illness, acute CHF exacerbation, and afib RVR on arrival, no evidence of acute coronary syndrome -TTE reassuring without rwma's (5) RSV (acute bronchiolitis due to respiratory syncytial virus): Plan: -See acute respiratory failure with hypoxia (6) Lower extremity edema: Plan: -Continue IV diuresis -There is significant venous stasis component as well -Followed by Dr. Dill and by [facility] home health - has been treated with compression wraps (7) Restless leg syndrome: Plan: -Continue prn Carbidopa-levodopa (8) Leg ulcer: Plan: shallow ulcer with perhaps some mild surrounding cellulitis and wound infection present on admission - R lateral mid calf -will continue oral antibiotics -wound care Plan clarified code status - confirmed DNR/DNI updated her daughter at bedside 03/06 DVT ppx: on apixaban Dispo: PT/OT eval, may need short stay at [facility] Admission and Anticipated Discharge Date Admission Date: March 05, 2023 Subjective Diane seen with her daughter at bedside, she still has a lot of cough that she can't clear, congestion, dyspnea. No chest pain. Leg swelling has improved since hospitalization, had been worsening for the past 2 weeks at home. R lateral calf ulceration - had been on po antibiotics Physical Exam 2 Physical Exam: PHYSICAL EXAMINATION Last 24h vital signs reviewed, see documentation in flowsheet General: pleasant elderly woman sitting in bed, no distress HEENT: Normocephalic, atraumatic, pupils round and equal, sclerae anicteric, no conjunctival injection, moist mucus membranes Lungs: mildly inc respiratory effort. coarse and congested bilaterally with loose cough, some basilar coarse crackles Heart: Regular rate and rhythm, no murmurs. mild JVD Abdomen: Soft, nontender, nondistended. Bowel sounds present. Extremities: Warm, dry, well-perfused. 2+ lower extremity edema with venous stasis changes, some ruddiness bilaterally, some erythema posteriorly on L and R lateral calf where there is shallow large superficial ulceration with some yellowish exudate covering. Neuro: Alert and oriented x 4, face symmetric, moves 4 extremities well Psych: Normal affect and behavior Results & Data Results & Data Vital Signs (Past 12 Hours) Vital Signs Temp Pulse Pulse Resp BP Pulse Ox O2 Del Method 03/06/23 07:38 36.4 C L 68 18 125/82 96 Nasal Cannula 03/06/23 03:59 81 03/06/23 02:40 Nasal Cannula 03/06/23 02:37 36.9 C 84 18 120/78 98 Nasal Cannula 03/06/23 01:18 Nasal Cannula 03/06/23 01:05 85 O2 Flow Rate 03/06/23 07:38 2 03/06/23 03:59 03/06/23 02:40 3 03/06/23 02:37 3 03/06/23 01:18 3 03/06/23 01:05 Laboratory Results 03/06/23 05:28 03/06/23 05:28 PG Care Time/CCT Total # of Minutes Spent Total Time Spent with Patient: Total time spent is greater than 50% in coordination of care (as documented) at patient's floor/unit and/or counseling patient: Coding Level of Care Code 34778 SUB INP/OBS CARE 3/50MIN Diagnoses Acute respiratory failure with hypoxia J96.01 CHF exacerbation I50.9 Atrial fibrillation with rapid ventricular response I48.91 Elevated troponin R79.89 RSV (acute bronchiolitis due to respiratory syncytial virus) J21.0 Lower extremity edema R60.0 Restless leg syndrome G25.81 Leg ulcer L97.909
[2023-03-06] MEDS: guaiFENesin SUGAR FREE 100 MG/5 ML UDC PO PRN ×2 (10:06→16:42)
[2023-03-06] MEDS: POTASSIUM CHLORIDE CRTAB 20 MEQ TABCR PO SCH ×2 (10:07→20:14)
[2023-03-06] MEDS: dilTIAZem HCL 180 MG CAPCR PO SCH (10:08)
[2023-03-06] MEDS: LOVASTATIN 20 MG TAB PO SCH (10:08)
[2023-03-06] MEDS: GABAPENTIN 600 MG TAB PO SCH ×3 (10:09→20:13)
[2023-03-06] MEDS: FERROUS SULFATE 325 MG TAB PO SCH ×3 (10:09→16:45)
[2023-03-06] MEDS: METOPROLOL SUCC 50MG EXT REL TAB PO SCH (10:10)
[2023-03-06] MEDS: MAGNESIUM CHLORIDE W/CALCIUM 64MG DELAYED REL TAB PO SCH ×3 (10:11→20:13)
[2023-03-06] MEDS: PANTOprazole 40 MG TAB PO SCH ×2 (10:12→20:13)
[2023-03-06] MEDS: APIXABAN 5 MG TABLET PO SCH ×2 (10:13→20:13)
[2023-03-06] MEDS: FUROSEMIDE INJ 20 MG/2 ML VIAL IV SCH ×2 (10:13→16:40)
[2023-03-06] MEDS: DIGOXIN 0.125 MG TAB PO SCH (16:46)
[2023-03-06] MEDS: cephALEXin 500 MG CAP PO SCH ×2 (20:12→20:54)
[2023-03-07] MEDS: ACETAMINOPHEN 325 MG TAB PO PRN ×2 (03:55→20:12)
[2023-03-07 05:05] LABS: BUN Creatinine Ratio 29.1 (10-20); Calcium 9.6 mg/dl (8.6-10.3); Creatinine Clr Calc Pharmacy 48.3 ml/min; Est GFR (African American) 76.9 ml/min; Est GFR (Non-African American) 66.4 ml/min; Magnesium 1.8 mg/dl (1.7-2.4); Potassium 3.7 mmol/L (3.5-5.1)
[2023-03-07] MEDS ORDERED: GABAPENTIN 300 MG CAP PO SCH (09:00)
[2023-03-07] MEDS ORDERED: GABAPENTIN 600 MG TAB PO SCH (09:00)
[2023-03-07] MEDS: cephALEXin 500 MG CAP PO SCH ×4 (10:16→20:13)
[2023-03-07] MEDS: APIXABAN 5 MG TABLET PO SCH ×2 (10:17→20:13)
[2023-03-07] MEDS: MAGNESIUM CHLORIDE W/CALCIUM 64MG DELAYED REL TAB PO SCH ×3 (10:18→20:12)
[2023-03-07] MEDS: PANTOprazole 40 MG TAB PO SCH ×2 (10:18→20:13)
[2023-03-07] MEDS: METOPROLOL SUCC 50MG EXT REL TAB PO SCH (10:18)
[2023-03-07] MEDS: FERROUS SULFATE 325 MG TAB PO SCH ×3 (10:19→16:03)
[2023-03-07] MEDS: LOVASTATIN 20 MG TAB PO SCH (10:19)
[2023-03-07] MEDS: dilTIAZem HCL 180 MG CAPCR PO SCH (10:20)
[2023-03-07] MEDS: POTASSIUM CHLORIDE CRTAB 20 MEQ TABCR PO SCH ×2 (10:20→20:19)
[2023-03-07] MEDS: FUROSEMIDE 40 MG TAB PO SCH (10:21)
[2023-03-07] MEDS: GABAPENTIN 100 MG CAP PO SCH ×2 (14:41→20:14)
--- NOTE | 2023-03-07 17:02 | Hospitalist Progress Note ---
Date of Service March 07, 2023 Assessment & Plan (1) Acute respiratory failure with hypoxia: Plan: Acute hypoxic respiratory failure related to acute diastolic heart failure and RSV infection - improved Mildly hypercarbic on vbg, bicarb elevated on BMP Improved to 2L supp O2 satting high 90s today -supportive care for RSV -heart failure treatment as below -continue supp O2, flutter valve, xopenex PRN, mucinex -remains very congested (2) CHF exacerbation: Plan: Acute on chronic diastolic heart failure Reviewed TTE 03/06 - EF 65-70%, mod-severe aortic stenosis, mild MR and MS, mildly volume overloaded -diuresed initially with lasix 20 IV bid with good result, weight down from 85.5 kg to 78.1 and significant improvement in leg edema -caution not to drop preload too much with . Resumed Home lasix 40 po daily on 03/07. -AM BMP -daily weights, I/O, tele -Monitor daily volume status -had short run of WCT on tele, lytes K and mag okay this AM labs -followed by Dr. Dill in clinic (3) Atrial fibrillation with rapid ventricular response: Plan: -Noted to be in afib with RVR with HR in the 120-130's on arrival, given several doses IV metoprolol Rate controlled currently -Continue Diltiazem, metoprolol, and digoxin -Continue BID eliquis (4) Elevated troponin: Plan: -Initial high sen trop elevated at 24, peak 42, then downtrended -Patient denies chest discomfort -ECG on arrival does show some mild ST segment elevation in the lateral leads while in afib RVR -Likely due to demand from acute illness, acute CHF exacerbation, and afib RVR on arrival, no evidence of acute coronary syndrome -TTE reassuring without rwma's (5) RSV (acute bronchiolitis due to respiratory syncytial virus): Plan: -See acute respiratory failure with hypoxia (6) Lower extremity edema: Plan: -significant improvement in edema and erythema with diuresis -There is significant venous stasis component as well -Followed by Dr. Dill and by [facility] home health - has been treated with compression wraps (7) Restless leg syndrome: Plan: -Continue prn Carbidopa-levodopa (8) Leg ulcer: Plan: shallow ulcer with perhaps some mild surrounding cellulitis and wound infection present on admission - R lateral mid calf -will continue oral antibiotics, erythema much improved 03/07 -wound care Plan clarified code status - confirmed DNR/DNI updated her daughter at bedside 03/06, 03/07 DVT ppx: on apixaban Dispo: PT/OT eval 03/07 significantly below baseline - will benefit from SNF stay for subacute rehab Admission and Anticipated Discharge Date Admission Date: March 05, 2023 Subjective Says her cough is improved but looks really tired today, daughter at bedside Feels like mucus is looser. Leg swelling and erythema significantly improved. Physical Exam 2 Physical Exam: PHYSICAL EXAMINATION Last 24h vital signs reviewed, see documentation in flowsheet General: pleasant elderly woman sitting in bed, no distress, looks weaker/more tired HEENT: Normocephalic, atraumatic, pupils round and equal, sclerae anicteric, no conjunctival injection, moist mucus membranes Lungs: mildly inc respiratory effort. remains congested with coarse ronchi bilaterally ant and post all lane frequent cough Heart: Regular rate and rhythm, no murmurs. EJs visible, mildly elevated Abdomen: Soft, nontender, nondistended. Bowel sounds present. Extremities: Warm, dry, well-perfused. 1-2+ lower extremity edema improved, erythema mostly resolved, superficial ulceration R lateral calf improved no longer weeping Neuro: Alert and oriented x 4, face symmetric, moves 4 extremities well Psych: Normal affect and behavior Results & Data Results & Data Vital Signs (Past 12 Hours) Vital Signs Temp Pulse Pulse Resp BP Pulse Ox Pulse Ox 03/07/23 15:52 36.4 C L 76 18 117/72 97 03/07/23 14:56 97 03/07/23 14:03 68 03/07/23 11:47 36.7 C 72 18 131/65 96 03/07/23 08:00 88 03/07/23 08:00 03/07/23 07:57 36.6 C 97 H 18 139/72 96 O2 Del Method O2 Flow Rate O2 Flow Rate 03/07/23 15:52 Nasal Cannula 2 03/07/23 14:56 2 03/07/23 14:03 03/07/23 11:47 Nasal Cannula 1.5 03/07/23 08:00 03/07/23 08:00 Nasal Cannula 2 03/07/23 07:57 Nasal Cannula 2 Laboratory Results 03/06/23 05:28 03/07/23 04:01 PG Care Time/CCT Total # of Minutes Spent Total Time Spent with Patient: Total time spent is greater than 50% in coordination of care (as documented) at patient's floor/unit and/or counseling patient: Coding Level of Care Code 27559 SUB INP/OBS CARE 2/35MIN Diagnoses Acute respiratory failure with hypoxia J96.01 CHF exacerbation I50.9 Atrial fibrillation with rapid ventricular response I48.91 Elevated troponin R79.89 RSV (acute bronchiolitis due to respiratory syncytial virus) J21.0 Lower extremity edema R60.0 Restless leg syndrome G25.81 Leg ulcer L97.909
[2023-03-08] MEDS: guaiFENesin SUGAR FREE 100 MG/5 ML UDC PO PRN ×2 (00:11→21:04)
[2023-03-08 06:47] LABS: BUN Creatinine Ratio 30.4 (10-20); Creatinine Clr Calc Pharmacy 47.7 ml/min; Est GFR (African American) 76.9 ml/min; Est GFR (Non-African American) 66.4 ml/min; Magnesium 1.9 mg/dl (1.7-2.4)
[2023-03-08] MEDS: APIXABAN 5 MG TABLET PO SCH ×2 (09:11→21:01)
[2023-03-08] MEDS: cephALEXin 500 MG CAP PO SCH ×4 (09:11→21:01)
[2023-03-08] MEDS: GABAPENTIN 100 MG CAP PO SCH ×3 (09:11→21:01)
[2023-03-08] MEDS: MAGNESIUM CHLORIDE W/CALCIUM 64MG DELAYED REL TAB PO SCH ×3 (09:11→21:00)
[2023-03-08] MEDS: FUROSEMIDE 40 MG TAB PO SCH (09:12)
[2023-03-08] MEDS: METOPROLOL SUCC 50MG EXT REL TAB PO SCH (09:12)
[2023-03-08] MEDS: LOVASTATIN 20 MG TAB PO SCH (09:12)
[2023-03-08] MEDS: dilTIAZem HCL 180 MG CAPCR PO SCH (09:12)
[2023-03-08] MEDS: PANTOprazole 40 MG TAB PO SCH ×2 (09:12→21:04)
[2023-03-08] MEDS: FERROUS SULFATE 325 MG TAB PO SCH ×3 (09:13→18:12)
[2023-03-08] MEDS: ACETAMINOPHEN 325 MG TAB PO PRN ×2 (09:15→22:02)
[2023-03-08] MEDS: POTASSIUM CHLORIDE CRTAB 20 MEQ TABCR PO SCH ×2 (09:15→21:04)
--- NOTE | 2023-03-08 16:27 | Hospitalist Progress Note ---
Date of Service March 08, 2023 Assessment & Plan (1) Acute respiratory failure with hypoxia: Plan: Acute hypoxic respiratory failure related to acute diastolic heart failure and RSV infection - improved Mildly hypercarbic on vbg, bicarb elevated on BMP Improved to 2L supp O2 satting high 90s today - unchanged -supportive care for RSV -heart failure treatment as below - actively diuresed initially, now on maintenance regimen -continue supp O2, flutter valve, xopenex PRN, mucinex -remains very congested (2) CHF exacerbation: Plan: Acute on chronic diastolic heart failure Reviewed TTE 03/06 - EF 65-70%, mod-severe aortic stenosis, mild MR and MS, mildly volume overloaded -diuresed initially with lasix 20 IV bid with good result, weight down from 85.5 kg to 78 and significant improvement in leg edema -caution not to drop preload too much with . Resumed Home lasix 40 po daily on 03/07. -BMP reviewed, bicarb still climbing, BUN slightly more elevated, creatinine 0.7 -daily weights, I/O, tele -Monitor daily volume status -okay to discontinue telemetry -followed by Dr. Dill in clinic (3) Atrial fibrillation with rapid ventricular response: Plan: -Noted to be in afib with RVR with HR in the 120-130's on arrival, given several doses IV metoprolol Rate controlled last several days -Continue Diltiazem, metoprolol, and digoxin -Continue BID eliquis (4) Elevated troponin: Plan: -Initial high sen trop elevated at 24, peak 42, then downtrended -Patient denies chest discomfort -ECG on arrival does show some mild ST segment elevation in the lateral leads while in afib RVR -Likely due to demand from acute illness, acute CHF exacerbation, and afib RVR on arrival, no evidence of acute coronary syndrome -TTE reassuring without rwma's (5) RSV (acute bronchiolitis due to respiratory syncytial virus): Plan: -See acute respiratory failure with hypoxia (6) Lower extremity edema: Plan: -significant improvement in edema and erythema with diuresis -There is significant venous stasis component as well -Followed by Dr. Dill and by [facility] home health - has been treated with compression wraps (7) Restless leg syndrome: Plan: -Continue prn Carbidopa-levodopa (8) Leg ulcer: Plan: shallow ulcer with perhaps some mild surrounding cellulitis and wound infection present on admission - R lateral mid calf -will continue oral antibiotics, erythema much improved 03/07 -wound care Plan clarified code status - confirmed DNR/DNI updated her daughter at bedside 03/06, 03/07 DVT ppx: on apixaban Dispo: PT/OT eval 03/07 significantly below baseline - will benefit from SNF stay for subacute rehab Admission and Anticipated Discharge Date Admission Date: March 05, 2023 Subjective Lea starting to feel better and looks better today. Still short of breath and lots of coughing chest congestion Leg edema unchanged, not worse Physical Exam 2 Physical Exam: PHYSICAL EXAMINATION Last 24h vital signs reviewed, see documentation in flowsheet General: pleasant elderly woman sitting in bed, looks good/stronger today more awake HEENT: Normocephalic, atraumatic, pupils round and equal, sclerae anicteric, no conjunctival injection, moist mucus membranes Lungs: mildly inc respiratory effort. course breath sounds bilaterally all lane Heart: Regular rate and rhythm, obscured by breath sounds. EJs visible, no luiz JVD Abdomen: Soft, nontender, nondistended. Bowel sounds present. Extremities: Warm, dry, well-perfused. 1-2+ lower extremity edema unchanged, erythema mostly resolved, superficial ulceration R lateral calf with mild surrounding erythema improved no longer weeping Neuro: Alert and oriented x 4, face symmetric, moves 4 extremities well Psych: Normal affect and behavior Results & Data Results & Data Vital Signs (Past 12 Hours) Vital Signs Temp Pulse Resp BP Pulse Ox O2 Del Method O2 Flow Rate 03/08/23 15:25 36.6 C 78 18 117/78 97 Nasal Cannula 2 03/08/23 10:55 36.7 C 87 18 129/78 95 Nasal Cannula 2 03/08/23 09:23 Nasal Cannula 1 03/08/23 09:19 Nasal Cannula 1 03/08/23 07:08 36.6 C 87 18 149/87 H 97 Nasal Cannula 2 Laboratory Results 03/06/23 05:28 03/08/23 05:51 PG Care Time/CCT Total # of Minutes Spent Total Time Spent with Patient: Total time spent is greater than 50% in coordination of care (as documented) at patient's floor/unit and/or counseling patient: Coding Level of Care Code 28509 SUB INP/OBS CARE 2/35MIN Diagnoses Acute respiratory failure with hypoxia J96.01 CHF exacerbation I50.9 Atrial fibrillation with rapid ventricular response I48.91 Elevated troponin R79.89 RSV (acute bronchiolitis due to respiratory syncytial virus) J21.0 Lower extremity edema R60.0 Restless leg syndrome G25.81 Leg ulcer L97.909
[2023-03-08] MEDS: DIGOXIN 0.125 MG TAB PO SCH (18:12)
[2023-03-09] MEDS: ACETAMINOPHEN 325 MG TAB PO PRN ×2 (05:31→19:50)
[2023-03-09] MEDS: APIXABAN 5 MG TABLET PO SCH ×2 (07:31→19:52)
[2023-03-09] MEDS: cephALEXin 500 MG CAP PO SCH ×4 (07:32→19:51)
[2023-03-09] MEDS: GABAPENTIN 100 MG CAP PO SCH ×3 (07:32→19:52)
[2023-03-09] MEDS: FERROUS SULFATE 325 MG TAB PO SCH ×3 (07:32→17:21)
[2023-03-09] MEDS: MAGNESIUM CHLORIDE W/CALCIUM 64MG DELAYED REL TAB PO SCH ×3 (07:33→19:52)
[2023-03-09] MEDS: METOPROLOL SUCC 50MG EXT REL TAB PO SCH (07:33)
[2023-03-09] MEDS: dilTIAZem HCL 180 MG CAPCR PO SCH (07:33)
[2023-03-09] MEDS: FUROSEMIDE 40 MG TAB PO SCH (07:33)
[2023-03-09] MEDS: PANTOprazole 40 MG TAB PO SCH ×2 (07:34→19:52)
[2023-03-09] MEDS: LOVASTATIN 20 MG TAB PO SCH (07:34)
[2023-03-09] MEDS: POTASSIUM CHLORIDE CRTAB 20 MEQ TABCR PO SCH ×2 (07:43→19:53)
--- NOTE | 2023-03-09 15:18 | Hospitalist Progress Note ---
Date of Service March 09, 2023 Assessment & Plan (1) Acute respiratory failure with hypoxia: Plan: Acute hypoxic respiratory failure related to acute diastolic heart failure and RSV infection - resolved Mildly hypercarbic on initial vbg, bicarb elevated on BMP -supportive care for RSV -heart failure treatment as below - actively diuresed initially, now on maintenance regimen -continue IS, flutter valve, xopenex PRN, mucinex -remains congested with rhonchi but breath sounds improving, now on room air (2) CHF exacerbation: Plan: Acute on chronic diastolic heart failure - resolved Reviewed TTE 03/06 - EF 65-70%, mod-severe aortic stenosis, mild MR and MS, mildly volume overloaded -diuresed initially with lasix 20 IV bid with good result, weight down from 85.5 kg to 74 and significant improvement in leg edema -caution not to drop preload too much with . Resumed Home lasix 40 po daily on 03/07. -BMP in AM -daily weights, I/O, tele -Monitor daily volume status -followed by Dr. Dill in clinic (3) Atrial fibrillation with rapid ventricular response: Plan: -Noted to be in afib with RVR with HR in the 120-130's on arrival, given several doses IV metoprolol Rate controlled easily thereafter -Continue Diltiazem, metoprolol, and digoxin -Continue BID eliquis (4) Elevated troponin: Plan: -Initial high sen trop elevated at 24, peak 42, then downtrended -Patient denies chest discomfort -ECG on arrival does show some mild ST segment elevation in the lateral leads while in afib RVR -Likely due to demand from acute illness, acute CHF exacerbation, and afib RVR on arrival, no evidence of acute coronary syndrome -TTE reassuring without rwma's (5) RSV (acute bronchiolitis due to respiratory syncytial virus): Plan: -See acute respiratory failure with hypoxia (6) Lower extremity edema: Plan: -significant improvement in edema and erythema with diuresis -There is significant venous stasis component as well -Followed by Dr. Dill and by [facility] home health - has been treated with compression wraps -much improved (7) Restless leg syndrome: Plan: -Continue prn Carbidopa-levodopa (8) Leg ulcer: Plan: shallow ulcer with perhaps some mild surrounding cellulitis and wound infection present on admission - R lateral mid calf -will continue oral antibiotics, erythema resolved as of 03/09. Likely stop ABX in 1-2 days -wound care Plan clarified code status - confirmed DNR/DNI updated her daughter at bedside 03/06, 03/07, 03/09 DVT ppx: on apixaban Dispo: PT/OT eval 03/07 significantly below baseline - will benefit from SNF stay for subacute rehab. discussed with care coord who will reach out to [facility] Admission and Anticipated Discharge Date Admission Date: March 05, 2023 Subjective Lea doing fairly well at this point, still frequent cough and lots of ronchi but slowly improving. Leg edema improved, legs no longer red or tender. Physical Exam Physical Exam: PHYSICAL EXAMINATION Last 24h vital signs reviewed, see documentation in flowsheet General: sitting in bed working with daughter on repositioning HEENT: Normocephalic, atraumatic, pupils round and equal, sclerae anicteric, no conjunctival injection, moist mucus membranes Lungs: comfortable respiratory effort. no wheezing. better air mvt and cough. coarse breath sounds throughout bilaterally ant and post some improvement Heart: Regular rate and rhythm, obscured by breath sounds. no JVD Abdomen: Soft, nontender, nondistended. Bowel sounds present. Extremities: Warm, dry, well-perfused. 1-2+ lower extremity edema unchanged to slightly improved, erythema resolved, superficial ulceration R lateral calf healing well Neuro: Alert and oriented x 4, face symmetric, moves 4 extremities well Psych: Normal affect and behavior Results & Data Results & Data Vital Signs (Past 12 Hours) Vital Signs Temp Pulse Resp BP BP Pulse Ox O2 Del Method 03/09/23 12:05 36.6 C 62 18 118/74 94 Room Air 03/09/23 11:38 37.0 C 80 19 120/74 95 Room Air 03/09/23 07:32 93 Room Air 03/09/23 07:21 36.4 C L 88 18 127/55 L 96 Nasal Cannula O2 Flow Rate 03/09/23 12:05 03/09/23 11:38 03/09/23 07:32 03/09/23 07:21 1 PG Care Time/CCT Total # of Minutes Spent Total Time Spent with Patient: Total time spent is greater than 50% in coordination of care (as documented) at patient's floor/unit and/or counseling patient: Coding Level of Care Code 63346 SUB INP/OBS CARE 235MIN Diagnoses Acute respiratory failure with hypoxia J96.01 CHF exacerbation I50.9 Atrial fibrillation with rapid ventricular response I48.91 Elevated troponin R79.89 RSV (acute bronchiolitis due to respiratory syncytial virus) J21.0 Lower extremity edema R60.0 Restless leg syndrome G25.81 Leg ulcer L97.909
[2023-03-09] MEDS: guaiFENesin SUGAR FREE 100 MG/5 ML UDC PO PRN (19:50)
[2023-03-10] MEDS: ACETAMINOPHEN 325 MG TAB PO PRN (01:22)
[2023-03-10] MEDS: GABAPENTIN 100 MG CAP PO SCH (08:09)
[2023-03-10] MEDS: MAGNESIUM CHLORIDE W/CALCIUM 64MG DELAYED REL TAB PO SCH (08:09)
[2023-03-10] MEDS: APIXABAN 5 MG TABLET PO SCH (08:09)
[2023-03-10] MEDS: dilTIAZem HCL 180 MG CAPCR PO SCH (08:10)
[2023-03-10] MEDS: PANTOprazole 40 MG TAB PO SCH (08:10)
[2023-03-10] MEDS: FERROUS SULFATE 325 MG TAB PO SCH ×2 (08:10→12:16)
[2023-03-10] MEDS: FUROSEMIDE 40 MG TAB PO SCH (08:11)
[2023-03-10] MEDS: METOPROLOL SUCC 50MG EXT REL TAB PO SCH (08:11)
[2023-03-10] MEDS: LOVASTATIN 20 MG TAB PO SCH (08:11)
[2023-03-10] MEDS: POTASSIUM CHLORIDE CRTAB 20 MEQ TABCR PO SCH (08:25)
[2023-03-10] MEDS: cephALEXin 500 MG CAP PO SCH ×2 (09:33→12:16)
--- NOTE | 2023-03-10 11:28 | Discharge Summary ---
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 The patient was reported to be hypoxic with SpO2 in the mid-high 80s on RA at the time of EMS arrival. In the ED she was stable on 2L NC and initially noted to be tachycardic with HR in the 120s but otherwise stable. Labs were significant for a lymphocyte count of 0.65, initial high sen trop of 24, BNP of 650, dig level of 0.6, and full respiratory biofire positive for RSV. Chest xray was read as 1. Mild interstitial pulmonary edema with small left and trace right pleural effusions. Stable cardiomegaly. 2. Apparent left lower lung opacity. This could reflect atelectasis or pneumonia. Radiographic follow up to ensure resolution is recommended.. The patient reported to the ED that she did not have any of her am medications prior to arrival. Prior to admission she was given 40 mg IV Lasix and 2 doses of 5mg IV Lopressor. At the time of the exam the patient was sitting in bed in mild respiratory distress with tachypnea, pursed lip breathing, and accessory muscle use. She states that she had been in her normal state of health until 48-72 hours ago when she started to develop a minimally productive cough and progressive SOB. She denies recent fever, chest pain, pleuritic chest pain, hemoptysis, abd pain, nausea, vomiting, diarrhea, dysuria, hematuria, worsening of her chronic LE swelling, and recent trauma. She states that her SOB/TOBAR became so severe tghat she was unable to safely ambulate to the bathroom. She states that she cannot get comfortable because of her respiratory discomfort. She only took one dose of her Eliquis yesterday and did not take her digoxin but states that she has otherwise been able to take her medications as prescribed over the past week. She confirms that she has a POLST form and is a DNR/DNI. She would want her daughter, Blessing Muse ([phone]), to make medical decisions for her if she cannot make them herself. I was able to call and speak to Blessing to unpdate her on her mother's current condition. She confirms that her mother is a DNR/DNI. Principal Diagnosis Acute hypoxic respiratory failure due to RSV bronchiolitis and acute on chronic diastolic heart failure Discharge Exam PHYSICAL EXAMINATION Last 24h vital signs reviewed, see documentation in flowsheet General: sitting in bed watching alevism on ipad HEENT: Normocephalic, atraumatic, pupils round and equal, sclerae anicteric, no conjunctival injection, moist mucus membranes Lungs: comfortable respiratory effort. continues to have loose coarse breath sounds throughout with loose cough, no wheezing Heart: Regular rate and rhythm, murmur obscured by breath sounds. no JVD/neck vv flat Abdomen: Soft, nontender, nondistended. Extremities: Warm, dry, well-perfused. 1-2+ lower extremity edema significantly improved since admission, erythema resolved, superficial ulceration R lateral calf healed Neuro: Alert and oriented x 4, face symmetric, moves 4 extremities well Psych: Normal affect and behavior Discharge Data Allergies Allergy/AdvReac Type Severity Reaction Status Date / Time scopolamine Allergy Unknown UNKNOWN Verified 01/31/23 15:00 pseudoephedrine AdvReac Intermediate TACHYCARDIA Verified 01/31/23 15:00 quinine AdvReac Intermediate DIARRHEA Verified 01/31/23 15:00 ropinirole AdvReac Intermediate VERTIGO Verified 01/31/23 15:00 Consultations 03/05/23 10:23 ED Decision to Admit Stat Ordered Studies 03/06/23 05:28 03/08/23 05:51 Chest X-Ray 03/05/23 09:11 XR chest 1V portable CLINICAL HISTORY: Dyspnea, infection vs CHF? COMPARISON STUDY: Chest radiograph August 07, 2019. FINDINGS: Patient is mildly rotated. Small left and trace right pleural effusions are present. There is mild interstitial thickening. Cardiomegaly is unchanged. There is no pneumothorax. There is apparent left lower lung opacity. IMPRESSION: 1. Mild interstitial pulmonary edema with small left and trace right pleural effusions. Stable cardiomegaly. 2. Apparent left lower lung opacity. This could reflect atelectasis or pneumonia. Radiographic follow up to ensure resolution is recommended. ACT 112: Negative or not required by law. Electronically signed by: Lamont Dean M.D. 03/05/2023 9:36 AM Hospital Course (1) Acute respiratory failure with hypoxia: Acute hypoxic respiratory failure related to acute diastolic heart failure and RSV infection - resolved Mildly hypercarbic on initial vbg, bicarb elevated on BMP -supportive care for RSV - bronchodilators, pulmonary toilet with mobility, guaifenasin, incentive spirometer and flutter valve to continue -heart failure treatment as below - actively diuresed initially, now on maintenance regimen -remains congested with rhonchi but breath sounds improving, now on room air past 24 hours (2) CHF exacerbation: Acute on chronic diastolic heart failure - resolved, moderate to severe TTE 03/06 - EF 65-70%, mod-severe aortic stenosis, mild MR and MS, mildly volume overloaded -diuresed initially with lasix 20 IV bid with good result, weight down from 85.5 kg to 74 and significant improvement in leg edema -caution not to drop preload too much with . Resumed Home lasix 40 po daily on 03/07. -Monitor daily volume status and weight 3x a week, adjust diuretics as needed, low salt diet -followed by Dr. Dill in clinic (3) Atrial fibrillation with rapid ventricular response: -Noted to be in afib with RVR with HR in the 120-130's on arrival, given several doses IV metoprolol Rate controlled easily thereafter on usual home regimen -Continue Diltiazem, metoprolol, and digoxin -Continue BID eliquis (4) Elevated troponin: -Initial high sen trop elevated at 24, peak 42, then downtrended -Patient denies chest discomfort -ECG on arrival does show some mild ST segment elevation in the lateral leads while in afib RVR -Likely due to demand from acute illness, acute CHF exacerbation, and afib RVR on arrival, no evidence of acute coronary syndrome -TTE reassuring without rwma's (5) RSV (acute bronchiolitis due to respiratory syncytial virus): -See acute respiratory failure with hypoxia (6) Lower extremity edema: -significant improvement in edema and erythema with diuresis -There is significant venous stasis component as well -Followed by Dr. Dill and by [facility] home health - has been treated with compression wraps -much improved (7) Restless leg syndrome: -Continue prn Carbidopa-levodopa (8) Leg ulcer: shallow ulcer with perhaps some mild surrounding cellulitis and wound infection present on admission - R lateral mid calf -treated mild cellulitis with course of oral cephalexin, completed 03/10 and erythema resolved -ulceration has healed Plan clarified code status - confirmed DNR/DNI updated her daughter at bedside 03/06, 03/07, 03/09, 03/10 disposition: much weaker than baseline, [facility] rehab stay Total Time Total Time Spent Total Time Spent (In Minutes): I personally spent: 40 minutes today on clinical care activities to coordinate discharge including: reviewing chart notes and vital signs discussion with long term care pharmacist examining and counseling the patient counseling the patient's family writing orders documentation Discharge Plan Discharge Items Patient Disposition: Transfer [facility] Reason For Visit: hypoxia, chf, elevated troponin Discharge Diagnosis: Acute hypoxic respiratory failure due to RSV and acute on chronic diastolic heart failure Activity: Resume your previous activity Non-emergency contact: Primary Care Provider Call non-emergency contact if: you have any medication questions and your symptoms worsen Follow-up/Referrals: [facility] [Primary Care Provider] - Diet: Low Sodium (2gm) Addtl Attending Provider Instructions: PT and OT evaluate and treat Continue incentive spirometer and continue flutter valve 4-5X a day until pulmonary symptoms resolve Follow weight 3x a week. Adjust diuretics if weight/edema increasing by more than 3 pounds Gabapentin dose was reduced because of age and renal function, tolerated reduction well with no increase in symptoms Pending Studies at Discharge: No Stand-Alone Forms: My [facility] Skilled Items Patient informed of condition?: Yes DNR: Yes Discharge Level of Care: Skilled Communicable Disease: Yes (RSV) Discharge Prognosis: Stable Lines: None Urinary Catheter: No Medications and DC Order Prescriptions: New guaifenesin 100 mg/5 mL Liquid 100 mg PO Q6H PRN (Reason: cough) Qty: 500 0RF gabapentin 100 mg Capsule 100 mg PO TID Qty: 0 0RF albuterol sulfate 2.5 mg /3 mL (0.083 %) solution for nebulization 2.5 mg inhalation QID PRN (Reason: bronchospasm) Qty: 75 0RF Continued metoprolol succinate 100 mg tablet extended release 24 hr 100 mg PO DAILY Qty: 90 3RF magnesium chloride 64 mg tablet,delayed release (DR/EC) 64 mg PO TID Qty: 270 3RF digoxin 125 mcg (0.125 mg) tablet 125 mcg PO 3XWK Qty: 36 3RF Rx Instructions: TAKE MON, WED, FRI lovastatin 20 mg tablet 20 mg PO DAILY flaxseed oil 1,000 mg capsule 1,000 mg PO DAILY nystatin 100,000 unit/gram cream 1 appln topical DAILY PRN (Reason: BREAKOUTS) potassium chloride 20 mEq tablet extended release 20 meq PO BID Qty: 90 ferrous sulfate 325 mg (65 mg iron) tablet 325 mg PO TID Qty: 180 carbidopa-levodopa 25-250 mg tablet 1 tab PO Q3H PRN (Reason: restless legs) Eliquis 5 mg tablet 5 mg PO BID diltiazem HCl 360 mg capsule,extended release 24 hr 360 mg PO DAILY furosemide [Lasix] 40 mg tablet 40 mg PO DAILY lansoprazole [Prevacid] 30 mg capsule,delayed release(DR/EC) 30 mg PO BID acetaminophen 325 mg tablet 650 mg PO Q4H PRN (Reason: pain) Cerovite Advanced Formula 18-400 mg-mcg tablet 1 tab PO DAILY Ocuvite Tablet 1 tab PO DAILY Discontinued gabapentin 600 mg tablet 600 mg PO TID Discharge Orders: Discharge Order (Routine); Ordered 03/10/23 Ordered By: Leslie Martinez Admission Data Admit Date/Time: 03/05/23 10:30 Attending Provider: Leslie Martinez Admit Provider: Jamie Carcamo Primary Care Provider: Jadyn Barrientos Other Providers: [facility],Home Healthcare; Jamie Carcamo Coding Level of Care Code 52368 INP/OBS DISCH >30 MIN Diagnoses Acute respiratory failure with hypoxia J96.01 CHF exacerbation I50.9 Atrial fibrillation with rapid ventricular response I48.91 Elevated troponin R79.89 RSV (acute bronchiolitis due to respiratory syncytial virus) J21.0 Lower extremity edema R60.0 Restless leg syndrome G25.81 Leg ulcer L97.909
== END 2023-03-10 12:24 | DRG 291 ==
LOC: ED 08:58 → EDINP 10:30 → SUATTDRO 10:30 → 2W 12:36 → 3W 03-09 11:55